=== PATIENT | male | born 1970 | race Caucasian/White ===

== ENCOUNTER 2017-06-01 16:25 | Emergency (ER) | payer MEDICAID, SELFPAY ==
[2017-06-01 16:26] VITALS: BP 170/102; PULSE 92; RESP 20; TEMP 36.7; O2SAT 97; BMI 43.9
--- NOTE | 2017-06-01 16:50 | RAD_ITS ---
STUDY: X-RAY CHEST REASON FOR EXAM: Male, 46 years old. Cold symptoms. Fever. TECHNIQUE: PA and lateral views of the chest. COMPARISON: None. FINDINGS: Group counseling The lungs are clear and expanded. There is no demonstrated pleural abnormality. Normal size heart. Normal mediastinum and helene. Normal visualized pulmonary arteries. Normal visualized aortic arch and descending thoracic aorta. There are mild degenerative changes of the visualized thoracic spine. Normal visualized ribs, clavicles, and shoulders. There is no demonstrated abnormality of the visualized soft tissue structures of the upper abdomen. RAD/Chest PA and Lateral IMPRESSION: No acute cardiopulmonary disease. Electronically Signed: George Camarena DO at 17:34 EST Tel [phone], Service support ,
[2017-06-01] MEDS: 0.9% Normal Saline 1,000 ML 1000 ML IV (16:59)
[2017-06-01 17:05] LABS: Absolute Neutrophil Count 4.9 X10^3/uL (2.0-7.7); Basophil# 0.01 X10^3/uL; Basophil% 0.2 % (0-1); Eosinophils% 1.5 % (0-5); Hematocrit 40.4 % (40-54); Hemoglobin 13.8 g/dl (13.0-16.5); Lymphocyte % 18.1 % (19-41); Mean Corp Hgb Conc 34.2 g/gl (32-36); Mean Corpuscular Hgb 29.6 pg (27.0-32.0); Mean Corpuscular Volume 86.7 fL (80-94); Mean Platelet Vol. 9.3 fl (6.2-12.0); Monocyte# 0.43 X10^3/uL; Monocyte% 6.5 % (0-10); Neutrophil # 4.86 X10^3/uL (2.7-7.7); Neutrophil % 73.4 % (47-70); POSITIVE COUNT NO; POSITIVE DIFFERENTIAL NO; POSITIVE MORPHOLOGY NO; Platelet Count 228 K/mm3 (150-450); RBC Distribution Width SD 43.4 fl (35.1-43.9); Red Blood Count 4.66 M/mm3 (4.6-6.2); White Blood Count 6.6 K/mm3 (4.4-11.0)
[2017-06-01 17:08] LABS: International Normalized Ratio 0.9; Prothrombin Time (Protime)PT. 12.1 SECONDS (11.7-14.9)
[2017-06-01 17:09] LABS: Partial Thromboplast Time 29.2 Seconds (24.1-36.2)
[2017-06-01 17:12] LABS: Erythrocyte Sedimentation Rate 10 mm/hr (0-15)
[2017-06-01 17:23] LABS: AST(SGOT) 35 U/L (15-37); Alanine Aminotransfer ALT/SGPT 37 U/L (16-61); Albumin, Serum 3.6 g/dL (3.2-5.0); Alkaline Phosphatase 43 U/L (45-117); Anion Gap 11 (5-15); BUN 17 mg/dL (7-18); Bilirubin, Direct 0.14 mg/dL (0.00-0.30); Calcium,Total 8.5 mg/dL (8.5-10.1); Chloride 108 mmol/L (98-107); Creatinine, Serum 1.13 mg/dL (0.70-1.30); EST Glomerular Filtration Rate 74 mL/min (>60); Est Glom Filt Rate - Afr Amer 90 mL/min (>60); Estimated Creatinine Clearance 81.68 ml/min; Globulin 3.4 g/dL (2.2-4.2); Glucose 88 mg/dL (74-106); Potassium 3.5 mmol/L (3.5-5.1); Sodium Level 141 mmol/L (136-145)
[2017-06-01 19:21] LABS: Bacteria 0 SEEN /hpf (None Seen); Mucous, Urine 0 SEEN /hpf (<or=2+); Red Blood Cells-Urine 0 SEEN /hpf (0-5); Squamous Epithelial Cells - UA 0 SEEN /hpf (0-5); White Blood Cells 0 SEEN /hpf (0-5)
[2017-06-01 19:34] LABS: Color, Urine Yellow (Yellow); Glucose, Dipstick Normal (Normal); Ketone-Dipstick Negative (Negative); Leukocyte Esterase-Dipstick Negative /ul (Negative); Nitrite-Dipstick Negative (Negative); Occult Blood-Urine 25 /ul (Negative); Protein-Dipstick Negative (Negative); Urine Bilirubin Dipstick Negative (Negative); Urine Clarity Clear (Clear); Urine Urobilinogen Normal (Normal)
--- NOTE | 2017-06-01 19:43 | ED.VISSUMM ---
- ER Visit Summary Date of Service: 06/01/17 Chief Complaint: Rash and blood in stool History of Present Illness: The patient is a [address] Rubi. He reports that he has a rash on his legs that began last night. He denies any injuries. States that he has had a fever to 101. He has had a cough productive yellow sputum without blood for the past 5 days. He has mild shortness of breath. Patient reports that he has had a proximal 10 episodes of diarrhea today. The last one was bloody. Patient has had sick contacts. Has not been camping out of the country. No possible bad food exposure. Does not drink well water. No recent antibiotic use. Physical Examination: Vitals: Stable. Afebrile. General: Well-nourished and well-developed. Head: Normocephalic atraumatic. Neck: Supple, no lymphadenopathy. No JVD. Nontender. Cardiovascular: Regular rate and rhythm. No murmurs. Respiratory: No respiratory distress. Clear to auscultation bilaterally. Abdominal: Soft, nontender, nondistended, normal bowel sounds. No guarding, rebound, or peritoneal signs. Back: Nontender. Extremities: Nontender, no edema. Skin: Purpuric rash to the medial sides of his legs bilaterally. This is approximately 3 cm wide and 6 cm long. It is symmetric. It is not palpable. There are no petechiae. Neurologic: Alert and oriented ?3. Cranial nerves II through XII are intact. Normal strength and sensation. Psych: Normal affect. Test Results: CBC is remarkable for segment neutrophils of 73 lymphocytes of 18. His platelets are normal at 228. Chem-7 is more for chloride of 108. Coags are normal. LFTs marked for an alk phos of 43. UA shows occult blood. ESR is 10. CRP is 13.7. Chest x-ray shows chronic changes. Emergency Department Course and Treatment: Patient is resting comfortably and does not appear ill. There is no evidence that he has DIC. His platelets are normal. He does not have ITP or TTP. He had a stool here that was brown, but heme positive. There was bright red blood on the tissue. I do not appreciate any anal fissure. He does not have external hemorrhoids. Treatment Plan: At this time I do not feel that any further workup would be done on him as an inpatient. However, I do not have an explanation for the purpura to his legs. He was discussed with Dr. Joshua Lindsey III and will follow up in the office in 2 days for further evaluation. Return to the emergency department for any worsening symptoms. Disposition: To home in improved and stable condition. Impression: 1. Purpura to legs. 2. URI. 3. Bloody diarrhea. This note was generated with fake company 2[employer] dictation software. It may contain incorrect words, spelling, and punctuation that were not noted in review of the chart prior to signing ED Disposition - Plan for ED Patient: Disposition: Home or Assisted Living Chief Complaint: General Illness Instructions: ED Upper Resp Infec No Abx Tx Referrals: Wm Rubi MD [Primary Care Provider] - Joshua Lindsey Jr. [HONORARY STAFF] - 3-5 Days
[2017-06-01 19:58] VITALS: BP 151/91; PULSE 96; RESP 20; O2SAT 97
== END 2017-06-01 19:59 | disposition home or self-care (01) ==
PROVIDERS: Emergency Provider Emergency Medicine; Family Provider Family Medicine; PCP Family Medicine
DX: D69.2 Other nonthrombocytopenic purpura (principal); J06.9 Acute upper respiratory infection, unspecified; K92.1 Melena; R19.7 Diarrhea, unspecified; I10 Essential (primary) hypertension
CPT/HCPCS: 71046; 80048; 80076; 81001; 82274; 85025; 85610; 85652; 85730; 86140; 96360; 96361; 99284; J7030; A4216

== ENCOUNTER → 2017-08-10 12:26 | Outpatient (CLI) | payer MEDICAID, SELFPAY ==
--- NOTE | 2017-08-10 12:55 | RAD_ITS ---
STUDY: X-RAY - LUMBAR SPINE REASON FOR EXAM: Male, 47 years old. Back pain, chronic arthritis, numbness in bilateral legs, sharp pain. TECHNIQUE: 3 view(s) of the lumbar spine were obtained. COMPARISON: None FINDINGS: Normal lumbar lordosis. There is no substantial scoliosis. There is a normal alignment of the vertebrae. Mild sclerosed endplates with mild joint space narrowing L4-5, more L5 S1. There is facet arthropathy. Suspicion for nondisplaced spondylolysis L5-S1, not excluded L4-5. The soft tissue structures are unremarkable. RAD/Lumbar Spine 2 or 3 Views IMPRESSION: Lower lumbar degenerative changes, spondylolysis L5-S1 suspected, not excluded L4-5 without listhesis. Electronically Signed: Margo Long MD at 6:33 EDT , Service support ,
== END ==
PROVIDERS: Family Provider Family Medicine; PCP Family Medicine
DX: M54.5 Low back pain (principal)
CPT/HCPCS: 72100

== ENCOUNTER 2017-10-20 14:14 | Emergency (ER) | payer MEDICAID, SELFPAY ==
[2017-10-20 14:15] VITALS: BP 161/92; PULSE 110; RESP 20; TEMP 37; O2SAT 97; BMI 44.3
--- NOTE | 2017-10-20 15:30 | RAD_ITS ---
STUDY: X-RAY - RIGHT FOOT CLINICAL: Male, 47 years old. Right foot puncture wound TECHNIQUE: 3 view(s) of the foot. COMPARISON: None. FINDINGS: No acute osseous findings. At the plantar aspect of the base of the fourth metatarsal region, there is a metallic needle within the soft tissues. RAD/Foot min 3 Views IMPRESSION: Foreign body as above Electronically Signed: Dick Mireles DO at 16:09 EDT Tel , Service support ,
--- NOTE | 2017-10-20 15:40 | ED.VISSUMM ---
- ER Visit Summary Date of Service: 10/20/17 Chief Complaint: [Pain right foot History of Present Illness: The patient is a 47 M [presents to the emergency department complaint of pain in his right foot. Patient states that he stepped on a sewing needle 5 days ago. Patient was seen by his primary care physician 2 days ago, Dr. Rubi. Patient had x-rays that showed remaining portion of needle still in the foot. Patient states that an attempt was made to find the needle and remove it unsuccessfully. Patient was referred for follow-up with surgeon and with Michelle but states that he cannot get to the dining. Patient was started on an antibiotic and states he has had increased pain over the last couple of days. Patient denies any fever. Patient denies any increased redness to the foot.] Physical Examination: [Right foot-patient has a small puncture wound noted to the plantar midfoot that is tender to palpation. No significant foreign body palpated. No lymphangitic streaking or significant cellulitis noted.] Test Results: [X-rays of the right foot were obtained] which showed foreign body over the base of the fourth metatarsal. Emergency Department Course and Treatment: [Case was discussed with of podiatry who presented to the emergency department to evaluate patient and review x-rays. It was felt that patient would benefit from outpatient follow-up and removal in the operating room.] Treatment Plan: [Patient will be given a prescription for [place] for pain and advised to continue with the antibiotics. Patient did not want crutches] Disposition: [Discharged home in stable condition. Patient advised to return if fever, increased redness, swelling, or condition should worsen in any way.] Impression: [Right foot foreign body-retained] This note was generated with [employer] dictation software. It may contain incorrect words, spelling, and punctuation that were not noted in review of the chart prior to signing ED Disposition - Plan for ED Patient: Chief Complaint: Lower Extremity Injury Referrals: Wm Rubi MD [Primary Care Provider] -
--- NOTE | 2017-10-20 16:34 | CON.PCM_ITS ---
Problem List (1) Foreign body in right foot Status: Acute (2) Right foot pain Status: Acute Reason for Consult Date of Consultation: 10/20/17 Reason for Consultation: right foot needle pain History of Present Illness: The patient is a 47 year old M was seen bedside in the emergency room for right foot pain. He stepped on a needle this past week (five days ago) at home and pulled part of the fragment out. He has continue pain and swelling. He was seen by his PCP, Dr. Rubi who started him on oral antibiotics and attempted to remove the needed in the clinical setting; it remains in the foot. He relates he got updated in 2011. Past Medical History Allergies Sulfa (Sulfonamide Antibiotics) Allergy (Verified 10/20/17 14:17) Unknown Home Medications: Ambulatory Orders Medication Instructions Recorded Anxiety Med 08/26/16 Bp Med 08/26/16 Hydrocodone/Acetaminophen [[place] 1 - 2 ea PO 4X/DAY PRN PRN 3 Days 10/20/17 5-325 Tablet] #12 tab Surgical History: tonsillectomy Lives: - - he is currently not working Smoking Status: Never smoker Review of Systems Constitutional: Denies: Chills, Fever, Weakness, Fatigue Cardiovascular: Denies: Chest Pain, Claudication Respiratory: Denies: Shortness of Breath Gastrointestinal: Denies: Nausea, Vomiting Musculoskeletal: Reports: Foot Pain. Denies: Leg Pain Skin: Denies: Rash, Skin Changes, Wounds Neurological: Denies: Numbness, Tingling Hematologic/ Lymphatic: Denies: Easy Bruising - Physical Exam General: Alert, Oriented x3, Cooperative HEENT: Atraumatic Extremities: No cyanosis, Capillary Refill Less than 3 Seconds - all digits right foot, Peripheral Pulses Normal - 2/4 PT and DP right lower extremity Skin: Ulcer/ Wound - pinpoint skin escoriation at level of plantar needle entry likely from local anesthetic administration from his recent attempted removal in the clinical setting with peripheral edema. there is no kelly erythema, purulence, fluctuance on palpation, necrosis, active drainage or acute infection signs Musculoskeletal: No Muscle Wasting, Tenderness - plantar arch palpation discmofort; compartments remain soft. no pain or crepitus noted with manipulation or palpation of the midfoot or the metetatarsal phalangeal joints. , - - negative alex and chapman sign bilateral. active range of motion of ankle and all digits noted right lower extremity Neurological: Sensory exam intact to light touch and pain - foot and ankle dermatomes., - Psych/Mental Status: Normal Affect, Appropriate Vital Signs Temp Pulse Resp BP Pulse Ox 98.6 F 110 H 20 H 161/92 H 97 10/20/17 14:15 10/20/17 14:15 10/20/17 14:15 10/20/17 14:15 10/20/17 14:15 Oxygen Delivery Method Room Air Weight: 136.078 kg Body Mass Index (BMI) 44.3 Assessment/Plan All Active Problems Foreign body in right foot (Acute) Right foot pain (Acute) Right foot foreign body; needle Right foot pain I reviewed and discussed his case. He had updated foot x-rays obtained while in the emergency room and these are reviewed and discussed. There appears to be a 1-1/2 cm metallic body consistent with a needle please that is entrapped into the plantar arch of the foot beyond the skin layers. This also appears to be deep to the fourth metatarsal proximal diaphysis and base. There are no acute fractures or dislocations or soft tissue emphysema or other foreign bodies noted. This is painful and he has been wearing a surgical shoe for protection. This was evaluated and appears to be appropriate. I recommend he keep weight off of his foreign body site by placing weight on his heel and limiting activity. He was started on antibiotics by Dr. Rubi and I recommend he complete his course. There is no active drainage and a culture could not be obtained. If his local symptoms of infection noted after discharge from the emergency room he was advised to call the foot and ankle center immediately. His tetanus was updated in 2011 and this is noted. I recommend removal of the foreign body in the operating room setting under guided fluoroscopy. He will be scheduled for next week. The [facility] and ankle center surgical corsetier will contact him on Sunday. The surgical indications, planned procedure, benefits, risks, complications, and anticipated healing time and management were discussed in detail with patient. He understands and elects to proceed at this time. This can be done in the outpatient setting under general local anesthesia. He understands an incision to the plantar aspect of the foot will be required. To take norco as needed for pain control. He was advised on safe use. I answered all his questions. Thank you very much for the consultation. This case was discussed with emergency room physician Dr. Preciado. Maura Valles DPM, [facility] [phone]
--- NOTE | 2017-10-20 16:52 | DCINST.ED_ITS ---
ED Disposition - Plan for ED Patient: Chief Complaint: Lower Extremity Injury Instructions: ED Foreign Body Soft Tissue Prescriptions: Hydrocodone/Acetaminophen [[place] 5-325 Tablet] 1 - 2 ea PO 4X/DAY PRN PRN 3 Days #12 tab PRN Reason: Pain Referrals: Wm Rubi MD [Primary Care Provider] - Maura Valles DPM [STAFF PHYSICIAN] - 3-5 Days
[2017-10-20 16:59] VITALS: BP 119/73; PULSE 91; RESP 18
== END 2017-10-20 16:59 | disposition home or self-care (01) ==
LOC: ED 16:42
PROVIDERS: Emergency Provider Emergency Medicine; Family Provider Family Medicine; PCP Family Medicine
DX: M79.5 Residual foreign body in soft tissue (principal); I10 Essential (primary) hypertension; F41.9 Anxiety disorder, unspecified; Z79.899 Other long term (current) drug therapy
CPT/HCPCS: 73630; 99282

== ENCOUNTER → 2017-10-23 14:54 | Outpatient (CLI) | payer MEDICAID, SELFPAY ==
[2017-10-23 18:02] LABS: Absolute Neutrophil Count 3.9 X10^3/uL (2.0-7.7); Basophil# 0.01 X10^3/uL; Basophil% 0.2 % (0-1); Eosinophil# 0.05 X10^3/uL; Eosinophils% 0.8 % (0-5); Hematocrit 45.1 % (40-54); Hemoglobin 15.7 g/dl (13.0-16.5); Lymphocyte % 24.8 % (19-41); Mean Corp Hgb Conc 34.8 g/gl (32-36); Mean Corpuscular Hgb 30.1 pg (27.0-32.0); Mean Corpuscular Volume 86.6 fL (80-94); Mean Platelet Vol. 9.9 fl (6.2-12.0); Monocyte# 0.52 X10^3/uL; Monocyte% 8.6 % (0-10); Neutrophil # 3.94 X10^3/uL (2.7-7.7); Neutrophil % 65.1 % (47-70); POSITIVE COUNT NO; POSITIVE DIFFERENTIAL NO; POSITIVE MORPHOLOGY NO; Platelet Count 310 K/mm3 (150-450); RBC Distribution Width CV 14.2 % (11.6-14.6); RBC Distribution Width SD 45.3 fl (35.1-43.9); Red Blood Count 5.21 M/mm3 (4.6-6.2); White Blood Count 6.1 K/mm3 (4.4-11.0)
[2017-10-23 18:11] LABS: AST(SGOT) 19 U/L (15-37); Alanine Aminotransfer ALT/SGPT 40 U/L (16-61); Albumin, Serum 3.7 g/dL (3.2-5.0); Alkaline Phosphatase 56 U/L (45-117); Anion Gap 10 (5-15); BUN 13 mg/dL (7-18); BUN/Creat Ratio 8.3 RATIO (10-20); Calcium,Total 8.6 mg/dL (8.5-10.1); Chloride 111 mmol/L (98-107); Creatinine, Serum 1.56 mg/dL (0.70-1.30); EST Glomerular Filtration Rate 51 mL/min (>60); Est Glom Filt Rate - Afr Amer 62 mL/min (>60); Globulin 3.8 g/dL (2.2-4.2); Glucose 146 mg/dL (74-106); Potassium 3.6 mmol/L (3.5-5.1); Protein, Total 7.5 g/dL (6.4-8.2); Sodium Level 141 mmol/L (136-145)
== END ==
PROVIDERS: Visit Provider Family Medicine
DX: Z01.818 Encounter for other preprocedural examination (principal)
CPT/HCPCS: 36415; 80053; 85025

== ENCOUNTER 2017-10-25 07:19 | Day surgery (SDC) | payer MEDICAID, SELFPAY ==
--- NOTE | 2017-10-25 07:28 | EKG12_ITS ---
Test Reason : PRE OP Blood Pressure : / mmHG Vent. Rate : 098 BPM Atrial Rate : 098 BPM P-R Int : 142 ms QRS Dur : 088 ms QT Int : 350 ms P-R-T Axes : 043 007 043 degrees QTc Int : 446 ms Normal sinus rhythm Normal ECG When compared with ECG of 29-APR-2016 20:59, No significant change was found Confirmed by ARMAND OCAMPO, BERNABE ([id number]), non linear editor SHAHRIAR MARTINS ([id number]) on 10/30/2017 1:09:05 PM Referred By: Maura Valles Confirmed By:BERNABE ACUNA MD
[2017-10-25 07:43] VITALS: BP 152/94; PULSE 102; RESP 16; TEMP 36.3; O2SAT 98; BMI 44.9
[2017-10-25] MEDS: Cefazolin 2 GM in 0.9% Normal Saline 100 ML IV (09:24)
[2017-10-25] MEDS: Bupivacaine Mpf 0.5% 30 ML VIAL (09:24)
--- NOTE | 2017-10-25 09:30 | RAD_ITS ---
STUDY: X-RAY - RIGHT FOOT CLINICAL: Male, 47 years old. Foreign body removal. TECHNIQUE: 2 coned down intraoperative view(s) of the foot. COMPARISON: Comparison is made with prior study dated October 20, 2017. FINDINGS: The previously seen radiopaque foreign body overlying the base of the fourth metatarsal is not seen at this time. RAD/Foot 2 Views IMPRESSION: The previously seen foreign body overlying the base of the fourth metatarsal is not seen at this time. Electronically Signed: Nael Duvall MD at 13:08 EDT Tel [phone], Service support ,
[2017-10-25 10:01] VITALS: BP 111/76; BP 152/94; PULSE 87; RESP 16; TEMP 36.1; O2SAT 99
--- NOTE | 2017-10-25 10:03 | PCM.IMDPSTOP ---
Problem List (1) Foreign body in right foot Status: Acute Qualifiers: Encounter type: subsequent encounter Qualified Code(s): S90.851D - Superficial foreign body, right foot, subsequent encounter (2) Right foot pain Status: Acute Immediate Post-Op Note Date of Procedure: 10/25/17 Primary Surgeon/Physician: Maura Valles DPM bi manager: none Pre-Operative Diagnosis: retained painful foreign body right foot Post-Operative Diagnosis: retained painful foreign body right foot Surgery/Procedure Performed:: removal of right foot foreign body Description of Surgical Findings:: no purulence or necrosis metallic needle removed measures about 1.3 cm length see detailed operation report The patient tolerated the procedure and anesthesia well. He was transported to the PACU with vital signs stable and vascular status intact to the right lower extremity. He will be discharged home upon continued stability. Hospital transportation has been arranged. Deep wound cultures was taken. Postoperative x-rays were obtained prior to leaving the operative room demonstrating remove foreign body. Postoperative orders were entered electronically. Estimated Blood Loss: < 50 mL Specimen's removed: needle foreign body Type of Anesthesia:: Local MAC - preoperative injection: 1:1 mix of 1% lidocaine plain and 0.5% Marcaine plain administered in typical right lower extremity tibial nerve block and local infiltration; 13 mL - Admit VTE Documentation VTE Present on Admission: No VTE Mechan Device Prophylaxis: SCD's VTE Pharm Prophylaxis ordered?: No Reason prophylaxis not ordered:: Treatment Not Indicated
[2017-10-25 10:05] VITALS: BP 105/65; BP 152/94; PULSE 88; RESP 16; O2SAT 98
--- NOTE | 2017-10-25 10:06 | OP.PN_ITS ---
Problem List (1) Foreign body in right foot Status: Acute Qualifiers: Encounter type: subsequent encounter Qualified Code(s): S90.851D - Superficial foreign body, right foot, subsequent encounter (2) Right foot pain Status: Acute Immediate Post-Op Note Date of Procedure: 10/25/17 Primary Surgeon/Physician: Maura Valles DPM state farm agent: none Pre-Operative Diagnosis: retained painful foreign body right foot Post-Operative Diagnosis: retained painful foreign body right foot Surgery/Procedure Performed:: removal of right foot foreign body Description of Surgical Findings:: no purulence or necrosis metallic needle removed measures about 1.3 cm length see detailed operation report The patient tolerated the procedure and anesthesia well. He was transported to the PACU with vital signs stable and vascular status intact to the right lower extremity. He will be discharged home upon continued stability. Hospital transportation has been arranged. Deep wound cultures was taken. Postoperative x-rays were obtained prior to leaving the operative room demonstrating remove foreign body. Postoperative orders were entered electronically. Estimated Blood Loss: < 50 mL Specimen's removed: needle foreign body Type of Anesthesia:: Local MAC - preoperative injection: 1:1 mix of 1% lidocaine plain and 0.5% Marcaine plain administered in typical right lower extremity tibial nerve block and local infiltration; 13 mL - Admit VTE Documentation VTE Present on Admission: No VTE Mechan Device Prophylaxis: SCD's VTE Pharm Prophylaxis ordered?: No Reason prophylaxis not ordered:: Treatment Not Indicated
[2017-10-25 10:10] VITALS: BP 108/93; BP 152/94; PULSE 93; RESP 16; O2SAT 99
[2017-10-25 10:11] VITALS: BP 114/78; BP 152/94; PULSE 86; RESP 18; TEMP 36.1; O2SAT 99
--- NOTE | 2017-10-25 10:13 | OP.PCM_ITS ---
Problem List (1) Foreign body in right foot Status: Acute Qualifiers: Encounter type: subsequent encounter Qualified Code(s): S90.851D - Superficial foreign body, right foot, subsequent encounter (2) Right foot pain Status: Acute Report of Operation Date of Procedure: 10/25/17 Pre-Operative Diagnosis: retained painful foreign body right foot Post-Operative Diagnosis: retained painful foreign body right foot Surgery/Procedure Performed:: removal of right foot foreign body Description of Surgical Findings:: Hemostasis: Anatomic dissection. Tourniquet was not utilized. Materials: 2-0 nylon Complications: None Specimens: Metallic foreign body removed suction drum drier operator: none Type of Anesthesia:: Local MAC - preoperative injection: 1:1 mix of 1% lidocaine plain and 0.5% Marcaine plain administered in typical right lower extremity tibial nerve block and local infiltration; 13 mL Specimen's removed: needle foreign body Estimated Blood Loss (mL): < 50 mL Description of Procedure: Indications: his is a 47-year-old male with no significant past medical history who stepped on a needle approximately 1-1/2 weeks ago. He relates he pulled hard out in the remainder of the needle deep in the foot. His primary care physician try to perform an in office procedure to the right of this and this was not successful. The patient also try to get this out on his own. He has continued pain and now has worsening inflammation and swelling to this area. Clinically his neurovascular status is intact with palpable PT and DP pulses the right lower extremity and there is an excoriation to the plantar foot at the presumed entry point as well as previous local anesthetic injection site. There is no purulence on expression, drainage, or odor. There is edema and slight inflammation erythema adjacent to the site. There is pain on palpation to the aspiration site and adjacent to the sites without pain with adjacent joint manipulation. The preoperative indications, planned procedure, possible benefits, risks, and anticipated healing time is were discussed in detail the patient. He understands and elects to proceed with surgery at this time. He understands complications may include but are not limited to the following: Infection, delayed or nonhealing, continued retained foreign body, chronic regional pain syndrome, numbness, scarring, continued pain and swelling, allergic reaction, loss of limb function or life. Informed surgical consent and the surgical limb were signed. His preoperative clearance and history and physical exam was reviewed from Dr. Jolliff. His preoperative CMP and CBC were also reviewed without gross abnormalities. Procedure in detail: Patient was transferred to the operating room via cart and placed on the operating table in supine position. Final verification the patient, surgery, limb designation was performed via the timeout procedure. A well-padded pneumatic right ankle tourniquet was placed however this was not utilized. Preoperative local anesthetic was administered as noted above. The MAC anesthesia was initiated by the anesthesia team. Antibiotics were administered as ordered. The right lower extremity was prepped and draped in the usual aseptic manner. Intraoperative fluoroscopy was utilized to triangulate and locate the foreign body which is adjacent to the most distal most excoriation site. Next, a 1-1/2 cm linear incision was made through the skin and blunt dissection was performed down with a hemostat. Care is taken to identify, retract, and protect all neurovascular structures at this time and throughout the remainder of the procedure. Suction was utilized to control hemostasis and the tissue was gently dissected through adipose layer until the plantar fascia band was identified. Upon dissection glistening of the metallic foreign body was visualized and a hemostat was used to extract this from the foot. This was removed in total and intraoperative fluoroscopy was utilized to confirm removal of the entire foreign body. No purulence or deep necrosis was noted. Aerobic and anaerobic cultures were obtained. Copious saline irrigation was performed. The skin edges were reapproximated with 2-0 nylon utilizing no touch technique. A postoperative dressing consisting of Betadine gauze, dry gauze, Kerlix, Markie wrap were applied. After procedure: The patient tolerated the procedure and anesthesia well. He will be transferred to the PACU vital signs stable and vascular status intact. Postoperative x-rays were reviewed as noted. Aerobic and anaerobic culture results are pending and were taken in case of infection develops during the postoperative course. He already has an offloading Cam walker boot with offloading liners and he was advised to only heel weightbearing use crutches for assistance. He was advised on safe and proper pain medication use of [place]. He was advised to ice and elevate his limb. He was advised to keep his dressing clean dry and intact until he follows up with me at the foot and ankle center in 1 week. All of his postoperative orders were entered electronically and he will be discharged home today. Maura Valles DPM, [facility]
--- NOTE | 2017-10-25 10:16 | PCM.DC.POD ---
Discharge Diet: No Restrictions Weight Bearing Status: Partial weight bearing - right with cam walker boot and crutches for assistance Keep extremity elevated above heart level: Right Leg Call your doctor if your incision/area has: Continuous Slow Oozing, Sudden Increased Bleeding, Increased Pain/ Swelling, Increased Redness, Foul Smelling Discharge, Swelling at the incision site Call your doctor if you observe: Fever of 101 or Higher, Numbness or Tingling, Calf discomfort, Uncontrolled pain Cleanse incision/area with: Keep Dressing Clean & Dry Allergies/Adverse Reactions: Allergies Sulfa (Sulfonamide Antibiotics) Allergy (Verified 10/23/17 13:23) Unknown Medications to take at Discharge Hydrocodone/Acetaminophen [[place] 5-325 Tablet] 1 - 2 ea PO 4X/DAY PRN PRN 3 Days #12 tab 10/20/17 Ciprofloxacin [Cipro] 500 mg PO BID 10/23/17 Doxycycline 100 mg PO BID 10/23/17 Etodolac 400 mg PO BID 10/23/17 Lisinopril [Zestril] 30 mg PO DAILY 10/23/17 Sertraline HCl [Zoloft] 50 mg PO DAILY 10/23/17 Hydrocodone/Acetaminophen [Hydrocodon-Acetaminophen 5-325] 1 - 2 tab PO Q6H PRN PRN #10 tab 10/25/17 The following prescriptions were given: Hydrocodone/Acetaminophen [Hydrocodon-Acetaminophen 5-325] 1 - 2 tab PO Q6H PRN PRN #10 tab PRN Reason: Pain Primary Care Physician: Wm Rubi MD [Primary Care Provider] - Test Results: Please Follow Up With: Maura Valles DPM When: 1 week at [facility]; [phone] Proposed Discharge Date: 10/25/17
[2017-10-25 11:17] VITALS: BP 152/94
== END 2017-10-25 11:17 | disposition home or self-care (01) ==
LOC: SDC 07:20 → AC 07:21
PROVIDERS: Family Provider Family Medicine; PCP Family Medicine; Visit Provider Podiatrist
PROC: (CPT 28190; principal; 2017-10-25 08:50)
DX: M79.5 Residual foreign body in soft tissue (principal); I10 Essential (primary) hypertension; F32.9 Major depressive disorder, single episode, unspecified; F41.9 Anxiety disorder, unspecified; M46.92 Unspecified inflammatory spondylopathy, cervical region; M46.96 Unspecified inflammatory spondylopathy, lumbar region; Z79.899 Other long term (current) drug therapy; Z87.891 Personal history of nicotine dependence
CPT/HCPCS: 28190; 73620; 76000; 87070; 87075; 87205; 93005; J7120

== ENCOUNTER → 2017-12-19 12:06 | Outpatient (CLI) | payer MEDICAID, SELFPAY | PROVIDERS: Family Provider Family Medicine; PCP Family Medicine; Visit Provider Nurse Practitioner Family | DX: M54.2 Cervicalgia (principal) | CPT/HCPCS: 72050 ==

== ENCOUNTER 2018-01-10 15:30 | Outpatient (RCR) | payer MEDICAID, SELFPAY ==
--- NOTE | 2018-01-04 16:20 | HP.PTEVAL ---
Patient's Visit Information KISHAN MARTINS is a 47 year old M referred to Physical Therapy by FAITH Summers with a diagnosis of LUMBAR DDD, SPONDYLOSIS, RADICULOPATHY, STENOSIS AND FACET ARTHROPATHY.. Date of Evaluation: 01/04/18 Physical Therapist: Rosetta Barker - Visit Plan Frequency: 2-3x /Week Duration: 4-6 Weeks Plan: AQUATIC THERAPY FOR PAIN RELEIF, POSTURE CORRECTION/STRENGTHENING, INSTRUCTION IN APPROPRIATE BODY MECHANICS AND ACTIVITY MODIFICATIONS. DLS STARTING WITH A NEUTRAL SPINE PROGRESSING ROM TOLERATED. RADHA LE ROM, STRETCHING AND STRENGTHENING. HEP INSTRUCTION. - Subjective Subjective: Work/Leisure: UNEMPLOYEED. Disability: NO. Present symptoms: LOW BACK PAIN - CONSTANT. RADHA LE PAIN, NUMBNESS AND TINGLING OF ENTIRE LEGS RIGHT > LEFT THAT IS INTERMITTENT. Present since: AGE 35. Pain Scale: LBP: WORST 9/10, LEAST 5/10. LEGS: WORST 8/10, LEAST 0/10. Currently: LBP 7/10. LE'S 7/10. Commenced as a result of: NO APPARENT REASON. Symptoms at onset: LOW BACK. Worse: WALKING A LOT. PRONLONGED SITTING. Better: SITTING FOR SHORT PERIODS. STEROID PILLS THAT HE STARTED TODAY. Disturbed sleep: YES. Previous history/Previous treatment: PHYSICAL THERAPY AT [facility]. BENIGNO X [address] ABOUT [address] TAPIA - HELPED FOR ABOUT A WEEK. NO BACK SURGERY. CHIROPRACTIC ESTIM AND NOT SURE HOW MANY TIMES OR WHAT ELSE THEY DID. Coughing/sneezing/straining: NEGATIVE. Gait: NO AD'S. Difficulty initiating urinatin: NO. Accidents: TRIPPED OVER GARDEN HOSE A FEW YEARS AGO AND DISLOCATED RIGHT SHOULDER. Unexplained weight loss: NO. Imaging: LOW BACK X-RAY. NO MRI BUT WANTS TO HAVE ONE. PMH: NECK AND SHOULDER PAIN. HTN. ANXIETY. Recent major surgery: UNREMARKABLE. - Objective Sitting/Standing Posture: POOR. Lordosis: REDUCED. Lateral shift: NO. Relevant shift: N/A. Active Correction of posture: NE. Other Observations: INDEP GAIT AND TRANSFERS WITHOUT AD. Motor deficit: RADHA LE'S 5/5 WITH MMT'ING EXCEPT FOR HIPS GRADED 4/5. Sensory deficit: DECREASED RIGHT LATERAL THIGH LIGHT TOUCH COMPAIRED TO LEFT. ROM deficit: RADHA LE HS, HIP EXTERNAL ROTATOR AND GASTROC SOLEUS TIGHTNESS. Reflexes: RIGHT QUAD AND ACHILLES 1/2, LEFT QUAD AND ACHILLES 2/2. Dural Signs: POSITIVE RADHA LE DURAL SIGNS. Lumbar mvmt loss: flex - MOD. ext - MOD. R SG - MOD. L SG - MOD. C/O MILD INCREASED LBP WITH LUMBAR ROM TESTING ALL PLANES. Core strength: POOR. Palpation: C/O MILD TENDERNESS WITH PALPATION OF THE LOWER LUMBAR AND SACRAL REGIONS INTO RADHA HIPS. - Goals Goal 1:: DECREASE C/O LOW BACK AND RADHA LE SX'S. Goal Time Frame: 4-6 Weeks Goal 2:: IMPROVE SITTING, BENDING, LIFTING, STANDING, WALKING , TRAVEL AND EMPLOYMENT/HOMEMAKING FUNCTION Goal Time Frame: 4-6 Weeks Goal 3:: INSTRUCT IN PROPHYLAXIS Goal Time Frame: 4-6 Weeks - Rehabilitation Potential Rehabilitation Potential: Fair - Anticipated Interventions Patient/Client Instruction: Educate patient on: Condition, Plan of Care, Risk Factors, Benefits of Fitness Program For the Purpose of:: To improve self management Therapeutic Exercise to Include: Strength training, Body mechanics, Postural training, Flexibilty training, In an aquatic setting, Dynamic Lumbar Stabilization For the Purpose of:: To decrease pain, To increase ROM, To improve muscle performance and motor function, To increase tolerance to activity/condition/position, To improve ability of physical actions for home/community/work/leisure, To improve gait and locomotor functions Thank you for the opportunity to evaluate your patient. For Medicare and Medicare HMO plans, please review the plan of care and approve it. It will need to be FAXED BACK to us at [phone] for Medicare purposes. Please let me know if there are questions or concerns regarding this plan of care. Physician Signature: Date:
--- NOTE | 2018-02-07 12:37 | HP.PT.NRP ---
HP - Discharge Summary (1) - Patient Information KISHAN MARTINS was seen in my office for initial evaluation on 01/04/18. The following Plan of Care was established for this patient: Initial Frequency: 2-3x /Week Initial Duration: 4-6 Weeks - Anticipated Interventions Patient/Client Instruction: Educate patient on: Condition, Plan of Care, Risk Factors, Benefits of Fitness Program For the Purpose of:: To improve self management Therapeutic Exercise to Include: Strength training, Body mechanics, Postural training, Flexibilty training, In an aquatic setting, Dynamic Lumbar Stabilization For the Purpose of:: To decrease pain, To increase ROM, To improve muscle performance and motor function, To increase tolerance to activity/condition/position, To improve ability of physical actions for home/community/work/leisure, To improve gait and locomotor functions This patient was last seen in our office . Pertinent comments regarding their Physical therapy will appear below: This patient has not returned to Physical Therapy and is appropriate to return to MD for further follow-up as needed. At this point I will be discontinuing this patient from physical therapy. I would be happy to see this patient again in the future if found appropriate by the physician. Thank you! Rosetta Barker
== END 2018-01-10 19:00 | disposition home or self-care (01) ==
LOC: PT 15:30
PROVIDERS: Family Provider Family Medicine; PCP Family Medicine; Visit Provider Nurse Practitioner Family
DX: M51.37 Other intervertebral disc degeneration, lumbosacral region (principal); M47.817 Spondylosis without myelopathy or radiculopathy, lumbosacral region; M54.17 Radiculopathy, lumbosacral region; M48.07 Spinal stenosis, lumbosacral region; M46.96 Unspecified inflammatory spondylopathy, lumbar region; M79.1 Myalgia
CPT/HCPCS: 97113; 97162; 97530

== ENCOUNTER 2018-04-08 11:59 | Emergency (ER) | payer MEDICAID, SELFPAY ==
[2018-04-08 12:01] VITALS: BP 171/98; PULSE 105; RESP 16; TEMP 35.9; O2SAT 95; BMI 45.3
--- NOTE | 2018-04-08 12:26 | ED.VISSUMM ---
- ER Visit Summary Date of Service: 04/08/18 Chief Complaint: Low back pain History of Present Illness: The patient is a 47 M history of hypertension, reflux, prior back pain, anxiety and recently had an abnormal creatinine. He is having that rechecked next week. 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 He did that about a week ago. Last Sunday he started having intermittent lower back pain. Denies any fever. No trauma or fall. No leg weakness or numbness. No dysuria. No bowel or bladder incontinence or retention. He is never had back surgery. Physical Examination: Middle-aged gentleman in no acute distress. Vital signs are stable afebrile. H EENT exam unremarkable. Neck nontender. No lymphadenopathy. Lungs clear to auscultation bilaterally. Heart regular rhythm no murmur. Abdomen soft. Nondistended. Normal bowel sounds. No peritoneal signs. He is overweight. Patient is moving all 4 extremities. Neurovascular intact. 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 Dorsi and plantar flexion intact. No cauda equina. No saddle anesthesia. Normal medial thigh sensation. Negative straight leg raise bilaterally. Neurologically is awake and alert with no focal motor or sensory deficits. Again no cauda equina. Back currently nontender. Spine nontender. No ecchymosis or bruising. No redness or warmth. No bony deformities. Test Results: None Emergency Department Course and Treatment: Muscular skeletal back pain. Treatment Plan: Tylenol for pain until he gets his creatinine rechecked. Disposition: Discharge Impression: Acute muscular skeletal back pain This note was generated with [employer] dictation software. It may contain incorrect words, spelling, and punctuation that were not noted in review of the chart prior to signing ED Disposition - Plan for ED Patient: Chief Complaint: Back Referrals: Wm Rubi MD [Primary Care Provider] -
--- NOTE | 2018-04-08 12:28 | ED.DEP ---
ED Disposition - Plan for ED Patient: Disposition: Home or Assisted Living Chief Complaint: Back Instructions: ED Sprain Strain Lumbar Referrals: Wm Rubi MD [Primary Care Provider] - 1 Week if not improving Additional Instructions: Hot shower warm bath to relax the muscles in your back. Tylenol for pain. Until your creatinine or your kidney function gets rechecked he should use Tylenol. Motrin, Advil or ibuprofen can affect your kidney function if you take too much of it. Follow-up to have your kidney function rechecked. Return if leg weakness, numbness or incontinence.
[2018-04-08 12:44] VITALS: BP 136/74; PULSE 75; RESP 16; O2SAT 99
--- OUTSIDE RECORDS SUMMARY | 2018-07-11 03:20 | XMS RPT_ITS ---
:1970 Author Organization OHIP Care Team Providers Name Role Phone WM BLUE Referring Unavailable WM BLUE Attending Unavailable WM BLUE Attending Unavailable Kavin GERMAN (PA-C) Attending Unavailable MIO PERALTA Attending Unavailable WM BLUE Referring Unavailable WM BLUE Referring Unavailable WM BLUE Referring Unavailable ERICA MISTRY (MARINA PORTER) Attending Unavailable GIOVANNA SANTIAGO (RD) Attending Unavailable GIOVANNA SANTIAGO (RD) Referring Unavailable Kavin GERMAN (PA-C) Attending Unavailable GIOVANNA SANTIAGO (RD) Attending Unavailable WM BLUE Referring Unavailable MELONY KRAUSE (PT) Attending Unavailable SU, WM J Referring Unavailable SU, WM J Referring Unavailable MELONY KRAUSE (PT) Attending Unavailable SU, WM J Referring Unavailable MELONY KRAUSE (PT) Attending Unavailable SU, WM J Referring Unavailable NELIDAMELONY MCNAMARA (PT) Attending Unavailable SU, WM J Referring Unavailable SU, WM J Referring Unavailable SU, WM J Referring Unavailable MELONY KRAUSE (PT) Attending Unavailable SU, WM J Referring Unavailable SU, WM J Attending Unavailable Kavin GERMAN (PA-C) Attending Unavailable Su, Wm Primary Care Unavailable Praveen Gupta Attending Unavailable Prebish, Rosy HOSPITAL PERSONNEL DIRECTOR-C Attending Unavailable Prebish, Rosy HOSPITAL PERSONNEL DIRECTOR-C Referring Unavailable Su, Wm Primary Care Unavailable Prebish, Rosy HOSPITAL PERSONNEL DIRECTOR-C Attending Unavailable Prebish, Rosy HOSPITAL PERSONNEL DIRECTOR-C Referring Unavailable [place], Wm Primary Care Unavailable Robert Garza Attending Unavailable Fascione, Maura Referring Unavailable Crissy Zhou Attending Unavailable Fascione, Maura Attending Unavailable Fascione, Maura Referring Unavailable Su, Wm Primary Care Unavailable Su, Wm Primary Care Unavailable Susana Hardwick Attending Unavailable [facility], [facility] Attending Unavailable Allegra Carter Referring Unavailable Su, Wm Primary Care Unavailable Su, Wm Primary Care Unavailable Milind Chavez Attending Unavailable PROBLEMS PROBLEMS DATE TYPE CONDITION / CODE ATTENDING STATUS SOURCE 02/04/2018 Active Shortness of breath NA Active [place] / R06.02(ICD-10) [facility] [place] Rep[facility] 02/07/2018 Unknown M51.37 - Other Prebish, Rosy Active [place] intervertebral disc HOSPITAL PERSONNEL DIRECTOR-C [facility] degeneration, [facility] lumbosacral region / Repository M51.37(ICD-10) 12/19/2017 Unknown M54.2 - Cervicalgia Prebish, Rosy Active [place] / M54.2(ICD-10) HOSPITAL PERSONNEL DIRECTOR-C [facility] Hospital Repository 12/05/2017 Unknown I10 - Essential Kayal, Robert Active [place] (primary) [facility] hypertension / Hospital I10(ICD-10) Repository 10/25/2017 Unknown M79.671 - Pain in Fascione, Active [place] right foot / [facility] M79.671(ICD-10) Hospital Repository 10/18/2017 Active Pain in right foot / NA Active [place] M79.671(ICD-10) [facility] [place] Rep[facility] 08/08/2017 Active Unknown / MELONY KRAUSE Active [place] UNK(Unknown) (PT) [facility] [place] [facility] PROCEDURES PROCEDURES No Procedure Records FoundRESULTS RESULTS EMERGENCY DEPARTMENT Observed: 04/08/2018 Status: F Source: [place] SUMMARY 4:29 PM [facility] REPOSITORY [facility] Medical Records Department [address] [place] [address] Emergency Department Summary 04/08/18 1226 MR#: [id number] Acct: [id number] Name: REJI MARTINS Rep #: [id number] : 1970 47 From: Praveen Gupta MD PCP: Wm Blue MD Status: DEP ER - ER Visit Summary Date of Service: 04/08/18 Chief Complaint: Low back pain History of Present Illness: The patient is a 47 M history of hypertension, reflux, prior back pain, anxiety and recently had an abnormal creatinine. He is having that rechecked next week. 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 He did that about a week ago. Last Sunday he started having intermittent lower back pain. Denies any fever. No trauma or fall. No leg weakness or numbness. No dysuria. No bowel or bladder incontinence or retention. He is never had back surgery. Physical Examination: Middle-aged gentleman in no acute distress. Vital signs are stable afebrile. H EENT exam unremarkable. Neck nontender. No lymphadenopathy. Lungs clear to auscultation bilaterally. Heart regular rhythm no murmur. Abdomen soft. Nondistended. Normal bowel sounds. No peritoneal signs. He is overweight. Patient is moving all 4 extremities. Neurovascular intact. 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 Dorsi and plantar flexion intact. No cauda equina. No saddle anesthesia. Normal medial thigh sensation. Negative straight leg raise bilaterally. Neurologically is awake and alert with no focal motor or sensory deficits. Again no cauda equina. Back currently nontender. Spine nontender. No ecchymosis or bruising. No redness or warmth. No bony deformities. Test Results: None Emergency Department Course and Treatment: Muscular skeletal back pain. Treatment Plan: Tylenol for pain until he gets his creatinine rechecked. Disposition: Discharge Impression: Acute muscular skeletal back pain This note was generated with [employer] dictation software. It may contain incorrect words, spelling, and punctuation that were not noted in review of the chart prior to signing ED Disposition - Plan for ED Patient: Chief Complaint: Back Referrals: Wm Blue MD [Primary Care Provider] - What to do if you have Problems For any increased pain, shortness of breath, bleeding, nausea or vomiting, chest pain, or any unexpected problems, contact your Primary Care Provider. Call [facility] ([phone]) or report to the closest Emergency Room. Call 911 if necessary. 04/08/18 1629 <Electronically signed by Praveen Gupta MD> Date Praveen Gupta MD Cosigner Signature (If Indicated): Date CC: Wm Blue MD DISCHARGE INSTRUCTION Observed: 04/08/2018 Status: F Source: [place] 4:29 PM [facility] REPOSITORY [facility] Medical Records Department [address] [place] [id number] Discharge Instruction 04/08/18 1228 MR#: [id number] Acct: [id number] Name: REJI MARTINS Rep #: [id number] : 1970 47 From: Praveen Gupta MD PCP: Wm Blue MD Status: DEP ER ED Disposition - Plan for ED Patient: Disposition: Home or Assisted Living Chief Complaint: Back Instructions: ED Sprain Strain Lumbar Referrals: Wm Blue MD [Primary Care Provider] - 1 Week if not improving Additional Instructions: Hot shower warm bath to relax the muscles in your back. Tylenol for pain. Until your creatinine or your kidney function gets rechecked he should use Tylenol. Motrin, Advil or ibuprofen can affect your kidney function if you take too much of it. Follow-up to have your kidney function rechecked. Return if leg weakness, numbness or incontinence. What to do if you have Problems For any increased pain, shortness of breath, bleeding, nausea or vomiting, chest pain, or any unexpected problems, contact your Primary Care Provider. Call [facility] ([phone]) or report to the closest Emergency Room. Call 911 if necessary. 04/08/18 1627 <Electronically signed by Praveen Gupta MD> Date Praveen Gupta MD Cosigner Signature (If Indicated): Date CC: Wm Blue MD XR CHEST 2V FRONTAL/LAT Observed: 02/04/2018 Status: F Source: [place] 1:55 PM [facility] REPOSITORY * * *Final Report* * * DATE OF EXAM: Feb 04 2018 1:55PM WOX [id number] - XR CHEST 2V FRONTAL/LAT / PROCEDURE REASON: SOB (shortness of breath) * * * * Physician Interpretation * * * * EXAMINATION: CHEST RADIOGRAPH (2 VIEW FRONTAL and LATERAL) CLINICAL HISTORY: SOB (shortness of breath) MQ: XC2_5 Comparison: 07/31/2016. RESULT: Lines, tubes, and devices: None. Lungs and pleura: No consolidation. No lung mass. No pleural effusion. Cardiomediastinal silhouette: Stable mildly enlarged cardiomediastinal silhouette. Other: . IMPRESSION: No acute radiographic abnormality. Middle School Band Teacher: BALDO Transcribe Date/Time: Feb 04 2018 1:57P Dictated by : AIDAN SCOTT MD This examination was interpreted and the report reviewed and electronically signed by: AIDAN SCOTT MD on Feb 04 2018 1:59PM EST [id number] PROGRESS Observed: 02/04/2018 Status: COMPLETED Source: [place] 1:48 PM [facility] REPOSITORY HNO ID: [id number] Author: Nina Gallagher (Rt) Amanda Ervin Service: (none) Author Type: Shipping & Receiving Lead Type: Progress Notes Filed: 02/04/2018 1:55 PM Note Text: Radiology Service Progress Note PATIENT NAME: Reji Martins DATE OF SERVICE: February 04, 2018 TIME: 1:48 PM PATIENT IDENTITY VERIFICATION COMPLETED USING TWO (2) METHODS: Patient confirmed name verbally and Date of . PATIENT GENDER DATA: Male PATIENT RELEVANT IMPLANT DATA REVIEWED: Not Applicable RADIOLOGY DEPARTMENT: General X-ray: Exam(s) Completed: Chest X-Ray PERIPHERAL IV DATA: Not applicable SIGNED BY: RT Bossman February 04, 2018 1:48 PM PROGRESS Observed: 02/04/2018 Status: COMPLETED Source: [place] 1:09 PM [facility] REPOSITORY O ID: [id number] Author: Wm Blue Service: (none) Author Type: Physician Type: Progress Notes Filed: 02/04/2018 1:24 PM Note Text: Patient presents with: Low Back Pain HPI: Patient presents today for office visit for an acute. Nursing Notes: Valorie Nguyen LPN 02/04/2018 12:57 PM Signed BM have been about 6-7 times a day for a couple of weeks. Feeling run down and tired lately also. Patient complains of: low back pain. Duration: 1 1/2 weeks Location:low back pain radiates down legs Aggravating factors:standing up seems to aggravte Saw a chiropractor and was given injection. Patient states that was going to PT again but found out insurance was not going to cover because he had already used that benefit for the year. Has a hx of noncompliance. Was referred to gi in the past for colitis but did not go. No black or bloody stools. No recent antibiotics. Last set was several months ago. No abd pain or vomiting. No recent travel hitory. No fever or chills. No dietary changes. Was referred recently to Dr. Tapia, Has done chiropractic. He did one water aerobic therapy session. Did have some issues in his legs. None since. MEDICATIONS: Current Outpatient Prescriptions: hydrOXYzine HCl (ATARAX) 25 mg tablet 1-2 tabs at HS for sleep omeprazole (PRILOSEC) 20 mg capsule Take 1 capsule by mouth daily before breakfast. 1/2 hr before meal. lisinopril (ZESTRIL,PRINIVIL) 30 mg tablet Take 1 tablet by mouth once daily. sertraline (ZOLOFT) 50 mg tablet Take 1 tablet by mouth once daily. QUEtiapine (SEROQUEL) 50 mg tablet Take 1 tablet by mouth daily at bedtime. albuterol HFA (VENTOLIN HFA) 90 mcg/actuation inhaler Inhale 2 Puffs as instructed every 4 hours as needed for Wheezing/Shortness of Breath. No current facility-administered medications for this visit. ALLERGIES: ALLERGIES Allergen Reactions - Sulfa Dyne Unknown Sulfa antibiotic PAST MEDICAL HISTORY Diagnosis Date - Chronic low back pain - Depression - High blood pressure PAST SURGICAL HISTORY Procedure Laterality Date - TONSILLECTOMY HX FAMILY HISTORY Problem Relation Age of Onset - Diabetes Mother - None Father - None Sister - Alzheimer's Disease Maternal Grandfather Social History Marital status: Single Spouse name: Years of education: Number of children: Social History Main Topics Smoking status: Former Smoker Packs/day: 0.00 Years: 0.00 Types: Cigarettes Quit date: 05/10/1990 Smokeless tobacco: Former User Alcohol use: No Comment: rarely Drug use: No Sexual activity: Yes Partners with: Female Reviewed current medications, allergies, past medical history, surgical history, family history and social history today. REVIEW OF SYSTEMS RESPIRATORY: some shortness of breath. no cough or wheezing. has been there for a while. takes a couple of deep breaths makes it improve. CARDIOVASCULAR: Negative for chest pain, leg swelling, hypertension, CHF or palpitations All other reviewed and negative other than HPI. HEALTH MAINTENANCE: Reviewed health maintenance issues today and recommended the following in detail. BP CONTROLLED (<130/80) due on 1988 VITALS: BP 124/84 Pulse 108 Temp 36.9 ?C (98.5 ?F) (Tympanic) Resp 18 Wt (!) 138.3 kg (305 lb) BMI 45.04 kg/m? Last 4 Encounter Wt Readings: Date: Wt: 02/04/2018 138.3 kg (305 lb) 11/08/2017 138.8 kg (306 lb) 10/15/2017 138.1 kg (304 lb 8 oz) 09/05/2017 141.1 kg (311 lb) PHYSICAL EXAMINATION: General appearance: Well appearing, alert, in no acute distress, well-hydrated, well nourished. Skin: Skin color, texture, turgor normal, no suspicious rashes or lesions Head: Normocephalic, no masses, lesions, tenderness or abnormalities BACK: Normal curvature of spine. No spine tenderness. Straight leg test negative. Deep tendon reflexes 2+/4 at patellas. Normal lower extremity strength. Lungs: Lungs clear to auscultation. No wheezing, rhonchi, rales Heart: RRR without murmur, gallop, or rubs. No ectopy Abdomen: Normal abdominal exam, Abdomen soft, non-tender. Bowel sounds normal. No masses, organomegaly Extremities: No deformities, edema, skin discoloration, clubbing or cyanosis. Good capillary refill. ASSESSMENT/PLAN: 1. DDD (degenerative disc disease), lumbar - ICD9: 722.52, ICD10: M51.36 (primary diagnosis) - Discussed risks and benefits of new medication with the patient. Advised them to call if any side effects or questions. - Call if symptoms worsen at all or if not better in one to two weeks - CONSULT TO PAIN MGT ANESTHESIA - PREDNISONE 20 MG TABLET - PREDNISONE 20 MG TABLET 2. Diarrhea, unspecified type - ICD9: 787.91, ICD10: R19.7 - may need to see gi. - CONSULT TO PAIN MGT ANESTHESIA - C. DIFFICILE PCR - OVA + PARA MICROSCOPIC - ENTERIC BACTERIAL PANEL BY PCR - CBC + DIFF - BASIC METABOLIC PNL 3. Primary insomnia - ICD9: 307.42, ICD10: F51.01 - call if any issues. 4. Shortness of breath. - sounds pulmonary, starts with chest xray and pft's Wm Blue MD CNOV Observed: 02/04/2018 Status: COMPLETED Source: [place] 12:40 PM [facility] REPOSITORY Office Visit (FAMPWS) REJI MARTINS ([id number]) 1970 M Date Time Provider Department 02/04/18 12:40 PM WM BLUEWS During your visit today, we recorded the following information about you: Temperature Pulse Respiration Blood pressure 98.5 degrees 108/minute 18/minute 124/84 Weight 138.3 kg Valorie Nguyen DYLON 02/04/2018 12:57 PM Signed BM have been about 6-7 times a day for a couple of weeks. Feeling run down and tired lately also. Patient complains of: low back pain. Duration: 1 1/2 weeks Location:low back pain radiates down legs Aggravating factors:standing up seems to aggravte Saw a chiropractor and was given injection. Patient states that was going to PT again but found out insurance was not going to cover because he had already used that benefit for the year. Wm Blue MD 02/04/2018 1:24 PM Signed Patient presents with: Low Back Pain HPI: Patient presents today for office visit for an acute. Nursing Notes: Valorie Nguyen DYLON 02/04/2018 12:57 PM Signed BM have been about 6-7 times a day for a couple of weeks. Feeling run down and tired lately also. Patient complains of: low back pain. Duration: 1 1/2 weeks Location:low back pain radiates down legs Aggravating factors:standing up seems to aggravte Saw a chiropractor and was given injection. Patient states that was going to PT again but found out insurance was not going to cover because he had already used that benefit for the year. Has a hx of noncompliance. Was referred to gi in the past for colitis but did not go. No black or bloody stools. No recent antibiotics. Last set was several months ago. No abd pain or vomiting. No recent travel hitory. No fever or chills. No dietary changes. Was referred recently to Dr. Tapia, Has done chiropractic. He did one water aerobic therapy session. Did have some issues in his legs. None since. MEDICATIONS: Current Outpatient Prescriptions: hydrOXYzine HCl (ATARAX) 25 mg tablet 1-2 tabs at HS for sleep omeprazole (PRILOSEC) 20 mg capsule Take 1 capsule by mouth daily before breakfast. 1/2 hr before meal. lisinopril (ZESTRIL,PRINIVIL) 30 mg tablet Take 1 tablet by mouth once daily. sertraline (ZOLOFT) 50 mg tablet Take 1 tablet by mouth once daily. QUEtiapine (SEROQUEL) 50 mg tablet Take 1 tablet by mouth daily at bedtime. albuterol HFA (VENTOLIN HFA) 90 mcg/actuation inhaler Inhale 2 Puffs as instructed every 4 hours as needed for Wheezing/Shortness of Breath. No current facility-administered medications for this visit. ALLERGIES: ALLERGIES Allergen Reactions - Sulfa Dyne Unknown Sulfa antibiotic PAST MEDICAL HISTORY Diagnosis Date - Chronic low back pain - Depression - High blood pressure PAST SURGICAL HISTORY Procedure Laterality Date - TONSILLECTOMY HX FAMILY HISTORY Problem Relation Age of Onset - Diabetes Mother - None Father - None Sister - Alzheimer's Disease Maternal Grandfather Social History Marital status: Single Spouse name: Years of education: Number of children: Social History Main Topics Smoking status: Former Smoker Packs/day: 0.00 Years: 0.00 Types: Cigarettes Quit date: 05/10/1990 Smokeless tobacco: Former User Alcohol use: No Comment: rarely Drug use: No Sexual activity: Yes Partners with: Female Reviewed current medications, allergies, past medical history, surgical history, family history and social history today. REVIEW OF SYSTEMS RESPIRATORY: some shortness of breath. no cough or wheezing. has been there for a while. takes a couple of deep breaths makes it improve. CARDIOVASCULAR: Negative for chest pain, leg swelling, hypertension, CHF or palpitations All other reviewed and negative other than HPI. HEALTH MAINTENANCE: Reviewed health maintenance issues today and recommended the following in detail. BP CONTROLLED (<130/80) due on 1988 VITALS: BP 124/84 Pulse 108 Temp 36.9 ?C (98.5 ?F) (Tympanic) Resp 18 Wt (!) 138.3 kg (305 lb) BMI 45.04 kg/m? Last 4 Encounter Wt Readings: Date: Wt: 02/04/2018 138.3 kg (305 lb) 11/08/2017 138.8 kg (306 lb) 10/15/2017 138.1 kg (304 lb 8 oz) 09/05/2017 141.1 kg (311 lb) PHYSICAL EXAMINATION: General appearance: Well appearing, alert, in no acute distress, well-hydrated, well nourished. Skin: Skin color, texture, turgor normal, no suspicious rashes or lesions Head: Normocephalic, no masses, lesions, tenderness or abnormalities BACK: Normal curvature of spine. No spine tenderness. Straight leg test negative. Deep tendon reflexes 2+/4 at patellas. Normal lower extremity strength. Lungs: Lungs clear to auscultation. No wheezing, rhonchi, rales Heart: RRR without murmur, gallop, or rubs. No ectopy Abdomen: Normal abdominal exam, Abdomen soft, non-tender. Bowel sounds normal. No masses, organomegaly Extremities: No deformities, edema, skin discoloration, clubbing or cyanosis. Good capillary refill. ASSESSMENT/PLAN: 1. DDD (degenerative disc disease), lumbar - ICD9: 722.52, ICD10: M51.36 (primary diagnosis) - Discussed risks and benefits of new medication with the patient. Advised them to call if any side effects or questions. - Call if symptoms worsen at all or if not better in one to two weeks - CONSULT TO PAIN MGT ANESTHESIA - PREDNISONE 20 MG TABLET - PREDNISONE 20 MG TABLET 2. Diarrhea, unspecified type - ICD9: 787.91, ICD10: R19.7 - may need to see gi. - CONSULT TO PAIN MGT ANESTHESIA - C. DIFFICILE PCR - OVA + PARA MICROSCOPIC - ENTERIC BACTERIAL PANEL BY PCR - CBC + DIFF - BASIC METABOLIC PNL 3. Primary insomnia - ICD9: 307.42, ICD10: F51.01 - call if any issues. 4. Shortness of breath. - sounds pulmonary, starts with chest xray and pft's MD Wm Orlando MD 02/04/2018 1:[address] Tapia's office and follow up. Referring Provider: SELF [[id number]] Allergies As of Date: 02/04/2018 Noted Allergy Reaction SULFA DYNE 07/18/2011 16 - Unknown Comments: Sulfa antibiotic Date Reviewed: 02/04/2018 Reviewed by: Valorie Nguyen LPN - Fully Assessed Reason for Visit: Low Back Pain [126] Primary Visit Diagnosis:DDD (degenerative disc disease), lumbar [M51.36] Other Visit Diagnoses:Diarrhea, unspecified type [R19.7] Primary insomnia [F51.01] SOB (shortness of breath) [R06.02] Order(s):CONSULT TO PAIN MGT ANESTHESIA [380866] Order #: [id number]: 1 C. DIFFICILE PCR [SQCDPCR] Order #: [id number] OVA + PARA MICROSCOPIC [SQOVAP] Order #: [id number] FUTURE ENTERIC BACTERIAL PANEL BY PCR [SQSTLPCR] Order #: [id number] FUTURE CBC + DIFF [SQCBCDIF] Order #: [id number] FUTURE BASIC METABOLIC PNL [SQBMP] Order #: [id number] FUTURE predniSONE (DELTASONE) 20 mg tabletTake 1 tablet by mouth once daily for 5 days. Take daily with food.Disp: 5 tabletRfl: 0 XR CHEST 2V FRONTAL/LAT [1280510] Order #: [id number] FUTURE SPIROMETRY - BASELINE AND POST DILATOR [3535894] Order #: [id number] FUTURE Prescriptions as of 02/04/2018 Sig: HYDROXYZINE HCL 25 MG TABLET 1-2 tabs at HS for sleep OMEPRAZOLE 20 MG CAPSULE,JUAN LUIS* Take 1 capsule by mouth daily* LISINOPRIL 30 MG TABLET Take 1 tablet by mouth once d* SERTRALINE 50 MG TABLET Take 1 tablet by mouth once d* QUETIAPINE 50 MG TABLET Take 1 tablet by mouth daily * PREDNISONE 20 MG TABLET Take 1 tablet by mouth once d* ALBUTEROL SULFATE HFA 90 MCG/* Inhale 2 Puffs as instructed * Problem List As Of Date 02/04/2018 Noted Resolved HTN (hypertension) [I10] INVALID FOR* Hypokalemia [E87.6] INVALID FOR* Anxiety [F41.9] INVALID FOR* Chronic midline low back pain [M54.5, G89.29] INVALID FOR* Other instructions from your clinician: Call Dr. Tapia's office and follow up. Visit Notes: >> Valorie Nguyen LPN Mon Feb 04, 2018 12:46 PM Status: Signed BM have been about 6-7 times a day for a couple of weeks. Feeling run down and tired lately also. Patient complains of: low back pain. Duration: 1 1/2 weeks Location:low back pain radiates down legs Aggravating factors:standing up seems to aggravte Saw a chiropractor and was given injection. Patient states that was going to PT again but found out insurance was not going to cover because he had already used that benefit for the year. Prescriptions ordered this encounter Disp Refills Start End PREDNISONE 20 MG TABLET 5 ta* 0 02/04/2018 02/04/2018 Route: ORAL Sig: Take 1 tablet by mouth once daily for 5 days. Take daily with food. PREDNISONE 20 MG TABLET 5 ta* 0 02/04/2018 02/09/2018 Route: ORAL Sig: Take 1 tablet by mouth once daily for 5 days. Take daily with food. Medications Discontinued During This Encounter predniSONE (DELTASONE) 20 mg tablet 5 ta* 0 02/04/2018 02/04/2018 Route: ORAL Sig: Take 1 tablet by mouth once daily for 5 days. Take daily with food. Disc: Reason for discontinue is not on file. Follow-up and Disposition History Recorded Encounter Status:Closed by WM BLUE MD on 02/04/18 INITAL EVALUATION (1) Observed: 01/04/2018 Status: F Source: [place] - PT 4:34 PM [facility] REPOSITORY [facility] Physical [facility] [address] [place], [place] [address] Fax REHABILITATION SERVICES INITIAL EVALUATION MR#: [id number] Acct: [id number] Name: REJI MARTINS I Rep #: [id number] : 1970 47 From: Rosetta Barker PT, Cert. T Referring Dr.: Rosy Chavarria Status: [facility] Insurance: [facility] SELF PAY INSURANCE Patient's Visit Information REJI MARTINS is a 47 year old M referred to Physical Therapy by FAITH Sumemrs with a diagnosis of LUMBAR DDD, SPONDYLOSIS, RADICULOPATHY, STENOSIS AND FACET ARTHROPATHY.. Date of Evaluation: 01/04/18 Physical Therapist: Rosetta Barker - Visit Plan Frequency: 2-3x /Week Duration: 4-6 Weeks Plan: AQUATIC THERAPY FOR PAIN RELEIF, POSTURE CORRECTION/STRENGTHENING, INSTRUCTION IN APPROPRIATE BODY MECHANICS AND ACTIVITY MODIFICATIONS. DLS STARTING WITH A NEUTRAL SPINE PROGRESSING ROM TOLERATED. RADHA LE ROM, STRETCHING AND STRENGTHENING. HEP INSTRUCTION. - Subjective Subjective: Work/Leisure: UNEMPLOYEED. Disability: NO. Present symptoms: LOW BACK PAIN - CONSTANT. RADHA LE PAIN, NUMBNESS AND TINGLING OF ENTIRE LEGS RIGHT > LEFT THAT IS INTERMITTENT. Present since: AGE 35. Pain Scale: LBP: WORST 9/10, LEAST 5/10. LEGS: WORST 8/10, LEAST 0/10. Currently: LBP 7/10. LE'S 7/. Commenced as a result of: NO APPARENT REASON. Symptoms at onset: LOW BACK. Worse: WALKING A LOT. PRONLONGED SITTING. Better: SITTING FOR SHORT PERIODS. STEROID PILLS THAT HE STARTED TODAY. Disturbed sleep: YES. Previous history/Previous treatment: PHYSICAL THERAPY AT [facility]ENIG[place] X [address] ABOUT [address] TAPIA - HELPED FOR ABOUT A WEEK. NO BACK SURGERY. CHIROPRACTIC ESTIM AND NOT SURE HOW MANY TIMES OR WHAT ELSE THEY DID. Coughing/sneezing/straining: NEGATIVE. Gait: NO AD'S. Difficulty initiating urinatin: NO. Accidents: TRIPPED OVER GARDEN HOSE A FEW YEARS AGO AND DISLOCATED RIGHT SHOULDER. Unexplained weight loss: NO. Imaging: LOW BACK X-RAY. NO MRI BUT WANTS TO HAVE ONE. PMH: NECK AND SHOULDER PAIN. HTN. ANXIETY. Recent major surgery: UNREMARKABLE. - Objective Sitting/Standing Posture: POOR. Lordosis: REDUCED. Lateral shift: NO. Relevant shift: N/A. Active Correction of posture: NE. Other Observations: INDEP GAIT AND TRANSFERS WITHOUT AD. Motor deficit: RADHA LE'S 5/5 WITH MMT'ING EXCEPT FOR HIPS GRADED 4/5. Sensory deficit: DECREASED RIGHT LATERAL THIGH LIGHT TOUCH COMPAIRED TO LEFT. ROM deficit: RADHA LE HS, HIP EXTERNAL ROTATOR AND GASTROC SOLEUS TIGHTNESS. Reflexes: RIGHT QUAD AND ACHILLES 1/2, LEFT QUAD AND ACHILLES 2/2. Dural Signs: POSITIVE RADHA LE DURAL SIGNS. Lumbar mvmt loss: flex - MOD. ext - MOD. R SG - MOD. L SG - MOD. C/O MILD INCREASED LBP WITH LUMBAR ROM TESTING ALL PLANES. Core strength: POOR. Palpation: C/O MILD TENDERNESS WITH PALPATION OF THE LOWER LUMBAR AND SACRAL REGIONS INTO RADHA HIPS. - Goals Goal 1:: DECREASE C/O LOW BACK AND RADHA LE SX'S. Goal Time Frame: 4-6 Weeks Goal 2:: IMPROVE SITTING, BENDING, LIFTING, STANDING, WALKING , TRAVEL AND EMPLOYMENT/HOMEMAKING FUNCTION Goal Time Frame: 4-6 Weeks Goal 3:: INSTRUCT IN PROPHYLAXIS Goal Time Frame: 4-6 Weeks - Rehabilitation Potential Rehabilitation Potential: Fair - Anticipated Interventions Patient/Client Instruction: Educate patient on: Condition, Plan of Care, Risk Factors, Benefits of Fitness Program For the Purpose of:: To improve self management Therapeutic Exercise to Include: Strength training, Body mechanics, Postural training, Flexibilty training, In an aquatic setting, Dynamic Lumbar Stabilization For the Purpose of:: To decrease pain, To increase ROM, To improve muscle performance and motor function, To increase tolerance to activity/condition/position, To improve ability of physical actions for home/community/work/leisure, To improve gait and locomotor functions Thank you for the opportunity to evaluate your patient. For Medicare and Medicare HMO plans, please review the plan of care and approve it. It will need to be FAXED BACK to us at [phone] for Medicare purposes. Please let me know if there are questions or concerns regarding this plan of care. Physician Signature: Date: <Electronically signed by Rosetta Barker PT, Cert. MDT> 01/04/18 1634 CC: Rosy Chavarria; Wm Blue MD JEANNE Signed For Medicare only, by signing this I certify the plan of care. Physicians Signature Date CERV SPINE 4 OR 5 Observed: 12/19/2017 Status: F Source: [place] VIEWS 12:09 PM [facility] REPOSITORY [facility] Imaging Services [address] [place] [id number] Cerv Spine 4 or 5 Views MR#: [id number] Acct: [id number] Name: REJI MARTINS I Rep #: [id number] : 1970 M 47 From: Mauro Lima MD PCP: Wm Blue MD Status: REG CLI Study: Cerv Spine 4 or 5 Views Date of Exam: 12/19/17 Exam# [id number] Ordering Dr: Rosy Chavarria STUDY: X-RAY - CERVICAL SPINE REASON FOR EXAM: Male, 47 years old. Stiff neck. TECHNIQUE: 5 view(s) of the cervical spine were obtained. COMPARISON: None FINDINGS: Normal anterior atlantoaxial articulation. Normal odontoid process. There is straightening of the normal cervical lordosis. Normal vertebral bodies and endplates. Normal disc space heights. Normal visualized intervertebral neuroforamina. The soft tissue structures are unremarkable. RAD/Cerv Spine 4 or 5 Views IMPRESSION: Normal x-ray examination of the visualized cervical spine. Electronically Signed: Mauro Lima MD at 20:30 EDT , Service support , CC: Rosy Chavarria; Wm Blue MD Middle [employer] Teacher: Signed PROGRESS Observed: 12/03/2017 Status: COMPLETED Source: [place] 5:44 PM [facility] REPOSITORY HNO ID: [id number] Author: Wm Blue Service: (none) Author Type: Physician Type: Progress Notes Filed: 12/03/2017 5:45 PM Note Text: Did not need seen. Just had a question about refills. Had some remaining. CNOV Observed: 12/03/2017 Status: COMPLETED Source: [place] 12:20 PM [facility] REPOSITORY Office Visit (FAMPWS) REJI MARTINS ([id number]) 1970 M Date Time Provider Department 12/03/17 12:20 PM WM BLUE During your visit today, we recorded the following information about you: Wm Blue MD 12/03/2017 5:45 PM Signed Did not need seen. Just had a question about refills. Had some remaining. Referring Provider: SELF [[id number]] Allergies As of Date: 12/03/2017 Noted Allergy Reaction SULFA DYNE 07/18/2011 16 - Unknown Comments: Sulfa antibiotic Date Reviewed: 11/08/2017 Reviewed by: Betina Soto LPN - Fully Assessed Primary Visit Diagnosis:Essential hypertension [I10] Prescriptions as of 12/03/2017 Sig: LISINOPRIL 30 MG TABLET Take 1 tablet by mouth once d* OMEPRAZOLE 20 MG CAPSULE,JUAN LUIS* Take 1 capsule by mouth daily* HYDROXYZINE HCL 25 MG TABLET 1-2 tabs at HS for sleep ALBUTEROL SULFATE HFA 90 MCG/* Inhale 2 Puffs as instructed * SERTRALINE 50 MG TABLET Take 1 tablet by mouth once d* QUETIAPINE 50 MG TABLET Take 1 tablet by mouth daily * Problem List As Of Date 12/03/2017 Noted Resolved HTN (hypertension) [I10] INVALID FOR* Hypokalemia [E87.6] INVALID FOR* Anxiety [F41.9] INVALID FOR* Chronic midline low back pain [M54.5, G89.29] INVALID FOR* Encounter Status:Closed by WM BLUE MD on 12/03/17 PROGRESS Observed: 11/08/2017 Status: COMPLETED Source: [place] 12:25 PM [facility] REPOSITORY [facility] ID: [id number] Author: Kavin Noland (Emily) Maxi Service: (none) Author Type: Physician [employer] Punch [employer] Operator Type: Progress Notes Filed: 11/08/2017 12:37 PM Note Text: 47 year old male with c/o stomach upset over last few weeks, nausea. Makes him cough and gag. Starts to cough up acid, burning feeling in throat. Taking TUMS which helps for short period. Diarrhea, soft to runny, at most 5-6. Appetite normal. No black or tarry. Vomited a little bit yesterday and today. Has been on antibiotics and pain medication post-op for removal of needle in right foot that broke off. Finished meds end of last week. HISTORIES FAMILY HISTORY Problem Relation Age of Onset - Diabetes Mother - None Father - None Sister - Alzheimer's Disease Maternal Grandfather PAST MEDICAL HISTORY Diagnosis Date - Chronic low back pain - Depression - High blood pressure PAST SURGICAL HISTORY Procedure Laterality Date - TONSILLECTOMY HX Social History Marital status: Single Spouse name: Years of education: Number of children: Social History Main Topics Smoking status: Former Smoker Packs/day: 0.00 Years: 0.00 Types: Cigarettes Quit date: 05/10/1990 Smokeless tobacco: Former User Alcohol use: No Comment: rarely Drug use: No Sexual activity: Yes Partners with: Female ACTIVE PROBLEM LIST Htn (Hypertension) Hypokalemia Anxiety Chronic Midline Low Back Pain Current Outpatient Prescriptions: albuterol HFA (VENTOLIN HFA) 90 mcg/actuation inhaler Inhale 2 Puffs as instructed every 4 hours as needed for Wheezing/Shortness of Breath. Disp: 1 Inhaler Rfl: 0 lisinopril (ZESTRIL,PRINIVIL) 30 mg tablet Take 1 tablet by mouth once daily. Disp: 90 tablet Rfl: 3 sertraline (ZOLOFT) 50 mg tablet Take 1 tablet by mouth once daily. Disp: 90 tablet Rfl: 3 QUEtiapine (SEROQUEL) 50 mg tablet Take 1 tablet by mouth daily at bedtime. Disp: 30 tablet Rfl: 3 No current facility-administered medications for this visit. BLOOD PRESSURE CONTROLLED due on 1988 EXAM: BP 124/90 Pulse 88 Temp 37.4 ?C (99.4 ?F) (Tympanic) Resp 16 Wt (!) 138.8 kg (306 lb) BMI 45.19 kg/m? Pleasant obese man in no acute distress. Alert and oriented all spheres. Normal affect and cognition. Speech normal. No deficits to learning or comprehension. Skin warm, dry, pink to lips and nailbeds. Normal turgor. Respirations regular and unlabored. HEENT WNL. TM's clear. Nose and oropharynx free from injection or lesion. No cervical lymph nodes. Thyroid non-tender, no masses Chest CTA. HRRR without murmur or gallop. Abd: obese, soft, bowel sounds active x 4. No pulsatile masses. Non-tender. No rebound, guarding, or peritoneal signs. No masses. No organomegaly. Rosenberg's punch: negative. No flank pain. No inguinal or axillary lymphadenopathy. Extrem: no clubbing, cyanosis, edema. Extremities are warm and pink with prompt capillary refill. ASSESSMENT/PLAN: 1. Gastroesophageal reflux disease, esophagitis presence not specified - ICD9: 530.81, ICD10: K21.9 (primary diagnosis) - Discussed lifestyle modifications including losing weight, limiting caffeine, no meals three hours before sleep and head of bed elevation - OMEPRAZOLE 20 MG CAPSULE,DELAYED RELEASE 2. Primary insomnia - ICD9: 307.42, ICD10: F51.01 - HYDROXYZINE HCL 25 MG TABLET f/u 2-4 weeks Kavin German PA-C CNOV Observed: 11/08/2017 Status: COMPLETED Source: [place] 11:40 AM [facility] REPOSITORY Office Visit (FAMPWS) REJI MARTINS ([id number]) 1970 M Date Time Provider Department 11/08/17 11:40 AM Kavin GERMAN) FAMPWS During your visit today, we recorded the following information about you: Temperature Pulse Respiration Blood pressure 99.4 degrees 88/minute 16/minute 124/90 Weight 138.8 kg Kavin German PA-C 11/08/2017 12:37 PM Signed 47 year old male with c/o stomach upset over last few weeks, nausea. Makes him cough and gag. Starts to cough up acid, burning feeling in throat. Taking TUMS which helps for short period. Diarrhea, soft to runny, at most 5-6. Appetite normal. No black or tarry. Vomited a little bit yesterday and today. Has been on antibiotics and pain medication post-op for removal of needle in right foot that broke off. Finished meds end of last week. HISTORIES FAMILY HISTORY Problem Relation Age of Onset - Diabetes Mother - None Father - None Sister - Alzheimer's Disease Maternal Grandfather PAST MEDICAL HISTORY Diagnosis Date - Chronic low back pain - Depression - High blood pressure PAST SURGICAL HISTORY Procedure Laterality Date - TONSILLECTOMY HX Social History Marital status: Single Spouse name: Years of education: Number of children: Social History Main Topics Smoking status: Former Smoker Packs/day: 0.00 Years: 0.00 Types: Cigarettes Quit date: 05/10/1990 Smokeless tobacco: Former User Alcohol use: No Comment: rarely Drug use: No Sexual activity: Yes Partners with: Female ACTIVE PROBLEM LIST Htn (Hypertension) Hypokalemia Anxiety Chronic Midline Low Back Pain Current Outpatient Prescriptions: albuterol HFA (VENTOLIN HFA) 90 mcg/actuation inhaler Inhale 2 Puffs as instructed every 4 hours as needed for Wheezing/Shortness of Breath. Disp: 1 Inhaler Rfl: 0 lisinopril (ZESTRIL,PRINIVIL) 30 mg tablet Take 1 tablet by mouth once daily. Disp: 90 tablet Rfl: 3 sertraline (ZOLOFT) 50 mg tablet Take 1 tablet by mouth once daily. Disp: 90 tablet Rfl: 3 QUEtiapine (SEROQUEL) 50 mg tablet Take 1 tablet by mouth daily at bedtime. Disp: 30 tablet Rfl: 3 No current facility-administered medications for this visit. BLOOD PRESSURE CONTROLLED due on 1988 EXAM: BP 124/90 Pulse 88 Temp 37.4 ?C (99.4 ?F) (Tympanic) Resp 16 Wt (!) 138.8 kg (306 lb) BMI 45.19 kg/m? Pleasant obese man in no acute distress. Alert and oriented all spheres. Normal affect and cognition. Speech normal. No deficits to learning or comprehension. Skin warm, dry, pink to lips and nailbeds. Normal turgor. Respirations regular and unlabored. HEENT WNL. TM's clear. Nose and oropharynx free from injection or lesion. No cervical lymph nodes. Thyroid non-tender, no masses Chest CTA. HRRR without murmur or gallop. Abd: obese, soft, bowel sounds active x 4. No pulsatile masses. Non-tender. No rebound, guarding, or peritoneal signs. No masses. No organomegaly. Rosenberg's punch: negative. No flank pain. No inguinal or axillary lymphadenopathy. Extrem: no clubbing, cyanosis, edema. Extremities are warm and pink with prompt capillary refill. ASSESSMENT/PLAN: 1. Gastroesophageal reflux disease, esophagitis presence not specified - ICD9: 530.81, ICD10: K21.9 (primary diagnosis) - Discussed lifestyle modifications including losing weight, limiting caffeine, no meals three hours before sleep and head of bed elevation - OMEPRAZOLE 20 MG CAPSULE,DELAYED RELEASE 2. Primary insomnia - ICD9: 307.42, ICD10: F51.01 - HYDROXYZINE HCL 25 MG TABLET f/u 2-4 weeks EMILY Tariq PA-C 11/08/2017 12:36 PM Signed For heartburn or Gastroesophageal Reflux (GERD): You need to gradually stop caffeine products which make heart burn worse by increasing acid and causing more activity in the stomach, creating more splash of acid into the esophagus. Avoid alcoholic beverages until symptoms improve, and generally limit to 1 or 2 a day. Obesity is a last factor in worsening heart burn and reflux. If you are overweight, a gradual weight reduction program should be implemented. Fad diets are not helpful, and may make you feel worse. Weight loss should be accomplished by modest reduction in calories, particularly in high carbohydrate or fatty foods, and through increased aerobic exercise. Get 30-60gm fiber per day in diet through beefy fruits and vegetables, beans, legumes, and whole grains. No more than 30% of calories should come from fat: 10% or less saturated, 10% or less polyunstaurated and the rest from monounsaturated fats. Avoid food high in trans-fats. Start an exercise program involving all four extremities in motion if possible, gradually increasing to goal of 30 minutes of sustained aerobic activity 3-4 days/ week. You should try to avoid over eating or laying down after a meal. Stay bolt upright for at least 90 minutes after eating. going for a walk may help food to settle. Avoid high acid foods such as citrus, tomatoes,sour candies, sugary foods and chocolate. Spicy foods, peppermint and salty or seasoned snacks may also cause problems. Put the head of your bed up on 4-6 inch blocks to help keep acid from coming up in your throat. Antacids or baking soda may help for brief occasional heartburn, but should not be used frequent symptoms as the stomach may detect the change in pH and secrete more acid. Products such as H2 blockers (Zantac, Tagamet, Pepcid, Axid, etc.) or Prilosec OTC may help. If symptoms aren't relieved with these choices over a few weeks of use, you should report this to your medical provider. Maintain a regular sleep-wake cycle 7 days a week. Bedtime should not vary more than 1 hour from day to day. Go to bed when you are sleepy. Aim for at least 8 hours of sleep. Maintain a regular schedule for meals, medications, chores and sleep as much as possible. Limit any stimulants, such as caffeine, nicotine, decongestants, etc to use that will not effect sleep times. Caffeine exerts its effect for 12-16 hours, so avoid use within that time period before sleep. Do not use nicotine products withing 4-6 hours of sleep. Avoid taking naps. If you do nap, try to limit is to less than 1 hour. Don't lay in bed longer than 20-30 minutes without sleeping. Get up and fo something sedentary unitl you feel tired. Minimize excessive light, noise, or extremes of temperature in the sleep environment. Minimize distractions such as pets, children, phone calls, light or TV noise. Move the alarm clock away from your bed so that you are not tempted to look at it. Don't eat a large meal within a few hours of bedtime. Don't use alcohol to induce sleep or in late evening hours as it can cause awakenings later in the night Don't exercise vigorously within fours of sleep. Regular exercise will help with overall sleep improvement. Limit television to an hour. Television viewing actually decreases the REM (most restful) portion of your sleep cycle. Avoid using your bed as a recreational area as in reading or television. Bed need to be associated with sleep in your mind. OTC herbal supplements such as Valerian Root and Kava Kava have shown some benefit in sleep induction without hang over. Referring Provider: SELF [[id number]] Allergies As of Date: 11/08/2017 Noted Allergy Reaction SULFA DYNE 07/18/2011 16 - Unknown Comments: Sulfa antibiotic Date Reviewed: 11/08/2017 Reviewed by: Betina Soto LPN - Fully Assessed Reason for Visit: Nausea [70] Cmt: with vomiting GERD [548] Cmt: has a burning feeling in chest/abdomen Primary Visit Diagnosis:Gastroesophageal reflux disease, esophagitis presence not specified [K21.9] Other Visit Diagnosis:Primary insomnia [F51.01] Order(s):omeprazole (PRILOSEC) 20 mg capsuleTake 1 capsule by mouth daily before breakfast. 1/2 hr before meal.Disp: 30 capsuleRfl: 2 hydrOXYzine HCl (ATARAX) 25 mg tablet1-2 tabs at HS for sleepDisp: 30 tabletRfl: 2 Prescriptions as of 11/08/2017 Sig: ALBUTEROL SULFATE HFA 90 MCG/* Inhale 2 Puffs as instructed * LISINOPRIL 30 MG TABLET Take 1 tablet by mouth once d* SERTRALINE 50 MG TABLET Take 1 tablet by mouth once d* QUETIAPINE 50 MG TABLET Take 1 tablet by mouth daily * OMEPRAZOLE 20 MG CAPSULE,JUAN LUIS* Take 1 capsule by mouth daily* HYDROXYZINE HCL 25 MG TABLET 1-2 tabs at HS for sleep Problem List As Of Date 11/08/2017 Noted Resolved HTN (hypertension) [I10] INVALID FOR* Hypokalemia [E87.6] INVALID FOR* Anxiety [F41.9] INVALID FOR* Chronic midline low back pain [M54.5, G89.29] INVALID FOR* Other instructions from your clinician: For heartburn or Gastroesophageal Reflux (GERD): You need to gradually stop caffeine products which make heart burn worse by increasing acid and causing more activity in the stomach, creating more splash of acid into the esophagus. Avoid alcoholic beverages until symptoms improve, and generally limit to 1 or 2 a day. Obesity is a last factor in worsening heart burn and reflux. If you are overweight, a gradual weight reduction program should be implemented. Fad diets are not helpful, and may make you feel worse. Weight loss should be accomplished by modest reduction in calories, particularly in high carbohydrate or fatty foods, and through increased aerobic exercise. Get 30-60gm fiber per day in diet through beefy fruits and vegetables, beans, legumes, and whole grains. No more than 30% of calories should come from fat: 10% or less saturated, 10% or less polyunstaurated and the rest from monounsaturated fats. Avoid food high in trans-fats. Start an exercise program involving all four extremities in motion if possible, gradually increasing to goal of 30 minutes of sustained aerobic activity 3-4 days/ week. You should try to avoid over eating or laying down after a meal. Stay bolt upright for at least 90 minutes after eating. going for a walk may help food to settle. Avoid high acid foods such as citrus, tomatoes,sour candies, sugary foods and chocolate. Spicy foods, peppermint and salty or seasoned snacks may also cause problems. Put the head of your bed up on 4-6 inch blocks to help keep acid from coming up in your throat. Antacids or baking soda may help for brief occasional heartburn, but should not be used frequent symptoms as the stomach may detect the change in pH and secrete more acid. Products such as H2 blockers (Zantac, Tagamet, Pepcid, Axid, etc.) or Prilosec OTC may help. If symptoms aren't relieved with these choices over a few weeks of use, you should report this to your medical provider. Maintain a regular sleep-wake cycle 7 days a week. Bedtime should not vary more than 1 hour from day to day. Go to bed when you are sleepy. Aim for at least 8 hours of sleep. Maintain a regular schedule for meals, medications, chores and sleep as much as possible. Limit any stimulants, such as caffeine, nicotine, decongestants, etc to use that will not effect sleep times. Caffeine exerts its effect for 12-16 hours, so avoid use within that time period before sleep. Do not use nicotine products withing 4-6 hours of sleep. Avoid taking naps. If you do nap, try to limit is to less than 1 hour. Don't lay in bed longer than 20-30 minutes without sleeping. Get up and fo something sedentary unitl you feel tired. Minimize excessive light, noise, or extremes of temperature in the sleep environment. Minimize distractions such as pets, children, phone calls, light or TV noise. Move the alarm clock away from your bed so that you are not tempted to look at it. Don't eat a large meal within a few hours of bedtime. Don't use alcohol to induce sleep or in late evening hours as it can cause awakenings later in the night Don't exercise vigorously within fours of sleep. Regular exercise will help with overall sleep improvement. Limit television to an hour. Television viewing actually decreases the REM (most restful) portion of your sleep cycle. Avoid using your bed as a recreational area as in reading or television. Bed need to be associated with sleep in your mind. OTC herbal supplements such as Valerian Root and Kava Kava have shown some benefit in sleep induction without hang over. Prescriptions ordered this encounter Disp Refills Start End OMEPRAZOLE 20 MG CAPSULE,DELAYED REL* 30 c* 2 11/08/2017 Route: ORAL Sig: Take 1 capsule by mouth daily before breakfast. 1/2 hr before meal. HYDROXYZINE HCL 25 MG TABLET 30 t* 2 11/08/2017 Si-2 tabs at HS for sleep Disposition: Return in about 4 weeks (around 12/06/2017). Follow-up and Disposition History Recorded Encounter Status:Closed by Kavin GERMAN PA-C on 11/08/17 12 LEAD ELECTROCARDIOGRAM Observed: 10/30/2017 Status: F Source: [place] 1:09 PM [facility] REPOSITORY [facility] Cardiovascular Services [address] [place] [address] 12 Lead EKG 10/25/17 0743 MR#: [id number] Acct: [id number] Name: REJI MARTINS I Rep #: [id number] : 1970 47 From: Robert Garza MD Attending Dr: Maura Valles DPM Status: DEP [facility] Ordering Dr: Beto Dan MD Date: 10/25/17 Location: [facility] Sex: M C Admitted: Test Reason : PRE OP Blood Pressure : / mmHG Vent. Rate : 098 BPM Atrial Rate : 098 BPM P-R Int : 142 ms QRS Dur : 088 ms QT Int : 350 ms P-R-T Axes : 043 007 043 degrees QTc Int : 446 ms Normal sinus rhythm Normal ECG When compared with ECG of 29-APR-2016 20:59, No significant change was found Confirmed by ROBERT GARZA MD ([id number]), marketing editor SHAHRIAR MARTINS ([id number]) on 10/30/2017 1:09:05 PM Referred By: Maura Valles Confirmed By:ROBERT GARZA MD 10/30/17 1309 Date Robert Garza MD CC: Beto Dan MD; Maura Valles DPM; Wm Blue MD Signed DISCHARGE INSTRUCTION Observed: 10/25/2017 Status: F Source: [place] 10:18 AM [facility] REPOSITORY [facility] Medical Records Department [address] [place] [address] Instructions for Home/Discharge Instructions 10/25/17 1016 MR#: [id number] Acct: [id number] Name: REJI MARTINS I Rep #: [id number] : 1970 47 From: Maura Valles DPM PCP: Wm Blue MD Status: REG SDC Discharge Diet: No Restrictions Weight Bearing Status: Partial weight bearing - right with cam walker boot and crutches for assistance Keep extremity elevated above heart level: Right Leg Call your doctor if your incision/area has: Continuous Slow Oozing, Sudden Increased Bleeding, Increased Pain/ Swelling, Increased Redness, Foul Smelling Discharge, Swelling at the incision site Call your doctor if you observe: Fever of 101 or Higher, Numbness or Tingling, Calf discomfort, Uncontrolled pain Cleanse incision/area with: Keep Dressing Clean AND Dry Allergies/Adverse Reactions: Allergies Sulfa (Sulfonamide Antibiotics) Allergy (Verified 10/23/17 13:23) Unknown Medications to take at Discharge Hydrocodone/Acetaminophen [[place] 5-325 Tablet] 1 - 2 ea PO 4X/DAY PRN PRN 3 Days #12 tab 10/20/17 Ciprofloxacin [Cipro] 500 mg PO BID 10/23/17 Doxycycline 100 mg PO BID 10/23/17 Etodolac 400 mg PO BID 10/23/17 Lisinopril [Zestril] 30 mg PO DAILY 10/23/17 Sertraline HCl [Zoloft] 50 mg PO DAILY 10/23/17 Hydrocodone/Acetaminophen [Hydrocodon-Acetaminophen 5-325] 1 - 2 tab PO Q6H PRN PRN #10 tab 10/25/17 The following prescriptions were given: Hydrocodone/Acetaminophen [Hydrocodon-Acetaminophen 5-325] 1 - 2 tab PO Q6H PRN PRN #10 tab PRN Reason: Pain Primary Care Physician: Wm Blue MD [Primary Care Provider] - Test Results: Please Follow Up With: Maura Valles DPM When: [facility]; [phone] Proposed Discharge Date: 10/25/17 10/25/17 1018 <Electronically signed by Maura Valles DPM> Date Maura Valles DPM CC: Wm Blue MD OPERATIVE REPORT Observed: 10/25/2017 Status: F Source: [place] 10:13 AM [facility] REPOSITORY [facility] Medical Records Department [address] [place] [address] Operative Report 10/25/17 1006 MR#: [id number] Acct: [id number] Name: REJI MARTINS I Rep #: [id number] : 1970 47 From: Maura Valles DPM PCP: Wm Blue MD Status: REG [facility] Location: [place] [address] Problem List (1) Foreign body in right foot Status: Acute Qualifiers: Encounter type: subsequent encounter Qualified Code(s): S90.851D - Superficial foreign body, right foot, subsequent encounter (2) Right foot pain Status: Acute Report of Operation Date of Procedure: 10/25/17 Pre-Operative Diagnosis: retained painful foreign body right foot Post-Operative Diagnosis: retained painful foreign body right foot Surgery/Procedure Performed:: removal of right foot foreign body Description of Surgical Findings:: Hemostasis: Anatomic dissection. Tourniquet was not utilized. Materials: 2-0 nylon Complications: None Specimens: Metallic foreign body removed blasting helper: none Type of Anesthesia:: Local MAC - preoperative injection: 1:1 mix of 1% lidocaine plain and 0.5% Marcaine plain administered in typical right lower extremity tibial nerve block and local infiltration; 13 mL Specimen's removed: needle foreign body Estimated Blood Loss (mL): < 50 mL Description of Procedure: Indications: his is a 47-year-old male with no significant past medical history who stepped on a needle approximately 1-1/2 weeks ago. He relates he pulled hard out in the remainder of the needle deep in the foot. His primary care physician try to perform an in office procedure to the right of this and this was not successful. The patient also try to get this out on his own. He has continued pain and now has worsening inflammation and swelling to this area. Clinically his neurovascular status is intact with palpable PT and DP pulses the right lower extremity and there is an excoriation to the plantar foot at the presumed entry point as well as previous local anesthetic injection site. There is no purulence on expression, drainage, or odor. There is edema and slight inflammation erythema adjacent to the site. There is pain on palpation to the aspiration site and adjacent to the sites without pain with adjacent joint manipulation. The preoperative indications, planned procedure, possible benefits, risks, and anticipated healing time is were discussed in detail the patient. He understands and elects to proceed with surgery at this time. He understands complications may include but are not limited to the following: Infection, delayed or nonhealing, continued retained foreign body, chronic regional pain syndrome, numbness, scarring, continued pain and swelling, allergic reaction, loss of limb function or life. Informed surgical consent and the surgical limb were signed. His preoperative clearance and history and physical exam was reviewed from Dr. Zhou. His preoperative CMP and CBC were also reviewed without gross abnormalities. Procedure in detail: Patient was transferred to the operating room via cart and placed on the operating table in supine position. Final verification the patient, surgery, limb designation was performed via the timeout procedure. A well-padded pneumatic right ankle tourniquet was placed however this was not utilized. Preoperative local anesthetic was administered as noted above. The MAC anesthesia was initiated by the anesthesia team. Antibiotics were administered as ordered. The right lower extremity was prepped and draped in the usual aseptic manner. Intraoperative fluoroscopy was utilized to triangulate and locate the foreign body which is adjacent to the most distal most excoriation site. Next, a 1-1/2 cm linear incision was made through the skin and blunt dissection was performed down with a hemostat. Care is taken to identify, retract, and protect all neurovascular structures at this time and throughout the remainder of the procedure. Suction was utilized to control hemostasis and the tissue was gently dissected through adipose layer until the plantar fascia band was identified. Upon dissection glistening of the metallic foreign body was visualized and a hemostat was used to extract this from the foot. This was removed in total and intraoperative fluoroscopy was utilized to confirm removal of the entire foreign body. No purulence or deep necrosis was noted. Aerobic and anaerobic cultures were obtained. Copious saline irrigation was performed. The skin edges were reapproximated with 2-0 nylon utilizing no touch technique. A postoperative dressing consisting of Betadine gauze, dry gauze, Kerlix, Markie wrap were applied. After procedure: The patient tolerated the procedure and anesthesia well. He will be transferred to the PACU vital signs stable and vascular status intact. Postoperative x-rays were reviewed as noted. Aerobic and anaerobic culture results are pending and were taken in case of infection develops during the postoperative course. He already has an offloading Cam walker boot with offloading liners and he was advised to only heel weightbearing use crutches for assistance. He was advised on safe and proper pain medication use of Middlebury. He was advised to ice and elevate his limb. He was advised to keep his dressing clean dry and intact until he follows up with me at the [facility] in 1 week. All of his postoperative orders were entered electronically and he will be discharged home today. Maura Valles DPM, [facility] [place] 10/25/17 1013 <Electronically signed by Maura Valles DPM> Date Maura Valles DPM CC: Maura Valles DPM; Wm Blue MD Signed FOOT 2 VIEWS Observed: 10/25/2017 Status: F Source: [place] 8:07 AM [facility] REPOSITORY [facility] Imaging Services [address] [place] [place] [address] Foot 2 Views MR#: [id number] Acct: [id number] Name: LAKSHMIREJI Joés Luis Rep #: [id number] : 1970 M 47 From: Nael Duvall MD PCP: Wm Blue MD Status: [facility] Study: Foot 2 Views Date of Exam: 10/25/17 Exam# [id number] Ordering Dr: Maura Valles DPM STUDY: X-RAY - RIGHT FOOT CLINICAL: Male, 47 years old. Foreign body removal. TECHNIQUE: 2 coned down intraoperative view(s) of the foot. COMPARISON: Comparison is made with prior study dated October 20, 2017. FINDINGS: The previously seen radiopaque foreign body overlying the base of the fourth metatarsal is not seen at this time. RAD/Foot 2 Views IMPRESSION: The previously seen foreign body overlying the base of the fourth metatarsal is not seen at this time. Electronically Signed: Nael Duvall MD at 13:08 EDT Tel [phone], Service support , CC: Maura Valles DPM; Wm Blue MD [employer] Teacher: Signed Observed: 10/25/2017 Status: F Source: [place] CULTURE, DEEP WOUND 12:00 AM [facility] REPOSITORY Has pt arrived? Y Comments: 1) WOUND RIGHT FOOT Gram Stain Gram Stain No White Blood Cells No organisms seen Wound Culture No growth aerobically. Cult, Anaerobic No growth in 5 days. Performed By: #### M100.1500 #### [facility] [place], [address] CBC W/DIFF, AUTOMATED Collected: 10/23/2017 Status: F Source: [place] 2:57 PM [facility] REPOSITORY TYPE CODE TESTS RESULT OUT OF RANGE REFERENCE UNITS LAB L100.1000 4.4-11.0 K/mm3 Normal WBC 6.1 LAB L100.1200 4.6-6.2 M/mm3 Normal RBC 5.21 LAB L100.1300 13.0-16.5 g/dl Normal HGB 15.7 LAB L100.1400 40-54 % Normal HCT 45.1 LAB L100.1500 80-94 fL Normal MCV 86.6 LAB L100.1600 27.0-32.0 pg Normal MCH 30.1 LAB L100.1700 32-36 g/gl Normal MCHC 34.8 LAB L100.1810 11.6-14.6 % Normal RDW CV 14.2 LAB L100.1820 35.1-43.9 fl High RDW SD 45.3 LAB L100.1900 150-450 K/mm3 Normal PLT 310 LAB L100.2000 6.2-12.0 fl Normal MPV 9.9 LAB L100.2100 47-70 % Normal NEUT% 65.1 LAB L100.2200 19-41 % Normal LY% 24.8 LAB L100.2300 0-10 % Normal MONO% 8.6 LAB L100.2400 0-5 % Normal EO% 0.8 LAB L100.2500 0-1 % Normal BASO% 0.2 LAB L100.2550 0.0-0.9 % Normal IM GRAN % 0.500 Result Comment: IG% - Immature Granulocytes (promyelocytes, myelocytes and metamyelocytes) > 1% indicates that a LEFT SHIFT is Present. LAB L100.2620 2.0-7.7 X10 3/uL Normal Absolute Neut 3.9 LAB L100.2720 0.83-4.51 X10 3/ul Normal Absolute Lymph 1.50 Performed By: #### L100.0100 #### [facility] [address] [place], [address] COMPREHENSIVE METABOLIC Collected: 10/23/2017 Status: F Source: [facility] 2:57 PM [facility] REPOSITORY TYPE CODE TESTS RESULT OUT OF RANGE REFERENCE UNITS LAB L501.0100 74-106 mg/dL High GLU 146 Result Comment: Fasting Glucose result greater than or equal to 126 mg/dL suggests DIABETES MELLITUS per A.D.A. criteria. Please note revised GLUCOSE reference range effective 2017. LAB L501.1000 7-18 mg/dL Normal BUN 13 LAB L501.1100 0.70-1.30 mg/dL High CREAT,SERUM 1.56 Result Comment: The validity of the calculated GFR AND GFRAA in patients over 70 years has not been determined. Clinical correlation is essential. LAB L501.1110 >60 mL/min Low EST GFR 51 Result Comment: Non- GFR Calc LAB L501.1115 >60 mL/min Normal EST GFR - AA 62 Result Comment: GFR Calc LAB L501.1300 10-20 RATIO Low BUN/CRE 8.3 LAB L501.1500 6.4-8.2 g/dL Normal T PROT 7.5 LAB L501.1800 3.2-5.0 g/dL Normal ALB 3.7 LAB L501.1950 2.2-4.2 g/dL Normal GLOB 3.8 LAB L501.2000 0.9-2.4 RATIO Normal A/G 1.0 LAB L501.2200 8.5-10.1 mg/dL Normal CA 8.6 LAB L501.4100 15-37 U/L Normal AST 19 LAB L501.4305 45-117 U/L Normal ALK P 56 LAB L501.4405 16-61 U/L Normal ALT 40 LAB L501.4600 0.20-1.00 mg/dL Normal T BILI 0.30 LAB L501.5300 136-145 mmol/L Normal NA 141 LAB L501.5600 3.5-5.1 mmol/L Normal K 3.6 LAB L501.5900 98-107 mmol/L High CL 111 LAB L501.6100 21.0-32.0 mmol/L Low CO2 20.0 LAB L501.6200 5-15 Normal GAP 10 Performed By: #### L500.4050 #### [facility] [address] [facility] [place], [address] EMERGENCY DEPARTMENT Observed: 10/20/2017 Status: F Source: [place] SUMMARY 11:09 PM [facility] REPOSITORY [facility] Medical Records Department [address] [place] [address] Emergency Department Summary 10/20/17 1540 MR#: [id number] Acct: [id number] Name: REJI MARTINS I Rep #: [id number] : 1970 47 From: Susana Hardwick DO PCP: Wm Blue MD Status: DEP ER - ER Visit Summary Date of Service: 10/20/17 Chief Complaint: [Pain right foot History of Present Illness: The patient is a 47 M [presents to the emergency department complaint of pain in his right foot. Patient states that he stepped on a sewing needle 5 days ago. Patient was seen by his primary care physician 2 days ago, Dr. Blue. Patient had x-rays that showed remaining portion of needle still in the foot. Patient states that an attempt was made to find the needle and remove it unsuccessfully. Patient was referred for follow-up with surgeon and with Michelle but states that he cannot get to the dining. Patient was started on an antibiotic and states he has had increased pain over the last couple of days. Patient denies any fever. Patient denies any increased redness to the foot.] Physical Examination: [Right foot-patient has a small puncture wound noted to the plantar midfoot that is tender to palpation. No significant foreign body palpated. No lymphangitic streaking or significant cellulitis noted.] Test Results: [X-rays of the right foot were obtained] which showed foreign body over the base of the fourth metatarsal. Emergency Department Course and Treatment: [Case was discussed with of podiatry who presented to the emergency department to evaluate patient and review x-rays. It was felt that patient would benefit from outpatient follow-up and removal in the operating room.] Treatment Plan: [Patient will be given a prescription for Middlebury for pain and advised to continue with the antibiotics. Patient did not want crutches] Disposition: [Discharged home in stable condition. Patient advised to return if fever, increased redness, swelling, or condition should worsen in any way.] Impression: [Right foot foreign body-retained] This note was generated with [employer] dictation software. It may contain incorrect words, spelling, and punctuation that were not noted in review of the chart prior to signing ED Disposition - Plan for ED Patient: Chief Complaint: Lower Extremity Injury Referrals: Wm Blue MD [Primary Care Provider] - What to do if you have Problems For any increased pain, shortness of breath, bleeding, nausea or vomiting, chest pain, or any unexpected problems, contact your Primary Care Provider. Call [facility] ([phone]) or report to the closest Emergency Room. Call 911 if necessary. 10/20/17 0208 <Electronically signed by Susana Hardwick DO> Date Susana Hardwick DO Cosigner Signature (If Indicated): Date CC: Wm Blue MD CONSULTATION Observed: 10/20/2017 Status: F Source: [place] 5:09 PM [facility] REPOSITORY [facility] Medical Records Department [address] [place] [address] Consultation 10/20/17 1632 MR#: [id number] Acct: [id number] Name: REJI MARTINS I Rep #: [id number] : 1970 47 From: Maura Valles DPKavin PCP: Wm Blue MD Status: DEP ER Y Location: ED Problem List (1) Foreign body in right foot Status: Acute (2) Right foot pain Status: Acute Reason for Consult Date of Consultation: 10/20/17 Reason for Consultation: right foot needle pain History of Present Illness: The patient is a 47 year old M was seen bedside in the emergency room for right foot pain. He stepped on a needle this past week (five days ago) at home and pulled part of the fragment out. He has continue pain and swelling. He was seen by his PCP, Dr. Blue who started him on oral antibiotics and attempted to remove the needed in the clinical setting; it remains in the foot. He relates he got updated in 2011. Past Medical History Allergies Sulfa (Sulfonamide Antibiotics) Allergy (Verified 10/20/17 14:17) Unknown Home Medications: Ambulatory Orders Medication Instructions Recorded Anxiety Med 08/26/16 Bp Med 08/26/16 Hydrocodone/Acetaminophen [Middlebury 1 - 2 ea PO 4X/DAY PRN PRN 3 Days 10/20/17 5-325 Tablet] #12 tab Surgical History: tonsillectomy Lives: - - he is currently not working Smoking Status: Never smoker Review of Systems Constitutional: Denies: Chills, Fever, Weakness, Fatigue Cardiovascular: Denies: Chest Pain, Claudication Respiratory: Denies: Shortness of Breath Gastrointestinal: Denies: Nausea, Vomiting Musculoskeletal: Reports: Foot Pain. Denies: Leg Pain Skin: Denies: Rash, Skin Changes, Wounds Neurological: Denies: Numbness, Tingling Hematologic/ Lymphatic: Denies: Easy Bruising - Physical Exam General: Alert, Oriented x3, Cooperative HEENT: Atraumatic Extremities: No cyanosis, Capillary Refill Less than 3 Seconds - all digits right foot, Peripheral Pulses Normal - 2/4 PT and DP right lower extremity Skin: Ulcer/ Wound - pinpoint skin escoriation at level of plantar needle entry likely from local anesthetic administration from his recent attempted removal in the clinical setting with peripheral edema. there is no kelly erythema, purulence, fluctuance on palpation, necrosis, active drainage or acute infection signs Musculoskeletal: No Muscle Wasting, Tenderness - plantar arch palpation discmofort; compartments remain soft. no pain or crepitus noted with manipulation or palpation of the midfoot or the metetatarsal phalangeal joints., - - negative alex and chapman sign bilateral. active range of motion of ankle and all digits noted right lower extremity Neurological: Sensory exam intact to light touch and pain - foot and ankle dermatomes., - Psych/Mental Status: Normal Affect, Appropriate Vital Signs Temp Pulse Resp BP Pulse Ox 98.6 F 110 H 20 H 161/92 H 97 10/20/17 14:15 10/20/17 14:15 10/20/17 14:15 10/20/17 14:15 10/20/17 14:15 Oxygen Delivery Method Room Air Weight: 136.078 kg Body Mass Index (BMI) 44.3 Assessment/Plan All Active Problems Foreign body in right foot (Acute) Right foot pain (Acute) Right foot foreign body; needle Right foot pain I reviewed and discussed his case. He had updated foot x- rays obtained while in the emergency room and these are reviewed and discussed. There appears to be a 1-1/2 cm metallic body consistent with a needle please that is entrapped into the plantar arch of the foot beyond the skin layers. This also appears to be deep to the fourth metatarsal proximal diaphysis and base. There are no acute fractures or dislocations or soft tissue emphysema or other foreign bodies noted. This is painful and he has been wearing a surgical shoe for protection. This was evaluated and appears to be appropriate. I recommend he keep weight off of his foreign body site by placing weight on his heel and limiting activity. He was started on antibiotics by Dr. Blue and I recommend he complete his course. There is no active drainage and a culture could not be obtained. If his local symptoms of infection noted after discharge from the emergency room he was advised to call the [facility] immediately. His tetanus was updated in 2011 and this is noted. I recommend removal of the foreign body in the operating room setting under guided fluoroscopy. He will be scheduled for next week. The [facility] behavioral therapy coordinator will contact him on Sunday. The surgical indications, planned procedure, benefits, risks, complications, and anticipated healing time and management were discussed in detail with patient. He understands and elects to proceed at this time. This can be done in the outpatient setting under general local anesthesia. He understands an incision to the plantar aspect of the foot will be required. To take norco as needed for pain control. He was advised on safe use. I answered all his questions. Thank you very much for the consultation. This case was discussed with emergency room physician Dr. Preciado. Maura Valles DPM, [facility] [phone] 10/20/17 3815 <Electronically signed by Maura Valles DPM> Date Maura Valles DPM Cosigner Signature (if applicable): Date CC: Wm Blue MD Signed DISCHARGE INSTRUCTION Observed: 10/20/2017 Status: F Source: [place] 4:52 PM [facility] REPOSITORY [facility] Medical Records Department [address] [place] [address] Discharge Instruction 10/20/17 1651 MR#: [id number] Acct: [id number] Name: MARTINSREJI José Luis Rep #: [id number] : 1970 47 From: Susana Hardwick DO PCP: Wm Blue MD Status: REG ER ED Disposition - Plan for ED Patient: Chief Complaint: Lower Extremity Injury Instructions: ED Foreign Body Soft Tissue Prescriptions: Hydrocodone/Acetaminophen [Middlebury 5-325 Tablet] 1 - 2 ea PO 4X/DAY PRN PRN 3 Days #12 tab PRN Reason: Pain Referrals: Wm Blue MD [Primary Care Provider] - Maura Valles DPM [STAFF PHYSICIAN] - 3-5 Days What to do if you have Problems For any increased pain, shortness of breath, bleeding, nausea or vomiting, chest pain, or any unexpected problems, contact your Primary Care Provider. Call [facility] ([phone]) or report to the closest Emergency Room. Call 911 if necessary. 10/20/17 8202 <Electronically signed by Susana Hardwick DO> Date Susana Hardwick DO Cosigner Signature (If Indicated): Date CC: Wm Blue MD FOOT MIN 3 VIEWS Observed: 10/20/2017 Status: F Source: [place] 3:30 PM [facility] REPOSITORY [facility] Imaging Services [address] [place] [address] Foot min 3 Views MR#: [id number] Acct: [id number] Name: REJI MARTINS I Rep #: [id number] : 1970 M 47 From: Dick Mireles DO PCP: Wm Blue MD Status: PRE ER Study: Foot min 3 Views Date of Exam: 10/20/17 Exam# [id number] Ordering Dr: Susana Hardwick DO STUDY: X-RAY - RIGHT FOOT CLINICAL: Male, 47 years old. Right foot puncture wound TECHNIQUE: 3 view(s) of the foot. COMPARISON: None. FINDINGS: No acute osseous findings. At the plantar aspect of the base of the fourth metatarsal region, there is a metallic needle within the soft tissues. RAD/Foot min 3 Views IMPRESSION: Foreign body as above Electronically Signed: Dick Mireles DO at 16:09 EDT Tel , Service support , CC: Susana Blue MD [employer] Teacher: Signed PROGRESS Observed: 10/18/2017 Status: COMPLETED Source: [place] 4:59 PM [facility] REPOSITORY HNO ID: [id number] Author: Hilda Glynn RN Service: (none) Author Type: (none) Type: Progress Notes Filed: 10/18/2017 9:55 PM Note Text: Amerigel and bandaid applied to R foot. Per Dr. Peralta, Reji provided with a post op shoe with offloading insole and donut pad, size M, and instructed/educated in its application, wear, and care. All questions were answered, and patient was able to demonstrate competence with the necessary skills to utilize the above equipment. Hilda Glynn RN PROGRESS Observed: 10/18/2017 Status: COMPLETED Source: [place] 4:14 PM [facility] REPOSITORY HNO ID: [id number] Author: Hilda Glynn RN Service: (none) Author Type: (none) Type: Progress Notes Filed: 10/18/2017 9:55 PM Note Text: UNIVERSAL PROTOCOL / SAFETY CHECKLIST Procedure to be performed: attempted removal of foreign body, R foot Sign in Communication: Completed Time Out: Team Confirms the Correct Patient, Correct Procedure, Correct Site and Site Marking, Correct Position (if applicable), Prep and Dry Time (if applicable). Time: 1614 Affirmation of Time Out: YES Sign Out Discussion: Completed Hilda Glynn RN PROGRESS Observed: 10/18/2017 Status: COMPLETED Source: [place] 3:42 PM [facility] REPOSITORY HNO ID: [id number] Author: Mio Peralta Service: (none) Author Type: Physician Type: Progress Notes Filed: 10/18/2017 9:55 PM Note Text: ? Mio Peralta DPM Department of Podiatry [address] [facility] [address] Dept: [phone] Dept 10/18/2017 Initial Podiatric Office Visit: HPI: Reji Martins is a 47 year old male. Patient presents with FB, R foot. Patient reports stepping on sewing needle 3 days ago. Patient did not see anyone at first as he felt it would heal on it's own. Reports that he went to PCP today d/t worsening pain in R plantar foot. 01/30 with WB. Patient had XR done and PCP wrote prescription for Cipro 500 mg BID x10 days. He has not started this medication yet. PCP: Wm Blue MD PAST MEDICAL HISTORY Diagnosis Date - Chronic low back pain - Depression - High blood pressure Current Outpatient Prescriptions: ciprofloxacin HCl (CIPRO) 500 mg tablet Take 1 tablet by mouth twice daily for 10 days. albuterol HFA (VENTOLIN HFA) 90 mcg/actuation inhaler Inhale 2 Puffs as instructed every 4 hours as needed for Wheezing/Shortness of Breath. lisinopril (ZESTRIL,PRINIVIL) 30 mg tablet Take 1 tablet by mouth once daily. sertraline (ZOLOFT) 50 mg tablet Take 1 tablet by mouth once daily. QUEtiapine (SEROQUEL) 50 mg tablet Take 1 tablet by mouth daily at bedtime. No current facility-administered medications for this visit. ALLERGIES Allergen Reactions - Sulfa Dyne Unknown Sulfa antibiotic PAST SURGICAL HISTORY Procedure Laterality Date - TONSILLECTOMY HX FAMILY HISTORY Problem Relation Age of Onset - Diabetes Mother - None Father - None Sister - Alzheimer's Disease Maternal Grandfather Social History Marital status: Single Spouse name: Years of education: Number of children: Social History Main Topics Smoking status: Former Smoker Packs/day: 0.00 Years: 0.00 Types: Cigarettes Quit date: 05/10/1990 Smokeless tobacco: Former User Alcohol use: No Comment: rarely Drug use: No Sexual activity: Yes Partners with: Female REVIEW OF SYSTEMS: CONSTITUTIONAL: No fevers, chills, nightsweats, unintended weight loss HEENT: Denies frequent or severe heaches, nasal congestion/sinus symptoms, problematic allergy problems. EYES: No diplopia or blurry vision. CARDIOVASCULAR: No chest pain, dyspnea, palpitations, orthopnea, PND, ankle edema. PULM: No dyspnea, unexplained cough. GI: No dysphagia/odynophagia, problematic reflux, constipation, diarrhea, changes in stool habits, hematochezia, melena. : No new urinary complaints, including dysuria, gross hematuria or pyuria. NEURO: No new balance problems, peripheral weakness/paresthesias or numbness of concern. MUSC-SKEL: No new joint pain, swelling, or erythema. PSY: No concerns regarding depression, anxiety or panic. INTEGUMENTARY: + pain and swelling and redness to right foot with puncture wound. Physical Exam: Constitutional: Pt is a well developed 47 year old male who is alert, oriented and cooperative Eyes: Following during examination. No redness or drainage. Respiratory: RR normal and nonlabored. Even breathing. No evidence of distress or shortness of breath. Psychology: Patient is engaged during conversation. Normal affect and mood. Does not appear depressed or anxious during encounter. Vascular: Dorsalis pedis and posterior tibial pulses faintly palpable as b/l Capillary Fill time < 5 seconds to digits 1-5 b/l Skin temperature warm to warm proximal to distal b/l Hair growth present to digits Neurological: intact light touch/epicritic sensation Dermatological: Nails 1-5 b/l appear Normal. Webspaces clean and dry 1-4 b/l. Skin appears well hydrated and supple. good color, texture, turgor. Plantar aspect of right foot has evidence of dry eschar with visible puncture wound with pain and redness and swelling. No fluctuance to indicate abscess. The foot was prepped with betadine and the foot was injected with lidocaine. Debridement was performed. No evidence of deep puncture wound. No superficial foreign body detected. Musculoskeletal/Orthopaedic: Patient has pain to palpation of right plantar midfoot Foot type is neutral structurally AJ ROM is full with knee extended and flexed 1st MPJ is full when loaded and no pain or crepitus are noted with ROM. MTJ, STJ are full and free of pain and crepitus. +5/5 muscle strength dorsiflexion, plantarflexion, inversion, eversion b/l Radiographs: 3 views of right foot reviewed. There is foreign body in soft-tissue. ASSESSMENT: (M79.5) Foreign body (FB) in soft tissue (primary encounter diagnosis) (R09.89) Diminished pulses in lower extremity PLAN: Patient was examined and informed of current findings Discussed xrays that clearly show foreign body. Today, discussed attempted bedside debridement to evaluate if this could be removed at bedside. Under sterile technique, the right foot was injected with 3 cc of 2% lidocaine plain. The eschar was debrided with 15 blade. No deep abscess or deep puncture wound identified. Discussed performing removal of foreign body in operating room. Offered patient [facility] next Sunday but patient unable to get to [facility]. I will have patient take cipro and will add additional coverage with doxycycline. He was given surgical shoe with offloading. He will f/u next Sunday for evaluation and will determine if we can set up outpatient procedure at local hospital ([facility]). If foot condition worsens, he is to present to [facility]. Patient satisfied with plan of care Mio Peralta DPM CNOV Observed: 10/18/2017 Status: COMPLETED Source: [place] 3:30 PM [facility] REPOSITORY Office Visit (PODIWS) REJI MARTINS ([id number]) 1970 M Date Time Provider Department 10/18/17 3:30 PM MIO PERALTA PODORESTES During your visit today, we recorded the following information about you: Mio Peralta DPM 10/18/2017 9:55 PM Signed ? Mio Peralta DPM Department of Podiatry [address] [facility] [address] Dept: [phone] Dept 10/18/2017 Initial Podiatric Office Visit: HPI: Reji Martins is a 47 year old male. Patient presents with FB, R foot. Patient reports stepping on sewing needle 3 days ago. Patient did not see anyone at first as he felt it would heal on it's own. Reports that he went to PCP today d/t worsening pain in R plantar foot. 01/30 with WB. Patient had XR done and PCP wrote prescription for Cipro 500 mg BID x10 days. He has not started this medication yet. PCP: Wm Blue MD PAST MEDICAL HISTORY Diagnosis Date - Chronic low back pain - Depression - High blood pressure Current Outpatient Prescriptions: ciprofloxacin HCl (CIPRO) 500 mg tablet Take 1 tablet by mouth twice daily for 10 days. albuterol HFA (VENTOLIN HFA) 90 mcg/actuation inhaler Inhale 2 Puffs as instructed every 4 hours as needed for Wheezing/Shortness of Breath. lisinopril (ZESTRIL,PRINIVIL) 30 mg tablet Take 1 tablet by mouth once daily. sertraline (ZOLOFT) 50 mg tablet Take 1 tablet by mouth once daily. QUEtiapine (SEROQUEL) 50 mg tablet Take 1 tablet by mouth daily at bedtime. No current facility-administered medications for this visit. ALLERGIES Allergen Reactions - Sulfa Dyne Unknown Sulfa antibiotic PAST SURGICAL HISTORY Procedure Laterality Date - TONSILLECTOMY HX FAMILY HISTORY Problem Relation Age of Onset - Diabetes Mother - None Father - None Sister - Alzheimer's Disease Maternal Grandfather Social History Marital status: Single Spouse name: Years of education: Number of children: Social History Main Topics Smoking status: Former Smoker Packs/day: 0.00 Years: 0.00 Types: Cigarettes Quit date: 05/10/1990 Smokeless tobacco: Former User Alcohol use: No Comment: rarely Drug use: No Sexual activity: Yes Partners with: Female REVIEW OF SYSTEMS: CONSTITUTIONAL: No fevers, chills, nightsweats, unintended weight loss HEENT: Denies frequent or severe heaches, nasal congestion/sinus symptoms, problematic allergy problems. EYES: No diplopia or blurry vision. CARDIOVASCULAR: No chest pain, dyspnea, palpitations, orthopnea, PND, ankle edema. PULM: No dyspnea, unexplained cough. GI: No dysphagia/odynophagia, problematic reflux, constipation, diarrhea, changes in stool habits, hematochezia, melena. : No new urinary complaints, including dysuria, gross hematuria or pyuria. NEURO: No new balance problems, peripheral weakness/paresthesias or numbness of concern. MUSC-SKEL: No new joint pain, swelling, or erythema. PSY: No concerns regarding depression, anxiety or panic. INTEGUMENTARY: + pain and swelling and redness to right foot with puncture wound. Physical Exam: Constitutional: Pt is a well developed 47 year old male who is alert, oriented and cooperative Eyes: Following during examination. No redness or drainage. Respiratory: RR normal and nonlabored. Even breathing. No evidence of distress or shortness of breath. Psychology: Patient is engaged during conversation. Normal affect and mood. Does not appear depressed or anxious during encounter. Vascular: Dorsalis pedis and posterior tibial pulses faintly palpable as b/l Capillary Fill time < 5 seconds to digits 1-5 b/l Skin temperature warm to warm proximal to distal b/l Hair growth present to digits Neurological: intact light touch/epicritic sensation Dermatological: Nails 1-5 b/l appear Normal. Webspaces clean and dry 1-4 b/l. Skin appears well hydrated and supple. good color, texture, turgor. Plantar aspect of right foot has evidence of dry eschar with visible puncture wound with pain and redness and swelling. No fluctuance to indicate abscess. The foot was prepped with betadine and the foot was injected with lidocaine. Debridement was performed. No evidence of deep puncture wound. No superficial foreign body detected. Musculoskeletal/Orthopaedic: Patient has pain to palpation of right plantar midfoot Foot type is neutral structurally AJ ROM is full with knee extended and flexed 1st MPJ is full when loaded and no pain or crepitus are noted with ROM. MTJ, STJ are full and free of pain and crepitus. +5/5 muscle strength dorsiflexion, plantarflexion, inversion, eversion b/l Radiographs: 3 views of right foot reviewed. There is foreign body in soft-tissue. ASSESSMENT: (M79.5) Foreign body (FB) in soft tissue (primary encounter diagnosis) (R09.89) Diminished pulses in lower extremity PLAN: Patient was examined and informed of current findings Discussed xrays that clearly show foreign body. Today, discussed attempted bedside debridement to evaluate if this could be removed at bedside. Under sterile technique, the right foot was injected with 3 cc of 2% lidocaine plain. The eschar was debrided with 15 blade. No deep abscess or deep puncture wound identified. Discussed performing removal of foreign body in operating room. Offered patient [facility] next Sunday but patient unable to get to [facility]. I will have patient take cipro and will add additional coverage with doxycycline. He was given surgical shoe with offloading. He will f/u next Sunday for evaluation and will determine if we can set up outpatient procedure at local hospital ([facility]). If foot condition worsens, he is to present to [facility]. Patient satisfied with plan of care LIZABETH Bustamante RN 10/18/2017 9:55 PM Signed UNIVERSAL PROTOCOL / SAFETY CHECKLIST Procedure to be performed: attempted removal of foreign body, R foot Sign in Communication: Completed Time Out: Team Confirms the Correct Patient, Correct Procedure, Correct Site and Site Marking, Correct Position (if applicable), Prep and Dry Time (if applicable). Time: 1614 Affirmation of Time Out: YES Sign Out Discussion: Completed Hilda Glynn RN 10/18/2017 4:31 PM Signed Keep area covered with a band aid and neosporin. Wear post op shoe on your R foot Follow up on Sunday Hilda Glynn RN 10/18/2017 9:55 PM Signed Amerigel and bandaid applied to R foot. Per Reji Geiger provided with a post op shoe with offloading insole and donut pad, size M, and instructed/educated in its application, wear, and care. All questions were answered, and patient was able to demonstrate competence with the necessary skills to utilize the above equipment. Hilda Glynn RN Referring Provider: WM BLUE [[id number]] Allergies As of Date: 10/18/2017 Noted Allergy Reaction SULFA DYNE 07/18/2011 16 - Unknown Comments: Sulfa antibiotic Date Reviewed: 10/18/2017 Reviewed by: Corinna Amaya Ma - Fully Assessed Reason for Visit: Body, Foreign [2731] Primary Visit Diagnosis:Foreign body (FB) in soft tissue [M79.5] Other Visit Diagnosis:Diminished pulses in lower extremity [R09.89] Order(s):doxycycline monohydrate (MONODOX) 100 mg capsuleTake 1 capsule by mouth twice daily for 7 days.Disp: 14 capsuleRfl: 0 PVR ANK PRESS [facility] [[id number]] Order #: [id number] FUTURE Prescriptions as of 10/18/2017 Sig: CIPROFLOXACIN 500 MG TABLET Take 1 tablet by mouth twice * ALBUTEROL SULFATE HFA 90 MCG/* Inhale 2 Puffs as instructed * DOXYCYCLINE MONOHYDRATE 100 M* Take 1 capsule by mouth twice* LISINOPRIL 30 MG TABLET Take 1 tablet by mouth once d* SERTRALINE 50 MG TABLET Take 1 tablet by mouth once d* QUETIAPINE 50 MG TABLET Take 1 tablet by mouth daily * Problem List As Of Date 10/18/2017 Noted Resolved HTN (hypertension) [I10] INVALID FOR* Hypokalemia [E87.6] INVALID FOR* Anxiety [F41.9] INVALID FOR* Chronic midline low back pain [M54.5, G89.29] INVALID FOR* Other instructions from your clinician: Keep area covered with a band aid and neosporin. Wear post op shoe on your R foot Follow up on Sunday Prescriptions ordered this encounter Disp Refills Start End DOXYCYCLINE MONOHYDRATE 100 MG CAPSU* 14 c* 0 10/18/2017 10/25/2017 Route: ORAL Sig: Take 1 capsule by mouth twice daily for 7 days. Encounter Status:Closed by MIO PERALTA DPM on 10/18/17 ECG COMPLETE W Observed: 10/18/2017 Status: F Source: [place] INTERPRETATION 2:09 PM [facility] [place] REPOSITORY NAME : REJI MARTINS PID : [id number] : 1970 Gender : Male Race : ORD : [id number] Procedure Date : Oct 18 2017 14:09:10 Edit Date : Oct 22 2017 14:54:17 Diagnosis:NORMAL SINUS RHYTHM NORMAL ECG Confirmed by JULIAN VELOZ D.O. ([id number]) on 10/22/2017 2:54:09 PM Ventricular Rate : 88 BPM Atrial Rate : 88 BPM P-R Interval : 146 ms QRS Duration : 74 ms Q-T Interval : 350 ms QTC Calculation(Bezet) : 423 ms P Benson : 49 degrees R Benson : 8 degrees T Benson : 26 degrees Test Reason : Location : 185 : [facility] Overread By : JULIAN VELOZ D.O. Edited By : JULIAN VELOZ D.O. Referred By : WM BLUE Acquired by : ROSY MARX, XR FOOT 3V AP/LAT/OBL Observed: 10/18/2017 Status: F Source: [place] RT 1:37 PM [facility] REPOSITORY * * *Final Report* * * DATE OF EXAM: Oct 18 2017 1:37PM WOX [id number] - XR FOOT 3V AP/LAT/OBL RT / PROCEDURE REASON: Pain in right foot * * * * Physician Interpretation * * * * HISTORY: Patient stepped on a sewing needle TECHNIQUE: 3 views COMPARISON: None RESULT: There is a 9 mm length of sewing needle oriented vertically in the plantar soft tissues of the forefoot. There is truncation of the distal aspect of the distal phalanx of the great toe probably due to remote injury. No other bony or joint abnormality is noted. IMPRESSION: Foreign body [employer]: BALDO Transcribe Date/Time: Oct 22 2017 9:16A Dictated by : SHANA MEDEIROS MD This examination was interpreted and the report reviewed and electronically signed by: SHANA MEDEIROS MD on Oct 22 2017 9:18AM EST [id number] PROGRESS Observed: 10/18/2017 Status: COMPLETED Source: [place] 1:26 PM [facility] REPOSITORY HNO ID: [id number] Author: Rosetta Bello Service: (none) Author Type: (none) Type: Progress Notes Filed: 10/18/2017 1:38 PM Note Text: Radiology Service Progress Note PATIENT NAME: Reji Martins DATE OF SERVICE: October 18, 2017 TIME: 1:26 PM PATIENT IDENTITY VERIFICATION COMPLETED USING TWO (2) METHODS: Patient confirmed name verbally and Date of . PATIENT GENDER DATA: Male PATIENT RELEVANT IMPLANT DATA REVIEWED: Not Applicable RADIOLOGY DEPARTMENT: General X-ray: Exam(s) Completed: Lower Extremity X-Ray(s): Foot, Right: PERIPHERAL IV DATA: Not applicable SIGNED BY: Rosetta Bello October 18, 2017 1:26 PM PROGRESS Observed: 10/18/2017 Status: COMPLETED Source: [place] 1:17 PM [facility] REPOSITORY HNO ID: [id number] Author: Wm Blue Service: (none) Author Type: Physician Type: Progress Notes Filed: 10/18/2017 2:19 PM Note Text: Patient presents with: Pain (foot): stepped on sewing needle on Sunday HPI: Patient presents today for office visit for acute visit. Thought he got it all out. Getting more red and swollen. No drainage. No fever. He is up to date on tetanus. Was not wearing shoes. Patient presents for preop clearance. Hx of previous anesthesia problems: No. Family hx of anesthesia problems: No. Current signs of infection: No. Chest pain: No. Shortness of breath: Occasional cough and shortness of breath. Worse in warm weather and since he gained weight. No edema. Known sleep apnea: No. Hx of clotting issues: No. Current bleeding or bruising: No Psych: still seeing psychology. Has not see psychiatry recently. Has been hearing voices talking to him. He is aware they are not real. Mild depression. No suicidal or homicidal ideation. Did see psych remotely for the same. Recommended he see them again. MEDICATIONS: Current Outpatient Prescriptions: lisinopril (ZESTRIL,PRINIVIL) 30 mg tablet Take 1 tablet by mouth once daily. sertraline (ZOLOFT) 50 mg tablet Take 1 tablet by mouth once daily. QUEtiapine (SEROQUEL) 50 mg tablet Take 1 tablet by mouth daily at bedtime. No current facility-administered medications for this visit. ALLERGIES: ALLERGIES Allergen Reactions - Sulfa Dyne Unknown Sulfa antibiotic PAST MEDICAL HISTORY Diagnosis Date - Chronic low back pain - Depression - High blood pressure PAST SURGICAL HISTORY Procedure Laterality Date - TONSILLECTOMY HX FAMILY HISTORY Problem Relation Age of Onset - Diabetes Mother - None Father - None Sister - Alzheimer's Disease Maternal Grandfather Social History Marital status: Single Spouse name: Years of education: Number of children: Social History Main Topics Smoking status: Former Smoker Packs/day: 0.00 Years: 0.00 Types: Cigarettes Quit date: 05/10/1990 Smokeless tobacco: Former User Alcohol use: No Comment: rarely Drug use: No Sexual activity: Yes Partners with: Female Reviewed current medications, allergies, past medical history, surgical history, family history and social history today. REVIEW OF SYSTEMS All other reviewed and negative other than HPI. HEALTH MAINTENANCE: Reviewed health maintenance issues today and recommended the following in detail. There are no preventive care reminders to display for this patient. VITALS: BP 120/84 Pulse 80 Temp 37.6 ?C (99.6 ?F) (Tympanic) Resp 22 Last 4 Encounter Wt Readings: Date: Wt: 10/15/2017 138.1 kg (304 lb 8 oz) 09/05/2017 141.1 kg (311 lb) 08/27/2017 142.9 kg (315 lb) 07/02/2017 131.5 kg (290 lb) PHYSICAL EXAMINATION: General appearance: Well appearing, alert, in no acute distress, well-hydrated, well nourished. heen: negative. Lungs: CTA Heart: rrr, normal s1 and s2 abd benign Ext: no edema. FEET: normal color and temperature. Peripheral pulses: normal Small puncture in right foot. No obvious foreign body. Surrounding redness. ASSESSMENT/PLAN: 1. Foot pain, right - ICD9: 729.5, ICD10: M79.671 (primary diagnosis) - see podiatry today. Will be clear for surgery if has to go to or eventually. - XR FOOT GENERAL 3V AP/LAT/OBL RT - CIPROFLOXACIN 500 MG TABLET 2. Foreign body in right foot, initial encounter - ICD9: 917.6, ICD10: S90.851A - cover with antibiotics for mild redness. Elevations. - CIPROFLOXACIN 500 MG TABLET 3. SOB (shortness of breath) - ICD9: 786.05, ICD10: R06.02 - sounds like could be respiratory. ekg shows no changes. - CBC + DIFF - BASIC METABOLIC PNL - ECG COMPLETE W INTERPRETATION - XR CHEST 2V FRONTAL/LAT - trial of albuterol MD Wm Orlando MD RTO in two weeks and prn. CNOV Observed: 10/18/2017 Status: COMPLETED Source: [place] 12:40 PM [facility] REPOSITORY [facility] ([id number]) 1970 M Date Time Provider Department 10/18/17 12:40 PM [facility] During your visit today, we recorded the following information about you: Temperature Pulse Respiration Blood pressure 99.6 degrees 89/minute 22/minute 120/84 Wm Blue MD 10/18/2017 2:19 PM Signed Patient presents with: Pain (foot): stepped on sewing needle on Sunday HPI: Patient presents today for office visit for acute visit. Thought he got it all out. Getting more red and swollen. No drainage. No fever. He is up to date on tetanus. Was not wearing shoes. Patient presents for preop clearance. Hx of previous anesthesia problems: No. Family hx of anesthesia problems: No. Current signs of infection: No. Chest pain: No. Shortness of breath: Occasional cough and shortness of breath. Worse in warm weather and since he gained weight. No edema. Known sleep apnea: No. Hx of clotting issues: No. Current bleeding or bruising: No Psych: still seeing psychology. Has not see psychiatry recently. Has been hearing voices talking to him. He is aware they are not real. Mild depression. No suicidal or homicidal ideation. Did see psych remotely for the same. Recommended he see them again. MEDICATIONS: Current Outpatient Prescriptions: lisinopril (ZESTRIL,PRINIVIL) 30 mg tablet Take 1 tablet by mouth once daily. sertraline (ZOLOFT) 50 mg tablet Take 1 tablet by mouth once daily. QUEtiapine (SEROQUEL) 50 mg tablet Take 1 tablet by mouth daily at bedtime. No current facility-administered medications for this visit. ALLERGIES: ALLERGIES Allergen Reactions - Sulfa Dyne Unknown Sulfa antibiotic PAST MEDICAL HISTORY Diagnosis Date - Chronic low back pain - Depression - High blood pressure PAST SURGICAL HISTORY Procedure Laterality Date - TONSILLECTOMY HX FAMILY HISTORY Problem Relation Age of Onset - Diabetes Mother - None Father - None Sister - Alzheimer's Disease Maternal Grandfather Social History Marital status: Single Spouse name: Years of education: Number of children: Social History Main Topics Smoking status: Former Smoker Packs/day: 0.00 Years: 0.00 Types: Cigarettes Quit date: 05/10/1990 Smokeless tobacco: Former User Alcohol use: No Comment: rarely Drug use: No Sexual activity: Yes Partners with: Female Reviewed current medications, allergies, past medical history, surgical history, family history and social history today. REVIEW OF SYSTEMS All other reviewed and negative other than HPI. HEALTH MAINTENANCE: Reviewed health maintenance issues today and recommended the following in detail. There are no preventive care reminders to display for this patient. VITALS: BP 120/84 Pulse 80 Temp 37.6 ?C (99.6 ?F) (Tympanic) Resp 22 Last 4 Encounter Wt Readings: Date: Wt: 10/15/2017 138.1 kg (304 lb 8 oz) 09/05/2017 141.1 kg (311 lb) 08/27/2017 142.9 kg (315 lb) 07/02/2017 131.5 kg (290 lb) PHYSICAL EXAMINATION: General appearance: Well appearing, alert, in no acute distress, well-hydrated, well nourished. heen: negative. Lungs: CTA Heart: rrr, normal s1 and s2 abd benign Ext: no edema. FEET: normal color and temperature. Peripheral pulses: normal Small puncture in right foot. No obvious foreign body. Surrounding redness. ASSESSMENT/PLAN: 1. Foot pain, right - ICD9: 729.5, ICD10: M79.671 (primary diagnosis) - see podiatry today. Will be clear for surgery if has to go to or eventually. - XR FOOT GENERAL 3V AP/LAT/OBL RT - CIPROFLOXACIN 500 MG TABLET 2. Foreign body in right foot, initial encounter - ICD9: 917.6, ICD10: S90.851A - cover with antibiotics for mild redness. Elevations. - CIPROFLOXACIN 500 MG TABLET 3. SOB (shortness of breath) - ICD9: 786.05, ICD10: R06.02 - sounds like could be respiratory. ekg shows no changes. - CBC + DIFF - BASIC METABOLIC PNL - ECG COMPLETE W INTERPRETATION - XR CHEST 2V FRONTAL/LAT - trial of albuterol MD Wm Orlando MD RTO in two weeks and prn. Referring Provider: SELF [[id number]] Allergies As of Date: 10/18/2017 Noted Allergy Reaction SULFA DYNE 07/18/2011 16 - Unknown Comments: Sulfa antibiotic Date Reviewed: 10/15/2017 Reviewed by: Giovanna (Mely) Jack - Fully Assessed Reason for Visit: Pain (foot) [760] Cmt: stepped on sewing needle on Sunday Primary Visit Diagnosis:Foot pain, right [M79.671] Other Visit Diagnoses:Foreign body in right foot, initial encounter [S90.851A] SOB (shortness of breath) [R06.02] Anxiety [F41.9] Order(s):XR FOOT GENERAL 3V AP/LAT/OBL RT [[id number]] Order #: [id number] FUTURE ciprofloxacin HCl (CIPRO) 500 mg tabletTake 1 tablet by mouth twice daily for 10 days.Disp: 20 tabletRfl: 0 CBC + DIFF [SQCBCDIF] Order #: [id number] FUTURE BASIC METABOLIC PNL [SQBMP] Order #: [id number] FUTURE ECG COMPLETE W INTERPRETATION [ECG01] Order #: [id number] FUTURE XR CHEST 2V FRONTAL/LAT [[id number]] Order #: [id number] FUTURE CONSULT TO PODIATRY [9034] Order #: [id number]: 1 albuterol HFA (VENTOLIN HFA) 90 mcg/actuation inhalerInhale 2 Puffs as instructed every 4 hours as needed for Wheezing/Shortness of Breath.Disp: 1 InhalerRfl: 0 CONSULT TO PSYCHIATRY [9035] Order #: [id number]: 1 Prescriptions as of 10/18/2017 Sig: CIPROFLOXACIN 500 MG TABLET Take 1 tablet by mouth twice * ALBUTEROL SULFATE HFA 90 MCG/* Inhale 2 Puffs as instructed * LISINOPRIL 30 MG TABLET Take 1 tablet by mouth once d* SERTRALINE 50 MG TABLET Take 1 tablet by mouth once d* QUETIAPINE 50 MG TABLET Take 1 tablet by mouth daily * Problem List As Of Date 10/18/2017 Noted Resolved HTN (hypertension) [I10] INVALID FOR* Hypokalemia [E87.6] INVALID FOR* Anxiety [F41.9] INVALID FOR* Chronic midline low back pain [M54.5, G89.29] INVALID FOR* Prescriptions ordered this encounter Disp Refills Start End CIPROFLOXACIN 500 MG TABLET 20 t* 0 10/18/2017 10/28/2017 Route: ORAL Sig: Take 1 tablet by mouth twice daily for 10 days. ALBUTEROL SULFATE HFA 90 MCG/ACTUATI* 1 In* 0 10/18/2017 Route: INHALATION Sig: Inhale 2 Puffs as instructed every 4 hours as needed for Wheezing/Shortness of Breath. Disposition: Return in about 2 weeks (around 11/01/2017), or if symptoms worsen or fail to improve. Follow-up and Disposition History Recorded Encounter Status:Closed by WM BLUE MD on 10/18/17 CNCNPATED Observed: 10/15/2017 Status: COMPLETED Source: [place] 11:00 AM [facility] REPOSITORY Education (NUTRWS) REJI MARTINS ([id number]) 1970 M Date Time Provider Department 10/15/17 11:00 AM GIOVANNA SANTIAGO (MELY) MICHAEL Reason for Visit: Patient Education [91] Reassessment [674] Progress Notes: Giovanna Jack, RD LD 10/15/2017 11:29 AM Signed Nutritional Therapy: Re-Assessment PAIN: Is the patient having any pain that is interfering with oral / enteral intake? No 0 on a scale of 0 to 10 PROGRESS: Nutrition Intervention (date of last encounter 08/27/17): 1. Aim for breakfast, lunch and dinner; Don't skip meals Breakfast: have eggs and two slices whole grain toast; cottage cheese and small handful almonds; Have sandwich for lunch on whole grain bread, with a lean meat; for dinner: soup and salad; lean meat and salad; or soup or sandwich 2. Avoid snacks unless 3. All beverages calorie free and sugar; do not drink sugar 4. Keep a food record, measure portions 5. Add 30 min walking to exercise routine. Also add core exercise (Planks) daily CHANGES IN TREATMENT: Patient met goal(s): Partially Actions to implement interventions: limited Diet History: Breakfast - bologne sandwich (white), yesterday potato chips; Pop Sit ups, push ups, Snack - no Lunch - no Snack - no Dinner - no Snack - no Beverages - reg pop 2.5 liters per day Vitamins/Supplements - no CLINICAL IMPRESSIONS: good REVISIONS IN DIAGNOSIS: Diagnosis: has not changed. Allergies: Sulfa Dyne Medications: Current Outpatient Prescriptions: lisinopril (ZESTRIL,PRINIVIL) 30 mg tablet Take 1 tablet by mouth once daily. Disp: 90 tablet Rfl: 3 sertraline (ZOLOFT) 50 mg tablet Take 1 tablet by mouth once daily. Disp: 90 tablet Rfl: 3 QUEtiapine (SEROQUEL) 50 mg tablet Take 1 tablet by mouth daily at bedtime. Disp: 30 tablet Rfl: 3 No current facility-administered medications for this visit. (currently taking) Anthropometrics: Height: Last 1 Encounter Ht Readings: Date: Ht: 10/15/2017 175.3 cm (5' 9) Current weight: Last 1 Encounter Wt Readings: Date: Wt: 10/15/2017 138.1 kg (304 lb 8 oz) Body mass index is 44.97 kg/m?. Resting Metabolic Rate: 2249 NUTRITION ASSESSMENT: Malnutrition Screening Significant unintentional weight loss? No Eating less than 75% of usual intake for more than 2 weeks? No RECOMMENDED MALNUTRITION DIAGNOSIS: NO MALNUTRITION IDENTIFIED Educational materials provided: none this visit READINESS TO LEARN Cognitive ability: Alert and oriented Motivation to learn: Interested Family support: Unable to assess - Family not present Instruction provided to: Patient Patient learns best by: Individual Instruction Factors affecting learning: None Physical limitations affecting learning: None Likelihood of Adherence: Moderate Patient presents for weight control. Had gained in past year related to less activity/back pain. Feels back pain worse. Had tried no regular pop and switched back to regular and continues taking one meal day otherwise .Was able to lose 10 pounds since last visit. Nutrition Diagnosis: Overweight Obesity, related to; excess energy intake and physical inactivity, as evidenced by BMI above normative standard for age and gender. Nutrition Intervention 10/15/2017: modify type and amount of food or beverage 1.for sandwich get turkey meats instead of bologne, and use a whole grain bread NOT WHITE and a fruit or vegetables 2. Have a sandwich for lunch and dinner (pbj or grilled cheese on WG bread) and a sugar free pudding; can add a vegetables, salad or a fruit; 3. NO REGULAR POP. All beverages calorie free and sugar free. 4. Add plank exercises daily; continue weight resistance exercise; add exercise bike 15 min daily to start Nutrition Monitoring AND Evaluation: weight loss Criteria: patient update Need for Follow up: 4-6 weeks Referred/Supervised by: Dipika LOPEZ Billing Type: Re-assess/15 min 2 units SIGNATURE: Giovanna Santiago MS RD LD PATIENT NAME: Reji Martins DATE: October 15, 2017 TIME: 11:00 AM Giovanna Santiago MS RD LD 10/15/2017 11:15 AM Signed 1.for sandwich get turkey meats instead of bologne, and use a whole grain bread NOT WHITE and a fruit or vegetables 2. Have a sandwich for lunch and dinner (pbj or grilled cheese on WG bread) and a sugar free pudding; can add a vegetables, salad or a fruit; 3. NO REGULAR POP. All beverages calorie free and sugar free. 4. Add plank exercises daily; continue weight resistance exercise; add exercise bike 15 min daily to start Document on: 10/15/2017 by: Giovanna Santiago [[id number]] of: [employer] Worksheet Document on: 10/15/2017 by: Giovanna Santiago [[id number]] of: After Visit Summary Other instructions from your clinician: 1.for sandwich get turkey meats instead of bologne, and use a whole grain bread NOT WHITE and a fruit or vegetables 2. Have a sandwich for lunch and dinner (pbj or grilled cheese on WG bread) and a sugar free pudding; can add a vegetables, salad or a fruit; 3. NO REGULAR POP. All beverages calorie free and sugar free. 4. Add plank exercises daily; continue weight resistance exercise; add exercise bike 15 min daily to start Primary Visit Diagnosis:Essential hypertension [I10] Other Visit Diagnoses:Class 3 severe obesity due to excess calories without serious comorbidity with body mass index (BMI) of 45.0 to 49.9 in adult ([facility]) [E66.01, Z68.42] Dietary counseling [Z71.3] During your visit today, we recorded the following information about you: Weight Height 138.1 kg 1.753 m Allergies As of Date: 10/15/2017 Noted Allergy Reaction SULFA DYNE 07/18/2011 16 - Unknown Comments: Sulfa antibiotic Date Reviewed: 10/15/2017 Reviewed by: Giovanna Santiago - Fully Assessed Prescriptions as of 10/15/2017 Sig: LISINOPRIL 30 MG TABLET Take 1 tablet by mouth once d* SERTRALINE 50 MG TABLET Take 1 tablet by mouth once d* QUETIAPINE 50 MG TABLET Take 1 tablet by mouth daily * Encounter Status:Closed by GIOVANNA FISHMAN MS, RD on 10/15/17 PROGRESS Observed: 10/15/2017 Status: COMPLETED Source: [place] 10:57 AM [facility] REPOSITORY HNO ID: [id number] Author: Giovanna Santiago Service: (none) Author Type: Registered Dietitian Type: Progress Notes Filed: 10/15/2017 11:29 AM Note Text: Nutritional Therapy: Re-Assessment PAIN: Is the patient having any pain that is interfering with oral / enteral intake? No 0 on a scale of 0 to 10 PROGRESS: Nutrition Intervention (date of last encounter 08/27/17): 1. Aim for breakfast, lunch and dinner; Don't skip meals Breakfast: have eggs and two slices whole grain toast; cottage cheese and small handful almonds; Have sandwich for lunch on whole grain bread, with a lean meat; for dinner: soup and salad; lean meat and salad; or soup or sandwich 2. Avoid snacks unless 3. All beverages calorie free and sugar; do not drink sugar 4. Keep a food record, measure portions 5. Add 30 min walking to exercise routine. Also add core exercise (Planks) daily CHANGES IN TREATMENT: Patient met goal(s): Partially Actions to implement interventions: limited Diet History: Breakfast - bologne sandwich (white), yesterday potato chips; Pop Sit ups, push ups, Snack - no Lunch - no Snack - no Dinner - no Snack - no Beverages - reg pop 2.5 liters per day Vitamins/Supplements - no CLINICAL IMPRESSIONS: good REVISIONS IN DIAGNOSIS: Diagnosis: has not changed. Allergies: Sulfa Dyne Medications: Current Outpatient Prescriptions: lisinopril (ZESTRIL,PRINIVIL) 30 mg tablet Take 1 tablet by mouth once daily. Disp: 90 tablet Rfl: 3 sertraline (ZOLOFT) 50 mg tablet Take 1 tablet by mouth once daily. Disp: 90 tablet Rfl: 3 QUEtiapine (SEROQUEL) 50 mg tablet Take 1 tablet by mouth daily at bedtime. Disp: 30 tablet Rfl: 3 No current facility-administered medications for this visit. (currently taking) Anthropometrics: Height: Last 1 Encounter Ht Readings: Date: Ht: 10/15/2017 175.3 cm (5' 9) Current weight: Last 1 Encounter Wt Readings: Date: Wt: 10/15/2017 138.1 kg (304 lb 8 oz) Body mass index is 44.97 kg/m?. Resting Metabolic Rate: 2249 NUTRITION ASSESSMENT: Malnutrition Screening Significant unintentional weight loss? No Eating less than 75% of usual intake for more than 2 weeks? No RECOMMENDED MALNUTRITION DIAGNOSIS: NO MALNUTRITION IDENTIFIED Educational materials provided: none this visit READINESS TO LEARN Cognitive ability: Alert and oriented Motivation to learn: Interested Family support: Unable to assess - Family not present Instruction provided to: Patient Patient learns best by: Individual Instruction Factors affecting learning: None Physical limitations affecting learning: None Likelihood of Adherence: Moderate Patient presents for weight control. Had gained in past year related to less activity/back pain. Feels back pain worse. Had tried no regular pop and switched back to regular and continues taking one meal day otherwise .Was able to lose 10 pounds since last visit. Nutrition Diagnosis: Overweight Obesity, related to; excess energy intake and physical inactivity, as evidenced by BMI above normative standard for age and gender. Nutrition Intervention 10/15/2017: modify type and amount of food or beverage 1.for sandwich get turkey meats instead of bologne, and use a whole grain bread NOT WHITE and a fruit or vegetables 2. Have a sandwich for lunch and dinner (pbj or grilled cheese on WG bread) and a sugar free pudding; can add a vegetables, salad or a fruit; 3. NO REGULAR POP. All beverages calorie free and sugar free. 4. Add plank exercises daily; continue weight resistance exercise; add exercise bike 15 min daily to start Nutrition Monitoring AND Evaluation: weight loss Criteria: patient update Need for Follow up: 4-6 weeks Referred/Supervised by: Su/Allegra LOPEZ Billing Type: Re-assess/15 min 2 units SIGNATURE: Giovanna Santiago MS RD LD PATIENT NAME: Reji Martins DATE: October 15, 2017 TIME: 11:00 AM CNPN Observed: 10/02/2017 Status: COMPLETED Source: [place] 12:00 AM [facility] REJI [facility]ART[facility] ([id number]) 1970 M Date Time Provider Department 10/02/17 WM BLUE During your visit today, we recorded the following information about you: Valerie Maloney LPN 10/02/2017 12:06 PM Signed Pt calls to request referral be sent to Dr. Huggins's office. They advised pt they would not schedule an appt without one from his pcp. Also sent pt information. Valerie Mistry APRN.ADELINA 10/02/2017 3:52 PM Signed Pain management referral was placed on 09/05/17 -- or do they need something different? Thanks, Erica Membreno Cma 10/02/2017 4:26 PM Signed Will fax to dr huggins's office Loli Smith LPN 10/04/2017 10:13 AM Signed Received the referral requesting additional information. This has been faxed to : [phone]. Patient notified okay to call Dr. Amador's office to schedule apt. Lamin Smith LPN 10/04/2017 7:07 PM Signed After several attempt to fax information and fax would not go thru I called Dr. Amador's office to verify fax and it was correct. Tried several times again with no success. Mailed out information. Will notify Dr. Amador's office in the am. Lamin Smith LPN Allergies As of Date: 10/02/2017 Noted Allergy Reaction SULFA DYNE 07/18/2011 16 - Unknown Comments: Sulfa antibiotic Date Reviewed: 09/05/2017 Reviewed by: Loli Membreno Cma - Fully Assessed Reason for Visit: Referral Information [[id number]] Prescriptions as of 10/02/2017 Sig: LISINOPRIL 30 MG TABLET Take 1 tablet by mouth once d* SERTRALINE 50 MG TABLET Take 1 tablet by mouth once d* QUETIAPINE 50 MG TABLET Take 1 tablet by mouth daily * Problem List As Of Date 10/02/2017 Noted Resolved HTN (hypertension) [I10] INVALID FOR* Hypokalemia [E87.6] INVALID FOR* Anxiety [F41.9] INVALID FOR* Chronic midline low back pain [M54.5, G89.29] INVALID FOR* Encounter Status:Closed by LAMIN SMITH LPN on 10/04/17 PROGRESS Observed: 09/05/2017 Status: COMPLETED Source: [place] 11:55 AM [facility] REPOSITORY HNO ID: [id number] Author: Erica Mistry Service: (none) Author Type: Nurse Practitioner Type: Progress Notes Filed: 09/05/2017 1:17 PM Note Text: This is a 47 year old male who presents today with: Patient presents with: Back Pain: X5 days HISTORY OF PRESENT ILLNESS: Reji Martins is a 47 year old male. Patient presents with: Back Pain: X5 days Pt presents today with complaint of worsening back pain over the last 5 days. Refers chronic arthritis in his back. Refers that it has been acting up. Refers that he start a new job last night and refers he had to quit because of the pain. Refers that the pain is primarily on the right side with radiation to the right leg. Refers currently achy. Some numbness from the waistline down. Refers that getting out of bed this morning made my whole rear-end ache. No loss of bowel or bladder. No saddle anesthesia. Has been taking ibuprofen 800 mg -- refers that it isn't helping. Refers that he also was going to physical therapy, but that didn't seem to be helping, either. Refers standing or sitting too long makes the pain worse. If he sits for short periods, that helps the pain. He is interested in possibly pursuing injections into the back. PAST MEDICAL HISTORY: PAST MEDICAL HISTORY Diagnosis Date - Chronic low back pain - Depression - High blood pressure PAST SURGICAL HISTORY Procedure Laterality Date - TONSILLECTOMY HX ALLERGIES Sulfa Dyne MEDICATIONS Current Outpatient Prescriptions: lisinopril (ZESTRIL,PRINIVIL) 30 mg tablet Take 1 tablet by mouth once daily. triamcinolone acetonide (KENALOG) 0.1 % cream Apply 1 application to affected area twice daily. Apply sparingly to area for rash/itching. sertraline (ZOLOFT) 50 mg tablet Take 1 tablet by mouth once daily. QUEtiapine (SEROQUEL) 50 mg tablet Take 1 tablet by mouth daily at bedtime. omeprazole (PRILOSEC) 20 mg capsule Take 1 capsule by mouth daily before breakfast. 1/2 hr before meal. No current facility-administered medications for this visit. FAMILY HISTORY Problem Relation Age of Onset - Diabetes Mother - None Father - None Sister - Alzheimer's Disease Maternal Grandfather Social History Marital status: Single Spouse name: Years of education: Number of children: Social History Main Topics Smoking status: Former Smoker Packs/day: 0.00 Years: 0.00 Types: Cigarettes Quit date: 05/10/1990 Smokeless tobacco: Former User Alcohol use: No Comment: rarely Drug use: No Sexual activity: Yes Partners with: Female EXAM: BP 124/78 (BP Site: Left Arm, BP Position: Sitting, BP Cuff Size: Large Adult) Pulse 74 Resp 12 Wt (!) 141.1 kg (311 lb) BMI 45.93 kg/m? PHYSICAL EXAM: General Appearance: Well appearing, alert, in no acute distress, well-hydrated, well nourished.. Skin: Skin color, texture, turgor normal, no suspicious rashes or lesions. Head: Normocephalic, no masses, lesions, tenderness or abnormalities. Eyes: Anicteric sclera. Extraocular movements are intact. Back:no pain to palpation of vertebrae, limited flexion and extension, good range of motion, + tenderness of the paralumbar muscles -- R>L. Reflexes are 2+ and symmetric, motor and sensory appear to be normal, negative SLR test, no evidence of scoliosis Lungs: Lungs clear to auscultation. No wheezing, rhonchi, rales. Heart: RRR without murmur, gallop, or rubs. No ectopy. Extremities: No deformities, edema, skin discoloration, clubbing or cyanosis. Good capillary refill. . Neurologic: Gait normal. Reflexes normal and symmetric. Sensation grossly intact.. ASSESSMENT/PLAN: 1. DDD (degenerative disc disease), lumbar - ICD9: 722.52, ICD10: M51.36 Chronic low back pain - Ice for localized tenderness - Warm moist heat for 20 min three times a day - do the exercises given by PT. - Prednisone taper - see orders - CONSULT TO PAIN MGT ANESTHESIA - PREDNISONE 10 MG TABLET Discussed treatment plan and patient voices understanding. Patient's questions answered appropriately. Medications and potential side effects were discussed and patient voices understanding. Return to the office as scheduled or as needed for worsening/no improvement. Erica Mistry APRN.ADELINA CNOV Observed: 09/05/2017 Status: COMPLETED Source: [place] 11:40 AM [facility] REPOSITORY [facility] REJI [facility]ART[facility] ([id number]) 1970 M Date Time Provider Department 09/05/17 11:40 AM ERICA MISTRY) MALLORY During your visit today, we recorded the following information about you: Pulse Respiration Blood pressure Weight 74/minute 12/minute 124/78 141.1 kg Erica Mistry APRN.CNP 09/05/2017 1:17 PM Signed This is a 47 year old male who presents today with: Patient presents with: Back Pain: X5 days HISTORY OF PRESENT ILLNESS: Reji Martins is a 47 year old male. Patient presents with: Back Pain: X5 days Pt presents today with complaint of worsening back pain over the last 5 days. Refers chronic arthritis in his back. Refers that it has been acting up. Refers that he start a new job last night and refers he had to quit because of the pain. Refers that the pain is primarily on the right side with radiation to the right leg. Refers currently achy. Some numbness from the waistline down. Refers that getting out of bed this morning made my whole rear-end ache. No loss of bowel or bladder. No saddle anesthesia. Has been taking ibuprofen 800 mg -- refers that it isn't helping. Refers that he also was going to physical therapy, but that didn't seem to be helping, either. Refers standing or sitting too long makes the pain worse. If he sits for short periods, that helps the pain. He is interested in possibly pursuing injections into the back. PAST MEDICAL HISTORY: PAST MEDICAL HISTORY Diagnosis Date - Chronic low back pain - Depression - High blood pressure PAST SURGICAL HISTORY Procedure Laterality Date - TONSILLECTOMY HX ALLERGIES Sulfa Dyne MEDICATIONS Current Outpatient Prescriptions: lisinopril (ZESTRIL,PRINIVIL) 30 mg tablet Take 1 tablet by mouth once daily. triamcinolone acetonide (KENALOG) 0.1 % cream Apply 1 application to affected area twice daily. Apply sparingly to area for rash/itching. sertraline (ZOLOFT) 50 mg tablet Take 1 tablet by mouth once daily. QUEtiapine (SEROQUEL) 50 mg tablet Take 1 tablet by mouth daily at bedtime. omeprazole (PRILOSEC) 20 mg capsule Take 1 capsule by mouth daily before breakfast. 1/2 hr before meal. No current facility-administered medications for this visit. FAMILY HISTORY Problem Relation Age of Onset - Diabetes Mother - None Father - None Sister - Alzheimer's Disease Maternal Grandfather Social History Marital status: Single Spouse name: Years of education: Number of children: Social History Main Topics Smoking status: Former Smoker Packs/day: 0.00 Years: 0.00 Types: Cigarettes Quit date: 05/10/1990 Smokeless tobacco: Former User Alcohol use: No Comment: rarely Drug use: No Sexual activity: Yes Partners with: Female EXAM: BP 124/78 (BP Site: Left Arm, BP Position: Sitting, BP Cuff Size: Large Adult) Pulse 74 Resp 12 Wt (!) 141.1 kg (311 lb) BMI 45.93 kg/m? PHYSICAL EXAM: General Appearance: Well appearing, alert, in no acute distress, well-hydrated, well nourished.. Skin: Skin color, texture, turgor normal, no suspicious rashes or lesions. Head: Normocephalic, no masses, lesions, tenderness or abnormalities. Eyes: Anicteric sclera. Extraocular movements are intact. Back:no pain to palpation of vertebrae, limited flexion and extension, good range of motion, + tenderness of the paralumbar muscles -- R>L. Reflexes are 2+ and symmetric, motor and sensory appear to be normal, negative SLR test, no evidence of scoliosis Lungs: Lungs clear to auscultation. No wheezing, rhonchi, rales. Heart: RRR without murmur, gallop, or rubs. No ectopy. Extremities: No deformities, edema, skin discoloration, clubbing or cyanosis. Good capillary refill. . Neurologic: Gait normal. Reflexes normal and symmetric. Sensation grossly intact.. ASSESSMENT/PLAN: 1. DDD (degenerative disc disease), lumbar - ICD9: 722.52, ICD10: M51.36 Chronic low back pain - Ice for localized tenderness - Warm moist heat for 20 min three times a day - do the exercises given by PT. - Prednisone taper - see orders - CONSULT TO PAIN MGT ANESTHESIA - PREDNISONE 10 MG TABLET Discussed treatment plan and patient voices understanding. Patient's questions answered appropriately. Medications and potential side effects were discussed and patient voices understanding. Return to the office as scheduled or as needed for worsening/no improvement. ABHAY Connolly APRN.CNP 09/05/2017 12:15 PM Signed 1. Start prednisone taper as discussed. Do not use additional ibuprofen while on this. You can use tylenol, if needed for pain. 2. Do the exercises given by PT. 3. Moist heat/ice to the back. 4. Pain management referral placed. Referring Provider: SELF [[id number]] Allergies As of Date: 09/05/2017 Noted Allergy Reaction SULFA DYNE 07/18/2011 16 - Unknown Comments: Sulfa antibiotic Date Reviewed: 09/05/2017 Reviewed by: Loli Membreno Mine Engineer - Fully Assessed Reason for Visit: Back Pain [12] Cmt: X5 days Primary Visit Diagnosis:DDD (degenerative disc disease), lumbar [M51.36] Order(s):CONSULT TO PAIN MGT ANESTHESIA [[id number]] Order #: [id number]: 1 predniSONE (DELTASONE) 10 mg tabletTake 4 tabs daily x 3 days, then 3 tabs x 3 days, 2 tabs x 3 days, then 1 tab x3 days with food.Disp: 30 tabletRfl: 0 Prescriptions as of 09/05/2017 Sig: LISINOPRIL 30 MG TABLET Take 1 tablet by mouth once d* SERTRALINE 50 MG TABLET Take 1 tablet by mouth once d* QUETIAPINE 50 MG TABLET Take 1 tablet by mouth daily * PREDNISONE 10 MG TABLET Take 4 tabs daily x 3 days, t* Problem List As Of Date 09/05/2017 Noted Resolved HTN (hypertension) [I10] INVALID FOR* Hypokalemia [E87.6] INVALID FOR* Anxiety [F41.9] INVALID FOR* Chronic midline low back pain [M54.5, G89.29] INVALID FOR* Other instructions from your clinician: 1. Start prednisone taper as discussed. Do not use additional ibuprofen while on this. You can use tylenol, if needed for pain. 2. Do the exercises given by PT. 3. Moist heat/ice to the back. 4. Pain management referral placed. Prescriptions ordered this encounter Disp Refills Start End PREDNISONE 10 MG TABLET 30 t* 0 09/05/2017 09/17/2017 Sig: Take 4 tabs daily x 3 days, then 3 tabs x 3 days, 2 tabs x 3 days, then 1 tab x3 days with food. Medications Discontinued During This Encounter omeprazole (PRILOSEC) 20 mg capsule 30 c* 5 11/19/2015 09/05/2017 Route: ORAL Sig: Take 1 capsule by mouth daily before breakfast. 1/2 hr before meal. Disc: Course of therapy completed triamcinolone acetonide (KENALOG) 0.* 28.4* 1 06/04/2017 09/05/2017 Route: TOPICAL Sig: Apply 1 application to affected area twice daily. Apply sparingly to area for rash/itching. 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 No 0 on a scale of 0 to 10 Diet History: Breakfast - ham or bologne sandwich on white bread, pop to drink; occ add potato chips Snack - no Lunch - skip Snack - no Dinner - no Snack - no Beverages - pop-2-3 2 liters daily. Vitamins/Supplements - no Likes salads Allergies: Sulfa Dyne Medications: Current Outpatient Prescriptions: lisinopril (ZESTRIL,PRINIVIL) 30 mg tablet Take 1 tablet by mouth once daily. Disp: 90 tablet Rfl: 3 triamcinolone acetonide (KENALOG) 0.1 % cream Apply 1 application to affected area twice daily. Apply sparingly to area for rash/itching. Disp: 28.4 g Rfl: 1 sertraline (ZOLOFT) 50 mg tablet Take 1 tablet by mouth once daily. Disp: 90 tablet Rfl: 3 QUEtiapine (SEROQUEL) 50 mg tablet Take 1 tablet by mouth daily at bedtime. Disp: 30 tablet Rfl: 3 omeprazole (PRILOSEC) 20 mg capsule Take 1 capsule by mouth daily before breakfast. 1/2 hr before meal. Disp: 30 capsule Rfl: 5 No current facility-administered medications for this visit. Anthropometrics: Height: Last 1 Encounter Ht Readings: Date: Ht: 08/27/2017 175.3 cm (5' 9) Current weight: Last 1 Encounter Wt Readings: Date: Wt: 08/27/2017 142.9 kg (315 lb) Body mass index is 46.52 kg/m?. Resting Metabolic Rate: 2296 NUTRITION ASSESSMENT: Malnutrition Screening Significant unintentional weight loss? No Eating less than 75% of usual intake for more than 2 weeks? No RECOMMENDED MALNUTRITION DIAGNOSIS: NO MALNUTRITION IDENTIFIED Educational materials provided: none this visit READINESS TO LEARN Cognitive ability: Alert and oriented Motivation to learn: Interested Family support: Unable to assess - Family not present Instruction provided to: Patient Patient learns best by: Individual Instruction Factors affecting learning: None Physical limitations affecting learning: None Patient presents for initial MNT as relates to weight control. Has gained in the past year possibly related to decreased activity with not working. Intake noted for one meal per day, breakfast. Drinks high amounts calorie beverages from reg pop. Exercise less than recommended. Nutrition Diagnosis: Overweight Obesity, related to; excess energy intake and physical inactivity, as evidenced by BMI above normative standard for age and gender. Nutrition Intervention 08/27/2017: modify type and amount of food or beverage 1. Aim for breakfast, lunch and dinner; Don't skip meals Breakfast: have eggs and two slices whole grain toast; cottage cheese and small handful almonds; Have sandwich for lunch on whole grain bread, with a lean meat; for dinner: soup and salad; lean meat and salad; or soup or sandwich 2. Avoid snacks unless 3. All beverages calorie free and sugar; do not drink sugar 4. Keep a food record, measure portions 5. Add 30 min walking to exercise routine. Also add core exercise (Planks) daily Nutrition Monitoring AND Evaluation: weight loss Criteria: patient update Need for Follow up: 4-6 weeks Referred/Supervised by: Dipika LOPEZ Billing Type: Initial Assess/15 min 2 units SIGNATURE: Giovanna Santiago MS RD LD PATIENT NAME: Reji Martins DATE: August 27, 2017 TIME: 11:48 AM CNCNPATED Observed: 08/27/2017 Status: COMPLETED Source: [place] 11:45 AM [facility] REPOSITORY Education (NUTRWS) REJI MARTINS ([id number]) 1970 M Date Time Provider Department 08/27/17 11:45 AM GIOVANNA SANTIAGO) NUTRFEI Reason for Visit: Assessment [673] Patient Education [91] Progress Notes: Giovanna Santiago) 08/27/2017 12:36 PM Signed [facility] Nutrition Therapy: Initial Assessment Patient states reason for visit: for weightloss Activity: Patient's exercise is: Activities of Daily 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 No 0 on a scale of 0 to 10 Diet History: Breakfast - ham or bologne sandwich on white bread, pop to drink; occ add potato chips Snack - no Lunch - skip Snack - no Dinner - no Snack - no Beverages - pop-2-3 2 liters daily. Vitamins/Supplements - no Likes salads Allergies: Sulfa Dyne Medications: Current Outpatient Prescriptions: lisinopril (ZESTRIL,PRINIVIL) 30 mg tablet Take 1 tablet by mouth once daily. Disp: 90 tablet Rfl: 3 triamcinolone acetonide (KENALOG) 0.1 % cream Apply 1 application to affected area twice daily. Apply sparingly to area for rash/itching. Disp: 28.4 g Rfl: 1 sertraline (ZOLOFT) 50 mg tablet Take 1 tablet by mouth once daily. Disp: 90 tablet Rfl: 3 QUEtiapine (SEROQUEL) 50 mg tablet Take 1 tablet by mouth daily at bedtime. Disp: 30 tablet Rfl: 3 omeprazole (PRILOSEC) 20 mg capsule Take 1 capsule by mouth daily before breakfast. 1/2 hr before meal. Disp: 30 capsule Rfl: 5 No current facility-administered medications for this visit. Anthropometrics: Height: Last 1 Encounter Ht Readings: Date: Ht: 08/27/2017 175.3 cm (5' 9) Current weight: Last 1 Encounter Wt Readings: Date: Wt: 08/27/2017 142.9 kg (315 lb) Body mass index is 46.52 kg/m?. Resting Metabolic Rate: 2296 NUTRITION ASSESSMENT: Malnutrition Screening Significant unintentional weight loss? No Eating less than 75% of usual intake for more than 2 weeks? No RECOMMENDED MALNUTRITION DIAGNOSIS: NO MALNUTRITION IDENTIFIED Educational materials provided: none this visit READINESS TO LEARN Cognitive ability: Alert and oriented Motivation to learn: Interested Family support: Unable to assess - Family not present Instruction provided to: Patient Patient learns best by: Individual Instruction Factors affecting learning: None Physical limitations affecting learning: None Patient presents for initial MNT as relates to weight control. Has gained in the past year possibly related to decreased activity with not working. Intake noted for one meal per day, breakfast. Drinks high amounts calorie beverages from reg pop. Exercise less than recommended. Nutrition Diagnosis: Overweight Obesity, related to; excess energy intake and physical inactivity, as evidenced by BMI above normative standard for age and gender. Nutrition Intervention 08/27/2017: modify type and amount of food or beverage 1. Aim for breakfast, lunch and dinner; Don't skip meals Breakfast: have eggs and two slices whole grain toast; cottage cheese and small handful almonds; Have sandwich for lunch on whole grain bread, with a lean meat; for dinner: soup and salad; lean meat and salad; or soup or sandwich 2. Avoid snacks unless 3. All beverages calorie free and sugar; do not drink sugar 4. Keep a food record, measure portions 5. Add 30 min walking to exercise routine. Also add core exercise (Planks) daily Nutrition Monitoring AND Evaluation: weight loss Criteria: patient update Need for Follow up: 4-6 weeks Referred/Supervised by: Su/Allegra LOPEZ Billing Type: Initial Assess/15 min 2 units SIGNATURE: Giovanna Santiago MS RD LD PATIENT NAME: Reji Martins DATE: August 27, 2017 TIME: 11:48 AM Giovanna Santiago (Mely) 08/27/2017 12:05 PM Signed 1. Aim for breakfast, lunch and dinner; Don't skip meals Breakfast: have eggs and two slices whole grain toast; cottage cheese and small handful almonds; Have sandwich for lunch on whole grain bread, with a lean meat; for dinner: soup and salad; lean meat and salad; or soup or sandwich 2. Avoid snacks unless 3. All beverages calorie free and sugar; do not drink sugar 4. Keep a food record, measure portions 5. Add 30 min walking to exercise routine. Also add core exercise (Planks) daily Document on: 08/27/2017 by: Giovanna Santiago (Mely) [[id number]] of: After Visit Summary Document on: 08/27/2017 by: Giovanna Santiago (Mely) [[id number]] of: [facility] [employer] Surgeon Worksheet Other instructions from your clinician: 1. Aim for breakfast, lunch and dinner; Don't skip meals Breakfast: have eggs and two slices whole grain toast; cottage cheese and small handful almonds; Have sandwich for lunch on whole grain bread, with a lean meat; for dinner: soup and salad; lean meat and salad; or soup or sandwich 2. Avoid snacks unless 3. All beverages calorie free and sugar; do not drink sugar 4. Keep a food record, measure portions 5. Add 30 min walking to exercise routine. Also add core exercise (Planks) daily Primary Visit Diagnosis:Essential hypertension [I10] Other Visit Diagnoses:Class 3 severe obesity due to excess calories without serious comorbidity with body mass index (BMI) of 45.0 to 49.9 in adult (HCC) [E66.01, Z68.42] Dietary counseling [Z71.3] During your visit today, we recorded the following information about you: Weight Height 142.9 kg 1.753 m Allergies As of Date: 08/27/2017 Noted Allergy Reaction SULFA DYNE 07/18/2011 16 - Unknown Comments: Sulfa antibiotic Date Reviewed: 08/27/2017 Reviewed by: Giovanna Santiago (Mely) - Fully Assessed Prescriptions as of 08/27/2017 Sig: LISINOPRIL 30 MG TABLET Take 1 tablet by mouth once d* TRIAMCINOLONE ACETONIDE 0.1 %* Apply 1 application to affect* SERTRALINE 50 MG TABLET Take 1 tablet by mouth once d* QUETIAPINE 50 MG TABLET Take 1 tablet by mouth daily * OMEPRAZOLE 20 MG CAPSULE,JUAN LUIS* Take 1 capsule by mouth daily* Encounter Status:Closed by JACK NEAL, GIOVANNA on 08/27/17 PROGRESS Observed: 08/11/2017 Status: COMPLETED Source: [place] 4:02 PM [facility] REPOSITORY HNO ID: [id number] Author: Melony (Pt) Nelida Service: (none) Author Type: Physical Therapist Type: Progress Notes Filed: 08/11/2017 4:09 PM Note Text: Episode Visit Count: 8 Therapist That Will Oversee The Plan Of Care: Melony Krause PT Start of Care Date: 07/11/17 Onset Date: 07/11/06 Plan of Care Certification Date: 07/11/17 REHABILITATION AND SPORTS THERAPY PHYSICAL THERAPY DISCONTINUANCE OF CARE PLAN OF CARE UPDATE: Assessment: Reji Martins is discontinued from Physical Therapy services due to maximal benefit. and patient's need to follow-up with dietian for asssitance with weight loss.. Patient was seen for 8 visits from Start of Care Date: 07/11/17 to 08/08/2017 and treatment included: Therapeutic exercise, Patient/Family/Caregiver Education and General conditioning. Patient is making slower progress than expect due to reported pain levels and brief relief from exercises. Suggested patient continue with neutral spine exercises and avoid the marching exercises or flexion exercises like sit ups. Goals updated on 08/08/2017. [place] in home exercise program.--MET Patient will decrease pain rating by 2 points to meet minimal clinical important difference for numeric pain rating scale. (Goal: 4/10)--NOT MET Patient will increase active ROM of lumbar extension and bilateral side bending to at least moderate to allow pt to improved performance of ADLs.--MET Perform sleeping without pain.--PARTIALLY MET Improve postural awareness.--PARTIALLY MET Improve Modified Oswestry Pain Questionnaire (LBP) by 6 points (12%) to indicate a Minimal Clinical Important Difference. (Goal: 28%)--Not MET SUBJECTIVE: After last PT session, patient stated about leg about 1.5 hours had bad pain in both until went to sleep, and upon waking had morning stiffness in low back and no pain in legs .Somedays does exercises 2x a day and some days 1x a day. Still has a little soreness from R knee to foot. Patient was standing to complete Oswestry questionnare and started to get knee stiffness and numbness and R buttock was stiff and numbness went up to a 7/10. Overall patient reports being able to move better but feels like a slight increase in stiffness and achiness in low back and legs. Patient did exercises before today's session. Patient continues to have pain with walking and steps. Pain Score: 6/10 Pain Location: Low Back/Lumbar Spine - Left;Low Back/Lumbar Spine - Right Description: Stiffness;Tightness Frequency: Continuous Post Treatment Pain Score: 4/10 Pain Location: Low Back/Lumbar Spine - Left;Low Back/Lumbar Spine - Right Post Treatment Pain Description: Stiffness;Tightness OBJECTIVE MEASURES WITH LEVEL OF FUNCTION: Lumbar Spine AROM Lumbar Extension: Moderate limitation Lumbar R Side-Bend: Moderate limitation Lumbar L Side-Bend: Moderate limitation TREATMENT: Therapeutic Exercise: 3: Standing hip extension 2x15 10: [place] trunk extension 70# 3x15 12: Seated upright perturbations on mat table with magenta Rep band forward, lateral right and lateral left 2x15 each sitting on mat table 13: Seated upright on mat table with TA with alt arm lifts 2x10 with 1 lb weights 16: Hoist Machine, belt, Side Stepping both L and R and Forwards/backwards, 2 plates, x10 each side 18: Seated Rows with magenta band 3x15 19: Standing alternating shoulder extension with orange band 3x10 (cues to enage core) 20: Seated Transverse Abdominal Bracing on Mat x10, 5 sec holds Skilled Intervention: Patient was educated in proper exercise technique and purpose for exercises. Skilled judgment was provided in selection of appropriate interventions. Billing: [facility]: Therapeutic Exercise (01089): 1:1 time: 40 minutes (3 units: 38-52 mins) Total time: 40 minutes Melony Nelida, PT LUMBAR SPINE 2 OR 3 Observed: 08/10/2017 Status: F Source: [place] VIEWS 12:55 PM [facility] REPOSITORY [facility] [place] [address] Lumbar Spine 2 or 3 Views MR#: [id number] Acct: [id number] Name: REJI MARTINS I Rep #: [id number] : 1970 M 47 From: Margo Long MD PCP: Wm Blue MD Status: REG CLI Study: Lumbar Spine 2 or 3 Views Date of Exam: 08/10/17 Exam# [id number] Ordering Dr: Trudi Ji STUDY: X-RAY - LUMBAR SPINE REASON FOR EXAM: Male, 47 years old. Back pain, chronic arthritis, numbness in bilateral legs, sharp pain. TECHNIQUE: 3 view(s) of the lumbar spine were obtained. COMPARISON: None FINDINGS: Normal lumbar lordosis. There is no substantial scoliosis. There is a normal alignment of the vertebrae. Mild sclerosed endplates with mild joint space narrowing L4- 5, more L5 S1. There is facet arthropathy. Suspicion for nondisplaced spondylolysis L5-S1, not excluded L4-5. The soft tissue structures are unremarkable. RAD/Lumbar Spine 2 or 3 Views IMPRESSION: Lower lumbar degenerative changes, spondylolysis L5-S1 suspected, not excluded L4-5 without listhesis. 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: Signed CNTHERAPY Observed: 08/08/2017 Status: COMPLETED Source: [place] 11:30 AM [facility] RE[facility] OT/PT/Speech Visit (PTWS) REJI MARTINS ([id number]) 1970 M Date Time Provider Department 08/08/17 11:30 AM MELONY KRAUSE (PT) PTWS Date Time Provider Department Center 08/08/2017 11:30 AM [id number], DIANA (PT)PTWS [facility] [place] Reason for Visit: Physical Therapy [503] PT Progress Note [6536] PT Discharge [622] Reason For Visit History Recorded Primary Visit Diagnosis:Chronic midline low back pain, with sciatica presence unspecified [M54.5, G89.29] Allergies As of Date: 08/08/2017 Noted Allergy Reaction SULFA DYNE 07/18/2011 16 - Unknown Comments: Sulfa antibiotic Date Reviewed: 07/02/2017 Reviewed by: Valorie Nguyen LPN - Fully Assessed Prescriptions as of 08/08/2017 Sig: TRIAMCINOLONE ACETONIDE 0.1 %* Apply 1 application to affect* SERTRALINE 50 MG TABLET Take 1 tablet by mouth once d* LISINOPRIL 30 MG TABLET Take 1 tablet by mouth once d* QUETIAPINE 50 MG TABLET Take 1 tablet by mouth daily * OMEPRAZOLE 20 MG CAPSULE,JUAN LUIS* Take 1 capsule by mouth daily* Progress Notes: Melony Krause PT 08/11/2017 4:09 PM Signed Episode Visit Count: 8 Therapist That Will Oversee The Plan Of Care: Melony Krause PT Start of Care Date: 07/11/17 Onset Date: 07/11/06 Plan of Care Certification Date: 07/11/17 REHABILITATION AND SPORTS THERAPY PHYSICAL THERAPY DISCONTINUANCE OF CARE PLAN OF CARE UPDATE: Assessment: Reji Martins is discontinued from Physical Therapy services due to maximal benefit. and patient's need to follow-up with dietian for asssitance with weight loss.. Patient was seen for 8 visits from Start of Care Date: 07/11/17 to 08/08/2017 and treatment included: Therapeutic exercise, Patient/Family/Caregiver Education and General conditioning. Patient is making slower progress than expect due to reported pain levels and brief relief from exercises. Suggested patient continue with neutral spine exercises and avoid the marching exercises or flexion exercises like sit ups. Goals updated on 08/08/2017. [place] in home exercise program.--MET Patient will decrease pain rating by 2 points to meet minimal clinical important difference for numeric pain rating scale. (Goal: 4/10)--NOT MET Patient will increase active ROM of lumbar extension and bilateral side bending to at least moderate to allow pt to improved performance of ADLs.--MET Perform sleeping without pain.--PARTIALLY MET Improve postural awareness.--PARTIALLY MET Improve Modified Oswestry Pain Questionnaire (LBP) by 6 points (12%) to indicate a Minimal Clinical Important Difference. (Goal: 28%)--Not MET SUBJECTIVE: After last PT session, patient stated about leg about 1.5 hours had bad pain in both until went to sleep, and upon waking had morning stiffness in low back and no pain in legs .Somedays does exercises 2x a day and some days 1x a day. Still has a little soreness from R knee to foot. Patient was standing to complete Oswestry questionnare and started to get knee stiffness and numbness and R buttock was stiff and numbness went up to a 7/10. Overall patient reports being able to move better but feels like a slight increase in stiffness and achiness in low back and legs. Patient did exercises before today's session. Patient continues to have pain with walking and steps. Pain Score: 6/10 Pain Location: Low Back/Lumbar Spine - Left;Low Back/Lumbar Spine - Right Description: Stiffness;Tightness Frequency: Continuous Post Treatment Pain Score: 4/10 Pain Location: Low Back/Lumbar Spine - Left;Low Back/Lumbar Spine - Right Post Treatment Pain Description: Stiffness;Tightness OBJECTIVE MEASURES WITH LEVEL OF FUNCTION: Lumbar Spine AROM Lumbar Extension: Moderate limitation Lumbar R Side-Bend: Moderate limitation Lumbar L Side-Bend: Moderate limitation TREATMENT: Therapeutic Exercise: 3: Standing hip extension 2x15 10: [place] trunk extension 70# 3x15 12: Seated upright perturbations on mat table with magenta Rep band forward, lateral right and lateral left 2x15 each sitting on mat table 13: Seated upright on mat table with TA with alt arm lifts 2x10 with 1 lb weights 16: Hoist Machine, belt, Side Stepping both L and R and Forwards/backwards, 2 plates, x10 each side 18: Seated Rows with magenta band 3x15 19: Standing alternating shoulder extension with orange band 3x10 (cues to enage core) 20: Seated Transverse Abdominal Bracing on Mat x10, 5 sec holds Skilled Intervention: Patient was educated in proper exercise technique and purpose for exercises. Skilled judgment was provided in selection of appropriate interventions. Billing: [facility]: Therapeutic Exercise ([id number]): 1:1 time: 40 minutes (3 units: 38-52 mins) Total time: 40 minutes Melony Krause PT Follow-up and Disposition History Recorded PROGRESS Observed: 08/06/2017 Status: COMPLETED Source: [place] 9:21 AM [facility] [place] REPOSITORY HNO ID: [id number] Author: Melony (Pt) Nelida Service: (none) Author Type: Physical Therapist Type: Progress Notes Filed: 08/06/2017 12:35 PM Note Text: Episode Visit Count: 7 Therapist That Will Oversee The Plan Of Care: Melony Krause PT Start of Care Date: 07/11/17 Onset Date: 07/11/06 Plan of Care Certification Date: 07/11/17 REHABILITATION AND SPORTS THERAPY PHYSICAL THERAPY TREATMENT NOTE ASSESSMENT: Reji Martins demonstrated improvements in ability to advance core stabilization on uneven surface. Patient did have slight increase back and upper buttock pain at end of treatment but noted decrease numbness. The patient will continue to benefit from continued skilled physical therapy for core stabilization and plan of care update. PLAN FOR NEXT VISIT: POC update next visit: 08/08/17 SUBJECTIVE: Patient reports his back is feeling better with less pain. He reports temporary relief after last visit. He reports doing exercises daily. Pain Score: 4/10 Pain Location: Low Back/Lumbar Spine - Right;Low Back/Lumbar Spine - Left Description: Numbness;Stiffness Frequency: Continuous Post Treatment Pain Score: 6/10 Pain Location: Low Back/Lumbar Spine - Right;Low Back/Lumbar Spine - Left;Buttocks - Right;Buttocks - Left Post Treatment Pain Description: Stiffness;Other: See comment (decrease numbness) OBJECTIVE MEASURES WITH LEVEL OF FUNCTION: cues for upright seated and standing with core stabilization exercise. TREATMENT: Therapeutic Exercise: 1: Seated resistive trunk extension with purple Rep band 3x15 2: Step One stepper seat 13, resistance 2.5 x 5 minutes. Subjective taken during this time. 3: Standing hip extension 2x12, B with instruction to stay in tall upright posture. 10: [place] trunk extension 70# 3x12 11: Hoist with rope core stabilization stir the pot 1 large and 2 mini 2x10 cw and ccw with emphasis on posture. 12: Seated upright perturbations on large dynadisc with magenta Rep band forward, lateral right and lateral left 2x15 each sitting on mat table 13: Seated upright on large dynadisc with TA with alt arm lifts 2x10 with 1 lb weights 14: Seated upright TA with marching on large dynadisc 2 x 10 with 1.5 lb ankle weights 15: Seated upright with TA with arm lift 1lb and marching 1.5 lbs on mat table 2x12 (Performs a set with L arm and R leg AND then R arm and L leg 2x10. 16: Hoist Machine, belt, Side Stepping both L and R and Forwards/backwards, 2 plates, x10 each side 18: Standing Rows with magenta band 3x15 19: Standing alternating shoulder extension with orange band 2x12 Skilled Intervention: Patient was educated in proper exercise technique and purpose for exercises. Skilled judgment was provided in selection of appropriate interventions. Correct performance of therapeutic exercises was facilitated with verbal and visual cuing. Education to perform exercise 2x/day rather than 1x/day for better success with reduction of pain. Billing: [facility]: Therapeutic Exercise ([id number]): 1:1 time: 42 minutes (3 units: 38-52 mins) Total time: 42 minutes Lisbet Yancey PTSpencer Krause PT CNTHERAPY Observed: 08/06/2017 Status: COMPLETED Source: [place] 8:30 AM [facility] REPOSITORY OT/PT/Speech Visit (PTWS) REJI MARTINS ([id number]) 1970 M Date Time Provider Department 08/06/17 8:30 AM LISBET YANCEY (CLERICAL METHODS ANALYST) PTWS Date Time Provider Department Center 08/06/2017 8:30 AM [id number], NANCY (CLERICAL METHODS ANALYST) PTWS [facility] [place] Reason for Visit: Physical Therapy [503] Primary Visit Diagnosis:Chronic midline low back pain, with sciatica presence unspecified [M54.5, G89.29] Allergies As of Date: 08/06/2017 Noted Allergy Reaction SULFA DYNE 07/18/2011 16 - Unknown Comments: Sulfa antibiotic Date Reviewed: 07/02/2017 Reviewed by: Valorie Nguyen LPN - Fully Assessed Prescriptions as of 08/06/2017 Sig: TRIAMCINOLONE ACETONIDE 0.1 %* Apply 1 application to affect* SERTRALINE 50 MG TABLET Take 1 tablet by mouth once d* LISINOPRIL 30 MG TABLET Take 1 tablet by mouth once d* QUETIAPINE 50 MG TABLET Take 1 tablet by mouth daily * OMEPRAZOLE 20 MG CAPSULE,JUAN LUIS* Take 1 capsule by mouth daily* Progress Notes: Melony Krause PT 08/06/2017 12:35 PM Signed Episode Visit Count: 7 Therapist That Will Oversee The Plan Of Care: Melony Krause PT Start of Care Date: 07/11/17 Onset Date: 07/11/06 Plan of Care Certification Date: 07/11/17 REHABILITATION AND SPORTS THERAPY PHYSICAL THERAPY TREATMENT NOTE ASSESSMENT: Reji Martins demonstrated improvements in ability to advance core stabilization on uneven surface. Patient did have slight increase back and upper buttock pain at end of treatment but noted decrease numbness. The patient will continue to benefit from continued skilled physical therapy for core stabilization and plan of care update. PLAN FOR NEXT VISIT: POC update next visit: 08/08/17 SUBJECTIVE: Patient reports his back is feeling better with less pain. He reports temporary relief after last visit. He reports doing exercises daily. Pain Score: 4/10 Pain Location: Low Back/Lumbar Spine - Right;Low Back/Lumbar Spine - Left Description: Numbness;Stiffness Frequency: Continuous Post Treatment Pain Score: 6/10 Pain Location: Low Back/Lumbar Spine - Right;Low Back/Lumbar Spine - Left;Buttocks - Right;Buttocks - Left Post Treatment Pain Description: Stiffness;Other: See comment (decrease numbness) OBJECTIVE MEASURES WITH LEVEL OF FUNCTION: cues for upright seated and standing with core stabilization exercise. TREATMENT: Therapeutic Exercise: 1: Seated resistive trunk extension with purple Rep band 3x15 2: Step One stepper seat 13, resistance 2.5 x 5 minutes. Subjective taken during this time. 3: Standing hip extension 2x12, B with instruction to stay in tall upright posture. 10: [place] trunk extension 70# 3x12 11: Hoist with rope core stabilization stir the pot 1 large and 2 mini 2x10 cw and ccw with emphasis on posture. 12: Seated upright perturbations on large dynadisc with magenta Rep band forward, lateral right and lateral left 2x15 each sitting on mat table 13: Seated upright on large dynadisc with TA with alt arm lifts 2x10 with 1 lb weights 14: Seated upright TA with marching on large dynadisc 2 x 10 with 1.5 lb ankle weights 15: Seated upright with TA with arm lift 1lb and marching 1.5 lbs on mat table 2x12 (Performs a set with L arm and R leg AND then R arm and L leg 2x10. 16: Hoist Machine, belt, Side Stepping both L and R and Forwards/backwards, 2 plates, x10 each side 18: Standing Rows with magenta band 3x15 19: Standing alternating shoulder extension with orange band 2x12 Skilled Intervention: Patient was educated in proper exercise technique and purpose for exercises. Skilled judgment was provided in selection of appropriate interventions. Correct performance of therapeutic exercises was facilitated with verbal and visual cuing. Education to perform exercise 2x/day rather than 1x/day for better success with reduction of pain. Billing: [place]: Therapeutic Exercise ([id number]): 1:1 time: 42 minutes (3 units: 38-52 mins) Total time: 42 minutes Lisbet Yancey PTSpencer Krause PT Previous Version Follow-up and Disposition History Recorded PROGRESS Observed: 08/01/2017 Status: COMPLETED Source: [place] 11:40 AM [facility] REPOSITORY HNO ID: [id number] Author: Melony (Pt) Nelida Service: (none) Author Type: Physical Therapist Type: Progress Notes Filed: 08/02/2017 7:29 AM Note Text: Episode Visit Count: 6 Therapist That Will Oversee The Plan Of Care: Melony Krause PT Start of Care Date: 07/11/17 Onset Date: 07/11/06 Plan of Care Certification Date: 07/11/17 REHABILITATION AND SPORTS THERAPY PHYSICAL THERAPY TREATMENT NOTE ASSESSMENT: Reji Martins demonstrated good tolerance to session despite feeling sick with a cold. Patient liked peach band for alternating shoulder extension. He has poor follow through with HEP. He reported his low back and R leg felt looser and less numb after exercising today. The patient will continue to benefit from continued skilled physical therapy for extension based exercises and core strengthening. PLAN FOR NEXT VISIT: Progress seat exercises to either nelida disc or theraball. Increase weight for arms and ankles with seated exercises. POC Update: 08/08/17 SUBJECTIVE: Feeling not so well today due to feeling sick with a cold. Did the standing extension exercise for hip but not the scapular retractions as too busy looking for a job. Pain Score: 7/10 Pain Location: Low Back/Lumbar Spine - Left;Low Back/Lumbar Spine - Right (AND R knee to foot) Description: Numbness Frequency: Continuous Post Treatment Pain Score: 4/10 Pain Location: Low Back/Lumbar Spine - Left;Low Back/Lumbar Spine - Right Post Treatment Pain Description: Numbness (Back and leg feel looser) OBJECTIVE MEASURES WITH LEVEL OF FUNCTION: Patient with good form performing standing hip extension today Patient needed help counting with sideways and forward/backward walking Hoist Machine. Patient with slight increase in pain in low back after walking exercises with Hoist that went away once performed seated perturbations and seated extension! TREATMENT: Therapeutic Exercise: 1: Seated resistive trunk extension with purple Rep band 3x12 3: Standing hip extension 2x10, B 10: [place] trunk extension 70# 3x10 12: Seated upright perturbations with magenta Rep band forward, lateral right and lateral left 2x15 each with no feet on ground sitting on mat table 13: Seated upright on mat table with TA with alt arm lifts 2x12 with 1 lb weights 14: Seated upright TA with marching on mat table 2 x 12 with 1.5 lb ankle weights 15: Seated upright with TA with arm lift 1lb and marching 1.5 lbs on mat table 2x12 (Performs a set with L arm and R leg AND then R arm and L leg) 16: Hoist Machine, belt, Side Stepping both L and R and Forwards/backwards, 2 plates, x10 each side (w/ slight increase in pain that dec w/ sitting) 18: Standing Rows with magenta band 3x10 19: Standing alternating shoulder extension with peach band 2x10 (verbal and tactile cues to prevent trunk from moving.) 20: Seated Transverse Abdominal Bracing on Theraball x10, 5 sec holds Skilled Intervention: Patient was educated in proper exercise technique and purpose for exercises. Billing: [place]: Therapeutic Exercise ([id number]): 1:1 time: 43 minutes (3 units: 38-52 mins) Total time: 43 minutes Melony Krause PT CNTHERAPY Observed: 08/01/2017 Status: COMPLETED Source: [place] 11:30 AM [facility] REPOSITORY OT/PT/Speech Visit (PTWS) REJI MARTINS ([id number]) 1970 M Date Time Provider Department 08/01/17 11:30 AM MELONY KRAUSEPT) PTWS Date Time Provider Department Center 08/01/2017 11:30 AM [id number], DIANA (PT)PTWS [facility] Reason for Visit: Physical Therapy [503] Primary Visit Diagnosis:Chronic midline low back pain, with sciatica presence unspecified [M54.5, G89.29] Allergies As of Date: 08/01/2017 Noted Allergy Reaction SULFA DYNE 07/18/2011 16 - Unknown Comments: Sulfa antibiotic Date Reviewed: 07/02/2017 Reviewed by: Valorie Nguyen LPN - Fully Assessed Prescriptions as of 08/01/2017 Sig: TRIAMCINOLONE ACETONIDE 0.1 %* Apply 1 application to affect* SERTRALINE 50 MG TABLET Take 1 tablet by mouth once d* LISINOPRIL 30 MG TABLET Take 1 tablet by mouth once d* QUETIAPINE 50 MG TABLET Take 1 tablet by mouth daily * OMEPRAZOLE 20 MG CAPSULE,JUAN LUIS* Take 1 capsule by mouth daily* Progress Notes: Melony Krause PT 08/02/2017 7:29 AM Signed Episode Visit Count: 6 Therapist That Will Oversee The Plan Of Care: Melony Krause PT Start of Care Date: 07/11/17 Onset Date: 07/11/06 Plan of Care Certification Date: 07/11/17 REHABILITATION AND SPORTS THERAPY PHYSICAL THERAPY TREATMENT NOTE ASSESSMENT: Reji Martins demonstrated good tolerance to session despite feeling sick with a cold. Patient liked peach band for alternating shoulder extension. He has poor follow through with HEP. He reported his low back and R leg felt looser and less numb after exercising today. The patient will continue to benefit from continued skilled physical therapy for extension based exercises and core strengthening. PLAN FOR NEXT VISIT: Progress seat exercises to either nelida disc or theraball. Increase weight for arms and ankles with seated exercises. POC Update: 08/08/17 SUBJECTIVE: Feeling not so well today due to feeling sick with a cold. Did the standing extension exercise for hip but not the scapular retractions as too busy looking for a job. Pain Score: 7/10 Pain Location: Low Back/Lumbar Spine - Left;Low Back/Lumbar Spine - Right (AND R knee to foot) Description: Numbness Frequency: Continuous Post Treatment Pain Score: 4/10 Pain Location: Low Back/Lumbar Spine - Left;Low Back/Lumbar Spine - Right Post Treatment Pain Description: Numbness (Back and leg feel looser) OBJECTIVE MEASURES WITH LEVEL OF FUNCTION: Patient with good form performing standing hip extension today Patient needed help counting with sideways and forward/backward walking Hoist Machine. Patient with slight increase in pain in low back after walking exercises with Hoist that went away once performed seated perturbations and seated extension! TREATMENT: Therapeutic Exercise: 1: Seated resistive trunk extension with purple Rep band 3x12 3: Standing hip extension 2x10, B 10: [place] trunk extension 70# 3x10 12: Seated upright perturbations with magenta Rep band forward, lateral right and lateral left 2x15 each with no feet on ground sitting on mat table 13: Seated upright on mat table with TA with alt arm lifts 2x12 with 1 lb weights 14: Seated upright TA with marching on mat table 2 x 12 with 1.5 lb ankle weights 15: Seated upright with TA with arm lift 1lb and marching 1.5 lbs on mat table 2x12 (Performs a set with L arm and R leg AND then R arm and L leg) 16: Hoist Machine, belt, Side Stepping both L and R and Forwards/backwards, 2 plates, x10 each side (w/ slight increase in pain that dec w/ sitting) 18: Standing Rows with magenta band 3x10 19: Standing alternating shoulder extension with peach band 2x10 (verbal and tactile cues to prevent trunk from moving.) 20: Seated Transverse Abdominal Bracing on Theraball x10, 5 sec holds Skilled Intervention: Patient was educated in proper exercise technique and purpose for exercises. Billing: [place]: Therapeutic Exercise ([id number]): 1:1 time: 43 minutes (3 units: 38-52 mins) Total time: 43 minutes Melony Krause PT PROGRESS Observed: 07/31/2017 Status: COMPLETED Source: [place] 11:01 AM [facility] REPOSITORY HNO ID: [id number] Author: Melony (Megan Krause Service: (none) Author Type: Physical Therapist Type: Progress Notes Filed: 07/31/2017 11:11 AM Note Text: Episode Visit Count: 5 Therapist That Will Oversee The Plan Of Care: Melony rKause PT Start of Care Date: 07/11/17 Onset Date: 07/11/06 Plan of Care Certification Date: 07/11/17 REHABILITATION AND SPORTS THERAPY PHYSICAL THERAPY TREATMENT NOTE ASSESSMENT: Reji Martins demonstrated improvements in low back pain intensity after exercise today. He seems to feel better with exercise. He was with poor tolerance to quadruped position due to created soreness in his R shoulder. Patient has difficulty alternating between movements and does best performing movement on one side like rasing L arm and R knee vs alternating side to side. Patient with good tolerance to increase in weight on the back extension machine. The patient will continue to benefit from continued skilled physical therapy for graded activity and extension based exercises for low back pain. PLAN FOR NEXT VISIT: When using [employer] lumbar belt for 4 way resistive walking as last time had patient holding handle and just side stepping. Increase band color to magenta for seated purturbations. Try less resistance with standing alternating extension to work on core strengthening. POC update: 08/08/17 SUBJECTIVE: Back is really bothering him this AM. Sat around all weekend at home. No leg symptoms today. Finds back extension with purple band gives most relief. Pain Score: 7/10 Pain Location: Low Back/Lumbar Spine - Left;Low Back/Lumbar Spine - Right Description: Numbness Frequency: Continuous Post Treatment Pain Score: 5/10 Pain Location: Low Back/Lumbar Spine - Left;Low Back/Lumbar Spine - Right Post Treatment Pain Description: Numbness (after standing had symtpoms from knees to feet, B) OBJECTIVE MEASURES WITH LEVEL OF FUNCTION: Patient very challenged with alternating two motions with exercises today (i.e. Quadruped arms +legs AND Transverse Abdominal +arms+marching) TREATMENT: Therapeutic Exercise: 1: Seated resistive trunk extension with purple Rep band 3x12 3: *Standing hip extension 2x10, B. Patient to perform in place of prone hip extension (cues to keep trunk up right and legs straight.) 10: [place] trunk extension 70# 3x10 12: Seated upright perturbations with blue Rep band forward, lateral right and lateral left 3x15 each with no feet on ground sitting on mat table 13: Seated upright with TA with alt arm lifts 2x10 with 1 lb weights 14: Seated upright TA with marching 2 x 10 with 1.5 lb ankle weights 15: Seated upright with TA with arm lift 1lb and marching 1.5 lbs 2x10 (Performs a set with L arm and R leg AND then R arm and L leg) (Patient is unable to perform alternating arms + march) 16: Hoist Machine, holding handle Side Stepping, 2 plates, x5 each side (visual and verbal cues for correct performance) 17: Quadruped position lifting one leg at a time and then lifting 1 arm at at time x10, B (reported R shoulder soreness after completing) 18: *Standing Rows with magenta band 3x10 19: Standing alternating shoulder extension with magenta band x4 patient reported numbness in buttock and numbness in knees to feet R>L, so discontinued Skilled Intervention: Patient was educated in proper exercise technique and purpose for exercises. Reviewed and educated patient on additions/changes for home exercise program as above (*) Billing: [place]: Therapeutic Exercise ([id number]): 1:1 time: 45 minutes (3 units: 38-52 mins) Total time: 45 minutes Melony Krause PT CNTHERAPY Observed: 07/30/2017 Status: COMPLETED Source: [place] 11:30 AM [facility] REPOSITORY OT/PT/Speech Visit (PTWS) REJI MARTINS ([id number]) 1970 M Date Time Provider Department 07/30/17 11:30 AM MELONY KRAUSE (PT) PTWS Date Time Provider Department Center 07/30/2017 11:30 AM [id number], DIANA (PT)PTWS [facility] Reason for Visit: Physical Therapy [503] Primary Visit Diagnosis:Chronic midline low back pain, with sciatica presence unspecified [M54.5, G89.29] Allergies As of Date: 07/30/2017 Noted Allergy Reaction SULFA DYNE 07/18/2011 16 - Unknown Comments: Sulfa antibiotic Date Reviewed: 07/02/2017 Reviewed by: Valorie Nguyen LPN - Fully Assessed Prescriptions as of 07/30/2017 Sig: TRIAMCINOLONE ACETONIDE 0.1 %* Apply 1 application to affect* SERTRALINE 50 MG TABLET Take 1 tablet by mouth once d* LISINOPRIL 30 MG TABLET Take 1 tablet by mouth once d* QUETIAPINE 50 MG TABLET Take 1 tablet by mouth daily * OMEPRAZOLE 20 MG CAPSULE,JUAN LUIS* Take 1 capsule by mouth daily* Progress Notes: Melony Krause PT 07/31/2017 11:11 AM Signed Episode Visit Count: 5 Therapist That Will Oversee The Plan Of Care: Melony Krause PT Start of Care Date: 07/11/17 Onset Date: 07/11/06 Plan of Care Certification Date: 07/11/17 REHABILITATION AND SPORTS THERAPY PHYSICAL THERAPY TREATMENT NOTE ASSESSMENT: Reji Martins demonstrated improvements in low back pain intensity after exercise today. He seems to feel better with exercise. He was with poor tolerance to quadruped position due to created soreness in his R shoulder. Patient has difficulty alternating between movements and does best performing movement on one side like rasing L arm and R knee vs alternating side to side. Patient with good tolerance to increase in weight on the back extension machine. The patient will continue to benefit from continued skilled physical therapy for graded activity and extension based exercises for low back pain. PLAN FOR NEXT VISIT: When using [employer] lumbar belt for 4 way resistive walking as last time had patient holding handle and just side stepping. Increase band color to magenta for seated purturbations. Try less resistance with standing alternating extension to work on core strengthening. POC update: 08/08/17 SUBJECTIVE: Back is really bothering him this AM. Sat around all weekend at home. No leg symptoms today. Finds back extension with purple band gives most relief. Pain Score: 7/10 Pain Location: Low Back/Lumbar Spine - Left;Low Back/Lumbar Spine - Right Description: Numbness Frequency: Continuous Post Treatment Pain Score: 5/10 Pain Location: Low Back/Lumbar Spine - Left;Low Back/Lumbar Spine - Right Post Treatment Pain Description: Numbness (after standing had symtpoms from knees to feet, B) OBJECTIVE MEASURES WITH LEVEL OF FUNCTION: Patient very challenged with alternating two motions with exercises today (i.e. Quadruped arms +legs AND Transverse Abdominal +arms+marching) TREATMENT: Therapeutic Exercise: 1: Seated resistive trunk extension with purple Rep band 3x12 3: *Standing hip extension 2x10, B. Patient to perform in place of prone hip extension (cues to keep trunk up right and legs straight.) 10: [place] trunk extension 70# 3x10 12: Seated upright perturbations with blue Rep band forward, lateral right and lateral left 3x15 each with no feet on ground sitting on mat table 13: Seated upright with TA with alt arm lifts 2x10 with 1 lb weights 14: Seated upright TA with marching 2 x 10 with 1.5 lb ankle weights 15: Seated upright with TA with arm lift 1lb and marching 1.5 lbs 2x10 (Performs a set with L arm and R leg AND then R arm and L leg) (Patient is unable to perform alternating arms + march) 16: Hoist Machine, holding handle Side Stepping, 2 plates, x5 each side (visual and verbal cues for correct performance) 17: Quadruped position lifting one leg at a time and then lifting 1 arm at at time x10, B (reported R shoulder soreness after completing) 18: *Standing Rows with magenta band 3x10 19: Standing alternating shoulder extension with magenta band x4 patient reported numbness in buttock and numbness in knees to feet R>L, so discontinued Skilled Intervention: Patient was educated in proper exercise technique and purpose for exercises. Reviewed and educated patient on additions/changes for home exercise program as above (*) Billing: [place]: Therapeutic Exercise ([id number]): 1:1 time: 45 minutes (3 units: 38-52 mins) Total time: 45 minutes Melony Kruase PT PROGRESS Observed: 07/25/2017 Status: COMPLETED Source: [place] 2:50 PM [facility] REPOSITORY HNO ID: [id number] Author: Melony Krause Service: (none) Author Type: Physical Therapist Type: Progress Notes Filed: 07/25/2017 3:26 PM Note Text: Episode Visit Count: 4 Therapist That Will Oversee The Plan Of Care: Melony Krause PT Start of Care Date: 07/11/17 Onset Date: 07/11/06 Plan of Care Certification Date: 07/11/17 REHABILITATION AND SPORTS THERAPY PHYSICAL THERAPY TREATMENT NOTE ASSESSMENT: Reji Martins demonstrated improvements in R leg numbness and L sided low back numbness as well as low back stiffness that reduced to 0/10 at the end of today's session. Patient with good tolerance to increase in reps for core strengthening. The patient will continue to benefit from continued skilled physical therapy for core strengthening and extension based exercises. PLAN FOR NEXT VISIT: Core stabilization exercises: qudruped, modified planks. Extension bias SUBJECTIVE: Patient reports exercises are helping. Having numbness R side Low Back to foot and only having numbness L side of back. Tries to do exercises 1x a day and standing extension 2x a day. Patient finds pulling belly button to spine difficult to breath. Pain Score: 7/10 Pain Location: Low Back/Lumbar Spine - Left;Low Back/Lumbar Spine - Right Description: Numbness Frequency: Continuous Post Treatment Pain Score: 0/10 OBJECTIVE MEASURES WITH LEVEL OF FUNCTION: Good Transverse Abdominal bracing throughout exercises today! TREATMENT: Therapeutic Exercise: 1: Seated resistive trunk extension with purple Rep band 3x12 (Patient instructed to increase reps for home) 2: Prone prop x 3 minutes. 3: Prone alt hip extension 2x10 5: Supine core stabilization with green Rep band pulling from overhead to thighs and from thighs to overhead 3x10 6: Supine TA with alt arm lifts 3x10 7: Supine TA with bent knee fall outs 3x10. 8: Standing extension 3x10 9: Bridging 1x10 in small range. Stopped as patient stated had pinching B in low back above waist line. 10: [place] trunk extension 60# 3x12 11: Seated upright TA 3 second hold 2x10 12: Seated upright perturbations with blue Rep band forward, lateral right and lateral left 3x15 each with no feet on ground sitting on mat table 13: Seated upright with TA with alt arm lifts x 10 with 1 lb weights 14: Seated upright TA with marching x 10 with 1.5 lb ankle weights 15: Seated upright with TA with alt arm lift 1lb and marching 1.5 lbs x10 (difficult for coordination today) Skilled Intervention: Patient was educated in proper exercise technique and purpose for exercises. Skilled judgment was provided in selection of appropriate interventions. Patient education as noted. Educated patient that extension is what he needs to do when having symptoms in legs or stiffness in back. Patient to discontinue performing bridging if he can't perform without pain. Billing: [place]: Therapeutic Exercise ([id number]): 1:1 time: 45 minutes (3 units: 38-52 mins) Total time: 45 minutes Melony Karuse PT CNTHERAPY Observed: 07/25/2017 Status: COMPLETED Source: [place] 2:45 PM [facility] REPOSITORY OT/PT/Speech Visit (PTWS) REJI MARTINS ([id number]) 1970 M Date Time Provider Department 07/25/17 2:45 PM MELONY KRAUSE (PT) PTWS Date Time Provider Department Center 07/25/2017 2:45 PM [id number], DIANA (PT)PTWS [facility] Reason for Visit: Physical Therapy [503] Primary Visit Diagnosis:Chronic midline low back pain, with sciatica presence unspecified [M54.5, G89.29] Allergies As of Date: 07/25/2017 Noted Allergy Reaction SULFA DYNE 07/18/2011 16 - Unknown Comments: Sulfa antibiotic Date Reviewed: 07/02/2017 Reviewed by: Valorie Nguyen LPN - Fully Assessed Prescriptions as of 07/25/2017 Sig: TRIAMCINOLONE ACETONIDE 0.1 %* Apply 1 application to affect* SERTRALINE 50 MG TABLET Take 1 tablet by mouth once d* LISINOPRIL 30 MG TABLET Take 1 tablet by mouth once d* QUETIAPINE 50 MG TABLET Take 1 tablet by mouth daily * OMEPRAZOLE 20 MG CAPSULE,JUAN LUIS* Take 1 capsule by mouth daily* Progress Notes: Melony Krause PT 07/25/2017 3:26 PM Signed Episode Visit Count: 4 Therapist That Will Oversee The Plan Of Care: Melony Krause PT Start of Care Date: 07/11/17 Onset Date: 07/11/06 Plan of Care Certification Date: 07/11/17 REHABILITATION AND SPORTS THERAPY PHYSICAL THERAPY TREATMENT NOTE ASSESSMENT: Reji Martins demonstrated improvements in R leg numbness and L sided low back numbness as well as low back stiffness that reduced to 0/10 at the end of today's session. Patient with good tolerance to increase in reps for core strengthening. The patient will continue to benefit from continued skilled physical therapy for core strengthening and extension based exercises. PLAN FOR NEXT VISIT: Core stabilization exercises: qudruped, modified planks. Extension bias SUBJECTIVE: Patient reports exercises are helping. Having numbness R side Low Back to foot and only having numbness L side of back. Tries to do exercises 1x a day and standing extension 2x a day. Patient finds pulling belly button to spine difficult to breath. Pain Score: 7/10 Pain Location: Low Back/Lumbar Spine - Left;Low Back/Lumbar Spine - Right Description: Numbness Frequency: Continuous Post Treatment Pain Score: 0/10 OBJECTIVE MEASURES WITH LEVEL OF FUNCTION: Good Transverse Abdominal bracing throughout exercises today! TREATMENT: Therapeutic Exercise: 1: Seated resistive trunk extension with purple Rep band 3x12 (Patient instructed to increase reps for home) 2: Prone prop x 3 minutes. 3: Prone alt hip extension 2x10 5: Supine core stabilization with green Rep band pulling from overhead to thighs and from thighs to overhead 3x10 6: Supine TA with alt arm lifts 3x10 7: Supine TA with bent knee fall outs 3x10. 8: Standing extension 3x10 9: Bridging 1x10 in small range. Stopped as patient stated had pinching B in low back above waist line. 10: [place] trunk extension 60# 3x12 11: Seated upright TA 3 second hold 2x10 12: Seated upright perturbations with blue Rep band forward, lateral right and lateral left 3x15 each with no feet on ground sitting on mat table 13: Seated upright with TA with alt arm lifts x 10 with 1 lb weights 14: Seated upright TA with marching x 10 with 1.5 lb ankle weights 15: Seated upright with TA with alt arm lift 1lb and marching 1.5 lbs x10 (difficult for coordination today) Skilled Intervention: Patient was educated in proper exercise technique and purpose for exercises. Skilled judgment was provided in selection of appropriate interventions. Patient education as noted. Educated patient that extension is what he needs to do when having symptoms in legs or stiffness in back. Patient to discontinue performing bridging if he can't perform without pain. Billing: [place]: Therapeutic Exercise ([id number]): 1:1 time: 45 minutes (3 units: 38-52 mins) Total time: 45 minutes Melony Krause PT PROGRESS Observed: 07/18/2017 Status: COMPLETED Source: [place] 2:05 PM [facility] REPOSITORY HNO ID: [id number] Author: Rosy (Pt) Edu Service: (none) Author Type: Physical Therapist Type: Progress Notes Filed: 07/18/2017 2:16 PM Note Text: Episode Visit Count: 3 Therapist That Will Oversee The Plan Of Care: Melony Krause PT Start of Care Date: 07/11/17 Onset Date: 07/11/06 Plan of Care Certification Date: 07/11/17 REHABILITATION AND SPORTS THERAPY PHYSICAL THERAPY TREATMENT NOTE ASSESSMENT: Reji Martins demonstrated difficulty with understanding concept of centralization of symptoms with extension based exercise. He was able to abolish numbness in legs with extension exercise today. He was instructed to do these exercise as needed throughout the day. Advanced seated core strengthening and added resistive trunk extension with purple Rep band to HEP. The patient will continue to benefit from continued skilled physical therapy for education of back and direction of preference and core stabilization with neutral spine or extension movements. PLAN FOR NEXT VISIT: continue with core stabilization and progression of exercise. SUBJECTIVE: Patient reports having numbness B legs down to feet. Pain Score: 0/10 Pain Location: Other: See Comment (numbness B legs down to feet.) Frequency: Continuous Post Treatment Pain Score: 4/10 Post Treatment Pain Description: Stiffness (no numbness or radicular pain B legs) OBJECTIVE MEASURES WITH LEVEL OF FUNCTION: Upright seated posture observed during therapy today. TREATMENT: Therapeutic Exercise: 1: *Seated resistive trunk extension with purple Rep band 3x10. 2: Prone prop x 3 minutes. 3: Prone alt hip extension 2x10. 4: Supine transverse abodminal (TA) bracing 3 second hold x20. 5: Supine core stabilization with green Rep band pulling from overhead to thighs and from thighs to overhead 2x10. 6: Supine TA with alt arm lifts 2x10. 7: Supine TA with bent knee fall outs 2x10. 8: Standing extension 2x10. 9: Bridging 2x12 in pain free ROM. 10: [place] trunk extension 60# 3x10. 11: Seated upright TA 3 second hold x 15. 12: Seated upright perturbations with blue Rep band forward, lateral right and lateral left 3x15 each. 13: Seated upright with TA with alt arm lifts x 10. 14: Seated upright TA with marching x 10. 15: Seated upright with TA with alt arm lift and marching 1x10. Skilled Intervention: Patient was educated in proper exercise technique and purpose for exercises. Reviewed and educated patient on additions/changes for home exercise program as above (*)Vended purple band for HEP Skilled judgment was provided in selection of appropriate interventions. Provided written instruction for home exercise program to facilitate proper performance and compliance. Correct performance of therapeutic exercises was facilitated with verbal and visual cuing. Billing: [place]: Therapeutic Exercise ([id number]): 1:1 time: 42 minutes (3 units: 38-52 mins) Total time: 42 minutes DAHIANA Rizvi/Rosy Sorensen PT CNTHERAPY Observed: 07/18/2017 Status: COMPLETED Source: [place] 1:30 PM [facility] REPOSITORY OT/PT/Speech Visit (PTWS) REJI MARTINS ([id number]) 1970 M Date Time Provider Department 07/18/17 1:30 PM LISBET YANCEY (CLERICAL METHODS ANALYST) PTWS Date Time Provider Department Center 07/18/2017 1:30 PM [id number], NANCY (CLERICAL METHODS ANALYST) PTWS [facility] Reason for Visit: Physical Therapy [503] Primary Visit Diagnosis:Chronic midline low back pain, with sciatica presence unspecified [M54.5, G89.29] Allergies As of Date: 07/18/2017 Noted Allergy Reaction SULFA DYNE 07/18/2011 16 - Unknown Comments: Sulfa antibiotic Date Reviewed: 07/02/2017 Reviewed by: Valorie Nguyen LPN - Fully Assessed Prescriptions as of 07/18/2017 Sig: TRIAMCINOLONE ACETONIDE 0.1 %* Apply 1 application to affect* SERTRALINE 50 MG TABLET Take 1 tablet by mouth once d* LISINOPRIL 30 MG TABLET Take 1 tablet by mouth once d* QUETIAPINE 50 MG TABLET Take 1 tablet by mouth daily * OMEPRAZOLE 20 MG CAPSULE,JUAN LUIS* Take 1 capsule by mouth daily* Progress Notes: Rosy Sorensen, PT 07/18/2017 2:16 PM Signed Episode Visit Count: 3 Therapist That Will Oversee The Plan Of Care: Melony Krause, PT Start of Care Date: 07/11/17 Onset Date: 07/11/06 Plan of Care Certification Date: 07/11/17 REHABILITATION AND SPORTS THERAPY PHYSICAL THERAPY TREATMENT NOTE ASSESSMENT: Reji Martins demonstrated difficulty with understanding concept of centralization of symptoms with extension based exercise. He was able to abolish numbness in legs with extension exercise today. He was instructed to do these exercise as needed throughout the day. Advanced seated core strengthening and added resistive trunk extension with purple Rep band to HEP. The patient will continue to benefit from continued skilled physical therapy for education of back and direction of preference and core stabilization with neutral spine or extension movements. PLAN FOR NEXT VISIT: continue with core stabilization and progression of exercise. SUBJECTIVE: Patient reports having numbness B legs down to feet. Pain Score: 0/10 Pain Location: Other: See Comment (numbness B legs down to feet.) Frequency: Continuous Post Treatment Pain Score: 4/10 Post Treatment Pain Description: Stiffness (no numbness or radicular pain B legs) OBJECTIVE MEASURES WITH LEVEL OF FUNCTION: Upright seated posture observed during therapy today. TREATMENT: Therapeutic Exercise: 1: *Seated resistive trunk extension with purple Rep band 3x10. 2: Prone prop x 3 minutes. 3: Prone alt hip extension 2x10. 4: Supine transverse abodminal (TA) bracing 3 second hold x20. 5: Supine core stabilization with green Rep band pulling from overhead to thighs and from thighs to overhead 2x10. 6: Supine TA with alt arm lifts 2x10. 7: Supine TA with bent knee fall outs 2x10. 8: Standing extension 2x10. 9: Bridging 2x12 in pain free ROM. 10: [place] trunk extension 60# 3x10. 11: Seated upright TA 3 second hold x 15. 12: Seated upright perturbations with blue Rep band forward, lateral right and lateral left 3x15 each. 13: Seated upright with TA with alt arm lifts x 10. 14: Seated upright TA with marching x 10. 15: Seated upright with TA with alt arm lift and marching 1x10. Skilled Intervention: Patient was educated in proper exercise technique and purpose for exercises. Reviewed and educated patient on additions/changes for home exercise program as above (*)Vended purple band for HEP Skilled judgment was provided in selection of appropriate interventions. Provided written instruction for home exercise program to facilitate proper performance and compliance. Correct performance of therapeutic exercises was facilitated with verbal and visual cuing. Billing: [place]: Therapeutic Exercise ([id number]): 1:1 time: 42 minutes (3 units: 38-52 mins) Total time: 42 minutes Lisbet Yancey PTSpencer/Rosy Sorensen PT Previous Version Follow-up and Disposition History Recorded PROGRESS Observed: 2017 Status: COMPLETED Source: [place] 2:27 PM [facility] [place] REPOSITORY HNO ID: [id number] Author: Melony (Pt) Nelida Service: (none) Author Type: Physical Therapist Type: Progress Notes Filed: 2017 2:45 PM Note Text: Episode Visit Count: 2 Therapist That Will Oversee The Plan Of Care: Melony Krause PT Start of Care Date: 07/11/17 Onset Date: 07/11/06 Plan of Care Certification Date: 07/11/17 Patient Identified by Name and Date of : Yes REHABILITATION AND SPORTS THERAPY PHYSICAL THERAPY TREATMENT NOTE ASSESSMENT: Reji Martins demonstrated improvements in reduction in pain with extension based exercise. Patient able to advance exercise today with no increase in pain. Patient did have increase right lateral thigh pain with no c/o shooting pain. Education throughout treatment on proper spine position with neutral spine or extension movements and avoid forward flexion at current time. Patient was asked to count out loud with exercise today which kept hip breathing normally and not holding his breath. Patient was receptive to newly added exercise for HEP. The patient will continue to benefit from continued skilled physical therapy for core stabilization and extension based exercise for pain control. PLAN FOR NEXT VISIT: Monitor response to newly added exercise and continue per patient tolerance with neutral spine and extension based exercise. SUBJECTIVE: Patient reports he was hurting when he got out of bed today and could hardly walk. Patient reports pain in left low back , buttocks and lateral thigh currently. Pain Score: 7/10 Pain Location: Low Back/Lumbar Spine - Left;Buttocks - Left;Thigh - Left Description: Sharp Frequency: Continuous Post Treatment Pain Score: 5/10 Post Treatment Pain Description: (Decrease pain and better than when I came in.) OBJECTIVE MEASURES WITH LEVEL OF FUNCTION: Spine Observations Spine Observations: Decrease lumbar lordosis in seated postion. TREATMENT: Therapeutic Exercise: 1: Prone lying x 3 minutes. 2: Prone prop x 3 minutes. 3: *Prone alt hip extension 2x5. 4: Supine transvers abodminal bracing 3 second hold x10, through the day. 5: Education to patient on centralization of pain vs peripheralization of pain and he is to stop any exercise that causes increase symptoms down his leg. 6: *Supine TA with alt arm lifts 2x10. 7: *Supine TA with bent knee fall outs 2x10. 8: Standing extension 2x10. 9: *Bridging 2x10 in pain free ROM. 10: [place] trunk extension 50# 3x10. 11: Seated upright TA 3 second hold x 10. 12: Seated upright perturbations with green Rep band forward, lateral right and lateral left 3x15 each. Skilled Intervention: Patient was educated in proper exercise technique and purpose for exercises. Reviewed and educated patient on additions/changes for home exercise program as above (*) Skilled judgment was provided in selection of appropriate interventions. Provided written instruction for home exercise program to facilitate proper performance and compliance. Correct performance of therapeutic exercises was facilitated with verbal and visual cuing. Billing: [place]: Therapeutic Exercise ([id number]): 1:1 time: 45 minutes (3 units: 38-52 mins) Total time: 45 minutes Lisbet Yancey PTSpencer Krause PT CNTHERAPY Observed: 2017 Status: COMPLETED Source: [place] 2:00 PM [facility] [place] REPOSITORY OT/PT/Speech Visit (PTWS) REJI MARTINS ([id number]) 1970 M Date Time Provider Department 07/16/17 2:00 PM LISBET YANCEY (CLERICAL METHODS ANALYST) PTWS Date Time Provider Department Center 2017 2:00 PM [id number], NANCY (CLERICAL METHODS ANALYST) PTWS [facility] Reason for Visit: Physical Therapy [503] Primary Visit Diagnosis:Chronic midline low back pain, with sciatica presence unspecified [M54.5, G89.29] Allergies As of Date: 2017 Noted Allergy Reaction SULFA DYNE 07/18/2011 16 - Unknown Comments: Sulfa antibiotic Date Reviewed: 07/02/2017 Reviewed by: Valorie Nguyen LPN - Fully Assessed Prescriptions as of 2017 Sig: TRIAMCINOLONE ACETONIDE 0.1 %* Apply 1 application to affect* SERTRALINE 50 MG TABLET Take 1 tablet by mouth once d* LISINOPRIL 30 MG TABLET Take 1 tablet by mouth once d* QUETIAPINE 50 MG TABLET Take 1 tablet by mouth daily * OMEPRAZOLE 20 MG CAPSULE,JUAN LUIS* Take 1 capsule by mouth daily* Progress Notes: Melony Krause PT 2017 2:45 PM Signed Episode Visit Count: 2 Therapist That Will Oversee The Plan Of Care: Melony Krause PT Start of Care Date: 07/11/17 Onset Date: 07/11/06 Plan of Care Certification Date: 07/11/17 Patient Identified by Name and Date of : Yes REHABILITATION AND SPORTS THERAPY PHYSICAL THERAPY TREATMENT NOTE ASSESSMENT: Reji Martins demonstrated improvements in reduction in pain with extension based exercise. Patient able to advance exercise today with no increase in pain. Patient did have increase right lateral thigh pain with no c/o shooting pain. Education throughout treatment on proper spine position with neutral spine or extension movements and avoid forward flexion at current time. Patient was asked to count out loud with exercise today which kept hip breathing normally and not holding his breath. Patient was receptive to newly added exercise for HEP. The patient will continue to benefit from continued skilled physical therapy for core stabilization and extension based exercise for pain control. PLAN FOR NEXT VISIT: Monitor response to newly added exercise and continue per patient tolerance with neutral spine and extension based exercise. SUBJECTIVE: Patient reports he was hurting when he got out of bed today and could hardly walk. Patient reports pain in left low back , buttocks and lateral thigh currently. Pain Score: 7/10 Pain Location: Low Back/Lumbar Spine - Left;Buttocks - Left;Thigh - Left Description: Sharp Frequency: Continuous Post Treatment Pain Score: 5/10 Post Treatment Pain Description: (Decrease pain and better than when I came in.) OBJECTIVE MEASURES WITH LEVEL OF FUNCTION: Spine Observations Spine Observations: Decrease lumbar lordosis in seated postion. TREATMENT: Therapeutic Exercise: 1: Prone lying x 3 minutes. 2: Prone prop x 3 minutes. 3: *Prone alt hip extension 2x5. 4: Supine transvers abodminal bracing 3 second hold x10, through the day. 5: Education to patient on centralization of pain vs peripheralization of pain and he is to stop any exercise that causes increase symptoms down his leg. 6: *Supine TA with alt arm lifts 2x10. 7: *Supine TA with bent knee fall outs 2x10. 8: Standing extension 2x10. 9: *Bridging 2x10 in pain free ROM. 10: [place] trunk extension 50# 3x10. 11: Seated upright TA 3 second hold x 10. 12: Seated upright perturbations with green Rep band forward, lateral right and lateral left 3x15 each. Skilled Intervention: Patient was educated in proper exercise technique and purpose for exercises. Reviewed and educated patient on additions/changes for home exercise program as above (*) Skilled judgment was provided in selection of appropriate interventions. Provided written instruction for home exercise program to facilitate proper performance and compliance. Correct performance of therapeutic exercises was facilitated with verbal and visual cuing. Billing: [place]: Therapeutic Exercise ([id number]): 1:1 time: 45 minutes (3 units: 38-52 mins) Total time: 45 minutes Lisbet Yancey PTSpencer Krause PT Previous Version Follow-up and Disposition History Recorded PROGRESS Observed: 07/12/2017 Status: COMPLETED Source: [place] 11:39 AM [facility] REPOSITORY O ID: [id number] Author: Melony (Pt) Nelida Service: (none) Author Type: Physical Therapist Type: Progress Notes Filed: 07/12/2017 12:42 PM Note Text: Episode Visit Count: 1 Therapist That Will Oversee The Plan Of Care: Melony Krause PT Start of Care Date: 07/11/17 Onset Date: 07/11/06 Plan of Care Certification Date: 07/11/17 Patient Identified by Name and Date of : Yes REHABILITATION AND SPORTS THERAPY PHYSICAL THERAPY EVALUATION PLAN OF CARE: Assessment: Reji Martins presents with the diagnosis of chronic low back pain with sciatica. He presents with impairments of bilateral paraspinal tenderness to L2-S1, impaired hamstring flexibility, lumbar ROM, and core strength. He may benefit from skilled therapy services to improve impairments. Low Back Pain Subgroup Classification Low Back Pain Subgroup Classification: Graded activity subgroup: recommended visits 12. Graded Activity Subgroup Classification based on: maladaptive psychosocial factors;disproportionate pain Prognosis: Fair Fair due to: clinical presentation;chronic nature of impairments;coping skills;limited tolerance to activity Goals for Episode of Care: created on 07/11/17 through 09/06/17 [place] in home exercise program. Patient will decrease pain rating by 2 points to meet minimal clinical important difference for numeric pain rating scale. (Goal: 4/10) Patient will increase active ROM of lumbar extension and bilateral side bending to at least moderate to allow pt to improved performance of ADLs. Perform sleeping without pain. Improve postural awareness. Improve Modified Oswestry Pain Questionnaire (LBP) by 6 points (12%) to indicate a Minimal Clinical Important Difference. (Goal: 28%) Planned Interventions, Frequency, and Duration: Current Frequency: 2x/week Duration: 4 weeks Total Number of Visits Planned: 9 Patient to be see for Planned Treatment Interventions: Therapeutic exercise;Neuromuscular re-education;Manual therapy;Therapeutic activities;Self-nursing home management;Patient/Family/Caregiver Education;Body Mechanics Training;Functional training;General Conditioning Patient demonstrates good understanding of plan of care and treatment. The above goals and plan of care were discussed and agreed upon by patient/family. SUBJECTIVE: Reji Martins is a 46 year old male seen today for chronic low back pain. Started to go to chiropractor when 40 years old. Has arthritis of the spine. Has stopped going to seeing the chiropractor due to having Medicaid. Has access to an exercise bike. Usually does sits ups, push ups, and lifting weights. Functional Limitations: walking;sitting (sitting or walking too long. Gets tired easily AND SOB. Stairs) Patient Goals: Try to make back from hurting so much. 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 Cancer Clinical Reasoning: No identified risk factors. Infection Clinical Reasoning: No identified risk factors. Cauda Equina Syndrome Clinical Reasoning: No identified risk factors. Red Flags - Cervical Cancer Clinical Reasoning: No identified risk factors. Infection Clinical Reasoning: No identified risk factors. Pain Score: 6/10 (Worst: 10/10) Pain Location: Low Back/Lumbar Spine - Left;Low Back/Lumbar Spine - Right (can have sx going down legs.) Description: Numbness;Stiffness Frequency: Continuous Post Treatment Pain Score: 5/10 Pain Location: Low Back/Lumbar Spine - Left;Low Back/Lumbar Spine - Right Post Treatment Pain Description: Stiffness OBJECTIVE MEASURES WITH LEVEL OF FUNCTION: Posture / Alignment Posture: Rounded shoulders Spine Palpation R Lumbar Spine Palpation Tenderness: Paraspinals (L2-S1) L Lumbar Spine Palpation Tenderness: Paraspinals (L2-S1) Lumbar Spine AROM Lumbar Flexion: Moderate limitation Lumbar Extension: Major limitation Lumbar R Side-Bend: Major limitation Lumbar L Side-Bend: Major limitation (increased pain on L) Lumbar R Rotation: Normal Lumbar L Rotation: Normal Repeated Test Movements - Lumbar RFIL - Symptoms During: increases RFIL - Symptoms After: worse REIL - Symptoms During: decreases REIL - Symptoms After: better LE AROM R Hip Flexion: 95 Degrees R Hip Internal Rotation: 0 Degrees R Hip External Rotation: 20 Degrees L Hip Flexion: 110 Degrees L Hip Internal Rotation: 15 Degrees L Hip External Rotation: 40 Degrees LE Flexibility Flexibility: Hamstring Flexibility R Hamstring Flexibility: 55 L Hamstring Flexibility: 58 LE Strength Trunk Strength: 3-/5 R Hip Flexion: 5/5 R Hip ABduction: 5/5 R Hip ADduction: 5/5 R Knee Extension: 5/5 R Knee Flexion: 5/5 R Ankle Dorsiflexion: 5/5 L Hip Flexion: 5/5 L Hip ABduction: 5/5 L Hip ADduction: 5/5 L Knee Extension: 5/5 L Knee Flexion: 5/5 L Ankle Dorsiflexion: 5/5 Education: Education Learning Preferences: Demonstration;Explanation;Performance;Printed Materials Barriers: Desire and Motivation Learning/educational needs: Home exercise program;Plan of Care Education Provided: Yes, see treatment interventions for education provided Education Provided To: Patient Education Mode/Type: Demonstration;Explanation/Discussion;Literature/Printed Materials;Performance Response to Education/Teach Back: Requires Review/Additional Education;Return Demonstration TREATMENT: Evaluation Therapeutic Exercise: 1: *When sleeping on side instructed patient to put a pillow between knees and when on back putting pillows underneath knees to help promote a neutral spine. 2: *Encourged patient to bike at home to help improve fatigue and help with weight loss as patient stated he has gain 100 lbs since he lost his job. 3: Advised patient to stop sit ups 4: *Transvers abodminal bracing x10, through the day. 5: Educated patient he seems to do best with flexion based exercises vs extension based off of testing performed 6: Prone prop 2 minutes 7: Prone Press up x10. Unable to perform more as stated his shoulder was bothering 8: *Standing extension x10 within range patient able to tolerate. Skilled Intervention: Patient was educated in proper exercise technique and purpose for exercises. Reviewed and educated patient on additions/changes for home exercise program as above (*) Skilled judgment was provided in selection of appropriate interventions. Patient education as noted. Billing: [place]: Evaluation - Moderate Complexity ([id number]) Therapeutic Exercise ([id number]): 1:1 time: 25 minutes (2 units: 23-37 mins) Total time: 45 minutes Melony Krause PT CNTHERAPY Observed: 07/11/2017 Status: COMPLETED Source: [place] 4:15 PM [facility] REPOSITORY OT/PT/Speech Visit (PTWS) REJI MARTINS ([id number]) 1970 M Date Time Provider Department 07/11/17 4:15 PM MELONY KRAUSE (PT) PTWS Date Time Provider Department Center 07/11/2017 4:15 PM [id number], DIANA (PT)PTWS [facility] Reason for Visit: PT Eval [747] Patient Education [91] Primary Visit Diagnosis:Chronic midline low back pain, with sciatica presence unspecified [M54.5, G89.29] Allergies As of Date: 07/11/2017 Noted Allergy Reaction SULFA DYNE 07/18/2011 16 - Unknown Comments: Sulfa antibiotic Date Reviewed: 07/02/2017 Reviewed by: Valorie Nguyen LPN - Fully Assessed Prescriptions as of 07/11/2017 Sig: TRIAMCINOLONE ACETONIDE 0.1 %* Apply 1 application to affect* SERTRALINE 50 MG TABLET Take 1 tablet by mouth once d* LISINOPRIL 30 MG TABLET Take 1 tablet by mouth once d* QUETIAPINE 50 MG TABLET Take 1 tablet by mouth daily * OMEPRAZOLE 20 MG CAPSULE,JUAN LUIS* Take 1 capsule by mouth daily* Progress Notes: Melony Krause PT 07/12/2017 12:42 PM Signed Episode Visit Count: 1 Therapist That Will Oversee The Plan Of Care: Melony Krause PT Start of Care Date: 07/11/17 Onset Date: 07/11/06 Plan of Care Certification Date: 07/11/17 Patient Identified by Name and Date of : Yes REHABILITATION AND SPORTS THERAPY PHYSICAL THERAPY EVALUATION PLAN OF CARE: Assessment: Reji Martins presents with the diagnosis of chronic low back pain with sciatica. He presents with impairments of bilateral paraspinal tenderness to L2-S1, impaired hamstring flexibility, lumbar ROM, and core strength. He may benefit from skilled therapy services to improve impairments. Low Back Pain Subgroup Classification Low Back Pain Subgroup Classification: Graded activity subgroup: recommended visits 12. Graded Activity Subgroup Classification based on: maladaptive psychosocial factors;disproportionate pain Prognosis: Fair Fair due to: clinical presentation;chronic nature of impairments;coping skills;limited tolerance to activity Goals for Episode of Care: created on 07/11/17 through 09/06/17 [place] in home exercise program. Patient will decrease pain rating by 2 points to meet minimal clinical important difference for numeric pain rating scale. (Goal: 4/10) Patient will increase active ROM of lumbar extension and bilateral side bending to at least moderate to allow pt to improved performance of ADLs. Perform sleeping without pain. Improve postural awareness. Improve Modified Oswestry Pain Questionnaire (LBP) by 6 points (12%) to indicate a Minimal Clinical Important Difference. (Goal: 28%) Planned Interventions, Frequency, and Duration: Current Frequency: 2x/week Duration: 4 weeks Total Number of Visits Planned: 9 Patient to be see for Planned Treatment Interventions: Therapeutic exercise;Neuromuscular re-education;Manual therapy;Therapeutic activities;Self-nursing home management;Patient/Family/Caregiver Education;Body Mechanics Training;Functional training;General Conditioning Patient demonstrates good understanding of plan of care and treatment. The above goals and plan of care were discussed and agreed upon by patient/family. SUBJECTIVE: Reji Martins is a 46 year old male seen today for chronic low back pain. Started to go to chiropractor when 40 years old. Has arthritis of the spine. Has stopped going to seeing the chiropractor due to having Medicaid. Has access to an exercise bike. Usually does sits ups, push ups, and lifting weights. Functional Limitations: walking;sitting (sitting or walking too long. Gets tired easily AND SOB. Stairs) Patient Goals: Try to make back from hurting so much. 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 Cancer Clinical Reasoning: No identified risk factors. Infection Clinical Reasoning: No identified risk factors. Cauda Equina Syndrome Clinical Reasoning: No identified risk factors. Red Flags - Cervical Cancer Clinical Reasoning: No identified risk factors. Infection Clinical Reasoning: No identified risk factors. Pain Score: 6/10 (Worst: 10/10) Pain Location: Low Back/Lumbar Spine - Left;Low Back/Lumbar Spine - Right (can have sx going down legs.) Description: Numbness;Stiffness Frequency: Continuous Post Treatment Pain Score: 5/10 Pain Location: Low Back/Lumbar Spine - Left;Low Back/Lumbar Spine - Right Post Treatment Pain Description: Stiffness OBJECTIVE MEASURES WITH LEVEL OF FUNCTION: Posture / Alignment Posture: Rounded shoulders Spine Palpation R Lumbar Spine Palpation Tenderness: Paraspinals (L2-S1) L Lumbar Spine Palpation Tenderness: Paraspinals (L2-S1) Lumbar Spine AROM Lumbar Flexion: Moderate limitation Lumbar Extension: Major limitation Lumbar R Side-Bend: Major limitation Lumbar L Side-Bend: Major limitation (increased pain on L) Lumbar R Rotation: Normal Lumbar L Rotation: Normal Repeated Test Movements - Lumbar RFIL - Symptoms During: increases RFIL - Symptoms After: worse REIL - Symptoms During: decreases REIL - Symptoms After: better LE AROM R Hip Flexion: 95 Degrees R Hip Internal Rotation: 0 Degrees R Hip External Rotation: 20 Degrees L Hip Flexion: 110 Degrees L Hip Internal Rotation: 15 Degrees L Hip External Rotation: 40 Degrees LE Flexibility Flexibility: Hamstring Flexibility R Hamstring Flexibility: 55 L Hamstring Flexibility: 58 LE Strength Trunk Strength: 3-/5 R Hip Flexion: 5/5 R Hip ABduction: 5/5 R Hip ADduction: 5/5 R Knee Extension: 5/5 R Knee Flexion: 5/5 R Ankle Dorsiflexion: 5/5 L Hip Flexion: 5/5 L Hip ABduction: 5/5 L Hip ADduction: 5/5 L Knee Extension: 5/5 L Knee Flexion: 5/5 L Ankle Dorsiflexion: 5/5 Education: Education Learning Preferences: Demonstration;Explanation;Performance;Printed Materials Barriers: Desire and Motivation Learning/educational needs: Home exercise program;Plan of Care Education Provided: Yes, see treatment interventions for education provided Education Provided To: Patient Education Mode/Type: Demonstration;Explanation/Discussion;Literature/Printed Materials;Performance Response to Education/Teach Back: Requires Review/Additional Education;Return Demonstration TREATMENT: Evaluation Therapeutic Exercise: 1: *When sleeping on side instructed patient to put a pillow between knees and when on back putting pillows underneath knees to help promote a neutral spine. 2: *Encourged patient to bike at home to help improve fatigue and help with weight loss as patient stated he has gain 100 lbs since he lost his job. 3: Advised patient to stop sit ups 4: *Transvers abodminal bracing x10, through the day. 5: Educated patient he seems to do best with flexion based exercises vs extension based off of testing performed 6: Prone prop 2 minutes 7: Prone Press up x10. Unable to perform more as stated his shoulder was bothering 8: *Standing extension x10 within range patient able to tolerate. Skilled Intervention: Patient was educated in proper exercise technique and purpose for exercises. Reviewed and educated patient on additions/changes for home exercise program as above (*) Skilled judgment was provided in selection of appropriate interventions. Patient education as noted. Billing: [place]: Evaluation - Moderate Complexity (57540) Therapeutic Exercise (94394): 1:1 time: 25 minutes (2 units: 23-37 mins) Total time: 45 minutes Melony Krause PT PROGRESS Observed: 07/02/2017 Status: COMPLETED Source: [place] 9:58 AM [facility] REPOSITORY HNO ID: [id number] Author: Wm Blue Service: (none) Author Type: Physician Type: Progress Notes Filed: 07/02/2017 10:05 AM Note Text: Patient presents with: Diarrhea Cough HPI: Patient presents today for office visit for follow up. Was sick last month. Started with diarrhea and gi upset on . Diarrhea is better. No vomiting. No gi pain. [place] warm. No definite fever or chills. Mild cough. No ear pain or sore throat. Mild runny nose. No dysuria. Seeing chiropractic for chronic back pain. Has chronic back pain Some radicular pain. No New neuro issues. MEDICATIONS: Current Outpatient Prescriptions: triamcinolone acetonide (KENALOG) 0.1 % cream Apply 1 application to affected area twice daily. Apply sparingly to area for rash/itching. sertraline (ZOLOFT) 50 mg tablet Take 1 tablet by mouth once daily. Lisinopril 30 mg tablet Take 1 tablet by mouth once daily. QUEtiapine (SEROQUEL) 50 mg tablet Take 1 tablet by mouth daily at bedtime. omeprazole (PRILOSEC) 20 mg capsule Take 1 capsule by mouth daily before breakfast. 1/2 hr before meal. No current facility-administered medications for this visit. ALLERGIES: ALLERGIES Allergen Reactions - Sulfa Dyne Unknown Sulfa antibiotic PAST MEDICAL HISTORY Diagnosis Date - Chronic low back pain - Depression - High blood pressure PAST SURGICAL HISTORY Procedure Laterality Date - TONSILLECTOMY HX FAMILY HISTORY Problem Relation Age of Onset - Diabetes Mother - None Father - None Sister - Alzheimer's Disease Maternal Grandfather Social History Marital status: Single Spouse name: Years of education: Number of children: Social History Main Topics Smoking status: Former Smoker Packs/day: 0.00 Years: 0.00 Types: Cigarettes Quit date: 05/10/1990 Smokeless status: Former User Alcohol use: No Comment: rarely Drug use: No Sexual activity: Yes Partners with: Female Reviewed current medications, allergies, past medical history, surgical history, family history and social history today. REVIEW OF SYSTEMS All other reviewed and negative other than HPI. HEALTH MAINTENANCE: Reviewed health maintenance issues today and recommended the following in detail. There are no preventive care reminders to display for this patient. VITALS: BP 132/72 Pulse 92 Temp 36.9 ?C (98.4 ?F) (Tympanic) Resp 14 Wt 131.5 kg (290 lb) BMI 42.83 kg/m2 Last 4 Encounter Wt Readings: Date: Wt: 07/02/2017 131.5 kg (290 lb) 06/04/2017 139 kg (306 lb 6.4 oz) 06/01/2017 134.3 kg (296 lb) 05/19/2017 127.9 kg (282 lb) PHYSICAL EXAMINATION: General appearance: Well appearing, alert, in no acute distress, well-hydrated, well nourished. Skin: Skin color, texture, turgor normal, no suspicious rashes or lesions Head: Normocephalic, no masses, lesions, tenderness or abnormalities Eyes: Anicteric sclera. Pupils are equally round and reactive to light. Extraocular movements are intact. Ears: External ears normal, canals clear Nose/Sinuses: Nares normal, septum midline, mucosa normal, no drainage or sinus tenderness Oropharynx: Lips, mucosa, and tongue normal, teeth and gums normal, oropharynx normal Neck: Supple, no adenopathy; thyroid symmetric, normal size, no bruits Lungs: Lungs clear to auscultation. No wheezing, rhonchi, rales Heart: RRR without murmur, gallop, or rubs. No ectopy Abdomen: Normal abdominal exam, Abdomen soft, non-tender. Bowel sounds normal. No masses, organomegaly Extremities: No deformities, edema, skin discoloration, clubbing or cyanosis. Good capillary refill. Musculoskeletal: No joint swelling, deformity, or tenderness ASSESSMENT/PLAN: 1. Viral syndrome - ICD9: 079.99, ICD10: B34.9 - Discussed viral etiology and rationale for treatment. - Symptomatic treatment with prn analgesia - Supportive care with fluids and rest - Follow up in one week if symptoms persist or sooner if worsening of symptoms Wm Blue MD CNOV Observed: 07/02/2017 Status: COMPLETED Source: [place] 8:40 AM [facility] REPOSITORY Office Visit (FAMPWS) REJI MARTINS ([id number]) 1970 M Date Time Provider Department 07/02/17 8:40 AM WM BLUEWS During your visit today, we recorded the following information about you: Temperature Pulse Respiration Blood pressure 98.4 degrees 92/minute 14/minute 132/72 Weight 131.5 kg Wm Blue MD 07/02/2017 10:05 AM Signed Patient presents with: Diarrhea Cough HPI: Patient presents today for office visit for follow up. Was sick last month. Started with diarrhea and gi upset on . Diarrhea is better. No vomiting. No gi pain. [place] warm. No definite fever or chills. Mild cough. No ear pain or sore throat. Mild runny nose. No dysuria. Seeing chiropractic for chronic back pain. Has chronic back pain Some radicular pain. No New neuro issues. MEDICATIONS: Current Outpatient Prescriptions: triamcinolone acetonide (KENALOG) 0.1 % cream Apply 1 application to affected area twice daily. Apply sparingly to area for rash/itching. sertraline (ZOLOFT) 50 mg tablet Take 1 tablet by mouth once daily. Lisinopril 30 mg tablet Take 1 tablet by mouth once daily. QUEtiapine (SEROQUEL) 50 mg tablet Take 1 tablet by mouth daily at bedtime. omeprazole (PRILOSEC) 20 mg capsule Take 1 capsule by mouth daily before breakfast. 1/2 hr before meal. No current facility-administered medications for this visit. ALLERGIES: ALLERGIES Allergen Reactions - Sulfa Dyne Unknown Sulfa antibiotic PAST MEDICAL HISTORY Diagnosis Date - Chronic low back pain - Depression - High blood pressure PAST SURGICAL HISTORY Procedure Laterality Date - TONSILLECTOMY HX FAMILY HISTORY Problem Relation Age of Onset - Diabetes Mother - None Father - None Sister - Alzheimer's Disease Maternal Grandfather Social History Marital status: Single Spouse name: Years of education: Number of children: Social History Main Topics Smoking status: Former Smoker Packs/day: 0.00 Years: 0.00 Types: Cigarettes Quit date: 05/10/1990 Smokeless status: Former User Alcohol use: No Comment: rarely Drug use: No Sexual activity: Yes Partners with: Female Reviewed current medications, allergies, past medical history, surgical history, family history and social history today. REVIEW OF SYSTEMS All other reviewed and negative other than HPI. HEALTH MAINTENANCE: Reviewed health maintenance issues today and recommended the following in detail. There are no preventive care reminders to display for this patient. VITALS: BP 132/72 Pulse 92 Temp 36.9 ?C (98.4 ?F) (Tympanic) Resp 14 Wt 131.5 kg (290 lb) BMI 42.83 kg/m2 Last 4 Encounter Wt Readings: Date: Wt: 07/02/2017 131.5 kg (290 lb) 06/04/2017 139 kg (306 lb 6.4 oz) 06/01/2017 134.3 kg (296 lb) 05/19/2017 127.9 kg (282 lb) PHYSICAL EXAMINATION: General appearance: Well appearing, alert, in no acute distress, well-hydrated, well nourished. Skin: Skin color, texture, turgor normal, no suspicious rashes or lesions Head: Normocephalic, no masses, lesions, tenderness or abnormalities Eyes: Anicteric sclera. Pupils are equally round and reactive to light. Extraocular movements are intact. Ears: External ears normal, canals clear Nose/Sinuses: Nares normal, septum midline, mucosa normal, no drainage or sinus tenderness Oropharynx: Lips, mucosa, and tongue normal, teeth and gums normal, oropharynx normal Neck: Supple, no adenopathy; thyroid symmetric, normal size, no bruits Lungs: Lungs clear to auscultation. No wheezing, rhonchi, rales Heart: RRR without murmur, gallop, or rubs. No ectopy Abdomen: Normal abdominal exam, Abdomen soft, non-tender. Bowel sounds normal. No masses, organomegaly Extremities: No deformities, edema, skin discoloration, clubbing or cyanosis. Good capillary refill. Musculoskeletal: No joint swelling, deformity, or tenderness ASSESSMENT/PLAN: 1. Viral syndrome - ICD9: 079.99, ICD10: B34.9 - Discussed viral etiology and rationale for treatment. - Symptomatic treatment with prn analgesia - Supportive care with fluids and rest - Follow up in one week if symptoms persist or sooner if worsening of symptoms Wm Blue MD Referring Provider: SELF [200] Allergies As of Date: 07/02/2017 Noted Allergy Reaction SULFA DYNE 07/18/2011 16 - Unknown Comments: Sulfa antibiotic Date Reviewed: 07/02/2017 Reviewed by: Vlaorie Nguyen LPN - Fully Assessed Reason for Visit: Diarrhea [35] Cough [28] Primary Visit Diagnosis:Viral syndrome [B34.9] Other Visit Diagnosis:Chronic midline low back pain without sciatica [M54.5, G89.29] Order(s):CONSULT TO PHYSICAL THERAPY [9032] Order #: [id number]: 1 Prescriptions as of 07/02/2017 Sig: TRIAMCINOLONE ACETONIDE 0.1 %* Apply 1 application to affect* SERTRALINE 50 MG TABLET Take 1 tablet by mouth once d* LISINOPRIL 30 MG TABLET Take 1 tablet by mouth once d* QUETIAPINE 50 MG TABLET Take 1 tablet by mouth daily * OMEPRAZOLE 20 MG CAPSULE,JUAN LUIS* Take 1 capsule by mouth daily* Problem List As Of Date 07/02/2017 Noted Resolved HTN (hypertension) [I10] INVALID FOR* Hypokalemia [E87.6] INVALID FOR* Anxiety [F41.9] INVALID FOR* Letter Text [facility] [address] [id number] TO WHOM IT MAY CONCERN: This is to confirm that Reji Martins had an appointment and was seen at the [facility] in the Department of Family Medicine Wm Blue MD on 07/02/2017. Please excuse him from work today. Sincerely yours, Wm Blue MD Encounter Status:Closed by WM BLUE MD on 07/02/17 PROGRESS Observed: 06/04/2017 Status: COMPLETED Source: [place] 8:41 AM [facility] REPOSITORY HNO ID: [id number] Author: Irena Gonzalez) Podlogar Service: (none) Author Type: Nurse Practitioner Type: Progress Notes Filed: 06/04/2017 7:59 PM Note Text: 06/04/2017 Patient presents with: Chest Congestion: for about a week, nasal congestion, rash on legs SUBJECTIVE: This is a 46 year old that is here today for above. Seen in on 06/01/2017 for ecchymosis, hematochezia, and URI. Referred to [facility] for evaluation of bleeding disorder. Per ER report patient seen for rash and blood in stool on . Work-up and results included: Chest XR: No pleural abnormality or abnormality of soft tissue structures of the upper abdomen. Mild degenerative changes of the visualized thoracic spine. Normal ribs, clavicles, and shoulders, Normal visualized pulmonary arteries, aortic arch,and descending thoracic aorta. Stool Occult Blood: Positive- negative for anal fissure or hemorrhoids CBC: WBC. 6.6, H/H 13.8/40.4, Platelets: 228, ESR: 10 UA: Occult Blood CRP: 13.70 CMP: negative PT/INR: 12.1/0.9 PTT: 29.2 He was discharged home with the impression of purpura to legs, URi, and bloody diarrhea. He was to follow with PCP in 2 days. Today he is here to follow-up Rash: Onset. Thrusday- noticed after I got Locations: Medial lower legs Duration: Constant starting to fade not as bright as Sunday Characteristics: Itches occasionally Aggravating features: None Alleviating features: time- has not used anything Radiation: None- has had this type of rash on arms before and went away without treatment. Today rash is starting to resolve- patient states less red. Denies no exposure to soaps, detergents, fabric softners, or lotions. Started Flexeril on 05/19/2017 took it for about a week then stopped Stools: About Sunday noticed bright red blood in bowel movement. Has been having diarrhea on/off since Alexia time which is new. Today he had a harder formed stool with bright red blood in toilet. Denies weight loss, Dizziness, lightheadedness, chest pain, palpitations,abdominal pain/cramping, bloating, belching, GERD, nausea, vomiting, mucous in stools, hx Chron, UC, Hematochezia,or melena. No past colonoscopy. Chest congestion: About 1 week started with chest congestion. Denies body aches, chills, ear pain, hemoptysis, wheezing, dyspnea, chest pain, and palpitations.Positive for tactile fever, shortness of breath with exertion, sinus tenderness headaches, yellow nasal discharge, and dry cough. PAST MEDICAL HISTORY Diagnosis Date - Chronic low back pain - Depression - High blood pressure ALLERGIES Sulfa Dyne MEDICATIONS Current Outpatient Prescriptions: sertraline (ZOLOFT) 50 mg tablet Take 1 tablet by mouth once daily. Lisinopril 30 mg tablet Take 1 tablet by mouth once daily. QUEtiapine (SEROQUEL) 50 mg tablet Take 1 tablet by mouth daily at bedtime. omeprazole (PRILOSEC) 20 mg capsule Take 1 capsule by mouth daily before breakfast. 1/2 hr before meal. No current facility-administered medications for this visit. Medications and allergies reviewed by this provider. SOCIAL HISTORY Social History Marital status: Single Spouse name: Years of education: Number of children: Social History Main Topics Smoking status: Former Smoker Packs/day: 0.00 Years: 0.00 Types: Cigarettes Quit date: 05/10/1990 Smokeless status: Former User Alcohol use: No Comment: rarely Drug use: No Sexual activity: Yes Partners with: Female REVIEW OF SYSTEMS All other reviewed and negative other than HPI. OBJECTIVE: BP 122/78 (BP Site: Left Arm, BP Position: Sitting, BP Cuff Size: Large Adult) Pulse 89 Resp 20 Wt (!) 139 kg (306 lb 6.4 oz) SpO2 97% BMI 45.25 kg/m2. Vital signs reviewed by this provider. APPEARANCE Well appearing, alert, in no acute distress, well-hydrated, well nourished., Obese EYES PERRLA, conjunctiva and sclera normal. EARS External ears normal, canals clear NOSE/SINUS negative findings: septum midline with no perforation or bleeding, positive findings: sinus tenderness frontal bilateral, maxillary bilateral, congested THROAT normal, no erythema NECK Supple, no adenopathy; thyroid symmetric, normal size, no bruits HEART RRR with normal S1 and S2, no murmurs, no gallops, no JVD appreciated LUNG clear to auscultation ABDOMEN bowel sounds normoactive, no bruits, soft, non-tender, non-distended, without organomegaly or palpable masses, no tenderness to palpation EXTREMITIES Extremities normal, No deformities, No skin discoloration, No edema and Normal pulses bilaterally. RECTAL: Defererd NEURO Awake, alert and oriented x 3, Cranial nerves II-XII grossly intact, Reflexes symmetrical, Normal gait and No involuntary motions. SKIN right medial lower leg with pin-point brownish macular non-blanchable discoloration. Left medial ankle with Pin-point brownish/red macular non-blanchable discoloration. ASSESSMENT/PLAN: 1. Bacterial sinusitis - ICD9: 473.9, 041.9, ICD10: J32.9, B96.89 (primary diagnosis) - Will begin treatment with Augmentin 875 mg PO BID for 10 days - The patient should also be given OTC cough and cold meds as needed and warm salt water gargles, throat lozenges and/or OTC throat spray as needed for the first 5-7 days of treatment. - Supportive care with plenty of fluids, rest, and analgesia prn. - Follow up in 3-5 days if symptoms persist or worsen. 2. Rash - ICD9: 782.1, ICD10: R21 - consistent with schamberg's disease - no red flag exam findings - red flag exam findings discussed patient verbalizes understanding - apply triamcinolone 0.1% cream to affected areas twice daily - follow-up in 2 weeks if persisting or worsening 3. Hematochezia - ICD9: 578.1, ICD10: K92.1 - Consider colon ca - no red flag exam findings - red flag symptoms discussed, patient verbalizes understanidng - CONSULT TO GASTROENTEROLOGY Irena Podlogar, MARINA PORTER Prescription instructions reviewed with patient as applicable. Patient advised if symptoms do not improve or if symptoms worsen sooner, to contact their primary care physician. Potential red flag symptoms discussed with the patient. Reviewed appropriate action plan to take if red flag symptoms occur. Patient agreeable to treatment plan. EMERGENCY DEPARTMENT Observed: 06/04/2017 Status: F Source: [place] SUMMARY 1:11 AM [facility] REPOSITORY [facility] Medical Records Department [address] [place] [address] Emergency Department Summary 06/01/171942 MR#: [id number] Acct: [id number] Name: REJI MARTINS Rep #: [id number] : 1970 46 From: Milind Chavez MD PCP: Wm Blue MD Status: DEP ER - ER Visit Summary Date of Service: 06/01/17 Chief Complaint: Rash and blood in stool History of Present Illness: The patient is a [address] Blue. He reports that he has a rash on his legs that began last night. He denies any injuries. States that he has had a fever to 101. He has had a cough productive yellow sputum without blood for the past 5 days. He has mild shortness of breath. Patient reports that he has had a proximal 10 episodes of diarrhea today. The last one was bloody. Patient has had sick contacts. Has not been camping out of the country. No possible bad food exposure. Does not drink well water. No recent antibiotic use. Physical Examination: Vitals: Stable. Afebrile. General: Well-nourished and well-developed. Head: Normocephalic atraumatic. Neck: Supple, no lymphadenopathy. No JVD. Nontender. Cardiovascular: Regular rate and rhythm. No murmurs. Respiratory: No respiratory distress. Clear to auscultation bilaterally. Abdominal: Soft, nontender, nondistended, normal bowel sounds. No guarding, rebound, or peritoneal signs. Back: Nontender. Extremities: Nontender, no edema. Skin: Purpuric rash to the medial sides of his legs bilaterally. This is approximately 3 cm wide and 6 cm long. It is symmetric. It is not palpable. There are no petechiae. Neurologic: Alert and oriented 3. Cranial nerves II through XII are intact. Normal strength and sensation. Psych: Normal affect. Test Results: CBC is remarkable for segment neutrophils of 73 lymphocytes of 18. His platelets are normal at 228. Chem-7 is more for chloride of 108. Coags are normal. LFTs marked for an alk phos of 43. UA shows occult blood. ESR is 10. CRP is 13.7. Chest x-ray shows chronic changes. Emergency Department Course and Treatment: Patient is resting comfortably and does not appear ill. There is no evidence that he has DIC. His platelets are normal. He does not have ITP or TTP. He had a stool here that was brown, but heme positive. There was bright red blood on the tissue. I do not appreciate any anal fissure. He does not have external hemorrhoids. Treatment Plan: At this time I do not feel that any further workup would be done on him as an inpatient. However, I do not have an explanation for the purpura to his legs. He was discussed with Dr. Kelly Lindsey III and will follow up in the office in 2 days for further evaluation. Return to the emergency department for any worsening symptoms. Disposition: To home in improved and stable condition. Impression: 1. Purpura to legs. 2. URI. 3. Bloody diarrhea. This note was generated with [employer] dictation software. It may contain incorrect words, spelling, and punctuation that were not noted in review of the chart prior to signing ED Disposition - Plan for ED Patient: Disposition: Home or Assisted Living Chief Complaint: General Illness Instructions: ED Upper Resp Infec No Abx Tx Referrals: Wm Blue MD [Primary Care Provider] - Kelly Lindsey Jr. [HONORARY STAFF] - 3-5 Days What to do if you have Problems For any increased pain, shortness of breath, bleeding, nausea or vomiting, chest pain, or any unexpected problems, contact your Primary Care Provider. Call [facility] ([phone]) or report to the closest Emergency Room. Call 911 if necessary. 06/04/17 0111 <Electronically signed by Milind Chavez MD> Date Milind Chavez MD Cosigner Signature (If Indicated): Date CC: mW Blue MD URINALYSIS, COMPLETE Collected: 06/01/2017 Status: F Source: [place] 7:10 PM [facility] REPOSITORY Order Comment: Order Date: 06/01/17 How was Urine Obtained? MAINFRAME SYSTEMS ENGINEER TO SPECIFY TYPE CODE TESTS RESULT OUT OF RANGE REFERENCE UNITS LAB L400.3000 Yellow COLOR Normal Yellow LAB L400.3050 Clear Normal CLARITY Clear LAB L400.3200 Normal mg/dl Normal GLUCOSE, UR Normal LAB L400.3300 Negative mg/dL Normal BILIRUBIN URINE Negative LAB L400.3400 Negative mg/dl Normal KETONE UR Negative LAB L400.3465 1.002-1.030 Normal SP.GR. DIPSTX 1.020 LAB L400.3550 5.0 - 8.0 pH UR Normal 5.0 LAB L400.3600 Negative mg/dl PROT Normal DIPSTX Negative LAB L400.3700 Normal mg/dl Normal UROBILI Normal LAB L400.3750 Negative Normal NITRITE UR Negative LAB L400.3780 Negative /ul High 25 OCCULT BLOOD-UR LAB L400.3800 Negative /ul LEUK Normal ESTERASE Negative LAB L400.4050 0-5 /hpf WBC 0 Normal SEEN LAB L400.4100 0-5 /hpf 0 Normal RBC-UA SEEN LAB L400.4150 0-5 /hpf SQUAM 0 Normal EPI SEEN LAB L400.4300 None Seen /hpf 0 Normal BACTERIA SEEN LAB L400.4350 <or=2+ /hpf 0 Normal MUCUS, URINE SEEN Performed By: #### L400.0001 #### [facility] [address] [place], [place], [address] Observed: 06/01/2017 Status: F Source: [place] STOOL OCCULT BLOOD 5:42 PM [facility] IFOB REPOSITORY STOB iFOB Occult Blood Positive ORGANISM 1: OCCULT BLOOD POSITIVE Performed By: #### M100.7900 #### [facility] [address] [place], [address] CBC W/DIFF, AUTOMATED Collected: 06/01/2017 Status: F Source: [place] 4:50 PM [facility] REPOSITORY TYPE CODE TESTS RESULT OUT OF RANGE REFERENCE UNITS LAB L100.1000 4.4-11.0 K/mm3 Normal WBC 6.6 LAB L100.1200 4.6-6.2 M/mm3 Normal RBC 4.66 LAB L100.1300 13.0-16.5 g/dl Normal HGB 13.8 LAB L100.1400 40-54 % Normal HCT 40.4 LAB L100.1500 80-94 fL Normal MCV 86.7 LAB L100.1600 27.0-32.0 pg Normal MCH 29.6 LAB L100.1700 32-36 g/gl Normal MCHC 34.2 LAB L100.1810 11.6-14.6 % Normal RDW CV 14.0 LAB L100.1820 35.1-43.9 fl Normal RDW SD 43.4 LAB L100.1900 150-450 K/mm3 Normal PLT 228 LAB L100.2000 6.2-12.0 fl Normal MPV 9.3 LAB L100.2100 47-70 % High NEUT% 73.4 LAB L100.2200 19-41 % Low LY% 18.1 LAB L100.2300 0-10 % Normal MONO% 6.5 LAB L100.2400 0-5 % Normal EO% 1.5 LAB L100.2500 0-1 % Normal BASO% 0.2 LAB L100.2550 0.0-0.9 % Normal IM GRAN % 0.300 Result Comment: IG% - Immature Granulocytes (promyelocytes, myelocytes and metamyelocytes) > 1% indicates that a LEFT SHIFT is Present. LAB L100.2620 2.0-7.7 X10 3/uL Normal Absolute Neut 4.9 LAB L100.2720 0.83-4.51 X10 3/ul Normal Absolute Lymph 1.20 Performed By: #### L100.0100, L101.9900 #### [facility] [address] [place], [place], [id number] ERYTHROCYTE SED RATE Collected: 06/01/2017 Status: F Source: MILLBRA[place] 4:50 PM [facility] REPOSITORY TYPE CODE TESTS RESULT OUT OF RANGE REFERENCE UNITS LAB L102.0000 0-15 mm/hr Normal SED RATE 10 Performed By: #### L100.0100, L101.9900 #### [facility] [address] [place], [place], [id number] PROTHROMBIN TIME W/INR Collected: 06/01/2017 Status: F Source: [place] 4:50 PM [facility] REPOSITORY TYPE CODE TESTS RESULT OUT OF RANGE REFERENCE UNITS LAB L300.4150 11.7-14.9 SECONDS Normal PROTIME 12.1 LAB L300.4200 Normal INR 0.9 Performed By: #### L300.3900, L300.4310 #### [facility] [address] [place], [address] PARTIAL THROMBOPLAST Collected: 06/01/2017 Status: F Source: [place] TIME 4:50 PM [facility] REPOSITORY TYPE CODE TESTS RESULT OUT OF RANGE REFERENCE UNITS LAB L300.4310 24.1-36.2 Seconds Normal PTT 29.2 Performed By: #### L300.3900, L300.4310 #### [facility] [address] [place], [address] BASIC METABOLIC Collected: 06/01/2017 Status: F Source: [place] PROFILE (BMP) 4:50 PM [facility] REPOSITORY TYPE CODE TESTS RESULT OUT OF RANGE REFERENCE UNITS LAB L501.0100 74-106 mg/dL Normal GLU 88 Result Comment: Please note revised GLUCOSE reference range effective 2017. LAB L501.1000 7-18 mg/dL Normal BUN 17 LAB L501.1100 0.70-1.30 mg/dL Normal CREAT,SERUM 1.13 Result Comment: The validity of the calculated GFR AND GFRAA in patients over 70 years has not been determined. Clinical correlation is essential. LAB L501.1110 >60 mL/min Normal EST GFR 74 Result Comment: Non- GFR Calc LAB L501.1115 >60 mL/min Normal EST GFR - AA 90 Result Comment: GFR Calc LAB L501.1255 ml/min Normal Estimated CRCL 81.68 LAB L501.1300 10-20 RATIO Normal BUN/CRE 15.0 LAB L501.2200 8.5-10 mg/dL Normal .1 CA 8.5 LAB L501.5300 136-14 mmol/L Normal 5 NA 141 LAB L501.5600 3.5-5. mmol/L Normal 1 K 3.5 LAB L501.5900 98-107 mmol/L High CL 108 LAB L501.6100 21.0-3 mmol/L Normal 2.0 CO2 22.0 LAB L501.6200 5-15 Normal GAP 11 Performed By: #### L500.2500, L500.3400, L501.6710 #### [facility] [address] [place], [place], [id number] LIVER PROFILE Collected: 06/01/2017 Status: F Source: [place] 4:50 PM [facility] REPOSITORY TYPE CODE TESTS RESULT OUT OF RANGE REFERENCE UNITS LAB L501.1500 6.4-8.2 g/dL Normal T PROT 7.0 LAB L501.1800 3.2-5.0 g/dL Normal ALB 3.6 LAB L501.1950 2.2-4.2 g/dL Normal GLOB 3.4 LAB L501.4100 15-37 U/L Normal AST 35 LAB L501.4305 45-117 U/L Low ALK P 43 LAB L501.4405 16-61 U/L Normal ALT 37 Result Comment: Please note revised ALT reference range effective 2017. LAB L501.4600 0.20-1.00 mg/dL Normal T BILI 0.60 LAB L501.4700 0.00-0.30 mg/dL Normal D BILI 0.14 Performed By: #### L500.2500, L500.3400, L501.6710 #### [facility] [address] [place], [place], [id number] CRP Collected: 06/01/2017 Status: F Source: [place] 4:50 PM [facility] REPOSITORY TYPE CODE TESTS RESULT OUT OF RANGE REFERENCE UNITS LAB L501.6710 0.0-3.0 mg/L High 13.70 C-REACTIVE PROT Result Comment: C-Reactive Protein (CRP) provides useful information for the diagnosis, therapy and monitoring of inflammatory processes and associated diseases. For the evaluation of Relative Risk for Cardiovascular Disease, a High Sensitivity CRP (HSCRP) should be ordered. Performed By: #### L500.2500, L500.3400, L501.6710 #### [facility] [address] [place], [place], [id number] CHEST PA AND LATERAL Observed: 06/01/2017 Status: F Source: [place] 4:45 PM [facility] REPOSITORY [facility] [place] [address] Chest PA and Lateral MR#: [id number] Acct: [id number] Name: REJI MARTINS Rep #: [id number] : 1970 M 46 From: George Camarena DO PCP: Wm Blue MD Status: REG ER Study: Chest PA and Lateral Date of Exam: 06/01/17 Exam# [id number] Ordering Dr: Milind Chavez MD STUDY: X-RAY CHEST REASON FOR EXAM: Male, 46 years old. Cold symptoms. Fever. TECHNIQUE: PA and lateral views of the chest. COMPARISON: None. FINDINGS: Group counseling The lungs are clear and expanded. There is no demonstrated pleural abnormality. Normal size heart. Normal mediastinum and helene. Normal visualized pulmonary arteries. Normal visualized aortic arch and descending thoracic aorta. There are mild degenerative changes of the visualized thoracic spine. Normal visualized ribs, clavicles, and shoulders. There is no demonstrated abnormality of the visualized soft tissue structures of the upper abdomen. RAD/Chest PA and Lateral IMPRESSION: No acute cardiopulmonary disease. Electronically Signed: George Camarena DO at 17:34 EST Tel [phone], Service support , CC: Milind Chavez MD; Wm Blue MD [employer] Teacher: Signed PROGRESS Observed: 06/01/2017 Status: COMPLETED Source: BELLAMY 4:08 PM [facility] REPOSITORY HNO ID: [id number] Author: Trevin Sweet Service: (none) Author Type: Physician Type: Progress Notes Filed: 06/01/2017 4:46 PM Note Text: Patient presents with: Rash: B/L legs HPI: Rash: Location: Right>left medial lower leg Present since last night. Pruritis: Yes, since getting here. Pain: No Change: Bleeding/ulceration/blister/pustule: Purple/red blotches Contacts with rash: No Exposure: No new soaps, detergents, fabric softeners, lotions. Has had flexeril within the last week. Denies trauma to the legs. Current illness x 5-6 days-cough, drainage, fatigue, body aches, mild sore throat. Stool is mixed with blood today. Abdomen is sore from coughing. No diarrhea. Treatment: Nyquil. Took a couple aspirin this morning for back of the head headache. PAST MEDICAL HISTORY Diagnosis Date - Chronic low back pain - Depression - High blood pressure History of auditory hallucinations PAST SURGICAL HISTORY Procedure Laterality Date - TONSILLECTOMY HX MEDICATIONS: sertraline (ZOLOFT) 50 mg tablet Take 1 tablet by mouth once daily. Lisinopril 30 mg tablet Take 1 tablet by mouth once daily. ibuprofen (MOTRIN) 800 mg tablet Take 1 tablet by mouth every 8 hours as needed for Pain. Take with food. ranitidine (ZANTAC) 150 mg tablet Take 1 tablet by mouth twice daily. QUEtiapine (SEROQUEL) 50 mg tablet Take 1 tablet by mouth daily at bedtime. ibuprofen (MOTRIN) 800 mg tablet Take 1 tablet by mouth every 6 hours as needed for Pain. Take with food. Potassium 99 mg tab Take 1 tablet by mouth once daily. Buying OTC cheaper than prescription. omeprazole (PRILOSEC) 20 mg capsule Take 1 capsule by mouth daily before breakfast. 1/2 hr before meal. Lactobacillus acidophilus (ACIDOPHILUS) cap Take 2 capsules by mouth twice daily. ALLERGIES: ALLERGIES Allergen Reactions - Sulfa Dyne Unknown Sulfa antibiotic VITALS: BP 120/90 Pulse 98 Temp 37.9 ?C (100.2 ?F) (Tympanic) Resp 26 Wt 134.3 kg (296 lb) BMI 43.71 kg/m2 PE: Gen: Mildly ill. Anxious appearing Eyes: PERRL, EOMI, sclera clear Ears: Canals clear, TMs without erythema or bulge, ?right effusion Sinuses: non-tender frontal, non-tender maxillary Mouth/throat: MMM, No pharyngeal erythema or exudate, no petechia Neck: Supple, no thyromegaly, nontender, no lymphadenopathy Heart: regular rate and rhythm, no murmurs Lungs: clear to auscultation ABD: Soft, obese, non-distended, tender left and right lateral mid abdomen, no masses SKIN: Purple-red ecchymotic macular patches on the medial ankles and right medial lower leg. ASSESSMENT/PLAN: 1. Ecchymosis - ICD9: 459.89, ICD10: R58 (primary diagnosis). 2. Hematochezia - ICD9: 578.1, ICD10: K92.1 3. URI, acute - ICD9: 465.9, ICD10: J06.9 Patient referred to the emergency room for evaluation of possible acute bleeding disorder. Report called. Trevin Sweet MD PROGRESS Observed: 05/19/2017 Status: COMPLETED Source: BELLAMY 10:51 AM [facility] REPOSITORY HNO ID: [id number] Author: Erma Mcclellan Service: (none) Author Type: Nurse Practitioner Type: Progress Notes Filed: 05/19/2017 10:55 AM Note Text: HPI Pt presents with c/o flare-up of arthritis pain to low back and left knee. 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 States the ibuprofen is not touching the pain at this time. Rates pain to back and knee 8/10. Has full ROM, gait normal. Has not applied ice or heat. Denies recent injuries. Review of Systems Constitutional: Negative for chills and fever. Musculoskeletal: Positive for back pain, joint pain and myalgias. Negative for falls and neck pain. Physical Exam Constitutional: He is oriented to person, place, and time and well-developed, well-nourished, and in no distress. No distress. Musculoskeletal: Left knee: He exhibits normal range of motion, no swelling, no effusion, no ecchymosis, no deformity, no laceration, no erythema, normal alignment, no LCL laxity and normal patellar mobility. No tenderness found. Lumbar back: He exhibits tenderness and pain. He exhibits normal range of motion, no bony tenderness, no swelling, no edema, no deformity, no laceration, no spasm and normal pulse. Neurological: He is alert and oriented to person, place, and time. Skin: Skin is warm and dry. He is not diaphoretic. BP 118/76 Pulse 96 Temp 37.2 ?C (99 ?F) (Tympanic) Resp 24 Wt 127.9 kg (282 lb) BMI 41.64 kg/m2 .Patient presents with: Pain: Back and Knee pain PAST MEDICAL HISTORY Diagnosis Date - Chronic low back pain - Depression - High blood pressure PAST SURGICAL HISTORY Procedure Laterality Date - TONSILLECTOMY HX ALLERGIES Sulfa Dyne MEDICATIONS sertraline (ZOLOFT) 50 mg tablet Take 1 tablet by mouth once daily. Lisinopril 30 mg tablet Take 1 tablet by mouth once daily. ibuprofen (MOTRIN) 800 mg tablet Take 1 tablet by mouth every 8 hours as needed for Pain. Take with food. ranitidine (ZANTAC) 150 mg tablet Take 1 tablet by mouth twice daily. QUEtiapine (SEROQUEL) 50 mg tablet Take 1 tablet by mouth daily at bedtime. ibuprofen (MOTRIN) 800 mg tablet Take 1 tablet by mouth every 6 hours as needed for Pain. Take with food. Potassium 99 mg tab Take 1 tablet by mouth once daily. Buying OTC cheaper than prescription. omeprazole (PRILOSEC) 20 mg capsule Take 1 capsule by mouth daily before breakfast. 1/2 hr before meal. Lactobacillus acidophilus (ACIDOPHILUS) cap Take 2 capsules by mouth twice daily. cyclobenzaprine (FLEXERIL) 10 mg tablet Take 1 tablet by mouth three times daily as needed for up to 7 days. diclofenac potassium (CATAFLAM) 50 mg tablet Take 1 tablet by mouth three times daily for 7 days. Take with food. FAMILY HISTORY Problem Relation Age of Onset - Diabetes Mother - None Father - None Sister - Alzheimer's Disease Maternal Grandfather Social History Substance Use Topics - Smoking status: Former Smoker Types: Cigarettes Quit date: 05/10/1990 - Smokeless tobacco: Former User - Alcohol use No Comment: rarely ASSESSMENT/PLAN: 1. Chronic midline low back pain without sciatica - ICD9: 724.2, 338.29, ICD10: M54.5, G89.29 (primary diagnosis) - CYCLOBENZAPRINE 10 MG TABLET - DICLOFENAC POTASSIUM 50 MG TABLET 2. Left knee pain, unspecified chronicity - ICD9: 719.46, ICD10: M25.562 - DICLOFENAC POTASSIUM 50 MG TABLET Encouraged rest, application of heat prn. F/U with PCP if sx do not improve. The patient is instructed to return or seek emergency treatment if symptoms become worse or with any acute change in condition. The patient verbalizes understanding and is in agreement with plan of care. Erma Mcclellan CNP CNOV Observed: 05/19/2017 Status: COMPLETED Source: BELLAMY 9:45 AM [facility] REPOSITORY Office Visit (WSTR) REJI MARTINS ([id number]) 1970 M Date Time Provider Department 05/19/17 9:45 AM ERMA MCCLELLAN [facility] During your visit today, we recorded the following information about you: Temperature Pulse Respiration Blood pressure 99 degrees 96/minute 24/minute 118/76 Weight 127.9 kg Erma Mcclellan CNP 05/19/2017 10:55 AM Signed HPI Pt presents with c/o ANDquot;flare-up of arthritis pain to low back and left kneeANDquot;. 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 States the ibuprofen is ANDquot;not touching the painANDquot; at this time. Rates pain to back and knee 8/10. Has full ROM, gait normal. Has not applied ice or heat. Denies recent injuries. Review of Systems Constitutional: Negative for chills and fever. Musculoskeletal: Positive for back pain, joint pain and myalgias. Negative for falls and neck pain. Physical Exam Constitutional: He is oriented to person, place, and time and well-developed, well-nourished, and in no distress. No distress. Musculoskeletal: Left knee: He exhibits normal range of motion, no swelling, no effusion, no ecchymosis, no deformity, no laceration, no erythema, normal alignment, no LCL laxity and normal patellar mobility. No tenderness found. Lumbar back: He exhibits tenderness and pain. He exhibits normal range of motion, no bony tenderness, no swelling, no edema, no deformity, no laceration, no spasm and normal pulse. Neurological: He is alert and oriented to person, place, and time. Skin: Skin is warm and dry. He is not diaphoretic. BP 118/76 Pulse 96 Temp 37.2 ?C (99 ?F) (Tympanic) Resp 24 Wt 127.9 kg (282 lb) BMI 41.64 kg/m2 .Patient presents with: Pain: Back and Knee pain PAST MEDICAL HISTORY Diagnosis Date - Chronic low back pain - Depression - High blood pressure PAST SURGICAL HISTORY Procedure Laterality Date - TONSILLECTOMY HX ALLERGIES Sulfa Dyne MEDICATIONS sertraline (ZOLOFT) 50 mg tablet Take 1 tablet by mouth once daily. Lisinopril 30 mg tablet Take 1 tablet by mouth once daily. ibuprofen (MOTRIN) 800 mg tablet Take 1 tablet by mouth every 8 hours as needed for Pain. Take with food. ranitidine (ZANTAC) 150 mg tablet Take 1 tablet by mouth twice daily. QUEtiapine (SEROQUEL) 50 mg tablet Take 1 tablet by mouth daily at bedtime. ibuprofen (MOTRIN) 800 mg tablet Take 1 tablet by mouth every 6 hours as needed for Pain. Take with food. Potassium 99 mg tab Take 1 tablet by mouth once daily. Buying OTC cheaper than prescription. omeprazole (PRILOSEC) 20 mg capsule Take 1 capsule by mouth daily before breakfast. 1/2 hr before meal. Lactobacillus acidophilus (ACIDOPHILUS) cap Take 2 capsules by mouth twice daily. cyclobenzaprine (FLEXERIL) 10 mg tablet Take 1 tablet by mouth three times daily as needed for up to 7 days. diclofenac potassium (CATAFLAM) 50 mg tablet Take 1 tablet by mouth three times daily for 7 days. Take with food. FAMILY HISTORY Problem Relation Age of Onset - Diabetes Mother - None Father - None Sister - Alzheimer's Disease Maternal Grandfather Social History Substance Use Topics - Smoking status: Former Smoker Types: Cigarettes Quit date: 05/10/1990 - Smokeless tobacco: Former User - Alcohol use No Comment: rarely ASSESSMENT/PLAN: 1. Chronic midline low back pain without sciatica - ICD9: 724.2, 338.29, ICD10: M54.5, G89.29 (primary diagnosis) - CYCLOBENZAPRINE 10 MG TABLET - DICLOFENAC POTASSIUM 50 MG TABLET 2. Left knee pain, unspecified chronicity - ICD9: 719.46, ICD10: M25.562 - DICLOFENAC POTASSIUM 50 MG TABLET Encouraged rest, application of heat prn. F/U with PCP if sx do not improve. The patient is instructed to return or seek emergency treatment if symptoms become worse or with any acute change in condition. The patient verbalizes understanding and is in agreement with plan of care. Erma Mcclellan CNP Referring Provider: SELF [200] Allergies As of Date: 05/19/2017 Noted Allergy Reaction SULFA DYNE 07/18/2011 16 - Unknown Comments: Sulfa antibiotic Date Reviewed: 05/19/2017 Reviewed by: Lucy Box LPN - Fully Assessed Reason for Visit: Pain [78] Cmt: Back and Knee pain Primary Visit Diagnosis:Chronic midline low back pain without sciatica [M54.5, G89.29] Other Visit Diagnosis:Left knee pain, unspecified chronicity [M25.562] Order(s):cyclobenzaprine (FLEXERIL) 10 mg tabletTake 1 tablet by mouth three times daily as needed for up to 7 days.Disp: 21 tabletRfl: 0 diclofenac potassium (CATAFLAM) 50 mg tabletTake 1 tablet by mouth three times daily for 7 days. Take with food.Disp: 21 tabletRfl: 0 Prescriptions as of 05/19/2017 Sig: SERTRALINE 50 MG TABLET Take 1 tablet by mouth once d* LISINOPRIL 30 MG TABLET Take 1 tablet by mouth once d* IBUPROFEN 800 MG TABLET Take 1 tablet by mouth every * RANITIDINE 150 MG TABLET Take 1 tablet by mouth twice * QUETIAPINE 50 MG TABLET Take 1 tablet by mouth daily * IBUPROFEN 800 MG TABLET Take 1 tablet by mouth every * POTASSIUM 99 MG TABLET Take 1 tablet by mouth once d* OMEPRAZOLE 20 MG CAPSULE,JUAN LUIS* Take 1 capsule by mouth daily* LACTOBACILLUS ACIDOPHILUS CAP* Take 2 capsules by mouth twic* CYCLOBENZAPRINE 10 MG TABLET Take 1 tablet by mouth three * DICLOFENAC POTASSIUM 50 MG TA* Take 1 tablet by mouth three * Problem List As Of Date 05/19/2017 Noted Resolved HTN (hypertension) [I10] INVALID FOR* Hypokalemia [E87.6] INVALID FOR* Anxiety [F41.9] INVALID FOR* Prescriptions ordered this encounter Disp Refills Start End CYCLOBENZAPRINE 10 MG TABLET 21 t* 0 05/19/2017 05/26/2017 Route: ORAL Sig: Take 1 tablet by mouth three times daily as needed for up to 7 days. DICLOFENAC POTASSIUM 50 MG TABLET 21 t* 0 05/19/2017 05/26/2017 Route: ORAL Sig: Take 1 tablet by mouth three times daily for 7 days. Take with food. Encounter Status:Closed by ERMA MCCLELLAN CNP on 05/19/17 ALLERGIES ALLERGIES DATE TYPE / CODE NAME / CODE REACTION SEVERITY SOURCE 04/08/2018 Drug Sulfa Unknown Unknown [facility] Allergy/4160 (Sulfonamide [facility] [address](SNOMED Antibiotics)/ Repository CT) [id number](RX NORM) 07/18/2011 [id number] SULFA DYNE UNKNOWN [place] 03(SNOMED [address] [place] [facility]) Repository ENCOUNTERS ENCOUNTERS ADMIT/DISCHARGE ACCOUNT ADMITTING ENCOUNTER LOCATION SOURCE NUMBER CLASS 04/08/2018/04/08/20 [id number] Emergency [address] ing:ED Repository 02/04/2018/02/05/20 [id number] Ambulatory [address] Repository 02/04/2018/02/07/20 [id number] Ambulatory [address] Repository 01/10/2018/01/11/20 [id number] Ambulatory [address] ing:PT Repository 12/19/2017 [id number] Ambulatory [facility] ing:RAD Repository 12/03/2017/12/04/19 [id number] Ambulatory [address] Repository 11/08/2017/11/10/19 [id number] Ambulatory [address] Repository 10/25/2017 [id number] Ambulatory [facility] Repository 10/25/2017/10/26/19 [id number] Ambulatory [address] ing:SDC Repository 10/23/2017 [id number] Ambulatory [facility] ing:MFPLAB Repository 10/20/2017/10/21/19 [id number] Emergency [address] ing:ED Repository 10/18/2017/11/07/19 [id number] Ambulatory [address] Repository 10/18/2017/10/19/19 [id number] Ambulatory [facility] [address] [place] Repository 10/18/2017/10/19/19 [id number] [facility] [address] [place] Repository 10/18/2017/10/20/19 [id number] Amb[facility] [place] Repository 10/15/2017/10/18/19 [id number] Ambulatory [facility] [place] Repository 09/05/2017/09/08/19 [id number] Ambulatory [place] [facility] [place] Repository 08/27/2017/08/30/19 [id number] Ambulatory [address] [place] Rep[place] 08/10/2017 [id number] Ambulatory [facility] ing:RAD Repository 08/08/2017/08/14/19 [id number] Ambulatory [address] [place] Repository 08/06/2017/08/09/19 [id number] Ambulatory [address] [place] Rep[place] 08/01/2017/08/03/19 [id number] Ambulatory [address] [place] Rep[place] 07/30/2017/08/02/19 [id number] Ambulatory [address] [place] Rep[place] 07/25/2017/07/27/19 [id number] Ambulatory [address] [place] Rep[place] 07/18/2017/07/20/19 [id number] Ambulatory [place] [facility] [place] Repository 07/16/2017/07/18/19 [id number] Ambulatory [place] [facility] [place] Rep[place] 07/11/2017/07/13/19 [id number] Ambulatory [place] [facility] [place] Repository 07/02/2017/07/04/19 [id number] Ambulatory [place] [facility] [place] Repository 06/04/2017/06/04/19 [id number] Ambulatory [place] [facility] [place] Repository 06/01/2017/06/01/19 [id number] Emergency [address] ing:ED Repository 06/01/2017/06/05/19 [id number] Ambulatory [address] Repository 05/19/2017/05/19/19 [id number] Ambulatory [address] Repository PAYERS PAYERS ENCOUNTER GUARANTOR PAYER SUBSCRIBER SOURCE 04/08/2018 REJI Flores Primary REJI MARTINS1935 [facility] DENNIS[facility]: [facility] ELSA walker Number: [id number] [id number] Repository [address]Qqn: ([phone]) Date:2018-04-08P O [phone] (HP) [address]ATTN: [place] [address]GW: 04/08/2018 Secondary NOT GIVENUNK Jewell Insurance:SELF PAY [facility] Number: Effective Repository Date:2018-04-08 01/10/2018 REJI I Primary REJI I Jewell [id number] Insurance:CARESOURCEP MILLERDOB: [facility] ELSA walker Number: [id number] [id number] Repository [address]Dgw: [phone] Date:2017-04-23P O [phone] (HP) [address]ATTN: [place] [address]JV: 01/10/2018 Secondary NOT GIVENUNK Jewell Insurance:SELF PAY [facility] Number: Effective Repository Date:2018-01-02 12/19/2017 REJI I Primary REJI I Jewell [id number] Insurance:CARESOURCEP MILLERDOB: [facility] ELSA walker Number: [id number] [id number] Repository [address]Fin: [phone] Date:2017-12-19P O [phone] (HP) [address]ATTN: [place] [address]PY: 12/19/2017 Secondary NOT GIVENUNK Dawes Insurance:SELF PAY [facility] Number: Effective Repository Date:2017-12-19 10/25/2017 REJI I Primary REJI I Jewell [id number] Insurance:CARESOURCEP MILLERDOB: [facility] ELSA walker Number: [id number] [id number] Repository [address]Lwx: [phone] Date:2017-10-22P O [phone] (HP) [address]ATTN: [place] [address]GG: 10/25/2017 Secondary NOT GIVENUNK Dawes Insurance:SELF PAY [facility] Number: Effective Repository Date:2017-10-25 10/25/2017 REJI I Primary REJI MARTINS1935 Insurance:CARESOURCEP MILLERDOB: [facility] Number: [id number] [id number] Repository [address]Tvc: [phone]) Date:2017-10-22P O [phone] () [address]ATTN: [place] [address]WB: 10/25/2017 Secondary NOT GIVENUNK Jewell Insurance:SELF PAY [facility] Number: Effective Repository Date:2017-10-22 10/23/2017 REJI I Primary REJI MARTINS1935 Insurance:CARESOURCEP MILLERDOB: [facility] Number: [id number] [id number] Repository [address]Qvz: (330) Date:2017-10-23P O [phone] () [address] [address]PQ: 10/23/2017 Secondary NOT GIVENUNK Dawes Insurance:SELF PAY [facility] Number: Effective Repository Date:2017-10-23 10/20/2017 REJI I Primary REJI MARTINS1935 Insurance:CARESOURCEP MILLERDOB: [facility] Number: [id number] [id number] Repository [address]Kpy: ([phone]) Date:2017-10-20P O [phone] () [address]ATTN: [place] [address]IB: 10/20/2017 Secondary NOT GIVENUNK Jewell Insurance:SELF PAY [facility] Number: Effective Repository Date:2017-10-20 08/10/2017 REJI I Primary REJI I Jewell MARTINS1935 Insurance:CARESOURCEP MILLERDOB: [facility] DRAPT olicy Number: [id number] [address] [id number] Repository [address]Gry: Date:2017-08-10P O [phone] [address]ATTN: CLAIMS -4 ([place]) [place] [address]OZ: 08/10/2017 Secondary NOT GIVENUNK Dawes Insurance:SELF PAY [facility] Number: Effective Repository Date:2017-08-10 06/01/2017 REJI TOSCANO5 Primary REJI DENNISB: Jewell [address] Insurance:CARESOURCEP [id number] Number: [facility] [id number]: [id number] Repository [phone] Date:2017-06-01P O -4 () [address]ATTN: [place] [address]JR: 06/01/2017 Secondary NOT GIVENUNK Jewell Insurance:SELF PAY [facility] Number: Effective Repository Date:2017-06-01
== END 2018-04-08 12:47 | disposition home or self-care (01) ==
LOC: ED 12:39
PROVIDERS: Emergency Provider Emergency Medicine; Family Provider Family Medicine; PCP Family Medicine
DX: S39.012A Strain of muscle, fascia and tendon of lower back, initial encounter (principal); X50.9XXA Other and unspecified overexertion or strenuous movements or postures, initial encounter; Y93.89 Activity, other specified
CPT/HCPCS: 99282

== ENCOUNTER 2018-08-05 12:07 | Emergency (ER) | payer MEDICAID, SELFPAY ==
[2018-08-05 12:08] VITALS: BP 150/109; PULSE 115; RESP 16; TEMP 36.8; O2SAT 95; BMI 41.0
--- NOTE | 2018-08-05 12:15 | ED.VISSUMM ---
- ER Visit Summary Date of Service: 08/05/18 Chief Complaint: Vomiting and diarrhea History of Present Illness: The patient is a 48 M who goes [facility]. He reports that he stays at [facility] on [address] and there are multiple people there with gastroenteritis. States he began having diarrhea yesterday. Has had multiple episodes. No blood in his stools or black tarry stools. Became nauseated and vomited twice a day. No blood in his emesis. He denies any abdominal pain. Has not been camping out of the country. No possible bad food exposure. Does not drink well water. No recent antibiotic use. Physical Examination: Vitals: Stable. Afebrile. General: Well-nourished and well-developed. Head: Normocephalic atraumatic. Neck: Supple, no lymphadenopathy. No JVD. Nontender. Cardiovascular: Regular rate and rhythm. No murmurs. Respiratory: No respiratory distress. Clear to auscultation bilaterally. Abdominal: Soft, nontender, nondistended, normal bowel sounds. No guarding, rebound, or peritoneal signs. Back: Nontender. Extremities: Nontender, no edema. Skin: Normal color, no rash. Neurologic: Alert and oriented ?3. Cranial nerves II through XII are intact. Normal strength and sensation. Psych: Normal affect. Emergency Department Course and Treatment: Patient had an IV placed. He is given a liter normal saline. He was given Zofran IV. He had no further vomiting or diarrhea while here. He is resting comfortably. Treatment Plan: Patient be discharged with Zofran. Instructed to follow-up the vital instructions clinic in 1-2 days if not improving. Return to the emergency department for any worsening symptoms. Disposition: To home in improved and stable condition. Impression: 1. Vomiting/diarrhea. This note was generated with [employer] dictation software. It may contain incorrect words, spelling, and punctuation that were not noted in review of the chart prior to signing ED Disposition - Plan for ED Patient: Instructions: ED Vomiting Diarrhea Nonspecific Ad Prescriptions: Ondansetron [Zofran Odt] 4 mg PO Q8H PRN PRN #10 tablet PRN Reason: Nausea [facility]errals[facility] [Primary Care Provider] - 1-2 Days if not improving
[2018-08-05] MEDS: Ondansetron 4 MG/2 ML Vial IV ×2 (12:30→14:17)
[2018-08-05] MEDS: 0.9% Normal Saline 1,000 ML 1000 ML IV (12:30)
[2018-08-05 14:19] VITALS: BP 131/93; PULSE 97; RESP 16
== END 2018-08-05 14:20 | disposition home or self-care (01) ==
LOC: ED 12:51
PROVIDERS: Emergency Provider Emergency Medicine
DX: R11.10 Vomiting, unspecified (principal); R19.7 Diarrhea, unspecified
CPT/HCPCS: 96361; 96374; 96376; 99285; A4216; J2405

== ENCOUNTER 2019-02-05 10:55 | Day surgery (SDC) | payer MEDICAID, SELFPAY ==
--- NOTE | 2019-02-04 17:12 | HP.PCM_ITS ---
History and Physical Date of Admission: 02/05/19 HISTORY AND PHYSICAL ? Reji Ruffin 1970 ? REFERRING PHYSICIAN: ??Wm Rubi MD ? CHIEF COMPLAINT: ??Consult (ConsultGERD/ ABD pain) ? HPI: The patient is a 48 year old male referred for endoscopy. ?Reji notes the following GI complaints:???Reji?notes abdominal pain.?The pain occurs in the following locations:??diffusely?. ?Reji notes occasional?diarrhea. ??Reji notes occasional?constipation. ?Reji notes?a change in bowel habits. ?Reji denies?melena. ?Reji denies?bright red blood per rectum. ???Reji denies?hemorrhoids. ? ? The patient??notes the following upper complaints:???Reji?notes abdominal pain.?The pain occurs in the following locations:??epigastric region?. ?Reji notes?heartburn. ??Reji notes?dysphagia. ?Reji denies?a history of ulcers/ peptic ulcer disease. ? ? Reji?has not?undergone prior endoscopy. ? ? The patient is being seen by me today at the request of Dr.?Wm Rubi MD?for my opinion and advice regarding reflux and change in bowel habits with diarrhea.? ? ? PAST?MEDICAL?HISTORY PAST MEDICAL HISTORY Diagnosis Date ? Chronic low back pain ? ? Depression ? ? High blood pressure ? ? ? PAST?SURGICAL?HISTORY PAST SURGICAL HISTORY Procedure Laterality Date ? BACK SURGERY HX ? 2018 ? spinal injections ? FOOT SURGERY HX ? ? ? TONSILLECTOMY HX ? CURRENT?MEDICATIONS ? Current Outpatient Medications: ondansetron (ZOFRAN) 4 mg tablet Take 1 tablet by mouth every 8 hours as needed. hydrOXYzine HCl (ATARAX) 25 mg tablet 1-2 tabs at HS for sleep lisinopril (ZESTRIL,PRINIVIL) 30 mg tablet Take 1 tablet by mouth once daily. albuterol HFA (VENTOLIN HFA) 90 mcg/actuation inhaler Inhale 2 Puffs as instructed every 4 hours as needed for Wheezing/Shortness of Breath. omeprazole (PRILOSEC) 20 mg capsule Take 1 capsule by mouth daily before breakfast. 1/2 hr before meal. QUEtiapine (SEROQUEL) 50 mg tablet Take 1 tablet by mouth daily at bedtime. sertraline (ZOLOFT) 50 mg tablet Take 1 tablet by mouth once daily. ? No current facility-administered medications for this visit.? ? ALLERGIES:?Sulfa Dyne ? PERSONAL HISTORY:? w SOCIAL?HISTORY Social History ??Socioeconomic History ?Marital status: Single ?Spouse name: Not on file ?Number of children: Not on file ?Years of education: Not on file ?Highest education level: Not on file ??Occupational History ?Not on file ??Social Needs ?Financial resource strain: Not on file ?Food insecurity: ?Worry: Not on file ?Inability: Not on file ?Transportation needs: ?Medical: Not on file ?Non-medical: Not on file ??Tobacco Use ?Smoking status: Former Smoker ?Types: Cigarettes ?Quit date: 05/10/1990 ?Years since quittin.6 ?Smokeless tobacco: Former User ??Substance and Sexual Activity ?Alcohol use: No ?Comment: rarely ?Drug use: No ?Sexual activity: Yes ?Partners: Female ??Lifestyle ?Physical activity: ?Days per week: Not on file ?Minutes per session: Not on file ?Stress: Not on file ??Relationships ?Social connections: ?Talks on phone: Not on file ?Gets together: Not on file ?Attends zoroastrianism service: Not on file ?Active member of club or organization: Not on file ?Attends meetings of clubs or organizations: Not on file ?Relationship status: Not on file ?Intimate partner violence: ?Fear of current or ex partner: Not on file ?Emotionally abused: Not on file ?Physically abused: Not on file ?Forced sexual activity: Not on file ??Other Topics ?Concerns: ?Not on file ??Social History Narrative ?Not on file ? FAMILY HISTORY:? FAMILY?HISTORY FAMILY HISTORY Problem Relation Age of Onset ? Diabetes Mother ? None Father ? ? None Sister ? ? Alzheimer's Disease Maternal Grandfather ? ? REVIEW OF SYMPTOMS: ??The review of systems data was entered by the nurse and reviewed by me ? Nursing Notes: Bipin Fraser LPN ?01/06/2019 ?2:48 PM ?Signed REVIEW OF SYSTEMS: ?General:???The patient denies fatigue, denies weight loss, denies weight gain, denies feeling hot, and denies feelings of cold. ?Eyes: ?The patient denies glaucoma, denies eye injury/surgery, does not wear glasses or contacts. ?Ear/Nose/Throat: ?The patient denies allergies, denies hayfever, denies ear infections, and denies bloody noses. ?Cardiovascular: ?The patient denies chest pain, denies heart disease, NOTES high blood pressure,denies cardiac stent, denies prior heart attack, denies irregular heart beat, denies high cholesterol, ?denies poor circulation, denies heart failure, other cardiac issues, denies claudication, denies cold feet, denies peripheral arterial stent. ?Respiratory: ?The patient denies tuberculosis, denies pneumonia, NOTES frequent cough, denies pulmonary embolism, denies shortness of breath, and denies coughing up blood. ?Gastrointestinal: ?The patient denies difficulty swallowing, NOTES acid reflux, denies ulcers, denies vomiting, denies jaundice/hepatitis, denies gallbladder problems, denies black or tarry stools, denies hemorrhoids, denies bleeding from rectum, denies diverticulitis, denies constipation, NOTES diarrhea, denies loss of stool control, and denies hernias. ?Kidney/Bladder: ?The patient denies kidney stones, denies urine infections, and denies bloody urine. ?Skin: ?The patient denies a history of skin cancer, denies bleeding/changing moles, and denies a history of skin rash. ?Neurologic: ?The patient denies a history of epilepsy/convulsions, denies headaches, denies head/spinal injuries, and denies stroke/TIA. ?Psychiatric: ?The patient denies psychiatric medications, NOTES depression, and denies voices, denies substance abuse. ?Endocrine: ?The patient denies thyroid disorders, denies diabetes, and denies hormonal problems. ?Hematologic: ?The patient denies a history of bruising, denies bleeding, and denies anemia, denies blood clots. ?Infections: ?The patient denies a history of measles and mumps, denies rheumatic fever, and denies sexually transmitted diseases. ?Musculoskeletal: ?The patient NOTES back pain/injury, NOTES back problems, denies sciatica, denies knee/foot trouble, denies arthritis, or denies gout. ? ? When was patient's last Mammogram screening? N/A ? ?Last Colonoscopy: ?N/a ? Bipin Fraser LPN? ? To me the patient does note that he hears voices. ? PHYSICAL EXAMINATION: ? General: ?The patient is 48 year old male, well nourished, well hydrated in no acute distress. ?The patient is oriented to time, place, and person. ? VITALS:?Blood pressure 122/84, pulse 102, temperature 36.5 ?C (97.7 ?F), temperature source Temporal Artery, weight 124.3 kg (274 lb), SpO2 92 %.?Body mass index is 40.46 kg/m?.? ? HEENT: ?Normal cephalic, ataumatic, pupils are equally round, sclera are anicteric, mucous membranes are moist, oropharynx is clear. ?Neck has no masses, asymmetry or lymphadenopathy. ?Thyroid is unremarkable. ? Respiratory: ?Clear to auscultation and percussion. ?Normal respiratory excursion and pattern. ? Cardiac: ?Examination is regular rate and rhythm. ? Abdominal exam: ?Soft, nontender, ?with no palpable masses. ?No hepatosplenomegaly. ?No palpable hernias. ? Rectal exam:?exam deferred ? Extremities: ?no clubbing, cyanosis or edema. ?No adenopathy. ? Other: ? LABORATORY VALUES: As Noted ? RADIOLOGIC STUDIES: ?As Noted ? Assessment ? IMPRESSION:?GERD,?change in bowel habits with diarrhea ? PLAN: ?I plan to perform upper and lower?endoscopy. ??We discussed the risks and benefits of the planned endoscopy. ?I have informed the patient that complications can occur including failure to complete the endoscopy and perforation. ?The patient had the opportunity to ask questions concerning the planned endoscopy. ?My staff has also explained the procedure to the patient in understandable terms and has given the patient printed material concerning the procedure. ?The patient freely consents to surgery. ? I plan to use golytely bowel preparation for endoscopy ? I plan for monitored anesthetic care. ? Diagnoses:?(K21.9) Gastroesophageal reflux disease, esophagitis presence not sp ecified ?(primary encounter diagnosis) (R19.4) Change in bowel habits (R19.7) Diarrhea, unspecified type ? My findings have been communicated to Dr.??Wm Rubi MD?via shared medical record. ?This note will be forwarded to Dr. mW Rubi MD. ?? Return to Clinic: The patient is instructed to follow-up with me?after the testing has been completed. ? Supa Nunez MD
[2019-02-05 11:39] VITALS: BP 136/85; PULSE 95; RESP 18; TEMP 36.1; O2SAT 95; BMI 41.0
[2019-02-05] MEDS: Lactated Ringers 1,000 ML 100 ML IV (11:54)
--- NOTE | 2019-02-05 13:15 | EGD_PTH ---
PATIENT: KISHAN MARTINS LOC: EN U#:[id number] AGE/SX: 48/M ROOM: RE02/05/[address]: Dr. Supa Nunez MD : 1970 BED: DIS: 02/05/2019 SPEC #: [id number] RECD: 02/05/19 15:45 STATUS: CHEL ROXIE #: [id number] FELIX: 02/05/19 13:[address]: Supa Nunez DEPT: SURGICAL PATHOLOGY RECD BY: Shashank Streeter ENTERED: 02/06/19 08:03 SP TYPE: EGD BIOPSY OTHR DR: Dr. Wm Rubi MD Tissues: A - Jejunum, NOS B - Gastric mucous membrane C - Esophageal mucous membrane D - Ileum, NOS E - COLON BIOPSY F - Descending colon G - POLYP Procedures: Surgery Specimen Level IV HEADER OPERATION: Colonoscopy, EGD ([facility]) PRE-OP DIAGNOSIS: Abdominal pain TISSUE SUBMITTED: A - Jejunal biopsy, B - Antral biopsy for H. pylori and pathology, C - Distal esophageal biopsy, D - Terminal ileum biopsy, E - Random colon biopsies, F - Descending colon polyps, G - 30 cm polyps MICROSCOPIC DIAGNOSIS A. Jejunum, biopsy: No significant pathologic change. B. Gastric antrum, biopsy: Mild chronic gastritis. See comment. C. Distal esophagus, biopsy: Benign squamous mucosa with no evidence of inflammation. D. Terminal ileum, biopsy: A fragment of small bowel mucosa, no pathologic diagnosis. E. Random colon, biopsy: No pathologic change. F. Descending colon polyps, biopsy: Fragments of tubular adenoma. G. Colonic polyps at 30 cm, biopsy: Fragments of tubular adenoma. AM:andreas 02/07/19 COMMENT B. The results of immunohistochemistry for Helicobacter pylori will be reported separately ([id number]). Case has been reviewed in consultation with Dr. Bishop who concurs with the above diagnosis. IDC:SJ MICROSCOPIC DESCRIPTION Slides are reviewed. GROSS DESCRIPTION A - Received in fixative is one container labeled with the patient's name and designated jejunal biopsy. The specimen consists of multiple irregular fragments of light shelton soft tissue that in aggregate measure 0.6 x 0.2 x 0.1 cm. The specimen is totally submitted in one cassette. B - Received in fixative is one container labeled with the patient's name and designated antral biopsy. The specimen consists of one irregular fragment of light shelton soft tissue that measures 0.6 x 0.3 x 0.1 cm. The specimen is totally submitted in one cassette. C - Received in fixative is one container labeled with the patient's name and designated distal esophageal biopsy. The specimen consists of one irregular fragment of light shelton soft tissue that measures 0.2 x 0.2 x 0.1 cm. The specimen is totally submitted in one cassette. D - Received in fixative is one container labeled with the patient's name and designated terminal ileum biopsy. The specimen consists of one irregular fragment of light shelton soft tissue that measures 0.3 x 0.3 x 0.1 cm. The specimen is totally submitted in one cassette. E - Received in fixative is one container labeled with the patient's name and designated random colon biopsy. The specimen consists of multiple irregular fragments of light shelton soft tissue that in aggregate measure 0.3 x 0.3 x 0.2 cm. The specimen is totally submitted in one cassette. F - Received in fixative is one container labeled with the patient's name and designated descending colon polyps. The specimen consists of multiple irregular fragments of light shelton soft tissue that in aggregate measure 1.5 x 1.5 x 0.1 cm. The specimen is totally submitted in one cassette. G - Received in fixative is one container labeled with the patient's name and designated 30 cm polyps. The specimen consists of multiple irregular fragments of light shelton soft tissue that in aggregate measure 1.5 x 0.5 x 0.2 cm. The specimen is totally submitted in one cassette. / SJ:rg 02/06/19 TC:3 CPT: 67817 x7
--- NOTE | 2019-02-05 13:15 | EGD_PTH ---
PATIENT: KISHAN MARTINS LOC: EN U#:[id number] AGE/SX: 48/M ROOM: RE02/05/[address]: Dr. Supa Nunez MD : 1970 BED: DIS: 02/05/2019 SPEC #: [id number] RECD: 02/05/19 15:45 STATUS: CHEL ROXIE #: [id number] FELIX: 02/05/19 13:[address]: Supa Nunez DEPT: SURGICAL PATHOLOGY RECD BY: Shashank Streeter ENTERED: 02/06/19 08:03 SP TYPE: EGD BIOPSY OTHR DR: Dr. Wm Rubi MD Tissues: A - Jejunum, NOS B - Gastric mucous membrane C - Esophageal mucous membrane D - Ileum, NOS E - COLON BIOPSY F - Descending colon G - POLYP Procedures: Surgery Specimen Level IV HEADER OPERATION: Colonoscopy, EGD ([facility]) PRE-OP DIAGNOSIS: Abdominal pain TISSUE SUBMITTED: A - Jejunal biopsy, B - Antral biopsy for H. pylori and pathology, C - Distal esophageal biopsy, D - Terminal ileum biopsy, E - Random colon biopsies, F - Descending colon polyps, G - 30 cm polyps MICROSCOPIC DIAGNOSIS A. Jejunum, biopsy: No significant pathologic change. B. Gastric antrum, biopsy: Mild chronic gastritis. See comment. C. Distal esophagus, biopsy: Benign squamous mucosa with no evidence of inflammation. D. Terminal ileum, biopsy: Fragments of tubular adenoma. E. Random colon, biopsy: No pathologic change. F. Descending colon polyps, biopsy: Fragments of tubular adenoma. G. Colonic polyps at 30 cm, biopsy: Fragments of tubular adenoma. AM:andreas 02/07/19 COMMENT B. The results of immunohistochemistry for Helicobacter pylori will be reported separately ([id number]). Case has been reviewed in consultation with Dr. Bishop who concurs with the above diagnosis. IDC:SJ MICROSCOPIC DESCRIPTION Slides are reviewed. GROSS DESCRIPTION A - Received in fixative is one container labeled with the patient's name and designated jejunal biopsy. The specimen consists of multiple irregular fragments of light shelton soft tissue that in aggregate measure 0.6 x 0.2 x 0.1 cm. The specimen is totally submitted in one cassette. B - Received in fixative is one container labeled with the patient's name and designated antral biopsy. The specimen consists of one irregular fragment of light shelton soft tissue that measures 0.6 x 0.3 x 0.1 cm. The specimen is totally submitted in one cassette. C - Received in fixative is one container labeled with the patient's name and designated distal esophageal biopsy. The specimen consists of one irregular fragment of light shelton soft tissue that measures 0.2 x 0.2 x 0.1 cm. The specimen is totally submitted in one cassette. D - Received in fixative is one container labeled with the patient's name and designated terminal ileum biopsy. The specimen consists of one irregular fragment of light shelton soft tissue that measures 0.3 x 0.3 x 0.1 cm. The specimen is totally submitted in one cassette. E - Received in fixative is one container labeled with the patient's name and designated random colon biopsy. The specimen consists of multiple irregular fragments of light shelton soft tissue that in aggregate measure 0.3 x 0.3 x 0.2 cm. The specimen is totally submitted in one cassette. F - Received in fixative is one container labeled with the patient's name and designated descending colon polyps. The specimen consists of multiple irregular fragments of light shelton soft tissue that in aggregate measure 1.5 x 1.5 x 0.1 cm. The specimen is totally submitted in one cassette. G - Received in fixative is one container labeled with the patient's name and designated 30 cm polyps. The specimen consists of multiple irregular fragments of light shelton soft tissue that in aggregate measure 1.5 x 0.5 x 0.2 cm. The specimen is totally submitted in one cassette. / SJ:rg 02/06/19 TC:3 CPT: 99273 x7
--- NOTE | 2019-02-05 13:15 | IMM_PTH ---
PATIENT: KISHAN MARTINS LOC: EN U#:[id number] AGE/SX: 48/M ROOM: RE02/05/[address]: Dr. Supa Nunez MD : 1970 BED: DIS: 02/05/2019 SPEC #: [id number] RECD: 02/06/19 09:27 STATUS: CHEL REQ #: [id number] FELIX: 02/05/19 13:[address]: Supa Nunez DEPT: IMMUNOHISTOCHEMISTRY RECD BY: Manuela Bloom ENTERED: 02/06/19 09:28 SP TYPE: IMMUNO OTHR DR: Dr. Wm Rubi MD Tissues: B - Stomach, NOS Procedures: H Pylori (initial) PHYSICIAN & INSTITUTION [place] [id number] SPECIMEN INFORMATION: Tissue Source: B - Antral biopsy Clinical Info: Abdominal pain Specimen Number: [id number] CPT code: 78379 METHODOLOGY: Deparaffinized sections of prefer/formalin-fixed tissue or PAP/DQ stained slides are incubated with monoclonal/polyclonal antibodies/oligonucleotide probes. Localization is made via biotin free immunoperoxidase method. Appropriate controls are performed and reacted as expected. Results on target cell population are indicated in the following table: RESULTS: ANTIBODY / CLONE RESULT Block B H Pylori (polyclonal) negative These tests were developed and their performance characteristics determined by [facility]. They may not have been cleared or approved by the U.S. Food and Drug Administration. The FDA has determined that such clearance or approval is not necessary. INTERPRETATION: B. Antral biopsy: Negative for Helicobacter pylori organisms. AM:andreas 02/07/19
--- NOTE | 2019-02-05 13:43 | OP.ENDO_ITS ---
02/05/2019 Wm Rubi Re : Upper GI endoscopy procedure for Reji Ruffin Dear Elicia This procedure was performed on Tuesday, February 05, 2019. My impressions and recommendations are as follows: Impressions : - Normal examined jejunum. Biopsied. - Normal examined duodenum. - Gastritis. Biopsied. - Small hiatal hernia. - Non-severe reflux esophagitis. Biopsied. Recommendations : - Await pathology results. - Discharge patient to home. - Resume previous diet. - Continue present medications. - Return to physician stylist assistant in 1 week. My findings are described in the full procedure note, which is enclosed. If I can be of further assistance, please feel free to contact me at Doctor phone number(s): , Work: . Sincerely, Supa Nunez MD 02/05/2019 1:43:33 PM This report has been signed electronically.
--- NOTE | 2019-02-05 13:46 | OP.ENDO_ITS ---
02/05/2019 Wm Rubi Re : Colonoscopy procedure for Reji Ruffin Dear Elicia This procedure was performed on Tuesday, February 05, 2019. My impressions and recommendations are as follows: Impressions : - The examined portion of the ileum was normal. Biopsied. - Two medium polyps in the sigmoid colon and in the ascending colon, removed with a cold snare. Resected and retrieved. - The entire examined colon is normal. Biopsied. - The distal rectum and anal verge are normal on retroflexion view. Recommendations : - Discharge patient to home. - Resume previous diet. - Continue present medications. - Return to physician web production assistant in 1 week. - Repeat colonoscopy is recommended. The colonoscopy date will be determined after pathology results from today's exam become available for review. My findings are described in the full procedure note, which is enclosed. If I can be of further assistance, please feel free to contact me at Doctor phone number(s): , Work: . Sincerely, Supa Nunez MD 02/05/2019 1:46:18 PM This report has been signed electronically.
[2019-02-05 13:48] VITALS: BP 136/85; BP 99/68; PULSE 96; RESP 18; TEMP 36.7; O2SAT 94
[2019-02-05 13:55] VITALS: BP 104/69; BP 136/85; PULSE 96; RESP 16; O2SAT 95
[2019-02-05 14:00] VITALS: BP 107/71; BP 136/85; PULSE 88; RESP 18; O2SAT 93
[2019-02-05 14:02] VITALS: BP 113/74; BP 136/85; PULSE 81; RESP 18; TEMP 36.9; O2SAT 96
[2019-02-05 14:34] VITALS: BP 136/85
== END 2019-02-05 14:47 | disposition home or self-care (01) ==
LOC: EN 10:56 → AC 11:00
PROVIDERS: Family Provider Family Medicine; PCP Family Medicine; Referring Provider Family Medicine; Visit Provider Surgery
PROC: 0DJD8ZZ Inspection of Lower Intestinal Tract, Via Natural or Artificial Opening Endoscopic (ICD-10-PCS; CPT 45378; principal; 2019-02-05 13:10)
DX: K21.0 Gastro-esophageal reflux disease with esophagitis (principal); K29.50 Unspecified chronic gastritis without bleeding; K44.9 Diaphragmatic hernia without obstruction or gangrene; D12.2 Benign neoplasm of ascending colon; D12.4 Benign neoplasm of descending colon; D12.5 Benign neoplasm of sigmoid colon; R19.4 Change in bowel habit; R19.7 Diarrhea, unspecified; I10 Essential (primary) hypertension; F32.9 Major depressive disorder, single episode, unspecified; F41.9 Anxiety disorder, unspecified; Z79.899 Other long term (current) drug therapy; Z87.891 Personal history of nicotine dependence
CPT/HCPCS: 43239; 45380; 45385; 88305; 88342; J7120; J2405

== ENCOUNTER → 2019-05-28 10:40 | Outpatient (CLI) | payer MEDICAID, SELFPAY ==
--- NOTE | 2019-05-28 10:49 | RAD_ITS ---
STUDY: X-RAY - LUMBAR SPINE REASON FOR EXAM: Male, 48 years old. LUMBAR RADICULOPATHY TECHNIQUE: 5 view(s) of the lumbar spine were obtained. COMPARISON: Lumbar spine x-ray 08/10/2017 FINDINGS: Normal lumbar lordosis. There is no substantial scoliosis. There is grade 1 spondylolisthesis of L5-S1. There is multilevel endplate spondylosis of the lumbar vertebrae. Normal disc space heights. There is no demonstrated fracture. Bilateral L5 spondylolysis noted. There is also spondylolysis of bilateral L4. The soft tissue structures are unremarkable. RAD/L/S Spine Min 4 Views IMPRESSION: 1. Mild spondylosis without significant disc space narrowing. 2. Bilateral L5 spondylolysis resulting in grade 1 spondylolisthesis of L5-S1. 3. Bilateral L4 spondylolysis without demonstrated spondylolisthesis. Electronically Signed: Al Patel MD ([place]oks) at 12:30 EST , Service support ,
== END ==
PROVIDERS: PCP Family Medicine; Referring Provider Chiropractor; Visit Provider Chiropractor
DX: M54.16 Radiculopathy, lumbar region (principal)
CPT/HCPCS: 72110

== ENCOUNTER → 2019-06-11 10:26 | Outpatient (CLI) | payer MEDICAID, SELFPAY ==
[2019-06-11 12:35] LABS: Absolute Lymphocyte Count 1.11 X10^3/uL (0.83-4.51); Absolute Neutrophil Count 3.8 X10^3/uL (2.0-7.7); Basophil# 0.03 X10^3/uL; Basophil% 0.5 % (0-1); Eosinophil# 0.13 X10^3/uL; Eosinophils% 2.3 % (0-5); Hematocrit 47.9 % (40-54); Hemoglobin 15.7 g/dL (13.0-16.5); Lymphocyte # 1.11 X10^3/ul (4.0); Lymphocyte % 19.8 % (19-41); Mean Corp Hgb Conc 32.8 g/dL (32-36); Mean Corpuscular Hgb 28.2 pg (27.0-32.0); Mean Corpuscular Volume 86.2 fL (80-94); Mean Platelet Vol. 9.3 fl (6.2-12.0); Monocyte% 8.9 % (0-10); NRBC Flagged by Analyzer 0 % (0-5); Neutrophil # 3.81 X10^3/uL (2.7-7.7); Platelet Count 313 K/mm3 (150-450); RBC Distribution Width CV 13.7 % (11.6-14.6); RBC Distribution Width SD 43.1 fl (35.1-43.9); Red Blood Count 5.56 M/mm3 (4.6-6.2); White Blood Count 5.6 K/mm3 (4.4-11.0)
[2019-06-11 12:57] LABS: AST(SGOT) 23 U/L (15-37); Alanine Aminotransfer ALT/SGPT 44 U/L (16-61); Alkaline Phosphatase 53 U/L (45-117); Anion Gap 8 (5-15); BUN 17 mg/dL (7-18); BUN/Creat Ratio 13.7 RATIO (10-20); Bilirubin, Direct 0.07 mg/dL (0.00-0.30); Calcium,Total 9.1 mg/dL (8.5-10.1); Chloride 105 mmol/L (98-107); Creatinine, Serum 1.24 mg/dL (0.70-1.30); EST Glomerular Filtration Rate 66 mL/min (>60); Est Glom Filt Rate - Afr Amer 80 mL/min (>60); Glucose 124 mg/dL (74-106); Potassium 3.9 mmol/L (3.5-5.1); Sodium Level 139 mmol/L (136-145)
[2019-06-11 13:39] LABS: Hepatitis B Surface Antibody Non-Reactive; Hepatitis B Surface Antigen Non-Reactive (Nonreactive); Hepatitis C Antibody Non-Reactive (Nonreactive)
[2019-06-14 03:07] LABS: QNTFERON TB Mitogen Value > 10.00 IU/mL (.); QNTFERON TB Nil Value 0.01 IU/mL (.); QNTFERON TB1+ Ag Value 0.04 IU/mL (.); QNTFERON TB2+ Ag Value 0.01 IU/mL (.)
[2019-06-14 10:15] LABS: Hepatitis B Core Ab Total Negative (Negative); QNTIFERON TB Positive Criteria Negative (Negative)
== END ==
PROVIDERS: PCP Family Medicine; Referring Provider Nurse Practitioner Family; Visit Provider Nurse Practitioner Family
DX: L30.9 Dermatitis, unspecified (principal)
CPT/HCPCS: 36415; 80053; 82248; 85025; 86480; 86704; 86706; 86803; 87340

== ENCOUNTER 2019-07-07 15:02 | Observation (INO) | payer MEDICAID, SELFPAY ==
[2019-07-07] VITALS (15 sets, daily range): BP systolic 109–175; BP diastolic 70–89; PULSE 80–146; RESP 16–28; TEMP 36.8–39.5; O2SAT 94–97; BMI 46.5; BMI 46.0; BMI 141.6
--- NOTE | 2019-07-07 15:18 | EKG12_ITS ---
Test Reason : SOB Blood Pressure : / mmHG Vent. Rate : 132 BPM Atrial Rate : 132 BPM P-R Int : 140 ms QRS Dur : 076 ms QT Int : 280 ms P-R-T Axes : 062 014 058 degrees QTc Int : 414 ms Sinus tachycardia Otherwise normal ECG Confirmed by JALEN OCAMPO, DENTON ([id number]), research editor ELMO NESS ([id number]) on 07/14/2019 11:09:48 AM Referred By: NICHO Confirmed By:ARDAMES RAO MD
--- NOTE | 2019-07-07 15:18 | RAD_ITS ---
STUDY: X-RAY CHEST REASON FOR EXAM: Male, 48 years old. Cough, fever, SOB TECHNIQUE: Single AP portable view of the chest. COMPARISON: Comparison is made with prior study dated June 01, 2017. FINDINGS: EKG electrodes are seen. The lungs are clear and expanded. There is no demonstrated pleural abnormality. There is mild cardiac enlargement. Normal mediastinum and helene. Normal visualized pulmonary arteries. Normal visualized aortic arch and descending thoracic aorta. Normal visualized thoracic spine. Normal visualized ribs, clavicles, and shoulders. There is no demonstrated abnormality of the visualized soft tissue structures of the upper abdomen. RAD/Chest 1 View (Portable) IMPRESSION: Mild cardiomegaly. Electronically Signed: Nael Duvall, at 15:39 EDT , Service support ,
--- NOTE | 2019-07-07 15:20 | ED.DCSUM_ITS ---
History of Present Illness Chief Complaint: Shortness of Breath Informant: Patient Onset: Days Context: Gradual Onset Timing: Continuous Current Severity: Moderate Maximum Severity: Severe Narrative: This patient is a 48-year-old male with no significant medical history who presents to the emergency department with cough, myalgias, arthralgias, and dyspnea. Patient states his symptoms began about 5 days ago. He states that he was having a lot of muscle pains. Over the past 2 days, he had worsening cough with some shortness of breath. He states he also just felt generally weak. He has had fever and chills. He denies any recent travel or other exposures. He states he lives by himself in his father's home as his father is currently at a care center. He does not smoke. He denies any history of underlying lung disease. He states he is otherwise been in his normal state of health. He did not get flu shot this year. Prior similar symptoms: No Recent Illness/Hospitalization: No Past Medical History - Allergies and Home Meds Allergies/Adverse Reactions: Allergies Sulfa (Sulfonamide Antibiotics) Allergy (Verified 02/05/19 11:37) Unknown Prior records reviewed: Yes Past Medical History: None Surgical History: noncontributory, tonsillectomy Smoking Status: Former smoker Review of Systems General: Reports: Chills, Fever, Malaise Eyes: Denies: Visual changes - bilaterally, Diplopia ENT: Denies: Rhinorrhea, Sore throat Cardiovascular: Denies: Chest pain, Palpitations Respiratory: Reports: Dyspnea, Cough Gastrointestinal: Denies: Abdominal pain, Nausea, Vomiting, Diarrhea, Melena, Hematochezia Genitourinary: Denies: Dysuria, Hematuria, Frequency Musculoskeletal: Reports: Myalgias, Arthralgias Skin: Denies: Rash, Wounds Neurological: Denies: Headache, Weakness, Numbness Physical Exam Vital Signs/Narrative: Vital Signs Temp Pulse Resp BP Pulse Ox 07/07/19 15:06 142 H 28 H 97 07/07/19 15:03 103.1 F H 146 H 28 H 175/89 H 96 Inital Vital Signs reviewed: Yes General: Well nourished, Well developed, No Acute Distress Head: Normocephalic, Atraumatic Eyes: Perrl, EOMI ENT: Moist mucous membranes, No rhinorrhea Neck: Supple, Nontender Cardiovascular: Regular rate, No murmurs, Tachycardia Respiratory: No distress, Chest nontender, Diminished Abdomen: Soft, Nontender, Nondistended, Normal bowel sounds Back: Nontender, Normal Inspection Extremities: Nontender, No edema Skin: Normal color, No rash Neurological: Alert, Oriented x3, Cranial nerves II-XII grossly intact, Normal Strength, Normal Sensation Psychological: Normal affect, Normal Mood Diagnostic/Tx/Re-eval Clinical Impression(s) from Imaging Studies Chest X-Ray 07/07/19 15:18 IMPRESSION: Mild cardiomegaly. Electronically Signed: Nael Duvall, at 15:39 EDT , Service support , Chest CTA 07/07/19 16:36 IMPRESSION: No pulmonary embolus is detected. Left lower lobe pneumonia. Electronically Signed: Wm Multani MD at 17:24 EDT Tel , Service support , Abnormal Lab Results 07/07/19 07/07/19 07/07/19 15:15 15:15 15:15 WBC 6.2 RBC 5.33 Hgb 14.8 Hct 44.6 MCV 83.7 MCH 27.8 MCHC 33.2 RDW Std Deviation 41.2 RDW Coeff of Purvi 13.5 Plt Count 214 MPV 9.4 Immature Gran % (Auto) 0.800 Neut % (Auto) 87.4 H Lymph % (Auto) 4.5 L [place] % (Auto) 5.8 Eos % (Auto) 1.3 Baso % (Auto) 0.2 Absolute Neuts (auto) 5.4 Absolute Lymphs (auto) 0.28 L Nucleated RBC % 0 Differential Comment SCANNED PT 13.2 INR 1.0 APTT 28.5 Sodium 135 L Potassium 3.9 Chloride 103 Carbon Dioxide 21.0 Anion Gap 11 BUN 19 H Creatinine 1.56 H Estim Creat Clear Calc 57.91 Est GFR (MDRD) Af Amer 61 Est GFR (MDRD) Non-Af 51 L BUN/Creatinine Ratio 12.2 Glucose 140 H Lactic Acid Calcium 8.5 Total Bilirubin 0.70 AST 35 ALT 38 Alkaline Phosphatase 56 Total Protein 7.9 Albumin 3.6 Globulin 4.3 H Albumin/Globulin Ratio 0.8 L Urine Color Urine Clarity Urine pH Ur Specific [place] Urine Protein Urine Glucose (UA) Urine Ketones Urine Occult Blood Urine Nitrite Urine Bilirubin Urine Urobilinogen Ur Leukocyte Esterase Urine RBC Urine WBC Ur Squamous Epith Cells Urine Bacteria Urine Mucus 07/07/19 07/07/19 15:15 16:30 WBC RBC Hgb Hct MCV MCH MCHC RDW Std Deviation RDW Coeff of Purvi Plt Count MPV Immature Gran % (Auto) Neut % (Auto) Lymph % (Auto) [place] % (Auto) Eos % (Auto) Baso % (Auto) Absolute Neuts (auto) Absolute Lymphs (auto) Nucleated RBC % Differential Comment PT INR APTT Sodium Potassium Chloride Carbon Dioxide Anion Gap BUN Creatinine Estim Creat Clear Calc Est GFR (MDRD) Af Amer Est GFR (MDRD) Non-Af BUN/Creatinine Ratio Glucose Lactic Acid 1.7 Calcium Total Bilirubin AST ALT Alkaline Phosphatase Total Protein Albumin Globulin Albumin/Globulin Ratio Urine Color Yellow Urine Clarity Clear Urine pH 5.0 Ur Specific [place] 1.020 Urine Protein 15 H Urine Glucose (UA) Normal Urine Ketones 5 H Urine Occult Blood 25 H Urine Nitrite Negative Urine Bilirubin Negative Urine Urobilinogen Normal Ur Leukocyte Esterase Negative Urine RBC 0 SEEN Urine WBC 0 SEEN Ur Squamous Epith Cells 0 SEEN Urine Bacteria 0 SEEN Urine Mucus 0 SEEN - Medical Decision Making The patient is a 48-year-old male with no significant medical history. He presents to the emergency department with cough, fever, and was found to be hypoxic. Personal protective equipment was used based on hospital guidelines. Metabolic work-up was pursued. Sepsis work-up was pursued. Chest x-ray did not show any focal infiltrative process. Influenza was negative. Labs are relatively unremarkable. With his dyspnea and hypoxia, the patient underwent CT of his chest. This does show a left lower lobe infiltrate which does appear to be more groundglass in nature. This all could be secondary to a bacterial pneumonia, and the patient will be treated as such. However, after discussion with the hospitalist and infectious disease, he will be kept on isolation pending further treatment. Patient is comfortable with this plan of care. Impression 1. Left lower lobe pneumonia 2. Hypoxia 3. Sepsis ED Disposition - Plan for ED Patient:
[2019-07-07] MEDS: Acetaminophen 500 MG Tablet 1000 MG PO (15:39)
[2019-07-07] MEDS: 0.9% Normal Saline 1,000 ML 999 ML IV ×2 (15:39→16:44)
[2019-07-07 15:46] LABS: Absolute Lymphocyte Count 0.28 X10^3/uL (0.83-4.51); Absolute Neutrophil Count 5.4 X10^3/uL (2.0-7.7); Basophil# 0.01 X10^3/uL; Basophil% 0.2 % (0-1); Eosinophil# 0.08 X10^3/uL; Eosinophils% 1.3 % (0-5); Hematocrit 44.6 % (40-54); Hemoglobin 14.8 g/dL (13.0-16.5); Lymphocyte # 0.28 X10^3/ul (4.0); Lymphocyte % 4.5 % (19-41); Mean Corp Hgb Conc 33.2 g/dL (32-36); Mean Corpuscular Hgb 27.8 pg (27.0-32.0); Mean Corpuscular Volume 83.7 fL (80-94); Mean Platelet Vol. 9.4 fl (6.2-12.0); Monocyte# 0.36 X10^3/uL; Monocyte% 5.8 % (0-10); NRBC Flagged by Analyzer 0 % (0-5); Neutrophil # 5.38 X10^3/uL (2.7-7.7); Neutrophil % 87.4 % (47-70); POSITIVE DIFFERENTIAL YES; Platelet Count 214 K/mm3 (150-450); RBC Distribution Width CV 13.5 % (11.6-14.6); RBC Distribution Width SD 41.2 fl (35.1-43.9); Red Blood Count 5.33 M/mm3 (4.6-6.2); White Blood Count 6.2 K/mm3 (4.4-11.0)
[2019-07-07 15:57] LABS: Differential Indicated SCAN CRITERIA MET
[2019-07-07 16:07] LABS: ALB/GLOB Ratio 0.8 RATIO (0.9-2.4); AST(SGOT) 35 U/L (15-37); Alanine Aminotransfer ALT/SGPT 38 U/L (16-61); Albumin, Serum 3.6 g/dL (3.2-5.0); Alkaline Phosphatase 56 U/L (45-117); Anion Gap 11 (5-15); BUN 19 mg/dL (7-18); BUN/Creat Ratio 12.2 RATIO (10-20); Calcium,Total 8.5 mg/dL (8.5-10.1); Chloride 103 mmol/L (98-107); Creatinine, Serum 1.56 mg/dL (0.70-1.30); EST Glomerular Filtration Rate 51 mL/min (>60); Est Glom Filt Rate - Afr Amer 61 mL/min (>60); Estimated Creatinine Clearance 57.91 ml/min; Globulin 4.3 g/dL (2.2-4.2); Glucose 140 mg/dL (74-106); Potassium 3.9 mmol/L (3.5-5.1); Protein, Total 7.9 g/dL (6.4-8.2); Sodium Level 135 mmol/L (136-145)
[2019-07-07 16:19] LABS: Prothrombin Time (Protime)PT. 13.2 SECONDS (11.7-14.9)
[2019-07-07 16:20] LABS: Partial Thromboplast Time 28.5 Seconds (24.1-36.2)
[2019-07-07 16:21] LABS: Differential Comment SCANNED
[2019-07-07 16:24] LABS: Lactic Acid 1.7 mmol/L (0.4-1.9)
--- NOTE | 2019-07-07 16:36 | CT_ITS ---
STUDY: CTA CHEST REASON FOR EXAM: Male, 48 years old. SOB and cough x 5 days, fever, diaphoretic. RADIATION DOSAGE (If Supplied By Facility): CTDIvol = ( 21.43 ) mGy, DLP = ( 813.61 ) mGycm TECHNIQUE: The examination was performed with the intravenous administration of 100mL Isovue 370. Post-processing of the angiographic images was performed, with multiplanar reformation and 3D reconstruction. Individualized dose optimization techniques were used for this CT. COMPARISON: None. FINDINGS: Normal enhancement of the main pulmonary artery and right and left pulmonary arteries. Normal enhancement of the bilateral peripheral pulmonary arteries. There is no demonstrated pulmonary embolism. Normal thoracic aorta and visualized great vessels. There is no demonstrated aortic dissection. Normal heart and pericardium. Normal mediastinum. Normal hilar regions. Normal visualized trachea and bronchi. Left lower lobe pneumonia. Normal pleura. Normal chest wall structures. There are degenerative changes of thoracic spine. Normal visualized upper abdomen. CT/CTA Chest W/WO Contrast IMPRESSION: No pulmonary embolus is detected. Left lower lobe pneumonia. Electronically Signed: Wm Multani MD at 17:24 EDT Tel , Service support ,
[2019-07-07 16:41] LABS: Bacteria 0 SEEN /hpf (None Seen); Mucous, Urine 0 SEEN /hpf (<or=2+); Red Blood Cells-Urine 0 SEEN /hpf (0-5); Squamous Epithelial Cells - UA 0 SEEN /hpf (0-5); White Blood Cells 0 SEEN /hpf (0-5)
[2019-07-07 16:50] LABS: Color, Urine Yellow (Yellow); Glucose, Dipstick Normal (Normal); Ketone-Dipstick 5 mg/dl (Negative); Leukocyte Esterase-Dipstick Negative /ul (Negative); Nitrite-Dipstick Negative (Negative); Occult Blood-Urine 25 /ul (Negative); Protein-Dipstick 15 mg/dl (Negative); Urine Bilirubin Dipstick Negative (Negative); Urine Clarity Clear (Clear); Urine Urobilinogen Normal (Normal)
[2019-07-07] MEDS: Ceftriaxone 1 GM/50 ML BAG IV (17:49)
--- NOTE | 2019-07-07 18:00 | HP.PCM_ITS ---
History of Present Illness Date of Admission: 07/07/19 Chief Complaint: shortness of breath The patient is a 48 year old M who was in his [place] state of health up until this past when he started developing myalgias, arthralgias, headache, shortness of breath. Symptoms just did not improve and actually got worse. Patient presented to the ER and was noted to have a pulse ox of 88%. Here he was febrile, tachycardic and tachypneic. Patient was put on oxygen 2 L and did better. Patient had a CTA of his chest that showed left lower lobe infiltrate. He was started on Rocephin and azithromycin. Patient states that he has had the flu before after getting a flu shot last year. Patient denies any recent travel and denies any sick contacts. [] Past Medical History Medical History: Medical History (Last Updated 07/07/19 @ 18:[address] Beto Ruelas, DO) Back pain M54.9 HTN (hypertension) I10 Allergies Sulfa (Sulfonamide Antibiotics) Allergy (Verified 02/05/19 11:37) Unknown Home Medications: Ambulatory Orders Medication Instructions Recorded Hydroxyzine HCl 25 mg PO QHS 02/04/19 Lisinopril [Zestril] 30 mg PO DAILY 02/04/19 Omeprazole [Prilosec] 20 mg PO DAILY 02/04/19 Quetiapine Fumarate [Seroquel] 50 mg PO DAILY 02/04/19 Sertraline HCl [Zoloft] 50 mg PO DAILY 02/04/19 Amlodipine [Norvasc] 10 mg PO DAILY 07/07/19 Valsartan 80 mg PO DAILY 07/07/19 Surgical History: noncontributory, tonsillectomy Smoking Status: Former smoker Tobacco Use: Non-smoker Alcohol: None Drugs: None - *Family History Paternal History Items: Pulmonary Disease Review of Systems Constitutional: Reports: Anorexia, Chills, Fever, Malaise Eyes: Denies: Blurred vision, Double vision HEENT: Denies: Head Aches, Sinus Congestion, Sinus Drainage Cardiovascular: Denies: Chest Pain, Palpitations Respiratory: Reports: Cough, Shortness of Breath, Sputum production Gastrointestinal: Reports: Nausea. Denies: Abdominal Pain Genitourinary: Denies: Dysuria Comment: All review of systems were negative except as mentioned above in the history of present illness and the other review of systems. VTE Information - Inpt Only VTE Present on Admission: No VTE Mechan Device Prophylaxis: None VTE Pharm Prophylaxis ordered?: Yes - Physical Exam Vitals/I&O's: Vital Signs Temp Pulse Resp BP Pulse Ox 36.9 C 110 H 24 H 109/88 H 96 07/07/19 17:00 07/07/19 17:00 07/07/19 17:00 07/07/19 17:00 07/07/19 17:00 Oxygen Flow Rate (L/min) 2 Oxygen Delivery Method Nasal Cannula Weight: 143 kg Body Mass Index (BMI) 46.5 Intake and Output for Last 24 Hours 07/05/19 07/06/19 07/07/19 23:59 23:59 23:59 Intake Total 1999 Balance 1999 General: Alert, Cooperative, No apparent distress, - - No respiratory distress. No conversational dyspnea. HEENT: Atraumatic, Normocephalic Oral: Moist Mucosa, No Gingival or Mucosal Lesions/ Ulcerations Neck: No Nodes, Trachea Midline Lungs: Normal air movement, - - Crackles left lower lobe Cardiovascular: Tachycardic Abdomen: Bowel Sounds Present, Soft, Non Tender, Non-Distended, Obese Extremities: No edema, No Calf Tenderness Musculoskeletal: No Tenderness to Palpation of Joints or Extremities, No Muscle Wasting Neurological: Deep Tendon Reflexes 2+/4 and Symmetrical, - - No clonus. Psych/Mental Status: Normal Affect, Appropriate Microbiology Past 72 Hours 07/07/19 15:35 Mucosa - Nose Influenza Types A,B Direct FA (JAMIR) - Final Laboratory Results 07/07/19 15:15: WBC 6.2, RBC 5.33, Hgb 14.8, Hct 44.6, MCV 83.7, MCH 27.8, MCHC 33.2, RDW Std Deviation 41.2, RDW Coeff of Purvi 13.5, Plt Count 214, MPV 9.4, Immature Gran % (Auto) 0.800, Neut % (Auto) 87.4 H, Lymph % (Auto) 4.5 L, [place] % (Auto) 5.8, Eos % (Auto) 1.3, Baso % (Auto) 0.2, Absolute Neuts (auto) 5.4, Absolute Lymphs (auto) 0.28 L, Nucleated RBC % 0, Differential Comment SCANNED 07/07/19 15:15: PT 13.2, INR 1.0, APTT 28.5 07/07/19 15:15: Sodium 135 L, Potassium 3.9, Chloride 103, Carbon Dioxide 21.0, Anion Gap 11, BUN 19 H, Creatinine 1.56 H, Estim Creat Clear Calc 57.91, Est GFR (MDRD) Af Amer 61, Est GFR (MDRD) Non-Af 51 L, BUN/Creatinine Ratio 12.2, Glucose 140 H, Calcium 8.5, Total Bilirubin 0.70, AST 35, ALT 38, Alkaline Phosphatase 56, Total Protein 7.9, Albumin 3.6, Globulin 4.3 H, Albumin/Globulin Ratio 0.8 L 07/07/19 15:15: Lactic Acid 1.7 07/07/19 16:30: Urine Color Yellow, Urine Clarity Clear, Urine pH 5.0, Ur Specific [place] 1.020, Urine Protein 15 H, Urine Glucose (UA) Normal, Urine Ketones 5 H, Urine Occult Blood 25 H, Urine Nitrite Negative, Urine Bilirubin Negative, Urine Urobilinogen Normal, Ur Leukocyte Esterase Negative, Urine RBC 0 SEEN, Urine WBC 0 SEEN, Ur Squamous Epith Cells 0 SEEN, Urine Bacteria 0 SEEN, Urine Mucus [address] angiogram of the chest reviewed and showed a left hazy infiltrate in the lower lobe. Current Medications Azithromycin 500 mg/ Dextrose 255 mls @ 250 mls/hr IV X1 ONE Stop: 07/07/19 18:30 Last Admin: 07/07/19 17:58 Dose: 250 mls/hr Documented by: Assessment/Plan All Active Problems Foreign body in right foot (Acute) Right foot pain (Acute) 1. Sepsis. Secondary to pneumonia though cannot rule out other etiology such as viral illnesses. The patient's CAT scan did show an infiltrate in left lower lobe but I am concerned, given the current pandemic, that this could be COVID- 19. Discussed with Dr. Sharp. So the plan will be to put the patient in droplet isolation for now and that if he gets better than that isolation could be removed as this would more likely be a bacterial pneumonia. Given the recent CT of this virus, I will place a consult to Dr. Sharp for further assistance 2. Pneumonia, suspected pneumococcal: Plan is for azithromycin and ceftriaxone. Pulmonary toilet with bronchodilators and guaifenesin. Check urinary antigens for Streptococcus and Legionella. 3. Hypertension: Controlled. Continue with home medications. Patient has MATTHEW inhibitor and an angiotensin receptor ellyn. Will hold off on the valsartan unless we confirmation that he is actually on that medication and not the lisinopril. 4. VTE prophylaxis: Moderate risk. Enoxaparin. Inpatient E&M: 52879 In Hosp L3
[2019-07-07] MEDS: 0.9% Normal Saline 1,000 ML 150 ML IV (18:52)
[2019-07-07] MEDS: MELATONIN 10 MG TABLET 5 MG PO (21:22)
[2019-07-07] MEDS: guaiFENesin 1,200 MG Tablet 1200 MG PO (21:22)
[2019-07-07] MEDS: hydrOXYzine PAM 25 MG Capsule PO (21:22)
[2019-07-07 22:01] LABS: Bedside Glucose 121 mg/dL (70-110)
[2019-07-07] MEDS: Ipratropium/Albuterol Sulfate 3 ML AMPUL.NEB INHALATION (22:41)
[2019-07-08 03:28] VITALS: BP 118/69; PULSE 94; RESP 20; TEMP 36.8; O2SAT 94
[2019-07-08 06:36] LABS: Absolute Neutrophil Count 2.3 X10^3/uL (2.0-7.7); Basophil# 0.01 X10^3/uL; Basophil% 0.3 % (0-1); Eosinophil# 0.09 X10^3/uL; Eosinophils% 2.7 % (0-5); Hematocrit 40.4 % (40-54); Hemoglobin 13.2 g/dL (13.0-16.5); Lymphocyte % 14.7 % (19-41); Mean Corp Hgb Conc 32.7 g/dL (32-36); Mean Corpuscular Hgb 27.7 pg (27.0-32.0); Mean Corpuscular Volume 84.9 fL (80-94); Mean Platelet Vol. 9.1 fl (6.2-12.0); Monocyte# 0.45 X10^3/uL; Monocyte% 13.3 % (0-10); NRBC Flagged by Analyzer 0 % (0-5); Neutrophil # 2.32 X10^3/uL (2.7-7.7); Neutrophil % 68.4 % (47-70); POSITIVE DIFFERENTIAL YES; Platelet Count 186 K/mm3 (150-450); RBC Distribution Width CV 13.6 % (11.6-14.6); RBC Distribution Width SD 42.5 fl (35.1-43.9); Red Blood Count 4.76 M/mm3 (4.6-6.2); White Blood Count 3.4 K/mm3 (4.4-11.0)
[2019-07-08] MEDS: Pantoprazole Sodium 20 MG Tablet PO (06:51)
[2019-07-08 06:57] LABS: Anion Gap 5 (5-15); BUN 15 mg/dL (7-18); BUN/Creat Ratio 11.1 RATIO (10-20); Chloride 108 mmol/L (98-107); Creatinine, Serum 1.35 mg/dL (0.70-1.30); EST Glomerular Filtration Rate 60 mL/min (>60); Est Glom Filt Rate - Afr Amer 72 mL/min (>60); Estimated Creatinine Clearance 66.92 ml/min; Glucose 96 mg/dL (74-106); Potassium 3.8 mmol/L (3.5-5.1); Sodium Level 138 mmol/L (136-145)
[2019-07-08 07:07] LABS: Differential Indicated SCAN CRITERIA MET
[2019-07-08 07:08] LABS: Differential Comment SCANNED; Platelet Estimate ADEQUATE (ADEQ); Reactive Lymphocyte RARE
[2019-07-08 07:48] VITALS: PULSE 90; RESP 16; O2SAT 95
[2019-07-08] MEDS: Ipratropium/Albuterol Sulfate 3 ML AMPUL.NEB INHALATION ×2 (07:48→11:43)
--- NOTE | 2019-07-08 08:30 | PN_ITS ---
Subjective: Doing well, feels better than yesterday. Fever has resolved and he does not feel short of breath anymore. Vitals/I&O's: Vital Signs Temp Pulse Resp BP Pulse Ox 98.2 F 94 20 H 118/69 94 07/08/19 03:28 07/08/19 03:28 07/08/19 03:28 07/08/19 03:28 07/08/19 03:28 Oxygen Flow Rate (L/min) 2 Oxygen Delivery Method Room Air Weight: 312 lb 2.793 oz Body Mass Index (BMI) 46.0 Intake and Output for Last 24 Hours 07/06/19 07/07/19 07/08/19 23:59 23:59 23:59 Intake Total 2455 / 2455 1577.5 / 1577.5 Output Total 125 / 125 Balance 2330 / 2330 1577.5 / 1577.5 General: Alert, Oriented x3, Cooperative, No apparent distress HEENT: Atraumatic, PERRLA, EOMI, Normocephalic Oral: Dry Mucosa Neck: Supple, No JVD Lungs: Clear to auscultation, Normal air movement, No rhonchi, No wheeze, No rales, Diminished Cardiovascular: Regular rate, Regular Rhythm, Normal S1, Normal S2, No murmurs Abdomen: Soft, Non Tender, Non-Distended, No Hepato-splenomegaly, Obese Extremities: No edema, Capillary Refill Less than 3 Seconds Skin: No rashes, No breakdown Neurological: Neuro grossly intact, Sensory exam intact to light touch and pain Psych/Mental Status: Normal Affect, Appropriate Microbiology Past 72 Hours 07/07/19 18:30 Urine, Clean Catch Streptococcus pneumoniae Antigen (M - Final 07/07/19 18:30 Urine, Clean Catch Legionella Antigen - Final 07/07/19 15:35 Mucosa - Nose Influenza Types A,B Direct FA (JAMIR) - Final Laboratory Results 07/07/19 15:15: WBC 6.2, RBC 5.33, Hgb 14.8, Hct 44.6, MCV 83.7, MCH 27.8, MCHC 33.2, RDW Std Deviation 41.2, RDW Coeff of Purvi 13.5, Plt Count 214, MPV 9.4, Immature Gran % (Auto) 0.800, Neut % (Auto) 87.4 H, Lymph % (Auto) 4.5 L, [place] % (Auto) 5.8, Eos % (Auto) 1.3, Baso % (Auto) 0.2, Absolute Neuts (auto) 5.4, Absolute Lymphs (auto) 0.28 L, Nucleated RBC % 0, Differential Comment SCANNED 07/07/19 15:15: PT 13.2, INR 1.0, APTT 28.5 07/07/19 15:15: Sodium 135 L, Potassium 3.9, Chloride 103, Carbon Dioxide 21.0, Anion Gap 11, BUN 19 H, Creatinine 1.56 H, Estim Creat Clear Calc 57.91, Est GFR (MDRD) Af Amer 61, Est GFR (MDRD) Non-Af 51 L, BUN/Creatinine Ratio 12.2, Glucose 140 H, Calcium 8.5, Total Bilirubin 0.70, AST 35, ALT 38, Alkaline Phosphatase 56, Total Protein 7.9, Albumin 3.6, Globulin 4.3 H, Albumin/Globulin Ratio 0.8 L 07/07/19 15:15: Lactic Acid 1.7 07/07/19 16:30: Urine Color Yellow, Urine Clarity Clear, Urine pH 5.0, Ur Specific [place] 1.020, Urine Protein 15 H, Urine Glucose (UA) Normal, Urine Ketones 5 H, Urine Occult Blood 25 H, Urine Nitrite Negative, Urine Bilirubin Negative, Urine Urobilinogen Normal, Ur Leukocyte Esterase Negative, Urine RBC 0 SEEN, Urine WBC 0 SEEN, Ur Squamous Epith Cells 0 SEEN, Urine Bacteria 0 SEEN, Urine Mucus 0 SEEN 07/07/19 21:45: POC Glucose 121 H 07/08/19 06:12: WBC 3.4 L, RBC 4.76, Hgb 13.2, Hct 40.4, MCV 84.9, MCH 27.7, MCHC 32.7, RDW Std Deviation 42.5, RDW Coeff of Purvi 13.6, Plt Count 186, MPV 9.1, Immature Gran % (Auto) 0.600, Neut % (Auto) 68.4, Lymph % (Auto) 14.7 L, [place] % (Auto) 13.3 H, Eos % (Auto) 2.7, Baso % (Auto) 0.3, Absolute Neuts (auto) 2.3, Absolute Lymphs (auto) 0.50 L, Nucleated RBC % 0, Differential Comment SCANNED, Diff Path Review May foll, Reactive Lymphocytes RARE, Platelet Estimate ADEQUATE 07/08/19 06:12: Sodium 138, Potassium 3.8, Chloride 108 H, Carbon Dioxide 25.0, Anion Gap 5, BUN 15, Creatinine 1.35 H, Estim Creat Clear Calc 66.92, Est GFR (MDRD) Af Amer 72, Est GFR (MDRD) Non-Af 60, BUN/Creatinine Ratio 11.1, Glucose 96, Calcium 8.0 L Current Medications Acetaminophen (Tylenol) 650 mg PO Q6H PRN PRN PRN Reason: Pain Score 1-10/Temp > 100.7 F Albuterol Sulfate (Ventolin Aerosols) 2.5 mg INHALATION Q2H PRN PRN PRN Reason: Shortness of Breath/Wheezing Albuterol/Ipratropium (Duoneb) 3 ml INHALATION Q4H.RT [facility] Last Admin: 07/08/19 07:48 Dose: 3 ml Documented by: Amlodipine Besylate (Norvasc) 10 mg PO DAILY [facility] Dextrose (D50w Syringe) 0 gm IV X1 PRN; Protocol PRN Reason: Hypoglycemia Enoxaparin Sodium (Lovenox) 40 mg SC DAILY [facility] Glucagon () 1 mg IM .X1 PRN PRN Reason: Hypoglycemia Guaifenesin (Mucinex) 1,200 mg PO BID [facility] Last Admin: 07/07/19 21:22 Dose: 1,200 mg Documented by: Hydroxyzine Pamoate (Vistaril Pamoate Capsule) 25 mg PO QHS [facility] Last Admin: 07/07/19 21:22 Dose: 25 mg Documented by: Ceftriaxone Sodium 2 gm/ (Sodium Chloride) 50 mls @ 100 mls/hr IV Q24 [facility] Stop: 07/15/19 10:01 Azithromycin 500 mg/ Dextrose 255 mls @ 250 mls/hr IV Q24 [facility] Stop: 07/13/19 10:01 Ibuprofen (Motrin) 400 mg PO Q4H PRN PRN PRN Reason: Pain Score 1-10/Temp > 100.7 F Insulin Human Lispro (Humalog Kwikpen (Bkc)) 0 unit SC TIDAC [facility]; Protocol Last Admin: 07/08/19 08:16 Dose: Not Given Documented by: Lisinopril (Zestril) 30 mg PO DAILY [facility] Losartan Potassium (Cozaar) 25 mg PO DAILY [facility] Melatonin (Melatonin) 5 mg PO QHS PRN PRN Reason: INSOMNIA Last Admin: 07/07/19 21:22 Dose: 5 mg Documented by: Ondansetron HCl (Zofran) 4 mg IV Q8H PRN PRN PRN Reason: NAUSEA/VOMITING Pantoprazole Sodium (Protonix) 20 mg PO DAILY [facility] Last Admin: 07/08/19 06:51 Dose: 20 mg Documented by: Quetiapine Fumarate (Seroquel) 50 mg PO DAILY [facility] Sertraline HCl (Zoloft) 50 mg PO DAILY [facility] Sodium Chloride () 10 - 40 ml IV UD PRN PRN Reason: SALINE FLUSH Medical Necessity - Tobacco Use Smoking Status: Former smoker Tobacco Use: Non-smoker Assessment/Plan All Active Problems (Last Updated 07/07/19 @ 18:[address] Beto Ruelas, DO) Foreign body in right foot (Acute) Right foot pain (Acute) 1. Sepsis secondary to community-acquired pneumonia -He had a consolidation in the left lower lobe on CT -He has improved with Rocephin and azithromycin, coronavirus testing is likely not necessary as we have a alternative diagnosis -Appreciate ID input -Flu swab was negative, blood cultures are still pending 2. HTN/HLD/morbid obesity -Blood pressure is controlled -Continue with his home blood pressure medications -Discussed lifestyle modifications for his BMI of 46 3. Depression/anxiety -Stable -Continue with Seroquel, Zoloft, hydroxyzine 4. GERD -Stable -Continue with PPI DVT: Lovenox Inpatient E&M: [id number] [facility] Hosp L2
[2019-07-08 09:44] LABS: Pathologist Review Reviewed
[2019-07-08 09:46] VITALS: BP 125/77; PULSE 99; RESP 18; TEMP 36.5; O2SAT 95
[2019-07-08] MEDS: QUEtiapine 25 MG Tablet 50 MG PO (09:54)
[2019-07-08] MEDS: Enoxaparin 40 MG/0.4 ML Syringe SC (09:54)
[2019-07-08] MEDS: Losartan Potassium 25 MG Tablet PO (09:54)
[2019-07-08] MEDS: Sertraline 50 MG Tablet PO (09:54)
[2019-07-08] MEDS: guaiFENesin 1,200 MG Tablet 1200 MG PO (09:54)
[2019-07-08] MEDS: Lisinopril 10 MG Tablet 30 MG PO (09:54)
[2019-07-08] MEDS: amLODIPine 10 MG Tablet PO (09:54)
--- NOTE | 2019-07-08 10:00 | PCM.HP.ID ---
Problem List (1) CAP (community acquired pneumonia) Status: Acute Reason for Consult: CAP Consulted by: Dr. Ruelas History of Present Illness: The patient is a 48 year old M with minimal PMH, presented with 5-6 days of cough, fatigue, mild aches, some dyspnea, headache. Developed fever, came to ED, admitted on azithro/ceftriaxone. Feeling better today, no fever overnight. Some sputum now, no aches other than chronic OA. No sick contacts, lives alone, on disability, no travel or high risk exposures Full ROS performed and neg except as noted above - Medical History Allergies/Adverse Reactions: Allergies Sulfa (Sulfonamide Antibiotics) Allergy (Verified 02/05/19 11:37) Unknown Home Medications: Ambulatory Orders Medication Instructions Recorded Hydroxyzine HCl 25 mg PO QHS 02/04/19 Lisinopril [Zestril] 30 mg PO DAILY 02/04/19 Omeprazole [Prilosec] 20 mg PO DAILY 02/04/19 Quetiapine Fumarate [Seroquel] 50 mg PO DAILY 02/04/19 Sertraline HCl [Zoloft] 50 mg PO DAILY 02/04/19 Amlodipine [Norvasc] 10 mg PO DAILY 07/07/19 Valsartan 80 mg PO DAILY 07/07/19 - Social History SMOKING STATUS:: Former smoker Vital Signs Temp Pulse Resp BP Pulse Ox 97.7 F L 99 18 125/77 H 95 07/08/19 09:46 07/08/19 09:46 07/08/19 09:46 07/08/19 09:46 07/08/19 09:46 Oxygen Flow Rate (L/min) 2 Oxygen Delivery Method Room Air Weight: 141.6 kg Body Mass Index (BMI) 46.0 Microbiology Past 72 Hours 07/07/19 18:30 Streptococcus pneumoniae Antigen (M - Final Urine, Clean Catch 07/07/19 18:30 Legionella Antigen - Final Urine, Clean Catch 07/07/19 15:35 Influenza Types A,B Direct FA (JAMIR) - Final Mucosa - Nose Laboratory Tests Past 24 Hrs 07/07/19 07/07/19 07/07/19 15:15 15:15 15:15 WBC 6.2 RBC 5.33 Hgb 14.8 Hct 44.6 MCV 83.7 MCH 27.8 MCHC 33.2 RDW Std Deviation 41.2 RDW Coeff of Purvi 13.5 Plt Count 214 MPV 9.4 Immature Gran % (Auto) 0.800 Neut % (Auto) 87.4 H Lymph % (Auto) 4.5 L [place] % (Auto) 5.8 Eos % (Auto) 1.3 Baso % (Auto) 0.2 Absolute Neuts (auto) 5.4 Absolute Lymphs (auto) 0.28 L Nucleated RBC % 0 Differential Comment SCANNED Diff Path Review Reactive Lymphocytes Platelet Estimate PT 13.2 INR 1.0 APTT 28.5 Sodium 135 L Potassium 3.9 Chloride 103 Carbon Dioxide 21.0 Anion Gap 11 BUN 19 H Creatinine 1.56 H Estim Creat Clear Calc 57.91 Est GFR (MDRD) Af Amer 61 Est GFR (MDRD) Non-Af 51 L BUN/Creatinine Ratio 12.2 Glucose 140 H Lactic Acid Calcium 8.5 Total Bilirubin 0.70 AST 35 ALT 38 Alkaline Phosphatase 56 Total Protein 7.9 Albumin 3.6 Globulin 4.3 H Albumin/Globulin Ratio 0.8 L Urine Color Urine Clarity Urine pH Ur Specific [place] Urine Protein Urine Glucose (UA) Urine Ketones Urine Occult Blood Urine Nitrite Urine Bilirubin Urine Urobilinogen Ur Leukocyte Esterase Urine RBC Urine WBC Ur Squamous Epith Cells Urine Bacteria Urine Mucus 07/07/19 07/07/19 07/08/19 15:15 16:30 06:12 WBC 3.4 L RBC 4.76 Hgb 13.2 Hct 40.4 MCV 84.9 MCH 27.7 MCHC 32.7 RDW Std Deviation 42.5 RDW Coeff of Purvi 13.6 Plt Count 186 MPV 9.1 Immature Gran % (Auto) 0.600 Neut % (Auto) 68.4 Lymph % (Auto) 14.7 L [place] % (Auto) 13.3 H Eos % (Auto) 2.7 Baso % (Auto) 0.3 Absolute Neuts (auto) 2.3 Absolute Lymphs (auto) 0.50 L Nucleated RBC % 0 Differential Comment SCANNED Diff Path Review Reviewed Reactive Lymphocytes RARE Platelet Estimate ADEQUATE PT INR APTT Sodium Potassium Chloride Carbon Dioxide Anion Gap BUN Creatinine Estim Creat Clear Calc Est GFR (MDRD) Af Amer Est GFR (MDRD) Non-Af BUN/Creatinine Ratio Glucose Lactic Acid 1.7 Calcium Total Bilirubin AST ALT Alkaline Phosphatase Total Protein Albumin Globulin Albumin/Globulin Ratio Urine Color Yellow Urine Clarity Clear Urine pH 5.0 Ur Specific [place] 1.020 Urine Protein 15 H Urine Glucose (UA) Normal Urine Ketones 5 H Urine Occult Blood 25 H Urine Nitrite Negative Urine Bilirubin Negative Urine Urobilinogen Normal Ur Leukocyte Esterase Negative Urine RBC 0 SEEN Urine WBC 0 SEEN Ur Squamous Epith Cells 0 SEEN Urine Bacteria 0 SEEN Urine Mucus 0 SEEN 07/08/19 06:12 WBC RBC Hgb Hct MCV MCH MCHC RDW Std Deviation RDW Coeff of [place]vi Plt Count MPV Immature Gran % (Auto) Neut % (Auto) Lymph % (Auto) [place] % (Auto) Eos % (Auto) Baso % (Auto) Absolute Neuts (auto) Absolute Lymphs (auto) Nucleated RBC % Differential Comment Diff Path Review Reactive Lymphocytes Platelet Estimate PT INR APTT Sodium 138 Potassium 3.8 Chloride 108 H Carbon Dioxide 25.0 Anion Gap 5 BUN 15 Creatinine 1.35 H Estim Creat Clear Calc 66.92 Est GFR (MDRD) Af Amer 72 Est GFR (MDRD) Non-Af 60 BUN/Creatinine Ratio 11.1 Glucose 96 Lactic Acid Calcium 8.0 L Total Bilirubin AST ALT Alkaline Phosphatase Total Protein Albumin Globulin Albumin/Globulin Ratio Urine Color Urine Clarity Urine pH Ur Specific [place] Urine Protein Urine Glucose (UA) Urine Ketones Urine Occult Blood Urine Nitrite Urine Bilirubin Urine Urobilinogen Ur Leukocyte Esterase Urine RBC Urine WBC Ur Squamous Epith Cells Urine Bacteria Urine Mucus - Other Studies Radiology: [] reviewed Other Studies: [] Route of nutrition/ use of supplements: [] Nutritional Intake: [] IV Site: [] Ivory Catheter: [] - Physical Exam General: Alert, Oriented x3, Cooperative, No apparent distress HEENT: Atraumatic, PERRLA, EOMI Neck: Supple, No Nodes Lungs: Clear to auscultation, Normal air movement Cardiovascular: Regular rate, Regular Rhythm Abdomen: Soft, Non Tender, Non-Distended Extremities: No edema Skin: No rashes Musculoskeletal: No Tenderness to Palpation of Joints or Extremities Neurological: Cranial nerves II-XII grossly intact - Assessment/Plan Antibiotics: [] Assessment/Plan: [] fever due to CAP, much improved, low suspicion for COVID19, ok for d/c on 5 days of omnicef. Will follow, thank you
--- NOTE | 2019-07-08 10:16 | DCINST_ITS ---
- Discharge Diagnoses Current Active Problems: Current Active and Chronic Problems (Last Updated 07/07/19 @ 18:[address] Beto Ruelas DO) CAP (community acquired pneumonia) (Acute) You will use the following diet at home:: Calorie/Carbohydrate Controlled (specify 1200, 1400, etc) - 1800 Your food should be the consistency of: Regular Your liquids should be the consistency of: Regular/Thin Discharge Activity: Return to Normal Activity Call your doctor if you observe: Fever of 101 or Higher, Shortness of breath, Dizziness, Fainting spells, Swelling in the ankles, Chest pain, Increased palpitations (irregular heartbeat) Allergies/Adverse Reactions: Allergies Sulfa (Sulfonamide Antibiotics) Allergy (Verified 02/05/19 11:37) Unknown Medications to take at Discharge Hydroxyzine HCl 25 mg PO QHS 02/04/19 Lisinopril [Zestril] 30 mg PO DAILY 02/04/19 Omeprazole [Prilosec] 20 mg PO DAILY 02/04/19 Quetiapine Fumarate [Seroquel] 50 mg PO DAILY 02/04/19 Sertraline HCl [Zoloft] 50 mg PO DAILY 02/04/19 Amlodipine [Norvasc] 10 mg PO DAILY 07/07/19 Valsartan 80 mg PO DAILY 07/07/19 Cefdinir [Omnicef [equiv]] 300 mg PO Q12H #10 cap 07/08/19 The following prescriptions were given: Cefdinir [Omnicef [equiv]] 300 mg PO Q12H #10 cap Transmission Status: Pending to [facility] Primary Care Physician: Wm Rubi MD [Primary Care Provider] - Please follow up with your Primary Care Physician in: 3-5 days Test Results: Test results from this visit will be discussed in further detail at your follow- up appointment, if applicable.
--- NOTE | 2019-07-08 10:17 | PCM.DC.SUM ---
Discharge Date and Diagnosis - Problem List Patient Problems: Active and Suspected Problems (Last Updated 07/07/19 @ 18:[address] Beto Ruelas DO) CAP (community acquired pneumonia) (Acute) Date of Admission: 07/07/19 Date of Discharge: 07/08/19 - Primary Discharge Diagnosis Active and Suspected Problems (Last Updated 07/07/19 @ 18:[address] Beto Ruelas DO) CAP (community acquired pneumonia) (Acute) Hospital Course and Treatment Imaging Results: CXR: IMPRESSION: Mild cardiomegaly. CTA Chest: IMPRESSION: No pulmonary embolus is detected. Left lower lobe pneumonia. Consults: ID Operations: None Procedures: None Summary of Care Provided: Per HPI: The patient is a 48 year old M who was in his eyak state of health up until this past when he started developing myalgias, arthralgias, headache, shortness of breath. Symptoms just did not improve and actually got worse. Patient presented to the ER and was noted to have a pulse ox of 88%. Here he was febrile, tachycardic and tachypneic. Patient was put on oxygen 2 L and did better. Patient had a CTA of his chest that showed left lower lobe infiltrate. He was started on Rocephin and azithromycin. Patient states that he has had the flu before after getting a flu shot last year. Patient denies any recent travel and denies any sick contacts. Hospital Course: 1. Sepsis secondary to community-acquired [id number] male who started having some myalgias and arthralgias as well as shortness of breath on presents with worsening symptoms. Initially when he presented he was 88% on room air and needed some oxygen however this was weaned off and removed overnight. He is feeling much better today and is oxygenating at 95% on room air. He is cough is still there however he says that his muscle pains is much better and that is likely now his chest arthritis in his back. He does not need any coronavirus testing. He has improved and remained afebrile with just antibiotics therefore he will be discharged home on 5 more days of Omnicef twice daily. I did discuss with him the risk benefits of discharge and he did express understanding. Need to follow-up with his PCP in 3 to 5 days. 2. His other medical diagnoses were evaluated and his home medications were continued where appropriate Patient Problems: Active and Suspected Problems (Last Updated 07/07/19 @ 18:[address] Beto Ruelas, DO) CAP (community acquired pneumonia) (Acute) - Physical Exam Vitals/I&O's: Vital Signs Temp Pulse Resp BP Pulse Ox 97.7 F L 99 18 125/77 H 95 07/08/19 09:46 07/08/19 09:46 07/08/19 09:46 07/08/19 09:46 07/08/19 09:46 Oxygen Flow Rate (L/min) 2 Oxygen Delivery Method Room Air Weight: 312 lb 2.793 oz Body Mass Index (BMI) 46.0 Intake and Output for Last 24 Hours 07/06/19 07/07/19 07/08/19 23:59 23:59 23:59 Intake Total 2455 / 2455 1577.5 / 1577.5 Output Total 125 / 125 Balance 2330 / 2330 1577.5 / 1577.5 Microbiology Past 72 Hours 07/07/19 18:30 Urine, Clean Catch Streptococcus pneumoniae Antigen (M - Final 07/07/19 18:30 Urine, Clean Catch Legionella Antigen - Final 07/07/19 15:35 Mucosa - Nose Influenza Types A,B Direct FA (JAMIR) - Final Laboratory Results 07/07/19 15:15: WBC 6.2, RBC 5.33, Hgb 14.8, Hct 44.6, MCV 83.7, MCH 27.8, MCHC 33.2, RDW Std Deviation 41.2, RDW Coeff of Purvi 13.5, Plt Count 214, MPV 9.4, Immature Gran % (Auto) 0.800, Neut % (Auto) 87.4 H, Lymph % (Auto) 4.5 L, [place] % (Auto) 5.8, Eos % (Auto) 1.3, Baso % (Auto) 0.2, Absolute Neuts (auto) 5.4, Absolute Lymphs (auto) 0.28 L, Nucleated RBC % 0, Differential Comment SCANNED 07/07/19 15:15: PT 13.2, INR 1.0, APTT 28.5 07/07/19 15:15: Sodium 135 L, Potassium 3.9, Chloride 103, Carbon Dioxide 21.0, Anion Gap 11, BUN 19 H, Creatinine 1.56 H, Estim Creat Clear Calc 57.91, Est GFR (MDRD) Af Amer 61, Est GFR (MDRD) Non-Af 51 L, BUN/Creatinine Ratio 12.2, Glucose 140 H, Calcium 8.5, Total Bilirubin 0.70, AST 35, ALT 38, Alkaline Phosphatase 56, Total Protein 7.9, Albumin 3.6, Globulin 4.3 H, Albumin/Globulin Ratio 0.8 L 07/07/19 15:15: Lactic Acid 1.7 07/07/19 16:30: Urine Color Yellow, Urine Clarity Clear, Urine pH 5.0, Ur Specific [place] 1.020, Urine Protein 15 H, Urine Glucose (UA) Normal, Urine Ketones 5 H, Urine Occult Blood 25 H, Urine Nitrite Negative, Urine Bilirubin Negative, Urine Urobilinogen Normal, Ur Leukocyte Esterase Negative, Urine RBC 0 SEEN, Urine WBC 0 SEEN, Ur Squamous Epith Cells 0 SEEN, Urine Bacteria 0 SEEN, Urine Mucus 0 SEEN 07/07/19 21:45: POC Glucose 121 H 07/08/19 06:12: WBC 3.4 L, RBC 4.76, Hgb 13.2, Hct 40.4, MCV 84.9, MCH 27.7, MCHC 32.7, RDW Std Deviation 42.5, RDW Coeff of Purvi 13.6, Plt Count 186, MPV 9.1, Immature Gran % (Auto) 0.600, Neut % (Auto) 68.4, Lymph % (Auto) 14.7 L, [place] % (Auto) 13.3 H, Eos % (Auto) 2.7, Baso % (Auto) 0.3, Absolute Neuts (auto) 2.3, Absolute Lymphs (auto) 0.50 L, Nucleated RBC % 0, Differential Comment SCANNED, Diff Path Review Reviewed, Reactive Lymphocytes RARE, Platelet Estimate ADEQUATE 07/08/19 06:12: Sodium 138, Potassium 3.8, Chloride 108 H, Carbon Dioxide 25.0, Anion Gap 5, BUN 15, Creatinine 1.35 H, Estim Creat Clear Calc 66.92, Est GFR (MDRD) Af Amer 72, Est GFR (MDRD) Non-Af 60, BUN/Creatinine Ratio 11.1, Glucose 96, Calcium 8.0 L Current Medications Acetaminophen (Tylenol) 650 mg PO Q6H PRN PRN PRN Reason: Pain Score 1-10/Temp > 100.7 F Albuterol Sulfate (Ventolin Aerosols) 2.5 mg INHALATION Q2H PRN PRN PRN Reason: Shortness of Breath/Wheezing Albuterol/Ipratropium (Duoneb) 3 ml INHALATION Q4H.RT [facility] Last Admin: 07/08/19 07:48 Dose: 3 ml Documented by: Amlodipine Besylate (Norvasc) 10 mg PO DAILY [facility] Last Admin: 07/08/19 09:54 Dose: 10 mg Documented by: Dextrose (D50w Syringe) 0 gm IV X1 PRN; Protocol PRN Reason: Hypoglycemia Enoxaparin Sodium (Lovenox) 40 mg SC DAILY [facility] Last Admin: 07/08/19 09:54 Dose: 40 mg Documented by: Glucagon () 1 mg IM .X1 PRN PRN Reason: Hypoglycemia Guaifenesin (Mucinex) 1,200 mg PO BID [facility] Last Admin: 07/08/19 09:54 Dose: 1,200 mg Documented by: Hydroxyzine Pamoate (Vistaril Pamoate Capsule) 25 mg PO QHS [facility] Last Admin: 07/07/19 21:22 Dose: 25 mg Documented by: Ceftriaxone Sodium 2 gm/ (Sodium Chloride) 50 mls @ 100 mls/hr IV Q24 [facility] Stop: 07/15/19 10:01 Last Admin: 07/08/19 09:50 Dose: 100 mls/hr Documented by: Azithromycin 500 mg/ Dextrose 255 mls @ 250 mls/hr IV Q24 [facility] Stop: 07/13/19 10:01 Last Admin: 07/08/19 09:50 Dose: 250 mls/hr Documented by: Ibuprofen (Motrin) 400 mg PO Q4H PRN PRN PRN Reason: Pain Score 1-10/Temp > 100.7 F Insulin Human Lispro (Humalog Kwikpen (Bkc)) 0 unit SC TIDAC [facility]; Protocol Last Admin: 07/08/19 08:16 Dose: Not Given Documented by: Lisinopril (Zestril) 30 mg PO DAILY [facility] Last Admin: 07/08/19 09:54 Dose: 30 mg Documented by: Losartan Potassium (Cozaar) 25 mg PO DAILY [facility] Last Admin: 07/08/19 09:54 Dose: 25 mg Documented by: Melatonin (Melatonin) 5 mg PO QHS PRN PRN Reason: INSOMNIA Last Admin: 07/07/19 21:22 Dose: 5 mg Documented by: Ondansetron HCl (Zofran) 4 mg IV Q8H PRN PRN PRN Reason: NAUSEA/VOMITING Pantoprazole Sodium (Protonix) 20 mg PO DAILY [facility] Last Admin: 07/08/19 06:51 Dose: 20 mg Documented by: Quetiapine Fumarate (Seroquel) 50 mg PO DAILY [facility] Last Admin: 07/08/19 09:54 Dose: 50 mg Documented by: Sertraline HCl (Zoloft) 50 mg PO DAILY [facility] Last Admin: 07/08/19 09:54 Dose: 50 mg Documented by: Sodium Chloride () 10 - 40 ml IV UD PRN PRN Reason: SALINE FLUSH Discharge Activity: Return to Normal Activity Call your doctor if you observe: Fever of 101 or Higher, Shortness of breath, Dizziness, Fainting spells, Swelling in the ankles, Chest pain, Increased palpitations (irregular heartbeat) Home Medications: Medications to take at Discharge Hydroxyzine HCl 25 mg PO QHS 02/04/19 Lisinopril [Zestril] 30 mg PO DAILY 02/04/19 Omeprazole [Prilosec] 20 mg PO DAILY 02/04/19 Quetiapine Fumarate [Seroquel] 50 mg PO DAILY 02/04/19 Sertraline HCl [Zoloft] 50 mg PO DAILY 02/04/19 Amlodipine [Norvasc] 10 mg PO DAILY 07/07/19 Valsartan 80 mg PO DAILY 07/07/19 Cefdinir [Omnicef [equiv]] 300 mg PO Q12H #10 cap 07/08/19 Following Prescrptions Were Given to Patient: Cefdinir [Omnicef [equiv]] 300 mg PO Q12H #10 cap Transmission Status: Pending to [facility] Primary Care Physician: Wm Rubi MD [Primary Care Provider] - Please follow up with your Primary Care Physician in: 3-5 days Disposition: Home Minutes spent on discharge:: 35 Patient Condition:: Stable Medical Necessity - Tobacco Use Smoking Status: Former smoker Tobacco Use: Non-smoker Meaningful Use Info Meaningful Use Diagnoses (Choose all that apply): None applicable Inpatient E&M: 21323 Disch Hosp
--- NOTE | 2019-07-08 11:03 | PHA.DC.MR ---
Pharmacy Service has performed discharge medication reconciliation for this patient. The patient's discharge medication list was reviewed for discrepancies and discrepancies were resolved. Home Medications Hydroxyzine HCl 25 mg PO QHS 02/04/19 Lisinopril [Zestril] 30 mg PO DAILY 02/04/19 Omeprazole [Prilosec] 20 mg PO DAILY 02/04/19 Quetiapine Fumarate [Seroquel] 50 mg PO DAILY 02/04/19 Sertraline HCl [Zoloft] 50 mg PO DAILY 02/04/19 Amlodipine [Norvasc] 10 mg PO DAILY 07/07/19 Valsartan 80 mg PO DAILY 07/07/19 Cefdinir [Omnicef [equiv]] 300 mg PO Q12H #10 cap 07/08/19
[2019-07-08 11:35] LABS: Bedside Glucose 89 mg/dL (70-110)
[2019-07-08 11:43] VITALS: PULSE 88; RESP 16
== END 2019-07-08 12:30 | disposition home or self-care (01) ==
LOC: ED 15:41 → PCU 18:04
PROVIDERS: Emergency Provider Emergency Medicine; PCP Family Medicine; Visit Provider Family Medicine
DX: A41.9 Sepsis, unspecified organism (principal); J18.9 Pneumonia, unspecified organism; Z87.891 Personal history of nicotine dependence; I10 Essential (primary) hypertension; Z79.899 Other long term (current) drug therapy; E78.5 Hyperlipidemia, unspecified; E66.01 Morbid (severe) obesity due to excess calories; Z68.42 Body mass index [BMI] 45.0-49.9, adult; Z71.3 Dietary counseling and surveillance; F32.9 Major depressive disorder, single episode, unspecified; F41.9 Anxiety disorder, unspecified; K21.9 Gastro-esophageal reflux disease without esophagitis
CPT/HCPCS: 36415; 71045; 71275; 80048; 80053; 81001; 82962; 83605; 85025; 85610; 85730; 87040; 87086; 87449; 87804; 93005; 94640; 96361; 96365; 96366; 96367; 96372; 99218; 99251; 99285; J7030; Q9967; A4216; G0378; G0463; J0696

== ENCOUNTER → 2019-10-14 | Outpatient (CLI) | payer MEDICARE, SELFPAY ==
[2019-07-07 18:36] VITALS: BMI 46.0
[2019-10-14 11:02] LABS: D-Dimer Quantitative (DVT/PE) 0.37 FEU/ug/m (0.27-0.49)
== END | disposition home or self-care (01) ==
LOC: LABSPEC 10:42
PROVIDERS: PCP Family Medicine; Referring Provider Family Medicine; Visit Provider Family Medicine
DX: R06.02 Shortness of breath (principal)
CPT/HCPCS: 85379

== ENCOUNTER 2019-11-27 10:13 | Emergency (ER) | payer MEDICARE, SELFPAY ==
[2019-07-07 18:36] VITALS: BMI 46.0
[2019-11-27 10:14] VITALS: BP 172/98; PULSE 120; RESP 18; TEMP 36.2; O2SAT 96; BMI 44.3
--- NOTE | 2019-11-27 10:27 | CT_ITS ---
STUDY: CT BRAIN WITHOUT CONTRAST REASON FOR EXAM: Male, 49 years old. WEAK/TIRED/LT EYE NUMBNESS RADIATION DOSAGE (If Supplied By Facility): CTDIvol = ( 44.99 ) mGy, DLP = ( 812.98 ) mGycm TECHNIQUE: Transaxial CT imaging of the brain was performed without administration of intravenous contrast material. Individualized dose optimization techniques were used for this CT. COMPARISON: No relevant priors. FINDINGS: Normal soft tissue structures. Normal calvarium. Normal size ventricles and extra-axial spaces for the patient''s age. Normal white matter tracts of the cerebral hemispheres. Normal basal ganglia and thalami. Normal brainstem. Normal cerebellum. There is no intracranial hemorrhage. There are no findings of an acute ischemic infarction. Minimal thickening along the medial wall of the left maxillary sinus. CT/Brain/Head without Contrast IMPRESSION: Normal unenhanced CT scan of the brain. Electronically Signed: Nael Duvall, at 12:19 EDT , Service support ,
--- NOTE | 2019-11-27 10:27 | EKG12_ITS ---
Test Reason : Blood Pressure : / mmHG Vent. Rate : 104 BPM Atrial Rate : 104 BPM P-R Int : 142 ms QRS Dur : 080 ms QT Int : 336 ms P-R-T Axes : 041 008 047 degrees QTc Int : 441 ms Sinus tachycardia Otherwise normal ECG Confirmed by JALEN OCAMPO, DENTON ([id number]), editorial cartoonist ASPEN CARMONA ([id number]) on 12/01/2019 9:32:48 AM Referred By: NICHO Confirmed By:RADAMES RAO MD
--- NOTE | 2019-11-27 10:37 | ED.VIS.GEN ---
History of Present Illness Chief Complaint: Fatigue Informant: Patient Onset: Days Context: Gradual Onset Timing: Intermittent Current Severity: Moderate Maximum Severity: Moderate Narrative: Patient is a 49-year-old male with medical history significant for diabetes and hypertension that presents to the emergency department multiple complaints. He states for the past few months, has been having intermittent paresthesias in his left hand. He states over the past few days, he is also noticed some numbness above his left eye. He denies any changes in vision. He also states that he is been more fatigued. He is had no trouble with speech or ambulation. He states it lasts a few seconds and then goes away. He has had no recent change in his medications. He has had a mild cough, but feels this is chronic because of his smoking history. Prior similar symptoms: No Recent Illness/Hospitalization: No Past Medical History - Allergies and Home Meds Allergies/Adverse Reactions: Allergies Sulfa (Sulfonamide Antibiotics) Allergy (Verified 02/05/19 11:37) Unknown Primary Care Physician: Wm Rubi MD [Primary Care Provider] - Prior records reviewed: Yes Past Medical History: - - Diabetes, hypertension Surgical History: noncontributory, tonsillectomy Smoking Status: Former smoker - Family History Paternal Family History: Reports: Pulmonary Disease Review of Systems General: Denies: Chills, Fever, Sweats Eyes: Denies: Visual changes - bilaterally, Diplopia ENT: Denies: Rhinorrhea, Sore throat Cardiovascular: Denies: Chest pain, Palpitations Respiratory: Denies: Dyspnea, Cough, Dyspnea on exertion Gastrointestinal: Denies: Abdominal pain, Nausea, Vomiting, Diarrhea, Melena, Hematochezia Genitourinary: Denies: Dysuria, Hematuria, Frequency Musculoskeletal: Denies: Back pain, Extremity Pain Skin: Denies: Rash, Wounds Neurological: Reports: Parasthesia, Numbness. Denies: Headache, Weakness Physical Exam Vital Signs/Narrative: Vital Signs Temp Pulse Resp BP Pulse Ox 11/27/19 10:14 97.1 F L 120 H 18 172/98 H 96 Inital Vital Signs reviewed: Yes General: Well nourished, Well developed, No Acute Distress Head: Normocephalic, Atraumatic Eyes: Perrl, EOMI ENT: Moist mucous membranes, No rhinorrhea Neck: Supple, Nontender Cardiovascular: Regular rate, Regular rhythm, No murmurs Respiratory: No distress, CTA bilaterally, Chest nontender Abdomen: Soft, Nontender, Nondistended, Normal bowel sounds Back: Nontender, Normal Inspection Extremities: Nontender, No edema Skin: Normal color, No rash Neurological: Alert, Oriented x3, Cranial nerves II-XII grossly intact, Normal Strength, Normal Sensation Psychological: Normal affect, Normal Mood Diagnostic/Tx/Re-eval Clinical Impression(s) from Imaging Studies Brain CT 11/27/19 10:27 IMPRESSION: Normal unenhanced CT scan of the brain. Electronically Signed: Nael Duvall, at 12:19 EDT , Service support , Chest X-Ray 11/27/19 11:50 IMPRESSION: No acute cardiopulmonary findings Electronically Signed: Bteo Milton, DO at 12:12 EDT Tel , Service support , Abnormal Lab Results 11/27/19 11/27/19 11:08 11:08 WBC 5.8 RBC 5.41 Hgb 15.2 Hct 46.4 MCV 85.8 MCH 28.1 MCHC 32.8 RDW Std Deviation 46.9 H RDW Coeff of Purvi 15.2 H Plt Count 258 MPV 9.1 Immature Gran % (Auto) 0.500 Neut % (Auto) 71.7 H Lymph % (Auto) 15.4 L [place] % (Auto) 8.3 Eos % (Auto) 3.6 Baso % (Auto) 0.5 Absolute Neuts (auto) 4.1 Absolute Lymphs (auto) 0.89 Nucleated RBC % 0 Sodium 137 Potassium 4.2 Chloride 105 Carbon Dioxide 28.0 Anion Gap 4 L BUN 14 Creatinine 1.17 Estim Creat Clear Calc 76.37 Est GFR (MDRD) Af Amer 85 Est GFR (MDRD) Non-Af 70 BUN/Creatinine Ratio 12.0 Glucose 156 H Calcium 8.7 Total Bilirubin 0.30 AST 38 H ALT 55 Alkaline Phosphatase 64 Total Protein 7.9 Albumin 3.8 Globulin 4.1 Albumin/Globulin Ratio 0.9 - Medical Decision Making The patient presents with multiple complaints. He is intermittent paresthesias in the left hand for months. He is also had twitching of his left eyelid. His NIH is 0. Metabolic work-up was pursued given the patient's comorbidities. Head CT was obtained was unremarkable. Screening labs are relatively unremarkable. Patient ambulated through the emergency department without any symptoms. At this point, I do not feel this represents TIA or stroke. I do feel that he safe for outpatient therapy. He is comfortable with this plan of care. I did spend time counseling the patient on concerning symptoms and reasons to return. Impression 1. Left hand paresthesias ED Disposition - Plan for ED Patient: Instructions: ED Weakness [facility] Referrals: Wm Rubi MD [Primary Care Provider] -
--- NOTE | 2019-11-27 11:12 | ED.RN ---
PT UNABLE TO PROVIDE URINE SAMPLE AT THIS TIME.
[2019-11-27 11:14] LABS: Absolute Lymphocyte Count 0.89 X10^3/uL (0.83-4.51); Absolute Neutrophil Count 4.1 X10^3/uL (2.0-7.7); Basophil# 0.03 X10^3/uL; Basophil% 0.5 % (0-1); Eosinophil# 0.21 X10^3/uL; Eosinophils% 3.6 % (0-5); Hematocrit 46.4 % (40-54); Hemoglobin 15.2 g/dL (13.0-16.5); Lymphocyte # 0.89 X10^3/ul (4.0); Lymphocyte % 15.4 % (19-41); Mean Corp Hgb Conc 32.8 g/dL (32-36); Mean Corpuscular Hgb 28.1 pg (27.0-32.0); Mean Corpuscular Volume 85.8 fL (80-94); Mean Platelet Vol. 9.1 fl (6.2-12.0); Monocyte# 0.48 X10^3/uL; Monocyte% 8.3 % (0-10); NRBC Flagged by Analyzer 0 % (0-5); Neutrophil # 4.14 X10^3/uL (2.7-7.7); Neutrophil % 71.7 % (47-70); Platelet Count 258 K/mm3 (150-450); RBC Distribution Width CV 15.2 % (11.6-14.6); RBC Distribution Width SD 46.9 fl (35.1-43.9); Red Blood Count 5.41 M/mm3 (4.6-6.2); White Blood Count 5.8 K/mm3 (4.4-11.0)
[2019-11-27 11:34] LABS: ALB/GLOB Ratio 0.9 RATIO (0.9-2.4); AST(SGOT) 38 U/L (15-37); Alanine Aminotransfer ALT/SGPT 55 U/L (16-61); Albumin, Serum 3.8 g/dL (3.2-5.0); Alkaline Phosphatase 64 U/L (45-117); Anion Gap 4 (5-15); BUN 14 mg/dL (7-18); Calcium,Total 8.7 mg/dL (8.5-10.1); Chloride 105 mmol/L (98-107); Creatinine, Serum 1.17 mg/dL (0.70-1.30); EST Glomerular Filtration Rate 70 mL/min (>60); Est Glom Filt Rate - Afr Amer 85 mL/min (>60); Estimated Creatinine Clearance 76.37 ml/min; Globulin 4.1 g/dL (2.2-4.2); Glucose 156 mg/dL (74-106); Potassium 4.2 mmol/L (3.5-5.1); Protein, Total 7.9 g/dL (6.4-8.2); Sodium Level 137 mmol/L (136-145)
--- NOTE | 2019-11-27 11:50 | RAD_ITS ---
STUDY: X-RAY CHEST REASON FOR EXAM: Male, 49 years old. fatigue, left eye numbness TECHNIQUE: Single AP portable view of the chest. COMPARISON: 07/07/2019. FINDINGS: Mild cardiomegaly. Pulmonary vascularity unremarkable. Aorta unremarkable. No focal patchy airspace opacities. No pleural effusions. Minimally elevated right hemidiaphragm. Mild atelectasis. Upper abdomen unremarkable. Osseous structures intact with mild generative features. No pneumothorax. RAD/Chest 1 View (Portable) IMPRESSION: No acute cardiopulmonary findings Electronically Signed: Beto Milton DO at 12:12 EDT Tel , Service support ,
[2019-11-27 12:28] LABS: Bacteria 0 SEEN /hpf (None Seen); Mucous, Urine 0 SEEN /hpf (<or=2+); Red Blood Cells-Urine 0 SEEN /hpf (0-5); Squamous Epithelial Cells - UA 0 SEEN /hpf (0-5)
[2019-11-27 12:36] VITALS: BP 146/75; PULSE 106; RESP 17
[2019-11-27 12:40] LABS: Color, Urine Yellow (Yellow); Glucose, Dipstick 50 mg/dl (Normal); Ketone-Dipstick Negative (Negative); Leukocyte Esterase-Dipstick 25 /ul (Negative); Nitrite-Dipstick Negative (Negative); Occult Blood-Urine Negative /ul (Negative); Protein-Dipstick 15 mg/dl (Negative); Specific Gravity, Urine 1.015 (1.002-1.030); Urine Bilirubin Dipstick Negative (Negative); Urine Clarity Sl. Cloudy (Clear); Urine Urobilinogen Normal (Normal)
[2019-11-27 12:53] LABS: White Blood Cells 0-5 SEEN /hpf (0-5)
== END 2019-11-27 12:39 | disposition home or self-care (01) ==
LOC: ED 11:25
PROVIDERS: Emergency Provider Emergency Medicine; PCP Family Medicine
DX: R20.2 Paresthesia of skin (principal); I10 Essential (primary) hypertension; E11.9 Type 2 diabetes mellitus without complications; Z79.899 Other long term (current) drug therapy; Z87.891 Personal history of nicotine dependence
CPT/HCPCS: 70450; 71045; 80053; 81001; 85025; 93005; 96360; 99284; J7030

== ENCOUNTER → 2019-12-01 | Outpatient (CLI) | payer MEDICARE, SELFPAY ==
[2019-11-27 10:14] VITALS: BMI 44.3
[2019-12-01 18:41] LABS: Ferritin 63 ng/mL (26-388)
[2019-12-02 11:32] LABS: PTHIN 71.3 pg/mL (18.4-80.1)
[2019-12-03 08:17] LABS: Thyroid Peroxidase AB 14 IU/mL (0-34)
[2019-12-04 07:38] LABS: Anti-Nuclear Antibody Test Negative (.)
== END | disposition home or self-care (01) ==
LOC: MTLAB 14:49
PROVIDERS: PCP Family Medicine; Referring Provider Dermatology Pediatric Dermatology; Visit Provider Dermatology Pediatric Dermatology
DX: L30.9 Dermatitis, unspecified (principal); Z79.899 Other long term (current) drug therapy
CPT/HCPCS: 36415; 82310; 82728; 83970; 86038; 86376

== ENCOUNTER → 2019-12-17 13:40 | Outpatient (CLI) | payer MEDICARE, SELFPAY ==
[2019-11-27 10:14] VITALS: BMI 44.3
== END ==
PROVIDERS: PCP Family Medicine; Visit Provider Physician Assistant
DX: R06.02 Shortness of breath (principal)
CPT/HCPCS: 94799

== ENCOUNTER 2020-01-27 13:36 | Emergency (ER) | payer MEDICARE, SELFPAY ==
[2020-01-27 13:36] VITALS: BP 162/99; PULSE 117; RESP 20; TEMP 36; O2SAT 95; BMI 50.2
--- NOTE | 2020-01-27 13:59 | EKG12_ITS ---
Test Reason : SOB Blood Pressure : / mmHG Vent. Rate : 096 BPM Atrial Rate : 096 BPM P-R Int : 152 ms QRS Dur : 084 ms QT Int : 348 ms P-R-T Axes : 052 014 034 degrees QTc Int : 439 ms Normal sinus rhythm Normal ECG Confirmed by ARMAND OCAMOP, BERNABE ([id number]), communications editor ASPEN CARMONA ([id number]) on 01/28/2020 9:40:33 AM Referred By: CL Confirmed By:BERNABE ACUNA MD
--- NOTE | 2020-01-27 14:00 | ED.DCSUM_ITS ---
History of Present Illness Chief Complaint: Shortness of Breath Informant: Patient Narrative: 49-year-old male with past medical history of hypertension and GERD presents with concern for shortness of breath. States is been short of breath over the past 3 to 4 months. States is been worsening over the past 2 to 3 days. States he was diagnosed with pneumonia 3 to 4 months ago. States he been feeling well but then over the past month or so he has been very tired throughout the day. Admits to dyspnea on exertion. Denies any fever, chills, cough. No sick contacts. Also states he has had drainage and redness to his left eye. States this began approximately 3 months ago. Is been getting progressively worse. Denies any vision changes. Denies any headache or neck stiffness. Denies any nausea, vomiting, diarrhea. Patient is a former smoker. Denies any drugs or alcohol. Past Medical History - Allergies and Home Meds Allergies/Adverse Reactions: Allergies Sulfa (Sulfonamide Antibiotics) Allergy (Verified 01/27/20 14:47) Unknown Primary Care Physician: Wm Rubi MD [Primary Care Provider] - Past Medical History: - - HTN and GERD Surgical History: noncontributory, tonsillectomy Lives: Alone Smoking Status: Former smoker - Family History Paternal Family History: Reports: Pulmonary Disease Review of Systems General: Denies: Chills, Fever, Sweats Eyes: Reports: - - Left eye redness and drainage. Denies: Visual changes - bilaterally, Diplopia ENT: Denies: Rhinorrhea, Sore throat Cardiovascular: Denies: Chest pain, Palpitations Respiratory: Reports: Dyspnea, Dyspnea on exertion. Denies: Cough Gastrointestinal: Denies: Abdominal pain, Nausea, Vomiting, Diarrhea, Melena, Hematochezia Genitourinary: Denies: Dysuria, Hematuria, Frequency Musculoskeletal: Denies: Back pain, Extremity Pain Skin: Denies: Rash, Wounds Neurological: Denies: Headache, Weakness, Numbness Physical Exam Vital Signs/Narrative: Vital Signs Temp Pulse Resp BP Pulse Ox 01/27/20 13:36 96.8 F L 117 H 20 H 162/99 H 95 General: Well nourished, Well developed, No Acute Distress Head: Normocephalic, Atraumatic Eyes: Perrl, EOMI, - - Erythema and greenish discharge to the left eye. ENT: Moist mucous membranes, No rhinorrhea Neck: Supple, Nontender Cardiovascular: Regular rate, Regular rhythm, No murmurs Respiratory: No distress, CTA bilaterally, Chest nontender Abdomen: Soft, Nontender, Nondistended, Normal bowel sounds Back: Nontender, Normal Inspection Extremities: Nontender, No edema Skin: Normal color, No rash Neurological: Alert, Oriented x3, Cranial nerves II-XII grossly intact, Normal Strength, Normal Sensation Psychological: Normal affect, Normal Mood Diagnostic/Tx/Re-eval Chest X-Ray - ED: 1 View, No Acute Disease Clinical Impression(s) from Imaging Studies Chest X-Ray 01/27/20 14:25 IMPRESSION: No acute thoracic pathology. Electronically Signed: Ziggy Rahman, at 15:23 EDT Tel , Service support , Chest CTA 01/27/20 15:12 IMPRESSION: No evidence of pulmonary embolus or other acute thoracic disease. Fatty liver. Electronically Signed: Ziggy Rahman, at 16:26 EDT Tel , Service support , Laboratory Data 01/27/20 01/27/20 01/27/20 14:40 14:40 14:40 WBC 4.7 RBC 4.79 Hgb 13.1 Hct 41.5 MCV 86.6 MCH 27.3 MCHC 31.6 L RDW Std Deviation 43.8 RDW Coeff of Purvi 13.8 Plt Count 234 MPV 9.2 Immature Gran % (Auto) 0.400 Neut % (Auto) 69.2 Lymph % (Auto) 17.2 L [place] % (Auto) 10.0 Eos % (Auto) 2.8 Baso % (Auto) 0.4 Absolute Neuts (auto) 3.3 Absolute Lymphs (auto) 0.81 L Nucleated RBC % 0 D-Dimer Quant (PE/DVT) Sodium 141 Potassium 4.1 Chloride 110 H Carbon Dioxide 25.0 Anion Gap 6 BUN 12 Creatinine 1.22 Estim Creat Clear Calc 73.24 Est GFR (MDRD) Af Amer 81 Est GFR (MDRD) Non-Af 67 BUN/Creatinine Ratio 9.8 L Glucose 165 H Lactic Acid Calcium 8.9 Total Bilirubin 0.30 AST 25 ALT 42 Alkaline Phosphatase 60 Troponin I < 0.015 B-Natriuretic Peptide 7.5 Total Protein 7.5 Albumin 3.5 Globulin 4.0 Albumin/Globulin Ratio 0.9 01/27/20 01/27/20 14:40 14:40 WBC RBC Hgb Hct MCV MCH MCHC RDW Std Deviation RDW Coeff of Purvi Plt Count MPV Immature Gran % (Auto) Neut % (Auto) Lymph % (Auto) [place] % (Auto) Eos % (Auto) Baso % (Auto) Absolute Neuts (auto) Absolute Lymphs (auto) Nucleated RBC % D-Dimer Quant (PE/DVT) 0.54 H* Sodium Potassium Chloride Carbon Dioxide Anion Gap BUN Creatinine Estim Creat Clear Calc Est GFR (MDRD) Af Amer Est GFR (MDRD) Non-Af BUN/Creatinine Ratio Glucose Lactic Acid 1.8 Calcium Total Bilirubin AST ALT Alkaline Phosphatase Troponin I B-Natriuretic Peptide Total Protein Albumin Globulin Albumin/Globulin Ratio - Rhythm Strip Rhythm Strip: Sinus Rhythm Rate: 96 Ectopy: None - EKG Initial EKG Interpretation: Sinus Rhythm - Sinus rhythm at 96 bpm. HI interval of 152 ms. QTC of 439 ms. No evidence of ST elevation or depression at this time. - Medical Decision Making Appears well nontoxic. No hypoxemia. Chest x-ray negative. Elevated d-dimer. CTA shows no evidence of acute pulmonary embolism or occult pneumonia. Troponin, BNP, EKG showed no evidence of ischemia. Patient will be treated with ofloxacin for his likely bacterial conjunctivitis. Patient will also be advised on following up with his primary care for sleep study with concern for obstructive sleep apnea. Patient also be given an albuterol given his continued cough. Outpatient coronavirus testing will be performed. Asked to return for worsening of symptoms. Patient agreeable and discharged home in stable condition. Impression: 1. Dyspnea 2. Chronic cough 3. Bilateral conjunctivitis line 4. Morbid obesity ED Disposition - Plan for ED Patient: Disposition: Home or Assisted Living Instructions: ED Upper Resp Infec No Abx Tx, ED Conjunctivitis Nb, What Is a Sleep Study? Prescriptions: Ofloxacin 0.3% [Floxin 0.3% Otic] 5 drp OTIC (EAR) BID #1 bottle Prescription Printed Albuterol Inhaler [Ventolin Hfa] 1 - 2 puff INHALATION Q4H PRN PRN #1 inhaler PRN Reason: Wheezing Prescription Printed Referrals: Wm Rubi MD [Primary Care Provider] - 1 Day Shashank Reynolds MD [STAFF PHYSICIAN] - 2 Days
--- NOTE | 2020-01-27 14:25 | RAD_ITS ---
STUDY: X-RAY CHEST REASON FOR EXAM: Male, 49 years old. Shortness of breath TECHNIQUE: Frontal view of the chest COMPARISON: 11/27/19 FINDINGS: The lungs are clear. There are no pleural effusions. There is no pneumothorax. The heart is normal in size. The visualized osseous structures are within normal limits. RAD/Chest 1 View (Portable) IMPRESSION: No acute thoracic pathology. Electronically Signed: Ziggy Rahman, at 15:23 EDT Tel , Service support ,
[2020-01-27 14:45] VITALS: RESP 18; O2SAT 98
[2020-01-27 14:49] LABS: Absolute Lymphocyte Count 0.81 X10^3/uL (0.83-4.51); Absolute Neutrophil Count 3.3 X10^3/uL (2.0-7.7); Basophil# 0.02 X10^3/uL; Basophil% 0.4 % (0-1); Eosinophil# 0.13 X10^3/uL; Eosinophils% 2.8 % (0-5); Hematocrit 41.5 % (40-54); Hemoglobin 13.1 g/dL (13.0-16.5); Lymphocyte # 0.81 X10^3/ul (4.0); Lymphocyte % 17.2 % (19-41); Mean Corp Hgb Conc 31.6 g/dL (32-36); Mean Corpuscular Hgb 27.3 pg (27.0-32.0); Mean Corpuscular Volume 86.6 fL (80-94); Mean Platelet Vol. 9.2 fl (6.2-12.0); Monocyte# 0.47 X10^3/uL; NRBC Flagged by Analyzer 0 % (0-5); Neutrophil # 3.26 X10^3/uL (2.7-7.7); Neutrophil % 69.2 % (47-70); Platelet Count 234 K/mm3 (150-450); RBC Distribution Width CV 13.8 % (11.6-14.6); RBC Distribution Width SD 43.8 fl (35.1-43.9); Red Blood Count 4.79 M/mm3 (4.6-6.2); White Blood Count 4.7 K/mm3 (4.4-11.0)
[2020-01-27 15:06] LABS: ALB/GLOB Ratio 0.9 RATIO (0.9-2.4); AST(SGOT) 25 U/L (15-37); Alanine Aminotransfer ALT/SGPT 42 U/L (16-61); Albumin, Serum 3.5 g/dL (3.2-5.0); Alkaline Phosphatase 60 U/L (45-117); Anion Gap 6 (5-15); BUN 12 mg/dL (7-18); BUN/Creat Ratio 9.8 RATIO (10-20); Calcium,Total 8.9 mg/dL (8.5-10.1); Chloride 110 mmol/L (98-107); Creatinine, Serum 1.22 mg/dL (0.70-1.30); EST Glomerular Filtration Rate 67 mL/min (>60); Est Glom Filt Rate - Afr Amer 81 mL/min (>60); Estimated Creatinine Clearance 73.24 ml/min; Glucose 165 mg/dL (74-106); Potassium 4.1 mmol/L (3.5-5.1); Protein, Total 7.5 g/dL (6.4-8.2); Sodium Level 141 mmol/L (136-145)
[2020-01-27 15:08] LABS: D-Dimer Quantitative (DVT/PE) 0.54 FEU/ug/m (0.27-0.49)
--- NOTE | 2020-01-27 15:12 | CT_ITS ---
STUDY: CTA CHEST REASON FOR EXAM: Male, 49 years old. SOB X 1 YEAR RADIATION DOSAGE (If Supplied By Facility): CTDIvol = ( 18.05 ) mGy, DLP = ( 892.00 ) mGycm TECHNIQUE: The examination was performed with the intravenous administration of IV 100mL Isovue-370. Post-processing of the angiographic images was performed, with multiplanar reformation and 3D reconstruction. Individualized dose optimization techniques were used for this CT. COMPARISON: 07/07/19. FINDINGS: There is dependent atelectasis noted in the lungs. There are no pulmonary metastases or pleural effusions. There is no pneumothorax. There is no evidence of pulmonary embolus. There is no evidence of thoracic aortic aneurysm or dissection. The heart and pericardium are within normal limits. Images through the upper abdomen demonstrate fatty infiltration of the liver. There are no destructive osseous lesions. CT/CTA Chest W/WO Contrast IMPRESSION: No evidence of pulmonary embolus or other acute thoracic disease. Fatty liver. Electronically Signed: Ziggy Rahman, at 16:26 EDT Tel , Service support ,
[2020-01-27 15:15] LABS: Lactic Acid 1.8 mmol/L (0.4-1.9)
[2020-01-27 16:07] VITALS: BP 103/92; PULSE 98; RESP 18; TEMP 36; O2SAT 95
[2020-01-27 16:08] VITALS: BP 103/92; PULSE 101; RESP 18
[2020-01-27 16:13] LABS: BNP,B-Type NATRIURETIC PEPTIDE 7.5 pg/mL (0-100)
[2020-01-27 17:08] VITALS: BP 148/101; PULSE 95; RESP 18
== END 2020-01-27 17:16 | disposition home or self-care (01) ==
PROVIDERS: Emergency Provider Emergency Medicine; PCP Family Medicine
DX: R06.00 Dyspnea, unspecified (principal); R05 Cough; H10.9 Unspecified conjunctivitis; E66.01 Morbid (severe) obesity due to excess calories; Z87.891 Personal history of nicotine dependence
CPT/HCPCS: 71045; 71275; 80053; 83605; 83880; 84484; 85025; 85379; 87635; 93005; 99284; A4216; U0003

== ENCOUNTER 2020-03-30 11:57 | Emergency (ER) | payer MEDICARE, SELFPAY ==
[2020-03-30 11:58] VITALS: BP 152/97; PULSE 104; RESP 18; TEMP 37.1; O2SAT 95; BMI 44.3
--- NOTE | 2020-03-30 12:12 | VDLE_ITS ---
Reason For Study: Swelling RIGHT LEFT GSV is normal. GSV is normal. CFV is compressible, spontaneous, phasic, CFV is compressible, spontaneous, phasic, competent and demonstrates normal competent, and demonstrates normal augmentation. augmentation. FV is compressible, spontaneous, phasic, FV is compressible, spontaneous, phasic, competent and demonstrates normal competent and demonstrates normal augmentation. augmentation. FV distal visualized with color only and FV distal visualized with color only and appears patent. Unable to compress due to pt appears patent. Unable to compress due to pt body habitus. body habitus. POP V is compressible, spontaneous, phasic, POP V is compressible, spontaneous, phasic, competent and demonstrates normal competent and demonstrates normal augmentation. augmentation. T/P Trunk is compressible. T/P Trunk is compressible. PTV is compressible. PTV is compressible. RT PerV is compressible. LT PerV is compressible. Procedure This is a venous duplex using B-mode, color flow and spectral Doppler. Exam performed portable in ED. A preliminary report was called and/or faxed to [facility]. Interpretation Summary No evidence for acute deep venous thrombosis bilateral lower extremities with patent and compressible bilateral great saphenous veins. Technically limited examination secondary to inability to palpate bilateral distal femoral veins secondary to body habitus Ordering Physician: Susana Hardwick Referring Physician: Wm Rubi Performed By: Shena Barrera RVT
--- NOTE | 2020-03-30 12:14 | ED.VISSUMM ---
- ER Visit Summary Date of Service: 03/30/20 Chief Complaint: [Leg swelling] History of Present Illness: The patient is a 49 M [presents to the emergency department complaint swelling in his legs for the last 3 weeks. Patient states that he is generally been feeling weak. Patient complains of shortness of breath with activity and exertion. He denies any fever or cough or recent exposures to anybody with COVID-19. Patient states that he was instructed by his primary care physician to come get evaluated. He does have history of hypertension and history of arthritis as well as anxiety and history of back pain. Patient denies recent travel or surgery. He has no history of PE or DVT. Patient denies chest pain.] Physical Examination: [HEENT-PERRLA, EOMI. Cranial nerves II through XII grossly intact. TMs clear. Mucous membranes moist. No adenopathy. Cardiovascular-regular rate and rhythm without murmur or ectopy Lungs-clear to auscultation, chest wall stable without crepitus or subcu emphysema Abdomen-normoactive bowel sounds, soft, nontender, no rebound or rigidity, no peritoneal signs. Extremities-intact ?4, normal range of motion, normal pulses, atraumatic. Patient does have some faint erythema from the feet to the area below the knees bilaterally. He does have +1 edema of both lower extremities. Negative Homans' sign.] Test Results: [CBC with differential obtained showed a white count 5.3, hemoglobin 13, hematocrit 40, placed to 60. Chemistries unremarkable. LFTs were normal. BNP was 7.0. Chest x-ray showed some cardiomegaly. CTA of the chest showed no evidence of PE but he had some bilateral atelectasis in the bases. Venous Dopplers of both lower extremities were negative for DVT.] Emergency Department Course and Treatment: [IV line established on arrival. Patient placed on director of cardiac cath lab.] Treatment Plan: [This point etiology of patient's leg edema is unclear. He does have some faint erythema and I have some concern for some cellulitis therefore I will cover him with clindamycin. I will also write him a prescription for Lasix for a few days. I will attempt to contact his primary care physician to discuss further to arrange follow-up. Patient does have an appointment at the end of the month for follow-up.] Disposition: [Discharged home in stable condition] Impression: [Bilateral leg edema Cellulitis Dyspnea-etiology uncertain ] This note was generated with [employer] dictation software. It may contain incorrect words, spelling, and punctuation that were not noted in review of the chart prior to signing ED Disposition - Plan for ED Patient: Referrals: Wm Rubi MD [Primary Care Provider] -
[2020-03-30 12:39] LABS: Absolute Lymphocyte Count 0.53 X10^3/uL (0.83-4.51); Absolute Neutrophil Count 4.2 X10^3/uL (2.0-7.7); Basophil# 0.02 X10^3/uL; Basophil% 0.4 % (0-1); Eosinophil# 0.13 X10^3/uL; Eosinophils% 2.4 % (0-5); Hematocrit 40.5 % (40-54); Hemoglobin 13.2 g/dL (13.0-16.5); Lymphocyte # 0.53 X10^3/ul (4.0); Lymphocyte % 9.9 % (19-41); Mean Corp Hgb Conc 32.6 g/dL (32-36); Mean Corpuscular Hgb 27.2 pg (27.0-32.0); Mean Corpuscular Volume 83.3 fL (80-94); Mean Platelet Vol. 9.1 fl (6.2-12.0); Monocyte% 7.5 % (0-10); NRBC Flagged by Analyzer 0 % (0-5); Neutrophil # 4.23 X10^3/uL (2.7-7.7); Neutrophil % 79.4 % (47-70); POSITIVE DIFFERENTIAL YES; Platelet Count 260 K/mm3 (150-450); RBC Distribution Width CV 13.9 % (11.6-14.6); RBC Distribution Width SD 42.3 fl (35.1-43.9); Red Blood Count 4.86 M/mm3 (4.6-6.2); White Blood Count 5.3 K/mm3 (4.4-11.0)
[2020-03-30 12:42] LABS: Differential Indicated SCAN CRITERIA MET
--- NOTE | 2020-03-30 12:45 | RAD_ITS ---
STUDY: X-RAY CHEST REASON FOR EXAM: Male, 49 years old. Swelling to lower extremities x 3 weeks, shortness of breath TECHNIQUE: Single AP portable view of the chest. COMPARISON: Comparison is made with prior study dated 01/27/2020. FINDINGS: The lungs are clear and expanded. There is no demonstrated pleural abnormality. There is moderate cardiac enlargement. Normal mediastinum and helene. Normal visualized pulmonary arteries. Normal visualized aortic arch and descending thoracic aorta. Normal visualized thoracic spine. Normal visualized ribs, clavicles, and shoulders. There is no demonstrated abnormality of the visualized soft tissue structures of the upper abdomen. RAD/Chest 1 View (Portable) IMPRESSION: Cardiomegaly. Electronically Signed: Nael Duvall, at 13:05 EST , Service support ,
[2020-03-30 12:52] LABS: D-Dimer Quantitative (DVT/PE) 0.72 FEU/ug/m (0.27-0.49)
[2020-03-30 12:55] LABS: ALB/GLOB Ratio 0.9 RATIO (0.9-2.4); AST(SGOT) 28 U/L (15-37); Alanine Aminotransfer ALT/SGPT 44 U/L (16-61); Albumin, Serum 3.7 g/dL (3.2-5.0); Alkaline Phosphatase 60 U/L (45-117); Anion Gap 7 (5-15); BUN 14 mg/dL (7-18); BUN/Creat Ratio 11.6 RATIO (10-20); Calcium,Total 8.9 mg/dL (8.5-10.1); Chloride 105 mmol/L (98-107); Creatinine, Serum 1.21 mg/dL (0.70-1.30); EST Glomerular Filtration Rate 68 mL/min (>60); Est Glom Filt Rate - Afr Amer 82 mL/min (>60); Estimated Creatinine Clearance 73.85 ml/min; Globulin 4.2 g/dL (2.2-4.2); Glucose 114 mg/dL (74-106); Potassium 3.7 mmol/L (3.5-5.1); Protein, Total 7.9 g/dL (6.4-8.2); Sodium Level 139 mmol/L (136-145)
[2020-03-30 13:08] LABS: Lactic Acid 1.6 mmol/L (0.4-1.9)
--- NOTE | 2020-03-30 13:42 | CT_ITS ---
STUDY: CTA CHEST REASON FOR EXAM: Male, 49 years old. B/L LEG SWELLING, SOB, ELEVATED D-DIMER, HTN RADIATION DOSAGE (If Supplied By Facility): CTDIvol = ( 12.50 ) mGy, DLP = ( 495.80 ) mGycm TECHNIQUE: The examination was performed with the intravenous administration of 100 mL ISOVUE 370. Post-processing of the angiographic images was performed, with multiplanar reformation and 3D reconstruction. Individualized dose optimization techniques were used for this CT. COMPARISON: Comparison is made with prior examination dated 01/27/2020. FINDINGS: Normal enhancement of the main pulmonary artery and right and left pulmonary arteries. Normal enhancement of the bilateral peripheral pulmonary arteries. There is no demonstrated pulmonary embolism. Normal thoracic aorta and visualized great vessels. There is no demonstrated aortic dissection. Normal heart and pericardium. Normal mediastinum. Normal hilar regions. Normal visualized trachea and bronchi. The lungs are well expanded. Mild degree of bibasilar atelectasis. Normal pleura. Normal chest wall structures. Normal osseous structures. Fatty infiltration of the liver. CT/CTA Chest W/WO Contrast IMPRESSION: No evidence of pulmonary embolism. Mild degree of bibasilar atelectasis. Electronically Signed: Nael Duvall, at 14:34 EST , Service support ,
--- NOTE | 2020-03-30 15:00 | ED.DEP ---
ED Disposition - Plan for ED Patient: Instructions: ED Peripheral Edema, Bilateral, ED Cellulitis Prescriptions: Clindamycin HCl [Cleocin] 300 mg PO Q6H #40 cap Prescription Printed Furosemide [Lasix] 20 mg PO DAILY #7 tab Prescription Printed Referrals: Wm Rubi MD [Primary Care Provider] - 3-5 Days
[2020-03-30] MEDS: Clindamycin HCl 150 MG Capsule 300 MG PO (15:46)
== END 2020-03-30 15:49 | disposition home or self-care (01) ==
LOC: ED 13:11
PROVIDERS: Emergency Provider Emergency Medicine; PCP Family Medicine
DX: L03.116 Cellulitis of left lower limb (principal); L03.115 Cellulitis of right lower limb; R60.0 Localized edema; R06.00 Dyspnea, unspecified; I10 Essential (primary) hypertension; M19.90 Unspecified osteoarthritis, unspecified site; F41.9 Anxiety disorder, unspecified; Z79.899 Other long term (current) drug therapy
CPT/HCPCS: 71045; 71275; 80053; 83605; 83880; 85025; 85379; 93970; 99283; Q9967; A4216

== ENCOUNTER 2020-04-07 10:57 | Inpatient (IN) | payer MEDICARE, SELFPAY ==
[2020-04-07] VITALS (9 sets, daily range): BP systolic 108–173; BP diastolic 58–95; PULSE 93–110; RESP 17–23; TEMP 35.6–36.8; O2SAT 91–98; BMI 53.7; BMI 53.1; BMI 53.2
--- NOTE | 2020-04-07 11:43 | EKG12_ITS ---
Test Reason : Blood Pressure : / mmHG Vent. Rate : 097 BPM Atrial Rate : 097 BPM P-R Int : 156 ms QRS Dur : 092 ms QT Int : 354 ms P-R-T Axes : 056 019 047 degrees QTc Int : 449 ms Normal sinus rhythm Normal ECG Confirmed by JALEN OCAMPO, DENTON ([id number]), editorial clerk ASPEN CARMONA ([id number]) on 04/14/2020 10:24:35 AM Referred By: BETH Confirmed By:RADAMES RAO MD
--- NOTE | 2020-04-07 11:43 | RAD_ITS ---
STUDY: X-RAY CHEST REASON FOR EXAM: Male, 49 years old. leg cellulitis, SOB TECHNIQUE: Single AP portable view of the chest. COMPARISON: 03/30/2020 FINDINGS: The lungs are clear and expanded. Slightly elevated right hemidiaphragm. There is moderate cardiac enlargement. Normal mediastinum and helene. Normal visualized pulmonary arteries. Normal visualized aortic arch and descending thoracic aorta. Normal visualized thoracic spine. Normal visualized ribs, clavicles, and shoulders. There is no demonstrated abnormality of the visualized soft tissue structures of the upper abdomen. RAD/Chest 1 View (Portable) IMPRESSION: No active disease. Electronically Signed: Supa Vyas MD at 12:52 EST Tel , Service support ,
--- NOTE | 2020-04-07 11:44 | ED.VIS.GEN ---
History of Present Illness Chief Complaint: Cellulitis Informant: Patient Narrative: 9-year-old male with a history of hypertension and morbid obesity presents the emergency department with persistent leg swelling. He tells me about 4 weeks ago he developed pain and some faint redness in the right leg. 2 weeks later he developed swelling and shortness of breath. He was in the emergency department on 30 March. Duplex ultrasound was negative for DVT. He was placed on clindamycin. He was also given Lasix. He followed up with primary care today who notes worsening swelling and erythema and was sent to the emergency department. Patient continues to note shortness of breath. He denies any chest pain or fever. Past Medical History - Allergies and Home Meds Allergies/Adverse Reactions: Allergies Sulfa (Sulfonamide Antibiotics) Allergy (Verified 04/07/20 11:01) Unknown Primary Care Physician: Wm Rubi MD [Primary Care Provider] - Past Medical History: - - Hypertension GERD Surgical History: noncontributory, tonsillectomy Smoking Status: Never smoker Drugs: None - Family History Paternal Family History: Reports: Pulmonary Disease Review of Systems General: Reports: Malaise. Denies: Chills, Fever, Sweats Eyes: Denies: Visual changes - bilaterally, Diplopia ENT: Denies: Rhinorrhea, Sore throat Cardiovascular: Denies: Chest pain, Palpitations Respiratory: Reports: Dyspnea, Cough. Denies: Dyspnea on exertion Gastrointestinal: Denies: Abdominal pain, Nausea, Vomiting, Diarrhea, Melena, Hematochezia Genitourinary: Denies: Dysuria, Hematuria, Frequency Musculoskeletal: Reports: Swelling, Extremity Pain. Denies: Back pain Skin: Reports: Rash. Denies: Wounds Neurological: Denies: Headache, Weakness, Numbness Physical Exam Vital Signs/Narrative: Vital Signs Temp Pulse Resp BP Pulse Ox 04/07/20 11:14 96.0 F L 110 H 22 H 173/90 H 98 04/07/20 10:58 96.0 F L 110 H 22 H 173/90 H 98 Inital Vital Signs reviewed: Yes General: Well nourished, Well developed, Obese - Morbidly obese, No Acute Distress Head: Normocephalic, Atraumatic Eyes: Perrl, EOMI ENT: Moist mucous membranes, No rhinorrhea Neck: Supple, Nontender Cardiovascular: Regular rate, No murmurs, Tachycardia Respiratory: No distress, CTA bilaterally, Chest nontender Abdomen: Soft, Nontender, Nondistended, Normal bowel sounds Back: Nontender, Normal Inspection Extremities: Tenderness - Right greater than left leg swelling. Right leg swelling includes the thigh. There is erythema of the right foot and leg. Skin: Normal color, No rash Neurological: Alert, Oriented x3, Cranial nerves II-XII grossly intact, Normal Strength, Normal Sensation Psychological: Normal affect, Normal Mood Diagnostic/Tx/Re-eval Clinical Impression(s) from Imaging Studies Chest X-Ray 04/07/20 11:43 IMPRESSION: No active disease. Electronically Signed: Supa Vyas MD at 12:52 EST Tel , Service support , Laboratory Last Values WBC 4.9 K/mm3 (4.4-11.0) 04/07/20 11:43 RBC 4.66 M/mm3 (4.6-6.2) 04/07/20 11:43 Hgb 12.4 g/dL (13.0-16.5) L 04/07/20 11:43 Hct 39.4 % (40-54) L 04/07/20 11:43 MCV 84.5 fL (80-94) 04/07/20 11:43 MCH 26.6 pg (27.0-32.0) L 04/07/20 11:43 MCHC 31.5 g/dL (32-36) L 04/07/20 11:43 RDW Std Deviation 43.0 fl (35.1-43.9) 04/07/20 11:43 RDW Coeff of Purvi 14.1 % (11.6-14.6) 04/07/20 11:43 Plt Count 262 K/mm3 (150-450) 04/07/20 11:43 MPV 9.3 fl (6.2-12.0) 04/07/20 11:43 Immature Gran % (Auto) 0.400 % (0.0-0.9) 04/07/20 11:43 Neut % (Auto) 70.5 % (47-70) H 04/07/20 11:43 Lymph % (Auto) 15.0 % (19-41) L 04/07/20 11:43 White % (Auto) 8.4 % (0-10) 04/07/20 11:43 Eos % (Auto) 5.5 % (0-5) H 04/07/20 11:43 Baso % (Auto) 0.2 % (0-1) 04/07/20 11:43 Absolute Neuts (auto) 3.4 X10^3/uL (2.0-7.7) 04/07/20 11:43 Absolute Lymphs (auto) 0.73 X10^3/uL (0.83-4.51) L 04/07/20 11:43 Nucleated RBC % 0 % (0-5) 04/07/20 11:43 PT 12.8 SECONDS (11.7-14.9) 04/07/20 11:43 INR 1.0 04/07/20 11:43 APTT 27.5 Seconds (24.1-36.2) 04/07/20 11:43 Sodium 138 mmol/L (136-145) 04/07/20 11:43 Potassium 3.7 mmol/L (3.5-5.1) 04/07/20 11:43 Chloride 105 mmol/L (98-107) 04/07/20 11:43 Carbon Dioxide 28.0 mmol/L (21.0-32.0) 04/07/20 11:43 Anion Gap 5 (5-15) 04/07/20 11:43 BUN 19 mg/dL (7-18) H 04/07/20 11:43 Creatinine 1.19 mg/dL (0.70-1.30) 04/07/20 11:43 Estim Creat Clear Calc 75.09 ml/min 04/07/20 11:43 Est GFR (MDRD) Af Amer 83 mL/min (>60) 04/07/20 11:43 Est GFR (MDRD) Non-Af 69 mL/min (>60) 04/07/20 11:43 BUN/Creatinine Ratio 16.0 RATIO (10-20) 04/07/20 11:43 Glucose 112 mg/dL (74-106) H 04/07/20 11:43 Lactic Acid 1.4 mmol/L (0.4-1.9) 04/07/20 11:43 Calcium 9.1 mg/dL (8.5-10.1) 04/07/20 11:43 Total Bilirubin 0.40 mg/dL (0.20-1.00) 04/07/20 11:43 AST 25 U/L (15-37) 04/07/20 11:43 ALT 41 U/L (16-61) 04/07/20 11:43 Alkaline Phosphatase 55 U/L (45-117) 04/07/20 11:43 Troponin I < 0.015 ng/mL (<0.045) 04/07/20 11:43 B-Natriuretic Peptide 7.7 pg/mL (0-100) 04/07/20 11:43 Total Protein 7.9 g/dL (6.4-8.2) 04/07/20 11:43 Albumin 3.5 g/dL (3.2-5.0) 04/07/20 11:43 Globulin 4.4 g/dL (2.2-4.2) H 04/07/20 11:43 Albumin/Globulin Ratio 0.8 RATIO (0.9-2.4) L 04/07/20 11:43 - EKG Initial EKG Interpretation: Sinus Rhythm - EKG demonstrates a normal sinus rhythm at a rate of 97. No concerning features of ACS or ectopy. It appears grossly unchanged from EKG dated January 27, 2020 - Medical Decision Making Received a dose of Zosyn. He is already been on clindamycin. I also gave him IV Lasix. I did not repeat his duplex ultrasound. His chest x-ray is negative. I wonder if the dyspnea is related to the significantly added weight of his right leg. I suspect he already has poor pulmonary reserve based on his body habitus at baseline. ED Disposition - Plan for ED Patient: Disposition: Acute Care [facility] Diagnosis: Lymphedema, Cellulitis of right leg Referrals: Wm Rubi MD [Primary Care Provider] -
[2020-04-07 12:03] LABS: Absolute Lymphocyte Count 0.73 X10^3/uL (0.83-4.51); Absolute Neutrophil Count 3.4 X10^3/uL (2.0-7.7); Basophil# 0.01 X10^3/uL; Basophil% 0.2 % (0-1); Eosinophil# 0.27 X10^3/uL; Eosinophils% 5.5 % (0-5); Hematocrit 39.4 % (40-54); Hemoglobin 12.4 g/dL (13.0-16.5); Lymphocyte # 0.73 X10^3/ul (4.0); Mean Corp Hgb Conc 31.5 g/dL (32-36); Mean Corpuscular Hgb 26.6 pg (27.0-32.0); Mean Corpuscular Volume 84.5 fL (80-94); Mean Platelet Vol. 9.3 fl (6.2-12.0); Monocyte# 0.41 X10^3/uL; Monocyte% 8.4 % (0-10); NRBC Flagged by Analyzer 0 % (0-5); Neutrophil # 3.43 X10^3/uL (2.7-7.7); Neutrophil % 70.5 % (47-70); Platelet Count 262 K/mm3 (150-450); RBC Distribution Width CV 14.1 % (11.6-14.6); Red Blood Count 4.66 M/mm3 (4.6-6.2); White Blood Count 4.9 K/mm3 (4.4-11.0)
[2020-04-07 12:16] LABS: ALB/GLOB Ratio 0.8 RATIO (0.9-2.4); AST(SGOT) 25 U/L (15-37); Alanine Aminotransfer ALT/SGPT 41 U/L (16-61); Albumin, Serum 3.5 g/dL (3.2-5.0); Alkaline Phosphatase 55 U/L (45-117); Anion Gap 5 (5-15); BUN 19 mg/dL (7-18); Calcium,Total 9.1 mg/dL (8.5-10.1); Chloride 105 mmol/L (98-107); Creatinine, Serum 1.19 mg/dL (0.70-1.30); EST Glomerular Filtration Rate 69 mL/min (>60); Est Glom Filt Rate - Afr Amer 83 mL/min (>60); Estimated Creatinine Clearance 75.09 ml/min; Globulin 4.4 g/dL (2.2-4.2); Glucose 112 mg/dL (74-106); Potassium 3.7 mmol/L (3.5-5.1); Protein, Total 7.9 g/dL (6.4-8.2); Sodium Level 138 mmol/L (136-145)
[2020-04-07 12:17] LABS: Lactic Acid 1.4 mmol/L (0.4-1.9)
[2020-04-07 12:18] LABS: Prothrombin Time (Protime)PT. 12.8 SECONDS (11.7-14.9)
[2020-04-07 12:19] LABS: Partial Thromboplast Time 27.5 Seconds (24.1-36.2)
[2020-04-07 12:35] LABS: BNP,B-Type NATRIURETIC PEPTIDE 7.7 pg/mL (0-100)
[2020-04-07] MEDS: Furosemide 100 MG/10 ML Vial 80 MG IV (14:36)
--- NOTE | 2020-04-07 15:26 | NURSING ---
MED SURG WHITE LYMPHEDEMA CELLULITIS OF RT LEG
--- NOTE | 2020-04-07 15:44 | HP.PCM_ITS ---
Problem List (1) Cellulitis Status: Acute (2) Morbid (severe) obesity due to excess calories Status: Chronic (3) HTN (hypertension) Status: Chronic (4) HLD (hyperlipidemia) Status: Chronic (5) GERD (gastroesophageal reflux disease) Status: Chronic History of Present Illness Date of Admission: 04/07/20 Chief Complaint: BL LE edema The patient is a 49 year old M with pmhx of morbid obesity, HTN, HLD, GERD, who presents to the ER with c/o BL LE swelling. He was seen in the ER 03/30 and diagnosed with cellulitis and prescribed clindamycin. He has had no improvement. At that time he had a mildly elevated D dimer however follow up venous duplex was negative and CTA chest was negative for PE. The patient has had increased swelling, redness, and pain in his feet and was sent here by his PCP. The right has been more swollen than the left. The patient denies inciting trauma. He has posterior foot calluses on both feet left greater than right. The left is cracked and open. There are no other obvious wounds or skin openings. The patient denies a prior hx of skin infections. The patient also began checking his blood sugars stating that the only reason he started doing this was that he was worried he might have high blood sugar. He has been doing this about a month and states sometimes the glucometer reads as high as 400. This AM it was around 200. He denies fever or chills. He has no nausea or abdominal pain. He has had some diarrhea since being on clindamycin. He has been short of breath for about a month as well. [] Past Medical History Past Medical History (Chronic Problems): Chronic Problems (Last Updated 07/07/19 @ 18:[address] Beto Ruelas DO) Morbid (severe) obesity due to excess calories (Chronic) HTN (hypertension) (Chronic) HLD (hyperlipidemia) (Chronic) GERD (gastroesophageal reflux disease) (Chronic) Medical History: Medical History (Last Updated 07/07/19 @ 18:[address] Beto Ruelas DO) Back pain M54.9 HTN (hypertension) I10 Allergies Sulfa (Sulfonamide Antibiotics) Allergy (Verified 04/07/20 11:01) Unknown Home Medications: Ambulatory Orders Medication Instructions Recorded Hydroxyzine HCl 25 mg PO QHS 02/04/19 Lisinopril [Zestril] 30 mg PO DAILY 02/04/19 Omeprazole [Prilosec] 20 mg PO DAILY 02/04/19 Sertraline HCl [Zoloft] 50 mg PO DAILY 02/04/19 Amlodipine [Norvasc] 10 mg PO DAILY 07/07/19 Valsartan 80 mg PO DAILY 07/07/19 Albuterol Inhaler [Ventolin Hfa] 1 - 2 puff INHALATION Q4H PRN PRN 01/27/20 #1 inhaler Clindamycin HCl [Cleocin] 300 mg PO Q6H #40 cap 03/30/20 Furosemide [Lasix] 20 mg PO DAILY #7 tab 03/30/20 Quetiapine Fumarate [Seroquel] 100 mg PO DAILY 04/07/20 Surgical History: noncontributory, tonsillectomy Smoking Status: Never smoker Tobacco Use: Non-smoker Alcohol: None Drugs: None - *Family History Paternal History Items: Pulmonary Disease Maternal History Items: Diabetes Review of Systems Constitutional: Denies: Chills, Fever, Weight Change HEENT: Denies: Head Aches, Sinus Congestion, Sinus Drainage Cardiovascular: Denies: Chest Pain, Palpitations Respiratory: Reports: Shortness of Breath. Denies: Cough, Shortness of breath at rest, Sputum production Gastrointestinal: Reports: Diarrhea. Denies: Abdominal Pain, Nausea, Vomiting Genitourinary: Denies: Dysuria, Hesitancy, Urgency Musculoskeletal: Denies: Joint Pain, Joint Tenderness Skin: Reports: Skin Changes - BL LE erythema, warmth, pain, edema, Wounds - posterior feet, calluses. Denies: Rash Neurological: Denies: Numbness, Tingling, Focal weakness Psychiatric: Denies: Anxiety, Depression, Homicidal Ideations, Suicidal Ideations Hematologic/ Lymphatic: Denies: Easy Bruising, Easy Bleeding VTE Information - Inpt Only VTE Present on Admission: No VTE Mechan Device Prophylaxis: None VTE Pharm Prophylaxis ordered?: Yes Patient Problems: Active and Suspected Problems (Last Updated 07/07/19 @ 18:[address] Beto Ruelas, DO) Lymphedema (Acute) Cellulitis of right leg (Acute) Cellulitis (Acute) - Physical Exam Vitals/I&O's: Vital Signs Temp Pulse Resp BP Pulse Ox 97.6 F L 93 17 137/95 H 98 04/07/20 14:47 04/07/20 14:47 04/07/20 14:47 04/07/20 14:47 04/07/20 14:47 Oxygen Delivery Method Room Air Weight: 364 lb Body Mass Index (BMI) 53.7 General: Alert, Oriented x3, Cooperative HEENT: Atraumatic, PERRLA, EOMI, Normocephalic Neck: Supple, No JVD, Negative Carotid Bruits Lungs: Clear to auscultation, Normal air movement Cardiovascular: Regular rate, No murmurs Abdomen: Bowel Sounds Present, Soft, Non Tender, Obese Extremities: No edema, Capillary Refill Less than 3 Seconds Skin: Ulcer/ Wound, Rash Present, - - Left >R posterior heel callus, left cracked, open, no drainage. Fungal changes in toes. Skin up to the knee both sides is erythematous, warm, no drainage, tender, edematous. Musculoskeletal: No Tenderness to Palpation of Joints or Extremities Neurological: Cranial nerves II-XII grossly intact Psych/Mental Status: Anxious, Alert and oriented to time, place, person, mood and affect Laboratory Results 04/07/20 11:43: WBC 4.9, RBC 4.66, Hgb 12.4 L, Hct 39.4 L, MCV 84.5, MCH 26.6 L, MCHC 31.5 L, RDW Std Deviation 43.0, RDW Coeff of Purvi 14.1, Plt Count 262, MPV 9.3, Immature Gran % (Auto) 0.400, Neut % (Auto) 70.5 H, Lymph % (Auto) 15.0 L, Morrill % (Auto) 8.4, Eos % (Auto) 5.5 H, Baso % (Auto) 0.2, Absolute Neuts (auto) 3.4, Absolute Lymphs (auto) 0.73 L, Nucleated RBC % 0 04/07/20 11:43: PT 12.8, INR 1.0, APTT 27.5 04/07/20 11:43: Sodium 138, Potassium 3.7, Chloride 105, Carbon Dioxide 28.0, Anion Gap 5, BUN 19 H, Creatinine 1.19, Estim Creat Clear Calc 75.09, Est GFR (MDRD) Af Amer 83, Est GFR (MDRD) Non-Af 69, BUN/Creatinine Ratio 16.0, Glucose 112 H, Calcium 9.1, Total Bilirubin 0.40, AST 25, ALT 41, Alkaline Phosphatase 55, Troponin I < 0.015, Total Protein 7.9, Albumin 3.5, Globulin 4.4 H, Albumin/Globulin Ratio 0.8 L 04/07/20 11:43: Lactic Acid 1.4 04/07/20 11:43: B-Natriuretic Peptide 7.7 Assessment/Plan All Active Problems (Last Updated 07/07/19 @ 18:[address] Beto Ruelas, DO) Foreign body in right foot (Acute) Right foot pain (Acute) CAP (community acquired pneumonia) (Acute) Lymphedema (Acute) Cellulitis of right leg (Acute) Cellulitis (Acute) 1. Cellulitis BL LE - failed outpatient clinda - start vanco/unasyn. No fever/leukocytosis. posterior heels do have calluses and toes have fungal changes. 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 -Nothing to cultures at this point on the legs. -Recent Venous duplex was negative for DVT (CTA chest also neg for PE). -BNP is normal. CXR is negative. -With his report of glucometry readings of 400 at home I suspect this cellulitis is related to untreated diabetes. 2. Suspected DMt2, with morbid obesity - patient starting checking his blood sugars at home as he was worried they might be high despite no hx DM. He reports they have been as high as the 400s. 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 -glucose was 112 in the er, however he tells me the only thing he had PO today was a diet pop this morning. 3. HTN - it appears he is on both valsartan and lisinopril. Will continue valsartan and dc lisinopril. continue norvasc. 4. GERD - continue ppi 5. Anxiety/Depression - seroquel, zoloft, hydroxyzine DVT ppx: Lovenox This patient was seen by Jas Way PA-C under the supervision of Dr. Montiel.
[2020-04-07 16:46] LABS: Magnesium 1.8 mg/dL (1.6-2.6)
[2020-04-07 17:11] LABS: Bedside Glucose 137 mg/dL (70-110)
[2020-04-07] MEDS: 0.9% Saline Lock 10 ML Syringe IV (17:30)
[2020-04-07] MEDS: Furosemide 40 MG/4 ML Vial IV (17:33)
--- NOTE | 2020-04-07 18:15 | PCM.RX.CS ---
Consult Pharmacy has been consulted to manage selected antiobiotic: Vancomycin Type of Consult: New start Suspected Infection: Skin/Soft tissue Labs: Sodium 138 mmol/L (136-145) 04/07/20 11:43 Potassium 3.7 mmol/L (3.5-5.1) 04/07/20 11:43 Chloride 105 mmol/L (98-107) 04/07/20 11:43 Carbon Dioxide 28.0 mmol/L (21.0-32.0) 04/07/20 11:43 Anion Gap 5 (5-15) 04/07/20 11:43 BUN 19 mg/dL (7-18) H 04/07/20 11:43 Creatinine 1.19 mg/dL (0.70-1.30) 04/07/20 11:43 Est GFR (MDRD) Af Amer 83 mL/min (>60) 04/07/20 11:43 Est GFR (MDRD) Non-Af 69 mL/min (>60) 04/07/20 11:43 BUN/Creatinine Ratio 16.0 RATIO (10-20) 04/07/20 11:43 Glucose 112 mg/dL (74-106) H 04/07/20 11:43 Goal Trough: 15-20 mcg/mL Pharmacy Plan for Drug Dosing: NEW START IV VANCOMYCIN Consulting Physician: Dr. Montiel Indication: SSTI Goal Trough: 15-20 SrCr: 1.19 CrCl: 114 mL/min (using AdjBW 107kg) Comments: Loading dose of 2000mg IV x1 entered and admin 04/07 @1729 Vancomcyin Dose: 1500mg IV Q8hr to start 04/08 @0 Pending Level: 04/08 @1729 (Prior to 4th total dose per protocol) Pharmacy Service will continue to monitor and adjust dosing as required.
[2020-04-07 18:32] LABS: M R Staph aureus DNA By PCR Negative (Negative); Probe Check PASS; Specimen Processing Control PASS
[2020-04-07] MEDS: DiphenhydrAMINE 25 MG Capsule PO (20:33)
[2020-04-07] MEDS: Enoxaparin 40 MG/0.4 ML Syringe SC (22:00)
[2020-04-07] MEDS: Famotidine 20 MG Tablet PO (22:00)
[2020-04-07] MEDS: hydrOXYzine PAM 25 MG Capsule PO (22:00)
[2020-04-07] MEDS: Glucerna Shake 120 ML LIQUID PO (22:01)
[2020-04-07 22:10] LABS: Bedside Glucose 132 mg/dL (70-110)
[2020-04-08] VITALS (14 sets, daily range): BP systolic 93–139; BP diastolic 54–80; PULSE 83–105; RESP 12–22; TEMP 36.5–37.1; O2SAT 92–98
[2020-04-08 07:06] LABS: Bedside Glucose 125 mg/dL (70-110)
[2020-04-08 07:29] LABS: Absolute Lymphocyte Count 0.71 X10^3/uL (0.83-4.51); Absolute Neutrophil Count 3.5 X10^3/uL (2.0-7.7); Basophil# 0.03 X10^3/uL; Basophil% 0.6 % (0-1); Eosinophil# 0.21 X10^3/uL; Eosinophils% 4.3 % (0-5); Hematocrit 39.7 % (40-54); Hemoglobin 12.6 g/dL (13.0-16.5); Lymphocyte # 0.71 X10^3/ul (4.0); Lymphocyte % 14.5 % (19-41); Mean Corp Hgb Conc 31.7 g/dL (32-36); Mean Corpuscular Hgb 26.9 pg (27.0-32.0); Mean Corpuscular Volume 84.8 fL (80-94); Mean Platelet Vol. 9.3 fl (6.2-12.0); Monocyte# 0.44 X10^3/uL; NRBC Flagged by Analyzer 0 % (0-5); Neutrophil # 3.47 X10^3/uL (2.7-7.7); Neutrophil % 71.2 % (47-70); Platelet Count 264 K/mm3 (150-450); RBC Distribution Width CV 14.1 % (11.6-14.6); RBC Distribution Width SD 42.9 fl (35.1-43.9); Red Blood Count 4.68 M/mm3 (4.6-6.2); White Blood Count 4.9 K/mm3 (4.4-11.0)
[2020-04-08 08:05] LABS: ALB/GLOB Ratio 0.8 RATIO (0.9-2.4); AST(SGOT) 32 U/L (15-37); Alanine Aminotransfer ALT/SGPT 38 U/L (16-61); Albumin, Serum 3.4 g/dL (3.2-5.0); Alkaline Phosphatase 51 U/L (45-117); Anion Gap 7 (5-15); BUN 17 mg/dL (7-18); BUN/Creat Ratio 13.4 RATIO (10-20); Calcium,Total 9.1 mg/dL (8.5-10.1); Chloride 101 mmol/L (98-107); Creatinine, Serum 1.27 mg/dL (0.70-1.30); EST Glomerular Filtration Rate 64 mL/min (>60); Est Glom Filt Rate - Afr Amer 77 mL/min (>60); Estimated Creatinine Clearance 70.36 ml/min; Globulin 4.2 g/dL (2.2-4.2); Glucose 119 mg/dL (74-106); Potassium 3.4 mmol/L (3.5-5.1); Protein, Total 7.6 g/dL (6.4-8.2); Sodium Level 139 mmol/L (136-145)
--- NOTE | 2020-04-08 08:06 | RAD_ITS ---
STUDY: X-RAY - RIGHT TIBIA AND FIBULA REASON FOR EXAM: Male, 49 years old. Cellulitis,lyphedema. TECHNIQUE: 2 view(s) of the tibia and fibula were obtained. COMPARISON: None. FINDINGS: Normal visualized tibia. Normal visualized fibula. The soft tissue structures are unremarkable. RAD/Tibia & Fibula 2 Views IMPRESSION: Normal x-ray examination of the tibia and fibula. Electronically Signed: Supa Vyas MD at 10:37 EST Tel , Service support ,
--- NOTE | 2020-04-08 08:06 | RAD_ITS ---
STUDY: X-RAY - RIGHT FOOT CLINICAL: Male, 49 years old. Cellulitis,lyphedema. TECHNIQUE: 3 view(s) of the foot. COMPARISON: 10/20/2017 FINDINGS: Normal talus, calcaneus, and tarsal bones. Tiny plantar and posterior calcaneal enthesophytes. Normal visualized subtalar, talonavicular, calcaneocuboid, tarsal and tarsometatarsal articulations. Normal metatarsi. Normal metatarsophalangeal joint of the great toe. Normal tibial and fibular sesamoid bones. Normal interphalangeal joint of the great toe. Normal phalanges of the great toe. Normal second through fifth metatarsophalangeal joints. Normal interphalangeal joints and phalanges of the lesser toes. The soft tissue structures are unremarkable. RAD/Foot min 3 Views IMPRESSION: Normal x-ray examination of the foot. Electronically Signed: Supa Vyas MD at 10:34 EST Tel , Service support ,
--- NOTE | 2020-04-08 08:07 | CON.PCM_ITS ---
Reason for Consult Date of Consultation: 04/08/20 Reason for Consultation: Cellulitis bilateral lower extremity History of Present Illness: The patient is a 49 year old gentleman with history of multiple medical problems including possible diabetes. Patient relates he developed redness, swelling and pain in both legs, he presented to ER due to worsening despite oral antibiotics. Patient was admitted for further evaluation. There is possible crack in skin on foot, as well as onychomycosis to the toenails. Patient denies any drainage lower extremities. He has been started on IV antibiotics. Patient relates he feels improved compared to yesterday. No complaints of fever, chills, nausea or vomiting. Past Medical History Past Medical History (Chronic Problems): Chronic Problems (Last Updated 07/07/19 @ 18:[address] Beto Ruelas DO) Morbid (severe) obesity due to excess calories (Chronic) HTN (hypertension) (Chronic) HLD (hyperlipidemia) (Chronic) GERD (gastroesophageal reflux disease) (Chronic) Medical History: Medical History (Last Updated 07/07/19 @ 18:[address] Beto Ruelas DO) Back pain M54.9 HTN (hypertension) I10 Allergies Sulfa (Sulfonamide Antibiotics) Allergy (Verified 04/07/20 11:01) Unknown Home Medications: Ambulatory Orders Medication Instructions Recorded Hydroxyzine HCl 25 mg PO QHS 02/04/19 Lisinopril [Zestril] 30 mg PO DAILY 02/04/19 Omeprazole [Prilosec] 20 mg PO DAILY 02/04/19 Sertraline HCl [Zoloft] 50 mg PO DAILY 02/04/19 Amlodipine [Norvasc] 10 mg PO DAILY 07/07/19 Valsartan 80 mg PO DAILY 07/07/19 Albuterol Inhaler [Ventolin Hfa] 1 - 2 puff INHALATION Q4H PRN PRN 01/27/20 #1 inhaler Clindamycin HCl [Cleocin] 300 mg PO Q6H #40 cap 03/30/20 Furosemide [Lasix] 20 mg PO DAILY #7 tab 03/30/20 Quetiapine Fumarate [Seroquel] 100 mg PO DAILY 04/07/20 Surgical History: noncontributory, tonsillectomy Smoking Status: Never smoker Tobacco Use: Non-smoker Alcohol: None Drugs: None - *Family History Paternal History Items: Pulmonary Disease Maternal History Items: Diabetes Patient Problems: Active and Suspected Problems (Last Updated 07/07/19 @ 18:[address] Beto Ruelas, DO) Lymphedema (Acute) Cellulitis of right leg (Acute) Cellulitis (Acute) - Physical Exam Vitals/I&O's: Vital Signs Temp Pulse Resp BP Pulse Ox 98.1 F 95 20 H 139/71 H 94 04/08/20 04:06 04/08/20 04:06 04/08/20 04:06 04/08/20 04:06 04/08/20 04:06 Oxygen Delivery Method Room Air Weight: 162.1 kg Body Mass Index (BMI) 53.1 Intake and Output for Last 24 Hours 04/06/20 04/07/20 04/08/20 23:59 23:59 23:59 Intake Total 752.5 / 1752.5 2354 / 2354 Output Total 2100 / 2100 Balance 752.5 / 452.5 254 / 254 General: Alert, Oriented x3, Cooperative, No apparent distress Extremities: No cyanosis, Capillary Refill Less than 3 Seconds, Peripheral Pulses Normal, - - There is diffuse cellulitis to bilateral legs down to feet, there are no noted open lesions. There is some dry skin to the feet, more so on the heels, but no open lesions or tissue break down present bilateral. No visible abscess, no fluctuance, no crepitus, no maloder, no necrosis bilateral LE. Skin: - - Toenails 1-5 xiao are long, thick and dystrophic with subungual debris. No rashes noted bilateral LE. Neurological: - - Sensation is intact to light touch bilateral foot. Motor function intact to the foot and ankle bilateral. Muscle strength is intact to foot and ankle bilateral. No evidence of charcot neuroarthropathy or compartment syndrome bilateral foot/ankle. Psych/Mental Status: Appropriate, Alert and oriented to time, place, person, mood and affect Laboratory Results 04/07/20 11:43: WBC 4.9, RBC 4.66, Hgb 12.4 L, Hct 39.4 L, MCV 84.5, MCH 26.6 L, MCHC 31.5 L, RDW Std Deviation 43.0, RDW Coeff of Purvi 14.1, Plt Count 262, MPV 9.3, Immature Gran % (Auto) 0.400, Neut % (Auto) 70.5 H, Lymph % (Auto) 15.0 L, Kingfisher % (Auto) 8.4, Eos % (Auto) 5.5 H, Baso % (Auto) 0.2, Absolute Neuts (auto) 3.4, Absolute Lymphs (auto) 0.73 L, Nucleated RBC % 0 04/07/20 11:43: PT 12.8, INR 1.0, APTT 27.5 04/07/20 11:43: Sodium 138, Potassium 3.7, Chloride 105, Carbon Dioxide 28.0, Anion Gap 5, BUN 19 H, Creatinine 1.19, Estim Creat Clear Calc 75.09, Est GFR (MDRD) Af Amer 83, Est GFR (MDRD) Non-Af 69, BUN/Creatinine Ratio 16.0, Glucose 112 H, Calcium 9.1, Total Bilirubin 0.40, AST 25, ALT 41, Alkaline Phosphatase 55, Troponin I < 0.015, Total Protein 7.9, Albumin 3.5, Globulin 4.4 H, Albumin/Globulin Ratio 0.8 L 04/07/20 11:43: Lactic Acid 1.4 04/07/20 11:43: B-Natriuretic Peptide 7.7 04/07/20 11:43: Magnesium 1.8 04/07/20 16:50: MRSA (PCR) Negative 04/07/20 17:03: POC Glucose 137 H 04/07/20 21:58: POC Glucose 132 H 04/08/20 06:54: WBC 4.9, RBC 4.68, Hgb 12.6 L, Hct 39.7 L, MCV 84.8, MCH 26.9 L, MCHC 31.7 L, RDW Std Deviation 42.9, RDW Coeff of Purvi 14.1, Plt Count 264, MPV 9.3, Immature Gran % (Auto) 0.400, Neut % (Auto) 71.2 H, Lymph % (Auto) 14.5 L, Kingfisher % (Auto) 9.0, Eos % (Auto) 4.3, Baso % (Auto) 0.6, Absolute Neuts (auto) 3.5, Absolute Lymphs (auto) 0.71 L, Nucleated RBC % 0 04/08/20 06:54: Sodium 139, Potassium 3.4 L, Chloride 101, Carbon Dioxide 31.0, Anion Gap 7, BUN 17, Creatinine 1.27, Estim Creat Clear Calc 70.36, Est GFR (MDRD) Af Amer 77, Est GFR (MDRD) Non-Af 64, BUN/Creatinine Ratio 13.4, Glucose 119 H, Calcium 9.1, Total Bilirubin 0.80, AST 32, ALT 38, Alkaline Phosphatase 51, Total Protein 7.6, Albumin 3.4, Globulin 4.2, Albumin/Globulin Ratio 0.8 L 04/08/20 06:54: Hemoglobin A1c Pending 04/08/20 07:02: POC Glucose 125 H Current Medications Acetaminophen (Acetaminophen 325 Mg Tablet) 650 mg PO Q6H PRN PRN PRN Reason: Pain Score 1-10/Temp > 100.7 F Al Hydroxide/Mg Hydroxide (Mag Hydrox/Al Hydrox/Simeth 30 Ml Udc) 30 ml PO Q6H PRN PRN PRN Reason: Gastric Burning Amlodipine Besylate (Amlodipine 10 Mg Tablet) 10 mg PO DAILY [facility] Diphenhydramine HCl (Diphenhydramine 25 Mg Capsule) 25 mg PO Q6 PRN PRN Reason: ITCHING Last Admin: 04/07/20 20:33 Dose: 25 mg Documented by: Enoxaparin Sodium (Enoxaparin 40 Mg/0.4 Ml Syringe) 40 mg SC BID [facility] Last Admin: 04/07/20 22:00 Dose: 40 mg Documented by: Famotidine (Famotidine 20 Mg Tablet) 20 mg PO BID [facility] Last Admin: 04/07/20 22:00 Dose: 20 mg Documented by: Furosemide (Furosemide 40 Mg/4 Ml Vial) 40 mg IV BID@1000,1800 [facility] Last Admin: 04/07/20 17:33 Dose: 40 mg Documented by: Guaifenesin (Guaifenesin 10 Ml Udc (200mg/10ml)) 20 ml PO Q4H PRN PRN PRN Reason: COUGH Hydralazine HCl (Hydralazine 20 Mg/Ml Vial) 10 mg IV Q4H PRN PRN PRN Reason: SBP > 160 Hydroxyzine Pamoate (Hydroxyzine Magda 25 Mg Capsule) 25 mg PO QHS [facility] Last Admin: 04/07/20 22:00 Dose: 25 mg Documented by: Ampicillin Sodium/Sulbactam (Sodium 3 gm/ Sodium Chloride) 112 mls @ 150 mls/hr IV Q6 [facility] Last Infusion: 04/08/20 06:51 Dose: Infused Documented by: Vancomycin IV Pharmacy to Dose (1 ea/ Sodium Chloride) 500 mls @ 250 mls/hr IV PRN PRN; Protocol PRN Reason: Rx to Dose Sodium Chloride () 250 mls @ 15 mls/hr IV .[id number] PRN PRN Reason: Saline Flush Last Infusion: 04/08/20 00:35 Dose: 15 mls/hr Documented by: Sodium Chloride () 250 mls @ 15 mls/hr IV .[id number] PRN PRN Reason: Additional IVPB Infusion Vancomycin HCl 1,500 mg/ (Sodium Chloride) 530 mls @ 250 mls/hr IV Q8H [facility] Last Infusion: 04/08/20 04:16 Dose: Infused Documented by: Lisinopril (Lisinopril 20 Mg Tablet) 30 mg PO DAILY [facility] Losartan Potassium (Losartan Potassium 25 Mg Tablet) 25 mg PO DAILY [facility] Magnesium Hydroxide (Magnesium Hydroxide 30 Ml Udc) 30 ml PO DAILY PRN PRN PRN Reason: Constipation Melatonin (Melatonin 3 Mg Tablet) 3 mg PO QHS PRN PRN PRN Reason: INSOMNIA Nutritional Formula (Lactose Free) (Glucerna Shake 120 Ml Liquid) 120 ml PO 4X/DAY [facility] Last Admin: 04/07/20 22:01 Dose: 120 ml Documented by: Ondansetron HCl (Ondansetron 4 Mg/2 Ml Vial) 4 mg IV Q8H PRN PRN PRN Reason: NAUSEA/VOMITING Oxycodone HCl (Oxycodone 5 Mg Tablet) 5 mg PO Q4H PRN PRN PRN Reason: Pain Score 4-5 Pantoprazole Sodium (Pantoprazole Sodium 20 Mg Tablet) 20 mg PO DAILY [facility] Prochlorperazine Edisylate (Prochlorperazine 10 Mg/2 Ml Vial) 5 mg IV Q4H PRN PRN PRN Reason: Breakthrough nausea/vomiting Psyllium Hydrophilic Mucilloid (Psyllium 1 Packet) 1 packet PO DAILY PRN PRN PRN Reason: Constipation Quetiapine Fumarate (Quetiapine 100 Mg Tablet) 100 mg PO DAILY [facility] Senna/Docusate Sodium (Senna/Docusate Sodium 1 Tablet) 2 tablet PO BID PRN PRN PRN Reason: Constipation Sertraline HCl (Sertraline 50 Mg Tablet) 50 mg PO DAILY [facility] Sodium Chloride (0.9% Saline Lock 10 Ml Syringe) 10 - 40 ml IV UD PRN PRN Reason: SALINE FLUSH Last Admin: 04/07/20 17:30 Dose: 10 ml Documented by: Throat Lozenges (Benzocaine/Menthol 1 Lozenge) 1 lozenge MUCOUS MEM Q2H PRN PRN PRN Reason: SORE THROAT Assessment/Plan All Active Problems (Last Updated 07/07/19 @ 18:[address] Beto Ruelas, DO) Foreign body in right foot (Acute) Right foot pain (Acute) CAP (community acquired pneumonia) (Acute) Lymphedema (Acute) Cellulitis of right leg (Acute) Cellulitis (Acute) Cellulitis bilateral lower extremity Xerosis/Dry skin bilateral foot Dystrophic Toenails/Onychomycosis Possible diabetes Examination performed - no noted open lesions, no visible abscess noted, there is diffuse lower extremity cellulitis, there is nothing to culture at this time. Ordered bilateral lower extremity xrays for further evaluation. Continue with antibiotic therapy until cellulitis resolved. Keep feet elevated, continue with compression therapy as well. Apply cream to feet 1-2 times daily for dry skin. Debrided toenails 1-5 bilateral using a nail nipper, this was done without incident. From podiatry standpoint no plans for surgery. Possible diabetes: Ha1c is pending. Thank you for consultation.
--- NOTE | 2020-04-08 08:15 | RAD_ITS ---
STUDY: X-RAY - LEFT FOOT CLINICAL: Male, 49 years old. Cellulitis,lyphedema. TECHNIQUE: 3 view(s) of the foot. COMPARISON: None. FINDINGS: Normal talus, calcaneus, and tarsal bones. Small posterior calcaneal enthesophyte. Normal visualized subtalar, talonavicular, calcaneocuboid, tarsal and tarsometatarsal articulations. Normal metatarsi. Normal metatarsophalangeal joint of the great toe. Normal tibial and fibular sesamoid bones. Normal interphalangeal joint of the great toe. Normal phalanges of the great toe. Normal second through fifth metatarsophalangeal joints. Normal interphalangeal joints and phalanges of the lesser toes. The soft tissue structures are unremarkable. RAD/Foot min 3 Views IMPRESSION: Normal x-ray examination of the foot. Electronically Signed: Supa Vyas MD at 10:36 EST Tel , Service support ,
--- NOTE | 2020-04-08 08:15 | RAD_ITS ---
STUDY: X-RAY - LEFT TIBIA AND FIBULA REASON FOR EXAM: Male, 49 years old. Cellulitis,lyphedema. TECHNIQUE: 2 view(s) of the tibia and fibula were obtained. COMPARISON: None. FINDINGS: Normal visualized tibia. Normal visualized fibula. The soft tissue structures are unremarkable. RAD/Tibia & Fibula 2 Views IMPRESSION: Normal x-ray examination of the tibia and fibula. Electronically Signed: Supa Vyas MD at 10:37 EST Tel , Service support ,
--- NOTE | 2020-04-08 08:17 | NURSING ---
Was consulted on patient for cellulitis of bilateral lower legs. patient states the redness to the legs has been present for approx 1 month. there are currently no open areas noted. bilateral heels are dry. no large fissures noted. patient states the edema in legs is much improved. Dr Read had been consulted as well. did discuss patient . Dr Read had removed a small ingrown toenail left great toe. no redness noted to that area. washed legs and feet with soap and water. pat dry. applied aloe vesta to bilateral lower legs, especially to heels. wrapped with kerlix to keep moisture in and wrapped with MATTHEW wraps form the base of the toes to just below the knees. pt tolerated well.
[2020-04-08] MEDS: Furosemide 40 MG/4 ML Vial IV ×2 (09:36→17:08)
[2020-04-08] MEDS: QUEtiapine 100 MG Tablet PO (09:37)
[2020-04-08] MEDS: Pantoprazole Sodium 20 MG Tablet PO (09:37)
[2020-04-08] MEDS: Lisinopril 20 MG Tablet 30 MG PO (09:37)
[2020-04-08] MEDS: Famotidine 20 MG Tablet PO ×2 (09:37→21:57)
[2020-04-08] MEDS: amLODIPine 10 MG Tablet PO (09:37)
[2020-04-08] MEDS: 0.9% Saline Lock 10 ML Syringe IV (09:38)
[2020-04-08] MEDS: Losartan Potassium 25 MG Tablet PO (09:38)
[2020-04-08] MEDS: Sertraline 50 MG Tablet PO (09:38)
[2020-04-08] MEDS: Enoxaparin 40 MG/0.4 ML Syringe SC ×2 (09:38→21:57)
[2020-04-08 10:34] LABS: Hemoglobin A1c 6.6 % (3.8-5.6)
[2020-04-08 11:45] LABS: Bedside Glucose 125 mg/dL (70-110)
--- NOTE | 2020-04-08 12:00 | CASEMGMT ---
RN CM SCIENTIFIC RESEARCH ASSOCIATE CM to room to meet with patient for initial transition planning/care coordination assessment. SOMMER PATEL introduced self and role at [facility]. Pt voices understanding and consents to assessment at this time. Pt resting in bed in no distress at this time. Pt is A/O at this time and answers all questions appropriately. Care providers, pharmacy, and demographics verified/updated at this time. PCP: Dr Rubi Specialists: None Preferred Pharmacy: [facility] Insurance: [facility] alok Prescription Benefit: Yes Living Will/HPOA: States does not have LW or HCPOA . Interested in more information and would like to talk with SW to complete paperwork. Provided information on advanced directives. He was made aware if SW unable to meet with him while @ [facility] he can call if chooses in the future to utilize [facility] social work for advanced directive completion and given Social Service rac card with number to call to make an appt. Patient expresses understanding. Shena AGOSTO, made aware pt interested in completed AD LNOK: Sister, Tatianna Ruffin Living Arrangements: Lives alone in upstairs apt. Has 2 flights stairs to go up. States it is difficult at times but he manages. Independent with ADL's and IADL's. Sister helps sometimes w/paying bills. Pt does his own grocery shopping and manages his appts and any medications. Pt states he is on SS disability and receives food stamps. Transportation: Pt states drives self and states no transportation concerns at this time. He states his car is @ [facility] and he plans to drive himself home @ d/c. DME: states he does not have any of his own DME. He does not have his own glucometer, he has been using his sisters. Pt wishes to return home and states has no concerns with going home at time of discharge. CM to follow for any discharge planning/needs. Pt voices no concerns/needs at this time. Advised pt to ask for CM if any questions/concerns/needs arise. Voices understanding. PLAN: Home w/discharge plans in place. May need script for glucometer @ d/c. Cas LOPEZ RN, CM
[2020-04-08] MEDS: Ipratropium/Albuterol Sulfate 3 ML AMPUL.NEB INHALATION (13:08)
--- NOTE | 2020-04-08 13:17 | CASEMGMT ---
Addendum entered by Shena Monson 04/08/20 13:42: SW back in to speak with pt. SW updated pt that if he speaks with family/friends while still at [facility] he can ask for SW again to return. Pt states that he would like to complete documents now, states he knows who he would like to name to be his HCPOA and wishes to complete documents now. Pt completed documents. SW provided pt with original documents, placed copy on pt's chart. Original Note: Social Work Note SW received referral for advanced directives. SW met with pt to complete advanced directives. Pt currently on cpap machine. SW educated pt on HCPOA and LW. Pt states he would like to speak with family/friends regarding documents and who he would like to name to be HCPOA before completing documents. TRINY provided pt with advanced directives documents. RN JORGE provided pt with social service rac card with SW number to call for appointment. Pt confirms he received social service rac card. Pt denied additional needs or concerns a this time. Shena Monson RN STAFF, WATER RESOURCE MANAGER
--- NOTE | 2020-04-08 15:31 | PCM.PN.HOSP ---
Patient Problems: Active and Suspected Problems (Last Updated 07/07/19 @ 18:[address] Beto Ruelas, DO) Lymphedema (Acute) Cellulitis of right leg (Acute) Cellulitis (Acute) Reason for Visit: Follow-up for bilateral lower extremity cellulitis, morbid obesity, possible obstructive sleep apnea/obesity hypoventilation syndrome Objective: Patient has redness on legs for about 1 month. No open area or ulcer found. Patient has ingrown toenail on left great toe. No fever or chills. Patient has shortness of breath, mild tachycardia, tachypnea RR 23 and restlessness. Patient was put on BiPAP. Pulse ox 96% on room air General: Alert, Oriented x3, Cooperative, morbid obesity BMI 52.8 kg/m? HEENT: Atraumatic, PERRLA, EOMI, Normocephalic Oral: No Gingival or Mucosal Lesions/ Ulcerations Neck: Supple, No JVD, Negative Carotid Bruits Lungs: Air entry severely diminished in bilateral lung bases from obesity. Bilateral rhonchi present in lower lungs. Cardiovascular: Regular rate, Regular Rhythm, Normal S1, Normal S2, No murmurs Abdomen: Bowel Sounds Present, Soft, Non Tender, Non-Distended : No renal angle tenderness. No suprapubic tenderness. Extremities: Bilateral lower leg edema, Capillary Refill Less than 3 Seconds Skin: Left ingrown toenail of left great toe. Redness on both lower legs. No abscess or ulcer. Musculoskeletal: No Tenderness to Palpation of Joints or Extremities Neurological: Cranial nerves II-XII grossly intact, Deep Tendon Reflexes 2+/4 and Symmetrical, Neuro grossly intact Psych/Mental Status: Normal Affect, Appropriate. Vitals/I&O's: Vital Signs Temp Pulse Resp BP Pulse Ox 97.7 F L 94 20 H 131/80 H 98 04/08/20 12:34 04/08/20 13:45 04/08/20 13:08 04/08/20 12:34 04/08/20 13:45 Oxygen Delivery Method Bi-pap Weight: 357 lb 5.909 oz Body Mass Index (BMI) 53.1 Intake and Output for Last 24 Hours 04/06/20 04/07/20 04/08/20 23:59 23:59 23:59 Intake Total 752.5 / 1752.5 3147.5 / 3147.5 Output Total 2100 / 2099 Balance 752.5 / 452.5 1047.5 / 1047.5 Laboratory Results 04/07/20 11:43: Magnesium 1.8 04/07/20 16:50: MRSA (PCR) Negative 04/07/20 17:03: POC Glucose 137 H 04/07/20 21:58: POC Glucose 132 H 04/08/20 06:54: WBC 4.9, RBC 4.68, Hgb 12.6 L, Hct 39.7 L, MCV 84.8, MCH 26.9 L, MCHC 31.7 L, RDW Std Deviation 42.9, RDW Coeff of Purvi 14.1, Plt Count 264, MPV 9.3, Immature Gran % (Auto) 0.400, Neut % (Auto) 71.2 H, Lymph % (Auto) 14.5 L, [place] % (Auto) 9.0, Eos % (Auto) 4.3, Baso % (Auto) 0.6, Absolute Neuts (auto) 3.5, Absolute Lymphs (auto) 0.71 L, Nucleated RBC % 0 04/08/20 06:54: Sodium 139, Potassium 3.4 L, Chloride 101, Carbon Dioxide 31.0, Anion Gap 7, BUN 17, Creatinine 1.27, Estim Creat Clear Calc 70.36, Est GFR (MDRD) Af Amer 77, Est GFR (MDRD) Non-Af 64, BUN/Creatinine Ratio 13.4, Glucose 119 H, Calcium 9.1, Total Bilirubin 0.80, AST 32, ALT 38, Alkaline Phosphatase 51, Total Protein 7.6, Albumin 3.4, Globulin 4.2, Albumin/Globulin Ratio 0.8 L 04/08/20 06:54: Hemoglobin A1c 6.6 H 04/08/20 07:02: POC Glucose 125 H 04/08/20 11:38: POC Glucose 125 H Current Medications Acetaminophen (Acetaminophen 325 Mg Tablet) 650 mg PO Q6H PRN PRN PRN Reason: Pain Score 1-10/Temp > 100.7 F Al Hydroxide/Mg Hydroxide (Mag Hydrox/Al Hydrox/Simeth 30 Ml Udc) 30 ml PO Q6H PRN PRN PRN Reason: Gastric Burning Albuterol/Ipratropium (Ipratropium/Albuterol Sulfate 3 Ml Ampul.Neb) 3 ml INHALATION Q6H.RT PRN PRN Reason: SHORTNESS OF BREATH Amlodipine Besylate (Amlodipine 10 Mg Tablet) 10 mg PO DAILY [facility] Last Admin: 04/08/20 09:37 Dose: 10 mg Documented by: Diphenhydramine HCl (Diphenhydramine 25 Mg Capsule) 25 mg PO Q6 PRN PRN Reason: ITCHING Last Admin: 04/07/20 20:33 Dose: 25 mg Documented by: Enoxaparin Sodium (Enoxaparin 40 Mg/0.4 Ml Syringe) 40 mg SC BID [facility] Last Admin: 04/08/20 09:38 Dose: 40 mg Documented by: Famotidine (Famotidine 20 Mg Tablet) 20 mg PO BID [facility] Last Admin: 04/08/20 09:37 Dose: 20 mg Documented by: Furosemide (Furosemide 40 Mg/4 Ml Vial) 40 mg IV BID@1000,1800 [facility] Last Admin: 04/08/20 09:36 Dose: 40 mg Documented by: Guaifenesin (Guaifenesin 10 Ml Udc (200mg/10ml)) 20 ml PO Q4H PRN PRN PRN Reason: COUGH Hydralazine HCl (Hydralazine 20 Mg/Ml Vial) 10 mg IV Q4H PRN PRN PRN Reason: SBP > 160 Hydroxyzine Pamoate (Hydroxyzine Magda 25 Mg Capsule) 25 mg PO QHS [facility] Last Admin: 04/07/20 22:00 Dose: 25 mg Documented by: Ampicillin Sodium/Sulbactam (Sodium 3 gm/ Sodium Chloride) 112 mls @ 150 mls/hr IV Q6 [facility] Last Infusion: 04/08/20 14:35 Dose: Infused Documented by: Vancomycin IV Pharmacy to Dose (1 ea/ Sodium Chloride) 500 mls @ 250 mls/hr IV PRN PRN; Protocol PRN Reason: Rx to Dose Sodium Chloride () 250 mls @ 15 mls/hr IV .[id number] PRN PRN Reason: Saline Flush Last Infusion: 04/08/20 14:36 Dose: 15 mls/hr Documented by: Sodium Chloride () 250 mls @ 15 mls/hr IV .[id number] PRN PRN Reason: Additional IVPB Infusion Vancomycin HCl 1,500 mg/ (Sodium Chloride) 530 mls @ 250 mls/hr IV Q8H [facility] Last Infusion: 04/08/20 13:49 Dose: Infused Documented by: Lisinopril (Lisinopril 20 Mg Tablet) 30 mg PO DAILY [facility] Last Admin: 04/08/20 09:37 Dose: 30 mg Documented by: Losartan Potassium (Losartan Potassium 25 Mg Tablet) 25 mg PO DAILY [facility] Last Admin: 04/08/20 09:38 Dose: 25 mg Documented by: Magnesium Hydroxide (Magnesium Hydroxide 30 Ml Udc) 30 ml PO DAILY PRN PRN PRN Reason: Constipation Melatonin (Melatonin 3 Mg Tablet) 3 mg PO QHS PRN PRN PRN Reason: INSOMNIA Nutritional Formula (Lactose Free) (Glucerna Shake 120 Ml Liquid) 120 ml PO 4X/DAY [facility] Last Admin: 04/08/20 12:20 Dose: Not Given Documented by: Ondansetron HCl (Ondansetron 4 Mg/2 Ml Vial) 4 mg IV Q8H PRN PRN PRN Reason: NAUSEA/VOMITING Oxycodone HCl (Oxycodone 5 Mg Tablet) 5 mg PO Q4H PRN PRN PRN Reason: Pain Score 4-5 Pantoprazole Sodium (Pantoprazole Sodium 20 Mg Tablet) 20 mg PO DAILY [facility] Last Admin: 04/08/20 09:37 Dose: 20 mg Documented by: Prochlorperazine Edisylate (Prochlorperazine 10 Mg/2 Ml Vial) 5 mg IV Q4H PRN PRN PRN Reason: Breakthrough nausea/vomiting Psyllium Hydrophilic Mucilloid (Psyllium 1 Packet) 1 packet PO DAILY PRN PRN PRN Reason: Constipation Quetiapine Fumarate (Quetiapine 100 Mg Tablet) 100 mg PO DAILY [facility] Last Admin: 04/08/20 09:37 Dose: 100 mg Documented by: Senna/Docusate Sodium (Senna/Docusate Sodium 1 Tablet) 2 tablet PO BID PRN PRN PRN Reason: Constipation Sertraline HCl (Sertraline 50 Mg Tablet) 50 mg PO DAILY [facility] Last Admin: 04/08/20 09:38 Dose: 50 mg Documented by: Sodium Chloride (0.9% Saline Lock 10 Ml Syringe) 10 - 40 ml IV UD PRN PRN Reason: SALINE FLUSH Last Admin: 04/08/20 09:38 Dose: 10 ml Documented by: Throat Lozenges (Benzocaine/Menthol 1 Lozenge) 1 lozenge MUCOUS MEM Q2H PRN PRN PRN Reason: SORE THROAT STROKE Vital Signs/Narrative: Vital Signs Temp Pulse Resp BP Pulse Ox 04/08/20 13:45 94 98 04/08/20 13:08 98 20 H 97 04/08/20 12:45 99 04/08/20 12:34 97.7 F L 105 H 131/80 H 93 04/08/20 12:13 97 22 H 93/54 L 93 Medical Necessity - Tobacco Use Smoking Status: Never smoker Tobacco Use: Non-smoker Assessment/Plan All Active Problems (Last Updated 07/07/19 @ 18:[address] Beto Ruelas, DO) Foreign body in right foot (Acute) Right foot pain (Acute) CAP (community acquired pneumonia) (Acute) Lymphedema (Acute) Cellulitis of right leg (Acute) Cellulitis (Acute) 49-year-old gentleman with morbid obesity admitted with bilateral lower extremity cellulitis. 1. Cellulitis BL LE - failed outpatient Benzamycin. No fever or leukocytosis. Seen by human resources compliance manager. Ingrown toenail of left great toe and subungual debris and was taken care by human resources compliance manager. Markie wrap bandage of both lower legs dressing done. Patient on IV Unasyn and vancomycin. MRSA PCR negative. Vancomycin discontinued. Recent Venous duplex and CT angiogram negative for DVT and PE respectively. -BNP is normal. CXR no active disease 2. DMt2, with morbid obesity -A1c 6.6 suggestive of diabetes mellitus type 2 with insulin resistance his blood sugar was elevated as 100 at home. On carb controlled diet. Accu-Cheks with Humalog sliding scale coverage. Glucose is around 125. Obstetrics And Gynecology Professor consult. 3. HTN - continue valsartan and lisinopril discontinued. continue norvasc. 4. GERD - continue ppi 5. Anxiety/Depression - seroquel, zoloft, hydroxyzine 6. Suspected obesity hypoventilation syndrome/obstructive sleep apnea secondary to morbid obesity: Patient was put on BiPAP. Patient will need formal PFT and sleep study in pulmonary clinic. DVT ppx: Lovenox Clinical Impression(s) from Imaging Studies Chest X-Ray 04/07/20 11:43 IMPRESSION: No active disease. Electronically Signed: Supa Vyas MD at 12:52 EST Tel , Service support , Foot X-Ray 04/08/20 08:06 IMPRESSION: Normal x-ray examination of the foot. Electronically Signed: Supa Vyas MD at 10:34 EST Tel , Service support , Tibia/Fibula X-Ray 04/08/20 08:06 IMPRESSION: Normal x-ray examination of the tibia and fibula. Electronically Signed: Supa Vyas MD at 10:37 EST Tel , Service support , Foot X-Ray 04/08/20 08:15 IMPRESSION: Normal x-ray examination of the foot. Electronically Signed: Supa Vyas MD at 10:36 EST Tel , Service support , Tibia/Fibula X-Ray 04/08/20 08:15 IMPRESSION: Normal x-ray examination of the tibia and fibula. Electronically Signed: Supa Vyas MD at 10:37 EST Tel , Service support , [facility] E&M: [id number] Subs [facility] L2
[2020-04-08 17:15] LABS: Bedside Glucose 111 mg/dL (70-110)
[2020-04-08] MEDS: hydrOXYzine PAM 25 MG Capsule PO (21:57)
[2020-04-08 22:11] LABS: Bedside Glucose 123 mg/dL (70-110)
[2020-04-09 01:56] VITALS: PULSE 98
[2020-04-09 04:15] VITALS: BP 116/70; PULSE 104; RESP 18; TEMP 36.4; O2SAT 93
[2020-04-09 07:01] LABS: Bedside Glucose 125 mg/dL (70-110)
[2020-04-09 07:25] VITALS: O2SAT 91
--- NOTE | 2020-04-09 07:37 | NURSING ---
Pt had taken a shower this am so the MATTHEW wraps were removed. still no open areas noted. heels still slightly dry. some mild redness noted. edema is improved. applied aloe vesta and reapplied the MATTHEW wraps from the base of the toes to just below the knees. pt hoping to go home today. Pt denies further needs at this time.
[2020-04-09 09:31] LABS: Anion Gap 4 (5-15); BUN 13 mg/dL (7-18); BUN/Creat Ratio 10.3 RATIO (10-20); Calcium,Total 9.1 mg/dL (8.5-10.1); Chloride 103 mmol/L (98-107); Creatinine, Serum 1.26 mg/dL (0.70-1.30); EST Glomerular Filtration Rate 65 mL/min (>60); Est Glom Filt Rate - Afr Amer 78 mL/min (>60); Estimated Creatinine Clearance 70.92 ml/min; Glucose 148 mg/dL (74-106); Magnesium 2.4 mg/dL (1.6-2.6); Phosphorus 3.2 mg/dL (2.5-4.9); Potassium 3.7 mmol/L (3.5-5.1); Sodium Level 137 mmol/L (136-145)
[2020-04-09 10:08] VITALS: BP 135/81; PULSE 101; RESP 20; TEMP 36.4; O2SAT 96
--- NOTE | 2020-04-09 10:10 | DCINST_ITS ---
- Discharge Diagnoses Current Active Problems: Current Active and Chronic Problems (Last Updated 07/07/19 @ 18:[address] Beto Ruelas, DO) Lymphedema (Acute) Cellulitis of right leg (Acute) Cellulitis (Acute) Morbid (severe) obesity due to excess calories (Chronic) HTN (hypertension) (Chronic) HLD (hyperlipidemia) (Chronic) GERD (gastroesophageal reflux disease) (Chronic) You will use the following diet at home:: Calorie/Carbohydrate Controlled (specify 1200, 1400, etc) Your food should be the consistency of: Regular Discharge Activity: Return to Normal Activity Weight Bearing Status: Weight bearing as tolerated Call your doctor if you observe: Fever of 101 or Higher, Coldness, Increased Pain, Numbness or Tingling, Change in Color, Inability to urinate, Inability to have a bowel movement, Shortness of breath, Dizziness, Fainting spells, Swelling in the ankles, Chest pain, Increased palpitations (irregular heartbeat), Calf discomfort, Uncontrolled pain Allergies/Adverse Reactions: Allergies Sulfa (Sulfonamide Antibiotics) Allergy (Verified 04/07/20 11:01) Unknown Medications to take at Discharge Hydroxyzine HCl 25 mg PO QHS 02/04/19 Lisinopril [Zestril] 30 mg PO DAILY 02/04/19 Omeprazole [Prilosec] 20 mg PO DAILY 02/04/19 Sertraline HCl [Zoloft] 50 mg PO DAILY 02/04/19 Amlodipine [Norvasc] 10 mg PO DAILY 07/07/19 Valsartan 80 mg PO DAILY 07/07/19 Albuterol Inhaler [Ventolin Hfa] 1 - 2 puff INHALATION Q4H PRN PRN #1 inhaler 01/27/20 Quetiapine Fumarate [Seroquel] 100 mg PO DAILY 04/07/20 Cefadroxil 1 gm PO BID #10 tab 04/09/20 Furosemide [Lasix] 40 mg PO DAILY #60 tab 04/09/20 The following prescriptions were given: Cefadroxil 1 gm PO BID #10 tab Transmission [facility]: [facility] Furosemide [Lasix] 40 mg PO DAILY #60 tab Transmission Status: [facility] Primary Care Physician: Wm Rubi MD [Primary Care Provider] - Please follow up with your Primary Care Physician in: IN 2 WEEK Test Results: Test results from this visit will be discussed in further detail at your follow- up appointment, if applicable. Please Follow Up With: Yoly Cazares NP, ELEMENTARY SCHOOL TEACHER'S AIDE-C When: @ 1:15pm
[2020-04-09] MEDS: Losartan Potassium 25 MG Tablet PO (10:33)
[2020-04-09] MEDS: Famotidine 20 MG Tablet PO (10:33)
[2020-04-09] MEDS: Sertraline 50 MG Tablet PO (10:33)
[2020-04-09] MEDS: Pantoprazole Sodium 20 MG Tablet PO (10:33)
[2020-04-09] MEDS: amLODIPine 10 MG Tablet PO (10:33)
[2020-04-09] MEDS: Lisinopril 20 MG Tablet 30 MG PO (10:33)
[2020-04-09] MEDS: Enoxaparin 40 MG/0.4 ML Syringe SC (10:34)
[2020-04-09] MEDS: QUEtiapine 100 MG Tablet PO (10:34)
[2020-04-09] MEDS: 0.9% Saline Lock 10 ML Syringe IV (10:34)
[2020-04-09] MEDS: Furosemide 40 MG/4 ML Vial IV (10:34)
[2020-04-09 12:45] LABS: Bedside Glucose 132 mg/dL (70-110)
--- NOTE | 2020-04-09 13:43 | DS.PCM_ITS ---
Discharge Date and Diagnosis - Problem List Patient Problems: Active and Suspected Problems (Last Updated 07/07/19 @ 18:[address] Beto Ruelas DO) Lymphedema (Acute) Cellulitis of right leg (Acute) Cellulitis (Acute) Date of Admission: 04/07/20 Date of Discharge: 04/09/20 - Primary Discharge Diagnosis Acute Problems: Active Problems (Last Updated 07/07/19 @ 18:[address] Beto Ruelas DO) Lymphedema (Acute) Cellulitis of right leg (Acute) Cellulitis (Acute) - Secondary Discharge Diagnosis Chronic Problems: Chronic Problems (Last Updated 07/07/19 @ 18:[address] Beto Ruelas DO) Morbid (severe) obesity due to excess calories (Chronic) HTN (hypertension) (Chronic) HLD (hyperlipidemia) (Chronic) GERD (gastroesophageal reflux disease) (Chronic) Hospital Course and Treatment Consultations 04/07/20 16:32 Consult: Onc/Wound/injury/safety hazard assessment Routine Comment: Operations: None Summary of Care Provided: The patient is a 49-year-old gentleman with morbid obesity admitted with bilateral lower extremity cellulitis. 1. Cellulitis BL LE - failed outpatient clindamycin. [facility] No fever or leukocytosis. Seen by activities aide. Ingrown toenail of left great toe and subungual debris and was taken care by activities aide. Markie wrap bandage of both lower legs dressing done. Patient really started on IV Unasyn and vancomycin. MRSA PCR negative. Vancomycin discontinued. Recent Venous duplex and CT angiogram negative for DVT and PE respectively.BNP is normal. CXR no active disease. 2. DMt2, with morbid obesity -A1c 6.6 suggestive of diabetes mellitus type 2 with insulin resistance his blood sugar was elevated as 100 at home. On carb controlled diet. Accu-Cheks with Humalog sliding scale coverage. Glucose is around 125. Aviation Safety Technician consult. 3. HTN - continue valsartan and lisinopril discontinued. continue norvasc. 4. GERD - continue ppi 5. Anxiety/Depression - seroquel, zoloft, hydroxyzine 6. Suspected obesity hypoventilation syndrome/obstructive sleep apnea secondary to morbid obesity: Patient was put on BiPAP. Discussed with eyelet maker Dr. Roberto. Appointment made in the pulmonary clinic in 2 weeks with follow-up Yoly to schedule sleep study. Patient also advised weight loss surgery for multiple complications of morbid obesity. DVT ppx: Lovenox Patient Problems: Active and Suspected Problems (Last Updated 07/07/19 @ 18:[address] Beto Ruelas, DO) Lymphedema (Acute) Cellulitis of right leg (Acute) Cellulitis (Acute) Objective: No fever or chills. At home, patient gets short of breath sometimes during sleep but slept good yesterday on BiPAP. Patient also cannot lay flat because of severe back pain, arthritis. Patient has complications of morbid obesity including obesity hypoventilation/MICHAEL clinically, spinal arthritis, bilateral lower extremity weakness and cellulitis and edema. General: Alert, Oriented x3, Cooperative, morbid obesity BMI 52.8 kg/m? HEENT: Atraumatic, PERRLA, EOMI, Normocephalic Oral: No Gingival or Mucosal Lesions/ Ulcerations Neck: Supple, No JVD, Negative Carotid Bruits Lungs: Air entry severely diminished in bilateral lung bases from obesity. Bilateral rhonchi present in lower lungs. Cardiovascular: Regular rate, Regular Rhythm, Normal S1, Normal S2, No murmurs Abdomen: Bowel Sounds Present, Soft, Non Tender, Non-Distended : No renal angle tenderness. No suprapubic tenderness. Extremities: Bilateral lower leg edema, Capillary Refill Less than 3 Seconds Skin: Redness on both lower legs. Markie wrap bandage. No abscess or ulcer. Musculoskeletal: No Tenderness to Palpation of Joints or Extremities Neurological: Cranial nerves II-XII grossly intact, Deep Tendon Reflexes 2+/4 and Symmetrical, Neuro grossly intact Psych/Mental Status: Normal Affect, Appropriate. - Physical Exam Vitals/I&O's: Vital Signs Temp Pulse Resp BP Pulse Ox 97.6 F L 101 H 20 H 135/81 H 96 04/09/20 10:08 04/09/20 10:08 04/09/20 10:08 04/09/20 10:08 04/09/20 10:08 Oxygen Delivery Method Room Air Weight: 343 lb 7.683 oz Body Mass Index (BMI) 53.1 Intake and Output for Last 24 Hours 04/07/20 04/08/20 04/09/20 23:59 23:59 23:59 Intake Total 752.5 / 1752.5 3805.5 / 3805.5 822.5 / 822.5 Output Total 2099 / 2099 Balance 752.5 / 452.5 1705.5 / 1705.5 822.5 / 822.5 Microbiology Past 72 Hours 04/07/20 12:01 Blood Culture (Wb) - Anticubital Left Blood Culture - Preliminary No growth in 48 hours. 04/07/20 11:43 Blood Culture (Wb) - Anticubital Left Blood Culture - Preliminary No growth in 48 hours. Laboratory Results 04/08/20 17:04: POC Glucose 111 H 04/08/20 21:55: POC Glucose 123 H 04/09/20 06:44: POC Glucose 125 H 04/09/20 08:55: Sodium 137, Potassium 3.7, Chloride 103, Carbon Dioxide 30.0, Anion Gap 4 L, BUN 13, Creatinine 1.26, Estim Creat Clear Calc 70.92, Est GFR (MDRD) Af Amer 78, Est GFR (MDRD) Non-Af 65, BUN/Creatinine Ratio 10.3, Glucose 148 H, Calcium 9.1, Phosphorus 3.2, Magnesium 2.4 04/09/20 11:34: POC Glucose 132 H Current Medications Acetaminophen (Acetaminophen 325 Mg Tablet) 650 mg PO Q6H PRN PRN PRN Reason: Pain Score 1-10/Temp > 100.7 F Al Hydroxide/Mg Hydroxide (Mag Hydrox/Al Hydrox/Simeth 30 Ml Udc) 30 ml PO Q6H PRN PRN PRN Reason: Gastric Burning Albuterol/Ipratropium (Ipratropium/Albuterol Sulfate 3 Ml Ampul.Neb) 3 ml INHALATION Q6H.RT PRN PRN Reason: SHORTNESS OF BREATH Amlodipine Besylate (Amlodipine 10 Mg Tablet) 10 mg PO DAILY [facility] Last Admin: 04/09/20 10:33 Dose: 10 mg Documented by: Diphenhydramine HCl (Diphenhydramine 25 Mg Capsule) 25 mg PO Q6 PRN PRN Reason: ITCHING Last Admin: 04/07/20 20:33 Dose: 25 mg Documented by: Enoxaparin Sodium (Enoxaparin 40 Mg/0.4 Ml Syringe) 40 mg SC BID [facility] Last Admin: 04/09/20 10:34 Dose: 40 mg Documented by: Famotidine (Famotidine 20 Mg Tablet) 20 mg PO BID [facility] Last Admin: 04/09/20 10:33 Dose: 20 mg Documented by: Furosemide (Furosemide 40 Mg/4 Ml Vial) 40 mg IV BID@1000,1800 [facility] Last Admin: 04/09/20 10:34 Dose: 40 mg Documented by: Guaifenesin (Guaifenesin 10 Ml Udc (200mg/10ml)) 20 ml PO Q4H PRN PRN PRN Reason: COUGH Hydralazine HCl (Hydralazine 20 Mg/Ml Vial) 10 mg IV Q4H PRN PRN PRN Reason: SBP > 160 Hydroxyzine Pamoate (Hydroxyzine Magda 25 Mg Capsule) 25 mg PO QHS [facility] Last Admin: 04/08/20 21:57 Dose: 25 mg Documented by: Ampicillin Sodium/Sulbactam (Sodium 3 gm/ Sodium Chloride) 112 mls @ 150 mls/hr IV Q6 [facility] Last Admin: 04/09/20 11:35 Dose: 150 mls/hr Documented by: Sodium Chloride () 250 mls @ 15 mls/hr IV .[id number] PRN PRN Reason: Saline Flush Last Infusion: 04/09/20 11:36 Dose: 0 mls/hr Documented by: Sodium Chloride () 250 mls @ 15 mls/hr IV .[id number] PRN PRN Reason: Additional IVPB Infusion Lisinopril (Lisinopril 20 Mg Tablet) 30 mg PO DAILY [facility] Last Admin: 04/09/20 10:33 Dose: 30 mg Documented by: Losartan Potassium (Losartan Potassium 25 Mg Tablet) 25 mg PO DAILY [facility] Last Admin: 04/09/20 10:33 Dose: 25 mg Documented by: Magnesium Hydroxide (Magnesium Hydroxide 30 Ml Udc) 30 ml PO DAILY PRN PRN PRN Reason: Constipation Melatonin (Melatonin 3 Mg Tablet) 3 mg PO QHS PRN PRN PRN Reason: INSOMNIA Ondansetron HCl (Ondansetron 4 Mg/2 Ml Vial) 4 mg IV Q8H PRN PRN PRN Reason: NAUSEA/VOMITING Oxycodone HCl (Oxycodone 5 Mg Tablet) 5 mg PO Q4H PRN PRN PRN Reason: Pain Score 4-5 Pantoprazole Sodium (Pantoprazole Sodium 20 Mg Tablet) 20 mg PO DAILY [facility] Last Admin: 04/09/20 10:33 Dose: 20 mg Documented by: Prochlorperazine Edisylate (Prochlorperazine 10 Mg/2 Ml Vial) 5 mg IV Q4H PRN PRN PRN Reason: Breakthrough nausea/vomiting Psyllium Hydrophilic Mucilloid (Psyllium 1 Packet) 1 packet PO DAILY PRN PRN PRN Reason: Constipation Quetiapine Fumarate (Quetiapine 100 Mg Tablet) 100 mg PO DAILY [facility] Last Admin: 04/09/20 10:34 Dose: 100 mg Documented by: Senna/Docusate Sodium (Senna/Docusate Sodium 1 Tablet) 2 tablet PO BID PRN PRN PRN Reason: Constipation Sertraline HCl (Sertraline 50 Mg Tablet) 50 mg PO DAILY [facility] Last Admin: 04/09/20 10:33 Dose: 50 mg Documented by: Sodium Chloride (0.9% Saline Lock 10 Ml Syringe) 10 - 40 ml IV UD PRN PRN Reason: SALINE FLUSH Last Admin: 04/09/20 10:34 Dose: 10 ml Documented by: Throat Lozenges (Benzocaine/Menthol 1 Lozenge) 1 lozenge MUCOUS MEM Q2H PRN PRN PRN Reason: SORE THROAT Discharge Activity: Return to Normal Activity Weight Bearing Status: Weight bearing as tolerated Call your doctor if you observe: Fever of 101 or Higher, Coldness, Increased Pain, Numbness or Tingling, Change in Color, Inability to urinate, Inability to have a bowel movement, Shortness of breath, Dizziness, Fainting spells, Swelling in the ankles, Chest pain, Increased palpitations (irregular heartbeat), Calf discomfort, Uncontrolled pain Home Medications: Medications to take at Discharge Hydroxyzine HCl 25 mg PO QHS 02/04/19 Lisinopril [Zestril] 30 mg PO DAILY 02/04/19 Omeprazole [Prilosec] 20 mg PO DAILY 02/04/19 Sertraline HCl [Zoloft] 50 mg PO DAILY 02/04/19 Amlodipine [Norvasc] 10 mg PO DAILY 07/07/19 Valsartan 80 mg PO DAILY 07/07/19 Albuterol Inhaler [Ventolin Hfa] 1 - 2 puff INHALATION Q4H PRN PRN #1 inhaler 01/27/20 Quetiapine Fumarate [Seroquel] 100 mg PO DAILY 04/07/20 Cefadroxil 1 gm PO BID #10 tab 04/09/20 Furosemide [Lasix] 40 mg PO DAILY #60 tab 04/09/20 Following Prescriptions Were Given to Patient: Cefadroxil 1 gm PO BID #10 tab Transmission Status: Received by [id number] Furosemide [Lasix] 40 mg PO DAILY #60 tab Transmission Status: Received by [id number] Primary Care Physician: Wm Rubi MD [Primary Care Provider] - Please follow up with your Primary Care Physician in: IN 2 WEEK Please Follow Up With: Yoly Cazares NP, [employer]-C When: @ 1:15pm Medical Necessity - Tobacco Use Smoking Status: Never smoker Tobacco Use: Non-smoker Meaningful Use Info Meaningful Use Diagnoses (Choose all that apply): None applicable Inpatient E&M: 27973 Disch Hosp
[2020-04-09 14:33] VITALS: BP 149/65; PULSE 100; RESP 22; TEMP 36.4; O2SAT 96
== END 2020-04-09 14:45 | disposition home or self-care (01) | DRG 603 ==
LOC: ED 14:55 → MS3 16:22
PROVIDERS: Admitting Provider Family Medicine; Emergency Provider Emergency Medicine; PCP Family Medicine; Visit Provider Internal Medicine
DX: L03.115 Cellulitis of right lower limb (principal); Z68.43 Body mass index [BMI] 50.0-59.9, adult; E66.2 Morbid (severe) obesity with alveolar hypoventilation; Z71.3 Dietary counseling and surveillance; L03.116 Cellulitis of left lower limb; L85.3 Xerosis cutis; L60.3 Nail dystrophy; L60.0 Ingrowing nail; L84 Corns and callosities; B35.1 Tinea unguium; I89.0 Lymphedema, not elsewhere classified; I10 Essential (primary) hypertension; E11.65 Type 2 diabetes mellitus with hyperglycemia; E78.5 Hyperlipidemia, unspecified; K21.9 Gastro-esophageal reflux disease without esophagitis; F32.9 Major depressive disorder, single episode, unspecified; F41.9 Anxiety disorder, unspecified; R00.0 Tachycardia, unspecified; R06.82 Tachypnea, not elsewhere classified; R45.1 Restlessness and agitation; Z79.899 Other long term (current) drug therapy; Z83.3 Family history of diabetes mellitus
CPT/HCPCS: 36415; 71045; 73590; 73630; 80048; 80053; 82962; 83036; 83605; 83735; 83880; 84100; 84484; 85025; 85610; 85730; 87040; 87641; 93005; 94002; 94640; 97802; 99251; 99285; J7040; J7050; A4216; G0463; J0295; J1940

== ENCOUNTER 2020-05-19 11:45 | Inpatient (IN) | payer MEDICARE, MEDICAID, SELFPAY ==
[2020-04-07 16:28] VITALS: BMI 53.1
[2020-05-19] VITALS (10 sets, daily range): BP systolic 117–179; BP diastolic 59–129; PULSE 105–113; RESP 18–26; TEMP 35.9–37.3; O2SAT 92–96; BMI 56.0
--- NOTE | 2020-05-19 11:55 | RAD_ITS ---
STUDY: X-RAY CHEST REASON FOR EXAM: Male, 49 years old. Shortness of breath. TECHNIQUE: Single AP portable view of the chest. COMPARISON: Comparison is made with prior examination dated 04/07/2020. FINDINGS: EKG lead traversing. The lungs are clear and expanded. There is no demonstrated pleural abnormality. There is moderate cardiac enlargement. Normal mediastinum and helene. Normal visualized pulmonary arteries. Normal visualized aortic arch and descending thoracic aorta. Normal visualized thoracic spine. Normal visualized ribs, clavicles, and shoulders. There is no demonstrated abnormality of the visualized soft tissue structures of the upper abdomen. RAD/Chest 1 View (Portable) IMPRESSION: Moderate cardiomegaly. The lungs are clear. Electronically Signed: Nael Duvall MD at 12:56 EST , Service support ,
--- NOTE | 2020-05-19 11:55 | EKG12_ITS ---
Test Reason : SOB Blood Pressure : / mmHG Vent. Rate : 107 BPM Atrial Rate : 107 BPM P-R Int : 142 ms QRS Dur : 084 ms QT Int : 348 ms P-R-T Axes : 057 018 037 degrees QTc Int : 464 ms Sinus tachycardia Otherwise normal ECG Confirmed by JALEN OCAMPO, DENTON ([id number]), mapping editor ASPEN CARMONA ([id number]) on 05/24/2020 11:08:45 AM Referred By: DARIEL Confirmed By:RADAMES RAO MD
--- NOTE | 2020-05-19 11:56 | ED.DCSUM_ITS ---
History of Present Illness Chief Complaint: Shortness of Breath Informant: Patient Narrative: Male presenting with shortness of breath. Patient also states that his legs are more swollen and red than usual. He admits to a 13 pound weight gain as assessed by his primary care physician. Dr. Rubi did call state that he had an echo which showed systolic function is okay but did not assess the diastolic well. He is concerned he is in heart failure. She admits to dyspnea on exertion. He also admits to a slight cough. He denies fever, chills, myalgias, change in taste or smell. Patient denies chest pain. - Past Medical History (1) Cellulitis Status: Chronic (2) Lymphedema Status: Chronic (3) GERD (gastroesophageal reflux disease) Status: Chronic (4) HLD (hyperlipidemia) Status: Chronic Past Medical History - Allergies and Home Meds Allergies/Adverse Reactions: Allergies Sulfa (Sulfonamide Antibiotics) Allergy (Verified 05/19/20 11:46) Unknown Prior records reviewed: Yes Past Medical History: - - Reviewed in problem list Surgical History: noncontributory, tonsillectomy Lives: Alone Smoking Status: Never smoker - Family History Maternal Family History: Reports: Diabetes Paternal Family History: Reports: Pulmonary Disease Review of Systems General: Denies: Chills, Fever, Malaise Eyes: Denies: Visual changes - bilaterally, Diplopia ENT: Denies: Rhinorrhea, Sore throat Cardiovascular: Reports: Heart racing. Denies: Chest pain Respiratory: Reports: Dyspnea, Cough, Dyspnea on exertion Gastrointestinal: Denies: Abdominal pain, Nausea, Vomiting Genitourinary: Denies: Dysuria, Hematuria Musculoskeletal: Denies: Myalgias, Arthralgias Skin: Reports: Rash - Lateral lower extremities Neurological: Denies: Headache, Parasthesia, Numbness Psych: Denies: Depression, Anxiety Physical Exam Vital Signs/Narrative: Vital Signs Temp Pulse Resp BP Pulse Ox 05/19/20 11:46 96.7 F L 112 H 26 H 179/129 H 96 Inital Vital Signs reviewed: Yes General: Obese, No Acute Distress Head: Normocephalic, Atraumatic Eyes: Perrl, EOMI. Negative for: Pale conjunctiva ENT: Negative for: No rhinorrhea, Nasal congestion Cardiovascular: Regular rhythm, Tachycardia Extremities: Tenderness, Edema Skin: - - . Erythema to the bilateral lower extremities. There is also chronic stasis changes.. Negative for: Cyanosis, Diaphoresis Neurological: Alert, Oriented x3, Cranial nerves II-XII grossly intact Psychological: Normal affect, Normal Mood Diagnostic/Tx/Re-eval - Rhythm Strip Rhythm Strip: Sinus Rhythm Rate: 107 - EKG Initial EKG Interpretation: No Acute Injury Pattern, Sinus Tachycardia - Medical Decision Making Patient presents with shortness of breath. It is discovered that the patient has not been taking his medications at home. He states he has not been taking his medications because he cannot sleep. He was seen by Dr. Rubi today who sent him to the emergency room. Patient had EKG on arrival which is sinus rhythm at 107 bpm as interpreted by myself. Chest x-ray shows cardiomegaly with no other pulmonary findings as interpreted by myself. Patient has no leukocytosis. Hemoglobin is stable. Patient does have a small drop in his GFR at 59 however he seems to alternate between 50s and 70s. Troponin is negative. BNP is neg ative. Given everything is normal I did CTA patient's chest and is no sign of pulmonary embolism. After work-up I did speak with Dr. Rubi who had concerns for possible anasarca but did also tell me that the patient had been complaining of chest pain with exertion. He does not think he would be able to do a treadmill stress test given his current weight gain and debility. Patient was discussed with hospitalist who will admit him for further evaluation. Impression 1. Chest pain 2. Bilateral lower extremity edema 3. Dyspnea ED Disposition - Plan for ED Patient: Disposition: Acute Care Hospital [facility]
[2020-05-19 12:50] LABS: Absolute Neutrophil Count 5.4 X10^3/uL (2.0-7.7); Basophil# 0.02 X10^3/uL; Basophil% 0.3 % (0-1); Eosinophil# 0.11 X10^3/uL; Eosinophils% 1.6 % (0-5); Lymphocyte % 10.3 % (19-41); Mean Corp Hgb Conc 30.6 g/dL (32-36); Mean Corpuscular Hgb 25.6 pg (27.0-32.0); Mean Corpuscular Volume 83.7 fL (80-94); Mean Platelet Vol. 9.2 fl (6.2-12.0); Monocyte# 0.54 X10^3/uL; Monocyte% 7.9 % (0-10); NRBC Flagged by Analyzer 0 % (0-5); Neutrophil # 5.41 X10^3/uL (2.7-7.7); Neutrophil % 79.5 % (47-70); Platelet Count 268 K/mm3 (150-450); RBC Distribution Width CV 14.4 % (11.6-14.6); RBC Distribution Width SD 43.8 fl (35.1-43.9); White Blood Count 6.8 K/mm3 (4.4-11.0)
[2020-05-19 13:04] LABS: Anion Gap 6 (5-15); BUN 21 mg/dL (7-18); BUN/Creat Ratio 15.4 RATIO (10-20); Calcium,Total 8.7 mg/dL (8.5-10.1); Chloride 103 mmol/L (98-107); Creatinine, Serum 1.36 mg/dL (0.70-1.30); EST Glomerular Filtration Rate 59 mL/min (>60); Est Glom Filt Rate - Afr Amer 71 mL/min (>60); Glucose 113 mg/dL (74-106); Sodium Level 137 mmol/L (136-145)
[2020-05-19 13:09] LABS: Procalcitonin 0.09 ng/mL (0.00-0.09)
[2020-05-19 13:10] LABS: BNP,B-Type NATRIURETIC PEPTIDE 10.1 pg/mL (0-100)
--- NOTE | 2020-05-19 13:21 | CT_ITS ---
STUDY: CTA CHEST REASON FOR EXAM: Male, 49 years old. SOB RADIATION DOSAGE (If Supplied By Facility): CTDIvol = ( 21.04 ) mGy, DLP = ( 911.64 ) mGycm TECHNIQUE: The examination was performed with the intravenous administration of IV 100mL Isovue-370. Post-processing of the angiographic images was performed, with multiplanar reformation and 3D reconstruction. Individualized dose optimization techniques were used for this CT. COMPARISON: Comparison is made with prior study dated 03/30/2020. Comparison is also made with prior chest radiograph done earlier today. FINDINGS: Small benign appearing bilateral axillary lymph nodes. Normal enhancement of the main pulmonary artery and right and left pulmonary arteries. Normal enhancement of the bilateral peripheral pulmonary arteries. There is no demonstrated pulmonary embolism. Normal thoracic aorta and visualized great vessels. There is no demonstrated aortic dissection. Normal heart and pericardium. There are visualized mediastinal lymph nodes, which are within normal size limits, and with normal morphology. Normal hilar regions. Normal visualized trachea and bronchi. The lungs are well expanded. Normal pulmonary parenchyma. Normal pleura. Normal chest wall structures. There are degenerative changes of thoracic spine. Normal visualized upper abdomen. CT/CTA Chest W/WO Contrast IMPRESSION: No acute abnormalities. Electronically Signed: Nael Duvall MD at 14:07 EST , Service support ,
--- NOTE | 2020-05-19 14:46 | NURSING ---
PCU CHF, JOAN HOYOS
--- NOTE | 2020-05-19 14:55 | HP.PCM_ITS ---
History of Present Illness Date of Admission: 05/19/20 Chief Complaint: SOB and chest pain The patient is a 49 year old M with a PMH as below who presents to the hospital with progressive shortness of breath, and increasing swelling in his lower extremities as well as bilateral mild redness. He states that that he has been short of breath for a while however he started noticing that he was gaining weight, per his PCPs gained 14 pounds, as well as some redness and has had difficulty fitting into his shoes. His PCP had performed an echo as an outpatient at the [facility], will attempt to get those records. Mr. Ruffin states that the medications seem to be preventing him from sleeping so he completely discontinued all of his home medications on Sunday and since then he has noticed increased swelling. These medications that he discontinued include Norvasc, Lasix, lisinopril, Metformin, Seroquel, Zoloft, and apparently valsartan. He states that he does normally get chest pain and this was a little bit with exertion across the bottom of his chest anteriorly. He did not notice any radiation of the pain, and it did not make him more short of breath or lightheaded. Is currently resolved. Initial troponin in the ER was unremarkable and EKG just demonstrated some sinus tach. Initial blood pressure on admission was 179/128 and he has been tachycardic. He is afebrile, without myalgias, or cough. CTA of the chest was negative for PE and did not show any pulmonary findings. And he is chronically lymphopenic any rapid Covid test was negative. Past Medical History Past Medical History (Chronic Problems): Chronic Problems (Last Updated 07/07/19 @ 18:[address] Beto Ruelas DO) Lymphedema (Chronic) Cellulitis (Chronic) Morbid (severe) obesity due to excess calories (Chronic) HTN (hypertension) (Chronic) HLD (hyperlipidemia) (Chronic) GERD (gastroesophageal reflux disease) (Chronic) Medical History: Medical History (Last Updated 07/07/19 @ 18:[address] Beto Ruelas DO) Back pain M54.9 HTN (hypertension) I10 Allergies Sulfa (Sulfonamide Antibiotics) Allergy (Verified 05/19/20 11:46) Unknown Home Medications: Ambulatory Orders Medication Instructions Recorded Hydroxyzine HCl 25 mg PO QHS 02/04/19 Omeprazole [Prilosec] 20 mg PO DAILY 02/04/19 Sertraline HCl [Zoloft] 50 mg PO DAILY 02/04/19 Valsartan 80 mg PO DAILY 07/07/19 Albuterol Inhaler [Ventolin Hfa] 1 - 2 puff INHALATION Q4H PRN PRN 01/27/20 #1 inhaler Quetiapine Fumarate [Seroquel] 100 mg PO DAILY 04/07/20 Furosemide [Lasix] 40 mg PO DAILY #60 tab 04/09/20 Amlodipine [Norvasc] 5 mg PO DAILY 05/19/20 Lisinopril [Zestril] 40 mg PO DAILY 05/19/20 Metformin HCl [Metformin HCl ER] 500 mg PO BIDCM 05/19/20 Surgical History: tonsillectomy Lives: Alone Smoking Status: Never smoker Alcohol: None Drugs: None - *Family History Paternal History Items: Heart Disease, Pulmonary Disease Maternal History Items: Diabetes Review of Systems Constitutional: Denies: Chills, Fever, Weight Change HEENT: Denies: Head Aches, Sinus Congestion, Sinus Drainage Cardiovascular: Reports: Chest Pain, Edema. Denies: Palpitations Respiratory: Reports: Shortness of Breath. Denies: Cough, Shortness of breath at rest, Sputum production Gastrointestinal: Denies: Abdominal Pain, Nausea, Vomiting Genitourinary: Denies: Dysuria Musculoskeletal: Denies: Joint Pain, Joint Tenderness Skin: Reports: - - Redness. Denies: Rash, Wounds Neurological: Denies: Numbness, Tingling, Focal weakness Psychiatric: Denies: Anxiety, Depression Hematologic/ Lymphatic: Denies: Easy Bruising, Easy Bleeding VTE Information - Inpt Only VTE Present on Admission: No - Redness - Physical Exam Vitals/I&O's: Vital Signs Temp Pulse Resp BP Pulse Ox 98.3 F 106 H 24 H 132/71 H 92 05/19/20 13:22 05/19/20 13:22 05/19/20 13:22 05/19/20 13:22 05/19/20 13:22 Oxygen Delivery Method Room Air Weight: 379 lb Body Mass Index (BMI) 56.0 General: Alert, Oriented x3, Cooperative, No apparent distress HEENT: Atraumatic, PERRLA, EOMI, Normocephalic Oral: Dry Mucosa Neck: Supple, No JVD Lungs: Clear to auscultation, Normal air movement, No rhonchi, No wheeze, No rales, Diminished Cardiovascular: Regular Rhythm, Normal S1, Normal S2, No murmurs, Tachycardic Abdomen: Soft, Non Tender, Non-Distended, No Hepato-splenomegaly, Obese Extremities: Edema - 1+ pitting edema, skin is tense Skin: No rashes, No breakdown, - - Bilateral erythema Neurological: Neuro grossly intact, Sensory exam intact to light touch and pain Psych/Mental Status: Normal Affect, Appropriate Microbiology Past 72 Hours 05/19/20 12:25 Mucosa - Nose SARS-CoV-2 Antigen (Rapid) - Final Laboratory Results 05/19/20 12:25: WBC 6.8, RBC 4.30 L, Hgb 11.0 L, Hct 36.0 L, MCV 83.7, MCH 25.6 L, MCHC 30.6 L, RDW Std Deviation 43.8, RDW Coeff of Purvi 14.4, Plt Count 268, MPV 9.2, Immature Gran % (Auto) 0.400, Neut % (Auto) 79.5 H, Lymph % (Auto) 10.3 L, [place] % (Auto) 7.9, Eos % (Auto) 1.6, Baso % (Auto) 0.3, Absolute Neuts (auto) 5.4, Absolute Lymphs (auto) 0.70 L, Nucleated RBC % 0 05/19/20 12:25: Sodium 137, Potassium 4.0, Chloride 103, Carbon Dioxide 28.0, Anion Gap 6, BUN 21 H, Creatinine 1.36 H, Estim Creat Clear Calc 65.70, Est GFR (MDRD) Af Amer 71, Est GFR (MDRD) Non-Af 59 L, BUN/Creatinine Ratio 15.4, Glucose 113 H, Calcium 8.7, Troponin I < 0.015 05/19/20 12:25: B-Natriuretic Peptide 10.1 05/19/20 12:25: Procalcitonin 0.09 Assessment/Plan All Active Problems (Last Updated 07/07/19 @ 18:[address] Beto Ruelas, DO) Foreign body in right foot (Acute) Right foot pain (Acute) CAP (community acquired pneumonia) (Acute) Cellulitis of right leg (Acute) 1. Shortness of breath with chest pain on exertion with increased bilateral edema/HTN/HLD/morbid obesity -BNP was normal, creatinine is slightly elevated to 1.36 however this is close to his baseline -He did stop all of his medications including his diuretic therefore will restart his blood pressure medications, will discontinue his valsartan and given that his blood pressure is little bit lower now in the afternoon will lower his lisinopril dose and monitor -He did get a dose of IV Lasix in the ED, will resume p.o. dosing tomorrow and monitor -CTA of his chest was negative for PEs or pleural effusions or any interstitial changes -He just had recent echo by his PCP as an outpatient with [facility], will try to get in touch and obtain records of that echo -BMI of 56, discussed lifestyle modifications 2. DM 2 -We will hold his metformin and place him on a sliding scale insulin -Accu-Cheks AC at bedtime, will adjust as necessary 3. Bilateral lower extremity redness -Bilateral redness unlikely to be cellulitis, will continue to monitor without antibiotics given that he is afebrile without a leukocytosis. -If his white count does increase and or develops a fever would add Ancef 4. GERD -Stable -Continue PPI 5. Anxiety/depression -Stable -Continue with Seroquel, Zoloft, hydroxyzine DVT: Lovenox Inpatient E&M: 42776 Init Hosp L3
[2020-05-19] MEDS: Furosemide 40 MG/4 ML Vial IV (15:02)
--- NOTE | 2020-05-19 15:26 | PCS.PANDOC ---
PANDEMIC DOCUMENTATION INITIATED: Date: 05/19/2020 Time: 1375
[2020-05-19 16:25] LABS: Bedside Glucose 106 mg/dL (70-110)
--- NOTE | 2020-05-19 17:15 | EKG12_ITS ---
Test Reason : REPEAT CHEST Blood Pressure : / mmHG Vent. Rate : 112 BPM Atrial Rate : 112 BPM P-R Int : 142 ms QRS Dur : 086 ms QT Int : 342 ms P-R-T Axes : 057 017 034 degrees QTc Int : 466 ms Sinus tachycardia Otherwise normal ECG When compared with ECG of 19-MAY-2020 12:05, MANUAL COMPARISON REQUIRED, DATA IS UNCONFIRMED Confirmed by JALEN OCAMPO, DENTON ([id number]), electronic news gathering editor ASPEN CARMONA ([id number]) on 05/24/2020 12:52:04 PM Referred By: SOHA Confirmed By:RADAMES RAO MD
[2020-05-19] MEDS: Acetaminophen 325 MG Tablet 650 MG PO (21:48)
[2020-05-19] MEDS: hydrOXYzine PAM 25 MG Capsule PO (21:48)
[2020-05-19] MEDS: MELATONIN 3 MG TABLET PO (21:48)
[2020-05-19 22:01] LABS: Bedside Glucose 137 mg/dL (70-110)
[2020-05-20 03:00] VITALS: PULSE 100
[2020-05-20 03:34] VITALS: BP 130/78; PULSE 102; RESP 18; TEMP 36.6; O2SAT 95
[2020-05-20 06:45] LABS: Bedside Glucose 157 mg/dL (70-110)
[2020-05-20 06:53] LABS: Absolute Lymphocyte Count 0.56 X10^3/uL (0.83-4.51); Absolute Neutrophil Count 3.9 X10^3/uL (2.0-7.7); Basophil# 0.02 X10^3/uL; Basophil% 0.4 % (0-1); Eosinophil# 0.14 X10^3/uL; Eosinophils% 2.7 % (0-5); Hematocrit 37.3 % (40-54); Hemoglobin 11.3 g/dL (13.0-16.5); Lymphocyte # 0.56 X10^3/ul (4.0); Mean Corp Hgb Conc 30.3 g/dL (32-36); Mean Corpuscular Hgb 25.3 pg (27.0-32.0); Mean Corpuscular Volume 83.6 fL (80-94); Monocyte# 0.49 X10^3/uL; Monocyte% 9.6 % (0-10); NRBC Flagged by Analyzer 0 % (0-5); Neutrophil # 3.87 X10^3/uL (2.7-7.7); Neutrophil % 75.7 % (47-70); POSITIVE DIFFERENTIAL YES; Platelet Count 263 K/mm3 (150-450); RBC Distribution Width CV 14.4 % (11.6-14.6); RBC Distribution Width SD 43.9 fl (35.1-43.9); Red Blood Count 4.46 M/mm3 (4.6-6.2); White Blood Count 5.1 K/mm3 (4.4-11.0)
[2020-05-20 06:54] VITALS: PULSE 99
[2020-05-20 06:58] LABS: Differential Indicated SCAN CRITERIA MET
[2020-05-20 07:32] LABS: Anion Gap 8 (5-15); BUN 22 mg/dL (7-18); BUN/Creat Ratio 15.6 RATIO (10-20); Calcium,Total 9.2 mg/dL (8.5-10.1); Chloride 102 mmol/L (98-107); Creatinine, Serum 1.41 mg/dL (0.70-1.30); EST Glomerular Filtration Rate 57 mL/min (>60); Est Glom Filt Rate - Afr Amer 69 mL/min (>60); Estimated Creatinine Clearance 63.37 ml/min; Glucose 140 mg/dL (74-106); Potassium 4.2 mmol/L (3.5-5.1); Sodium Level 137 mmol/L (136-145)
[2020-05-20 10:06] VITALS: BP 133/78; PULSE 101; RESP 18; TEMP 36.9; O2SAT 94
[2020-05-20] MEDS: Furosemide 40 MG Tablet PO (10:08)
[2020-05-20] MEDS: Lisinopril 20 MG Tablet PO (10:08)
[2020-05-20] MEDS: amLODIPine 5 MG Tablet PO (10:08)
[2020-05-20] MEDS: Enoxaparin 40 MG/0.4 ML Syringe SC (10:08)
[2020-05-20] MEDS: Pantoprazole Sodium 20 MG Tablet PO (10:09)
[2020-05-20] MEDS: Sertraline 50 MG Tablet PO (10:09)
[2020-05-20 11:50] LABS: Bedside Glucose 131 mg/dL (70-110)
--- NOTE | 2020-05-20 13:20 | DCINST_ITS ---
- Discharge Diagnoses Current Active Problems: Current Active and Chronic Problems (Last Updated 07/07/19 @ 18:[address] Beto Ruelas, DO) Shortness of breath HLD (hyperlipidemia) (Chronic) GERD (gastroesophageal reflux disease) (Chronic) You will use the following diet at home:: Calorie/Carbohydrate Controlled (speci fy 1200, 1400, etc), Cardiac Discharge Activity: Return to Normal Activity Call your doctor if you observe: Shortness of breath, Dizziness, Fainting s pells, Chest pain Allergies/Adverse Reactions: Allergies Sulfa (Sulfonamide Antibiotics) Allergy (Verified 05/19/20 11:46) Unknown Medications to take at Discharge Hydroxyzine HCl 25 mg PO QHS 02/04/19 Omeprazole [Prilosec] 20 mg PO BID 02/04/19 Sertraline HCl [Zoloft] 50 mg PO DAILY 02/04/19 Albuterol Inhaler [Ventolin Hfa] 1 - 2 puff INHALATION Q4H PRN PRN #1 inhaler 01/27/20 Quetiapine Fumarate [Seroquel] 100 mg PO DAILY 04/07/20 Furosemide [Lasix] 40 mg PO DAILY #60 tab 04/09/20 Amlodipine [Norvasc] 5 mg PO DAILY 05/19/20 Lisinopril [Zestril] 40 mg PO DAILY 05/19/20 Metformin HCl [Metformin HCl ER] 500 mg PO BIDCM 05/19/20 Primary Care Physician: Wm Rubi MD [Primary Care Provider] - Please follow up with your Primary Care Physician in: 4-5 Days Test Results: Test results from this visit will be discussed in further detail at your follow- up appointment, if applicable. Please Follow Up With: Yoly Cazares NP, WHEEL MILL OPERATOR-C When: As scheduled 05/24/20 Proposed Discharge Date: 05/20/20
--- NOTE | 2020-05-20 13:23 | DS.PCM_ITS ---
<Nani Lopes DYE HOUSE SUPERVISOR - Last Filed: 05/20/20 13:35> Discharge Date and Diagnosis Date of Admission: 05/19/20 Date of Discharge: 05/20/20 - Primary Discharge Diagnosis Acute Problems: 1. Dyspnea-suspect multifactorial due to heart failure with preserved ejection fraction, suspected obesity hypoventilation syndrome/MICHAEL 2. Type 2 diabetes mellitus 3. Hypertension 4. GERD 5. Anxiety/depression 6. Suspected obesity hypoventilation syndrome/MICHAEL 7. Morbid obesity - Secondary Discharge Diagnosis Chronic Problems: Chronic Problems (Last Updated 07/07/19 @ 18:[address] Beto Ruelas, DO) Lymphedema (Chronic) Cellulitis (Chronic) Morbid (severe) obesity due to excess calories (Chronic) HTN (hypertension) (Chronic) HLD (hyperlipidemia) (Chronic) GERD (gastroesophageal reflux disease) (Chronic) Hospital Course and Treatment Imaging Results: Diagnostic Data Chest X-Ray 05/19/20 11:55 IMPRESSION: Moderate cardiomegaly. The lungs are clear. Electronically Signed: Nael Duvall MD at 12:56 EST , Service support , Chest CTA 05/19/20 13:21 IMPRESSION: No acute abnormalities. Electronically Signed: Nael Duvall MD at 14:07 EST , Service support , Operations: None Procedures: None Summary of Care Provided: The patient is a 49 year old M admitted 05/19/2020 due to shortness of breath and chest pain. 1. Dyspnea-suspect multifactorial due to heart failure with preserved ejection fraction, suspected obesity hypoventilation syndrome/MICHAEL. Echo at [facility] 05/17/2020 with EF 60%, unable to assess diastolic dysfunction. Patient received IV Lasix x1 in ER. Oxygen stable on room air. He reports shortness of breath has resolved. Denies chest pain. Troponin negative x3. EKG without ST-T changes. CTA without acute abnormalities. Patient has follow-up with pulmonary medicine 05/24/20 for further pulmonary evaluation. Follow-up with PCP in 3 to 5 days. Recommend outpatient stress test if symptoms are persistent. Patient also reports he had stopped taking his home medication including Lasix and BP regimen. Counseled on continuing daily use of medication. Valsartan discontinued as patient is on lisinopril. 2. Type 2 diabetes mellitus-hemoglobin A1c March 2020 6.6%. Continue home oral regimen. 3. Hypertension-stable, continue amlodipine, lisinopril. Valsartan regimen discontinued. 4. GERD-continue omeprazole. 5. Anxiety/depression-continue Seroquel, Zoloft. 6. Suspected obesity hypoventilation syndrome/MICHAEL-upcoming follow-up with pulmonary medicine as noted above. 7. Morbid obesity-encouraged diet lifestyle modifications. Patient seen and examined prior to discharge. Physical assessment as noted below. Patient is stable for discharge with follow up recommendations as noted above. This patient was seen by FAITH Shepherd under the supervision of Dr. Feldman. - Physical Exam Vitals/I&O's: Vital Signs Temp Pulse Resp BP Pulse Ox 98.5 F 101 H 18 133/78 H 94 05/20/20 10:06 05/20/20 10:06 05/20/20 10:06 05/20/20 10:06 05/20/20 10:06 Oxygen Delivery Method Room Air Weight: 369 lb 7.916 oz Body Mass Index (BMI) 56.0 Intake and Output for Last 24 Hours 05/18/20 05/19/20 05/20/20 23:59 23:59 23:59 Intake Total 75 / 75 950 / 950 Balance 75 / 75 950 / 950 General: Alert, Oriented x3, Cooperative HEENT: Atraumatic, PERRLA, EOMI, Normocephalic Neck: Supple, No JVD, Negative Carotid Bruits Lungs: Clear to auscultation, Diminished Cardiovascular: Regular rate, No murmurs Abdomen: Bowel Sounds Present, Soft, Non Tender, Non-Distended, Obese Extremities: No clubbing, No cyanosis, Capillary Refill Less than 3 Seconds, Edema - Chronic lower extremity edema Skin: - - Chronic lower extremity redness, hyperpigmentation Musculoskeletal: No Tenderness to Palpation of Joints or Extremities Neurological: Cranial nerves II-XII grossly intact, Neuro grossly intact Psych/Mental Status: Normal Affect, Appropriate Microbiology Past 72 Hours 05/19/20 12:25 Mucosa - Nose SARS-CoV-2 Antigen (Rapid) - Final Laboratory Results 05/19/20 16:20: POC Glucose 106 05/19/20 16:43: Troponin I < 0.015 05/19/20 19:20: Troponin I < 0.015 05/19/20 21:54: POC Glucose 137 H 05/20/20 06:30: WBC 5.1, RBC 4.46 L, Hgb 11.3 L, Hct 37.3 L, MCV 83.6, MCH 25.3 L, MCHC 30.3 L, RDW Std Deviation 43.9, RDW Coeff of Purvi 14.4, Plt Count 263, MPV 9.0, Immature Gran % (Auto) 0.600, Neut % (Auto) 75.7 H, Lymph % (Auto) 11.0 L, [place] % (Auto) 9.6, Eos % (Auto) 2.7, Baso % (Auto) 0.4, Absolute Neuts (auto) 3.9, Absolute Lymphs (auto) 0.56 L, Nucleated RBC % 0, Differential Comment COMMENT 05/20/20 06:30: Sodium 137, Potassium 4.2, Chloride 102, Carbon Dioxide 27.0, Anion Gap 8, BUN 22 H, Creatinine 1.41 H, Estim Creat Clear Calc 63.37, Est GFR (MDRD) Af Amer 69, Est GFR (MDRD) Non-Af 57 L, BUN/Creatinine Ratio 15.6, Glucose 140 H, Calcium 9.2 05/20/20 06:31: POC Glucose 157 H 05/20/20 11:44: POC Glucose 131 H Current Medications Acetaminophen (Acetaminophen 325 Mg Tablet) 650 mg PO Q6H PRN PRN PRN Reason: Pain Score 1-10/Temp > 100.7 F Last Admin: 05/19/20 21:48 Dose: 650 mg Documented by: Amlodipine Besylate (Amlodipine 5 Mg Tablet) 5 mg PO DAILY [facility] Last Admin: 05/20/20 10:08 Dose: 5 mg Documented by: Dextrose (Dextrose 50%-Water 25 Gm/50 Ml Disp.Syrin) 0 gm IV X1 PRN; Protocol PRN Reason: Hypoglycemia Enoxaparin Sodium (Enoxaparin 40 Mg/0.4 Ml Syringe) 40 mg SC DAILY [facility] Last Admin: 05/20/20 10:08 Dose: 40 mg Documented by: Furosemide (Furosemide 40 Mg Tablet) 40 mg PO DAILY [facility] Last Admin: 05/20/20 10:08 Dose: 40 mg Documented by: Glucagon (Glucagon 1 Mg/Ml Syringe) 1 mg IM .X1 PRN PRN Reason: Hypoglycemia Hydroxyzine Pamoate (Hydroxyzine Magda 25 Mg Capsule) 25 mg PO QHS [facility] Last Admin: 05/19/20 21:48 Dose: 25 mg Documented by: Insulin Human Lispro (Insulin Lispro 100 Unit/Ml Insuln.Pen) 0 unit SC ACHS [facility]; Protocol Last Admin: 05/20/20 12:45 Dose: Not Given Documented by: Lisinopril (Lisinopril 20 Mg Tablet) 20 mg PO DAILY [facility] Last Admin: 05/20/20 10:08 Dose: 20 mg Documented by: Melatonin (Melatonin 3 Mg Tablet) 3 mg PO QHS PRN PRN PRN Reason: INSOMNIA Last Admin: 05/19/20 21:48 Dose: 3 mg Documented by: Ondansetron HCl (Ondansetron 4 Mg/2 Ml Vial) 4 mg IV Q8H PRN PRN PRN Reason: NAUSEA/VOMITING Pantoprazole Sodium (Pantoprazole Sodium 20 Mg Tablet) 20 mg PO DAILY [facility] Last Admin: 05/20/20 10:09 Dose: 20 mg Documented by: Quetiapine Fumarate (Quetiapine 100 Mg Tablet) 100 mg PO QHS [facility] Sertraline HCl (Sertraline 50 Mg Tablet) 50 mg PO DAILY [facility] Last Admin: 05/20/20 10:09 Dose: 50 mg Documented by: Sodium Chloride (0.9% Saline Lock 10 Ml Syringe) 10 - 40 ml IV UD PRN PRN Reason: SALINE FLUSH Discharge Diet: Low fat/ Low Cholesterol, 1800 Calorie Control Diet, 2000 mg Sodium Diet, Carb Control Diet Discharge Activity: Return to Normal Activity Call your doctor if you observe: Shortness of breath, Dizziness, Fainting spells, Chest pain Home Medications: Medications to take at Discharge Hydroxyzine HCl 25 mg PO QHS 02/04/19 Omeprazole [Prilosec] 20 mg PO BID 02/04/19 Sertraline HCl [Zoloft] 50 mg PO DAILY 02/04/19 Albuterol Inhaler [Ventolin Hfa] 1 - 2 puff INHALATION Q4H PRN PRN #1 inhaler 1 Quetiapine Fumarate [Seroquel] 100 mg PO DAILY 04/07/20 Furosemide [Lasix] 40 mg PO DAILY #60 tab 04/09/20 Amlodipine [Norvasc] 5 mg PO DAILY 05/19/20 Lisinopril [Zestril] 40 mg PO DAILY 05/19/20 Metformin HCl [Metformin HCl ER] 500 mg PO BIDCM 05/19/20 Primary Care Physician: Wm Rubi MD [Primary Care Provider] - Please follow up with your Primary Care Physician in: 4-5 Days Please Follow Up With: Yoly Cazares NP, DYE HOUSE SUPERVISOR-C When: As scheduled 05/24/20 Disposition: Home Minutes spent on discharge:: 35 Patient Condition:: Stable Medical Necessity - Tobacco Use Smoking Status: Never smoker Meaningful Use Info Meaningful Use Diagnoses (Choose all that apply): CHF - CHF MATTHEW/ARB ordered at discharge?: Yes Documented LVEF (%): 60 <Elena Feldman - Last Filed: 05/20/20 14:44> Discharge Date and Diagnosis - Secondary Discharge Diagnosis Chronic Problems: Chronic Problems (Last Updated 07/07/19 @ 18:[address] Beto Ruelas, DO) Lymphedema (Chronic) Cellulitis (Chronic) Morbid (severe) obesity due to excess calories (Chronic) HTN (hypertension) (Chronic) HLD (hyperlipidemia) (Chronic) GERD (gastroesophageal reflux disease) (Chronic) Hospital Course and Treatment Summary of Care Provided: Patient seen by Nani Lopes NP-C under my supervision The patient is a 49 year old M with a past medical history as outlined who was admitted through the ED on 05/19/2020 with a complaint of shortness of breath and chest pain as well as increased swelling in his lower extremities. He felt he had gained about 14 pounds. He said 2D echo was done on outpatient basis by his PCP at [facility] and records obtained showed that echo done on 05/17/2020 showed EF of 60% with diastolic dysfunction unable to be assessed. EKG showed no acute ST changes and troponins x3 were negative. CT of the chest was negative for PE. Patient was therefore admitted and managed for dyspnea likely multifactorial due to suspected obesity hypoventilation syndrome and MICHAEL as well as heart failure. BNP was not elevated and was only 10.1. Patient shortness of breath resolved. Patient was counseled to continue with pulmonary medicine at his scheduled appointment on 05/24/2020 for pulmonary evaluation for sleep apnea. Patient admitted not taking his medications at home namely his Lasix and all his other meds. Patient also noted to be drinking a lot of fluids namely soda and other time of review he had 8 empty cans of Diet Coke and diet Sprite with him as well as 2 more cans of Coke that he was going to drink. Patient said he took about 2 L of soda every day at home. Patient counseled to comply with his medications and to also cut back and significantly stop his soft drink consumption. Patient was discharged home on 05/20/2020 and is follow-up with his primary care doctor within a week. Of note his valsartan was also discontinued as patient was on lisinopril already. Patient seen and examined prior to discharge. He had no complaints and felt well. Review of symptoms otherwise negative. Labs and vitals reviewed. Home medication reviewed and reconciled. O/E: Vital Signs Temp Pulse Resp BP Pulse Ox 97.4 F L 101 H 16 119/55 L 94 05/20/20 13:52 05/20/20 13:52 05/20/20 13:52 05/20/20 13:52 05/20/20 13:52 [] General: Alert, Oriented x3, Cooperative, super-morbid obesity HEENT: Atraumatic, PERRLA, EOMI, Normocephalic Neck: Supple, No JVD, Negative Carotid Bruits Lungs: Clear to auscultation, Diminished Cardiovascular: Regular rate, No murmurs Abdomen: Bowel Sounds Present, Soft, Non Tender, Non-Distended, Obese Extremities: No clubbing, No cyanosis, Capillary Refill Less than 3 Seconds, Edema - Chronic lower extremity edema Skin: - - Chronic lower extremity redness, hyperpigmentation Musculoskeletal: No Tenderness to Palpation of Joints or Extremities Neurological: Cranial nerves II-XII grossly intact, Neuro grossly intact Psych/Mental Status: Normal Affect, Appropriate Plan is for discharge today. Rest as per Nani Lopes DYE HOUSE SUPERVISOR-C's note, which I have reviewed and reconciled. - Physical Exam Vitals/I&O's: Vital Signs Temp Pulse Resp BP Pulse Ox 97.4 F L 101 H 16 119/55 L 94 05/20/20 13:52 05/20/20 13:52 05/20/20 13:52 05/20/20 13:52 05/20/20 13:52 Oxygen Delivery Method Room Air Weight: 369 lb 7.916 oz Body Mass Index (BMI) 56.0 Intake and Output for Last 24 Hours 05/18/20 05/19/20 05/20/20 23:59 23:59 23:59 Intake Total 75 / 75 950 / 950 Balance 75 / 75 950 / 950 Microbiology Past 72 Hours 05/19/20 12:25 Mucosa - Nose SARS-CoV-2 Antigen (Rapid) - Final Laboratory Results 05/19/20 16:20: POC Glucose 106 05/19/20 16:43: Troponin I < 0.015 05/19/20 19:20: Troponin I < 0.015 05/19/20 21:54: POC Glucose 137 H 05/20/20 06:30: WBC 5.1, RBC 4.46 L, Hgb 11.3 L, Hct 37.3 L, MCV 83.6, MCH 25.3 L, MCHC 30.3 L, RDW Std Deviation 43.9, RDW Coeff of Purvi 14.4, Plt Count 263, MPV 9.0, Immature Gran % (Auto) 0.600, Neut % (Auto) 75.7 H, Lymph % (Auto) 11.0 L, [place] % (Auto) 9.6, Eos % (Auto) 2.7, Baso % (Auto) 0.4, Absolute Neuts ( auto) 3.9, Absolute Lymphs (auto) 0.56 L, Nucleated RBC % 0, Differential Comment COMMENT 05/20/20 06:30: Sodium 137, Potassium 4.2, Chloride 102, Carbon Dioxide 27.0, Anion Gap 8, BUN 22 H, Creatinine 1.41 H, Estim Creat Clear Calc 63.37, Est GFR (MDRD) Af Amer 69, Est GFR (MDRD) Non-Af 57 L, BUN/Creatinine Ratio 15.6, Glucose 140 H, Calcium 9.2 05/20/20 06:31: POC Glucose 157 H 05/20/20 11:44: POC Glucose 131 H OBSV E&M: [id number] Observation care discharge
[2020-05-20 13:52] VITALS: BP 119/55; PULSE 101; RESP 16; TEMP 36.3; O2SAT 94
--- NOTE | 2020-05-20 14:06 | PHA.DC.MR ---
Pharmacy Service has performed discharge medication reconciliation for this patient. The patient's discharge medication list was reviewed for discrepancies and discrepancies were resolved. Home Medications Hydroxyzine HCl 25 mg PO QHS 02/04/19 Omeprazole [Prilosec] 20 mg PO BID 02/04/19 Sertraline HCl [Zoloft] 50 mg PO DAILY 02/04/19 Albuterol Inhaler [Ventolin Hfa] 1 - 2 puff INHALATION Q4H PRN PRN #1 inhaler 01/27/20 Quetiapine Fumarate [Seroquel] 100 mg PO DAILY 04/07/20 Furosemide [Lasix] 40 mg PO DAILY #60 tab 04/09/20 Amlodipine [Norvasc] 5 mg PO DAILY 05/19/20 Lisinopril [Zestril] 40 mg PO DAILY 05/19/20 Metformin HCl [Metformin HCl ER] 500 mg PO BIDCM 05/19/20
--- NOTE | 2020-05-20 15:04 | CASEMGMT ---
SOMMER PATEL assessment: Face to Face with patient for initial transition planning/care coordination assessment. SOMMER PATEL introduced self and role at [facility], pt voices understanding and consents to assessment at this time. Pt is sitting up in chair in no distress at this time. Pt is A/Ox4 at this time and answers all questions appropriately at this time. Pt is on room air at this time. Care providers, pharmacy, and demographics verified at this time. Presentation: Pt c/o SOB, increasing weight gain, bilat leg swelling/redness- pt reports recent worsening of symptoms. Sent by Dr. Rubi Admitting dx: CP, CHF PCP: Elicia Specialists: Pt states no current specialists. Preferred [facility]acy: [facility] Insurance: [facility] A/B, [facility] Prescription Benefit: Pt states has a discount card that he uses and states no concerns with getting meds. Living Will/HPOA: Pt states has LW/HPOA and is aware that they are on file at [facility] at this time. Pt states his sister, Tatianna Ruffin, is HPOA. LNOK: Tatianna Ruffin, sister Living Arrangements: Pt states lives alone in apt with a flight of stairs and states no concerns with going home at time of discharge. Pt states is independent with ADL's. Transportation: DME/HHC: Plan:
--- NOTE | 2020-05-21 14:16 | CASEMGMT ---
SOMMER PATEL Discharge Follow-up Phone Call: ZANE: Louis Strata:4 Call Date: 05/21/2020 Discharge Date: 05/20/2020 Time of Call: 1417 Admitting Diagnosis: CHF Discharge follow-up call attempted to pt's cell phone. Nonidentifying voicemail received and vague message left requesting a return call. Robert Flores RN CM
== END 2020-05-20 14:19 | disposition home or self-care (01) | DRG 206 ==
LOC: ED 12:29 → PCU 14:52
PROVIDERS: Admitting Provider Family Medicine; Emergency Provider Student in an Organized Health Care Education/Training Program; PCP Family Medicine; Visit Provider Student in an Organized Health Care Education/Training Program
DX: E66.2 Morbid (severe) obesity with alveolar hypoventilation (principal); L03.115 Cellulitis of right lower limb; Z68.43 Body mass index [BMI] 50.0-59.9, adult; I11.0 Hypertensive heart disease with heart failure; I50.9 Heart failure, unspecified; D72.810 Lymphocytopenia; E11.9 Type 2 diabetes mellitus without complications; E78.5 Hyperlipidemia, unspecified; F32.9 Major depressive disorder, single episode, unspecified; F41.9 Anxiety disorder, unspecified; K21.9 Gastro-esophageal reflux disease without esophagitis; Z79.899 Other long term (current) drug therapy
CPT/HCPCS: 36415; 71045; 71275; 80048; 82962; 83880; 84145; 84484; 85025; 87426; 93005; 99285; Q9967; A4216; J1940

== ENCOUNTER 2020-08-24 13:12 | Observation (INO) | payer MEDICARE, MEDICAID, SELFPAY ==
[2020-06-14 11:04] VITALS: BMI 42.8
[2020-08-24] VITALS (9 sets, daily range): BP systolic 102–151; BP diastolic 52–92; PULSE 92–124; RESP 16–24; TEMP 35.8–36.6; O2SAT 94–99; BMI 50.9; BMI 50.8
--- NOTE | 2020-08-24 13:44 | EKG12_ITS ---
Test Reason : ABD PAIN Blood Pressure : / mmHG Vent. Rate : 096 BPM Atrial Rate : 096 BPM P-R Int : 150 ms QRS Dur : 088 ms QT Int : 336 ms P-R-T Axes : 035 011 024 degrees QTc Int : 424 ms Normal sinus rhythm Normal ECG Confirmed by ARMAND OCAMPO, BERNABE ([id number]), editor managing director ASPEN CARMONA ([id number]) on 08/25/2020 9:24:34 AM Referred By: ANNY Confirmed By:BERNABE ACUNA MD
--- NOTE | 2020-08-24 13:52 | ED.VIS.DYS ---
HPI History of Present Illness Chief Complaint: Shortness of Breath Narrative Narrative: Patient presenting for evaluation secondary to shortness of breath and a cough. Patient has a underlying history of hypertension hyperlipidemia morbid obesity. Patient states that over the course of about the last week he has been dealing with a cough. He states typically this is nonproductive. He really did not have any associated signs or symptoms with this until today. Today he states that he had a coughing fit that was so bad that it caused him to have some emesis. He states that he now feels short of breath and is also having some left-sided chest pain that he describes as sharp with no exacerbating relieving factors. Patient denies any prior history of DVT or PE, no hemoptysis. Patient denies any exposure to coronavirus. He did not get his coronavirus vaccine as he stated that some people got sick from it. Patient's review of systems is otherwise negative. [facility] Medical History Back pain CAP (community acquired pneumonia) Cellulitis Cellulitis of right leg Diabetes Foreign body in right foot GERD (gastroesophageal reflux disease) HLD (hyperlipidemia) HTN (hypertension) HTN (hypertension) Lymphedema Morbid (severe) obesity due to excess calories Right foot pain Home Medications hydroxyzine HCl 25 mg PO QHS 02/04/19 [History Last Taken 05/18/20] omeprazole 20 mg PO BID 02/04/19 [History Last Taken 05/18/20] sertraline 50 mg PO DAILY 02/04/19 [History Last Taken 04/07/20] albuterol sulfate 1 - 2 puff INHALATION Q4H PRN PRN #1 inhaler 01/27/20 [Rx Last Taken 05/19/20] quetiapine 100 mg PO DAILY 04/07/20 [History Last Taken 05/18/20] furosemide 40 mg PO DAILY #60 tab 04/09/20 [Rx Last Taken Unknown] amlodipine 5 mg PO DAILY 05/19/20 [History Last Taken 05/18/20] lisinopril 40 mg PO DAILY 05/19/20 [History Last Taken 05/18/20] metformin 500 mg PO BIDCM 05/19/20 [History Last Taken Unknown] Allergy/AdvReac Type Severity Reaction Status Date / Time Sulfa (Sulfonamide Allergy Unknown Verified 08/24/20 13:14 Antibiotics) Family History Other No pertinent family history Surgical History No pertinent past surgical history Social History Smoking Status: Never smoker ROS ROS ED Constitutional Constitutional ED: Denies chills or fever(s) ENT ENT ED: Denies rhinorrhea Cardiovascular Cardiovascular: Reports chest pain Respiratory/Chest Respiratory/Chest: Reports cough and dyspnea Gastrointestinal Gastrointestinal: Denies abdominal pain, diarrhea, nausea or vomiting Genitourinary Genitourinary ED: Denies dysuria or hematuria Musculoskeletal Musculoskeletal: Denies back pain Integumentary Denies rash Neurologic Neurologic: Denies paresthesias or weakness Psychiatric Psychiatric: Denies depression Endocrine Endocrinology: Denies fatigue Allergic/Immunologic Allergic/Immunologic ED: Denies urticaria EXAM Physical Exam Const Vital Signs: 08/24/20 13:14 08/24/20 13:32 08/24/20 15:16 Temperature 96.5 F L Temperature Source Temporal Pulse Rate 124 H 94 Respiratory Rate 24 H 16 Respiratory Effort Normal Blood Pressure 130/80 H 102/56 L Blood Pressure Mean 96 71 Pulse Ox 95 96 Oxygen Delivery Method Room Air Room Air 08/24/20 16:25 Temperature Temperature Source Pulse Rate 99 Respiratory Rate 18 Respiratory Effort Blood Pressure 127/78 H Blood Pressure Mean 94 Pulse Ox 95 Oxygen Delivery Method Room Air Positive well nourished, well developed and obese General Appearance ED: well developed and NAD Nutritional Appearance: obese HEENT Reports moist mucous membranes Negative for trauma or tenderness Eyes EOMs intact bilaterally Neck no lymphadenopathy, supple and no JVD Chest Wall inspection of chest normal Resp normal respiratory effort and clear to auscultation bilaterally Cardio regular rhythm, no murmurs and peripheral pulses 2+ throughout Rate: tachycardic GI normal to inspection, nondistended, normoactive bowel sounds, non-tender and no masses Palpation: soft Back/Spine normal to inspection Extremity normal to inspection Extremity Narrative: Trace bilateral lower extremity pitting edema is noted General Extremety ED: Yes edema; Negative for tenderness General Extremity: edema Neuro oriented x3 and no sensory deficits noted Sensorium / Orientation: alert Motor Exam: strength 5/5 throughout Psych mental status grossly normal Skin no rashes or lesions noted MDM MDM MDM Narrative Medical decision making narrative: Patient presented secondary to chest pain shortness of breath and coughing. He was noted to have tachycardia as well as modest hypoxia in the emergency department. Work-up was obtained. CBC is unremarkable, chemistry demonstrates the patient's chronic elevation of his creatinine of 1.7 without significant evidence of electrolyte derangement. Troponin was found to be negative. D-dimer unfortunately was found to be elevated. Chest x-ray by my personal review shows no infiltrates. A CT angiogram of the chest was concerning for pulmonary embolism with a filling defect noted in the pulmonary branches. Patient's P BENIGNO score would be around 90 making him intermediate risk. He is of poor overall health, and gets extremely dyspneic with walking short distances so I do believe that he requires admission for further observation due to this pulmonary embolism. I will discussed this with the hospitalist. Lab Data Labs: Laboratory Results - last 24 hr 08/24/20 08/24/20 08/24/20 14:00 14:00 14:00 WBC 6.7 RBC 5.66 Hgb 14.0 Hct 45.2 MCV 79.9 L MCH 24.7 L MCHC 31.0 L RDW Std Deviation 48.0 H RDW Coeff of Purvi 17.1 H Plt Count 286 MPV 9.2 Immature Gran % (Auto) 0.300 Neut % (Auto) 73.8 H Lymph % (Auto) 15.6 L [place] % (Auto) 8.8 Eos % (Auto) 1.2 Baso % (Auto) 0.3 Absolute Neuts (auto) 4.9 Absolute Lymphs (auto) 1.04 Nucleated RBC % 0 D-Dimer Quant (PE/DVT) 0.85 H* Sodium 137 Potassium 3.7 Chloride 103 Carbon Dioxide 27.0 Anion Gap 7 BUN 20 H Creatinine 1.75 H Estim Creat Clear Calc 50.50 Est GFR (MDRD) Af Amer 53 L Est GFR (MDRD) Non-Af 44 L BUN/Creatinine Ratio 11.4 Glucose 124 H Lactic Acid Calcium 9.8 Troponin I < 0.015 08/24/20 14:00 WBC RBC Hgb Hct MCV MCH MCHC RDW Std Deviation RDW Coeff of Purvi Plt Count MPV Immature Gran % (Auto) Neut % (Auto) Lymph % (Auto) [place] % (Auto) Eos % (Auto) Baso % (Auto) Absolute Neuts (auto) Absolute Lymphs (auto) Nucleated RBC % D-Dimer Quant (PE/DVT) Sodium Potassium Chloride Carbon Dioxide Anion Gap BUN Creatinine Estim Creat Clear Calc Est GFR (MDRD) Af Amer Est GFR (MDRD) Non-Af BUN/Creatinine Ratio Glucose Lactic Acid 1.7 Calcium Troponin I Radiography Chest X-Ray - ED: 1 View, Read by ED Physician, Normal and Cardiomegaly Diagnostic Testing: Radiology Impression Chest X-Ray 08/24/20 14:35 IMPRESSION: Mild cardiomegaly. The lungs are clear. Electronically Signed: Nael Duvall MD at 14:49 EDT , Service support , Chest CTA 08/24/20 14:46 IMPRESSION: Focal intraluminal filling defect in the pulmonary arterial branch in the superior segment of the right lower lobe as seen on axial image #126 through #130. Electronically Signed: Nael Duvall MD at 15:50 EDT , Service support , Discharge Plan Triage Chief Complaint: Shortness of Breath Other Complaint: Cough ED Provider: Piter Cramer Dx/Rx/DC Orders Clinical Impression: Pulmonary embolism Prescriptions: No Action omeprazole 20 MG capsule 20 mg PO BID RF: 0 hydroxyzine HCl 25 MG tablet 25 mg PO QHS RF: 0 sertraline 50 MG tablet 50 mg PO DAILY RF: 0 albuterol sulfate 1 INHALER inhaler 1 - 2 puff INHALATION Q4H PRN PRN (Reason: Wheezing) Qty: 1 RF: 0 quetiapine 100 MG tablet 100 mg PO DAILY RF: 0 furosemide 40 MG tablet 40 mg PO DAILY Qty: 60 RF: 0 amlodipine 5 MG tablet 5 mg PO DAILY RF: 0 lisinopril 40 MG tablet 40 mg PO DAILY RF: 0 metformin 500 MG tablet extended release 24 hr 500 mg PO BIDCM RF: 0 Primary Care Provider: Wm Rubi Referrals: Wm Rubi MD [Primary Care Provider] - Disposition Disposition: Acute Care [facility]
[2020-08-24 14:24] LABS: Absolute Lymphocyte Count 1.04 X10^3/uL (0.83-4.51); Absolute Neutrophil Count 4.9 X10^3/uL (2.0-7.7); Basophil# 0.02 X10^3/uL; Basophil% 0.3 % (0-1); Eosinophil# 0.08 X10^3/uL; Eosinophils% 1.2 % (0-5); Hematocrit 45.2 % (40-54); Lymphocyte # 1.04 X10^3/ul (0.83-4.51); Lymphocyte % 15.6 % (19-41); Mean Corpuscular Hgb 24.7 pg (27.0-32.0); Mean Corpuscular Volume 79.9 fL (80-94); Mean Platelet Vol. 9.2 fl (6.2-12.0); Monocyte# 0.59 X10^3/uL; Monocyte% 8.8 % (0-10); NRBC Flagged by Analyzer 0 % (0-5); Neutrophil # 4.93 X10^3/uL (2.7-7.7); Neutrophil % 73.8 % (47-70); Platelet Count 286 K/mm3 (150-450); RBC Distribution Width CV 17.1 % (11.6-14.6); Red Blood Count 5.66 M/mm3 (4.6-6.2); White Blood Count 6.7 K/mm3 (4.4-11.0)
[2020-08-24 14:28] LABS: Anion Gap 7 (5-15); BUN 20 mg/dL (7-18); BUN/Creat Ratio 11.4 RATIO (10-20); Calcium,Total 9.8 mg/dL (8.5-10.1); Chloride 103 mmol/L (98-107); Creatinine, Serum 1.75 mg/dL (0.70-1.30); EST Glomerular Filtration Rate 44 mL/min (>60); Est Glom Filt Rate - Afr Amer 53 mL/min (>60); Glucose 124 mg/dL (74-106); Potassium 3.7 mmol/L (3.5-5.1); Sodium Level 137 mmol/L (136-145)
--- NOTE | 2020-08-24 14:35 | RAD_ITS ---
STUDY: X-RAY CHEST REASON FOR EXAM: Male, 50 years old. Cough TECHNIQUE: Single AP portable view of the chest. COMPARISON: Comparison is made with prior study dated 05/19/2020. FINDINGS: The lungs are clear and expanded. There is no demonstrated pleural abnormality. There is mild cardiac enlargement. Normal mediastinum and helene. Normal visualized pulmonary arteries. Normal visualized aortic arch and descending thoracic aorta. There are diffuse degenerative changes of the visualized thoracic spine. Normal visualized ribs, clavicles, and shoulders. There is no demonstrated abnormality of the visualized soft tissue structures of the upper abdomen. RAD/Chest 1 View (Portable) IMPRESSION: Mild cardiomegaly. The lungs are clear. Electronically Signed: Nael Duvall MD at 14:49 EDT , Service support ,
[2020-08-24 14:39] LABS: Lactic Acid 1.7 mmol/L (0.4-1.9)
[2020-08-24 14:46] LABS: D-Dimer Quantitative (DVT/PE) 0.85 FEU/ug/m (0.27-0.49)
--- NOTE | 2020-08-24 14:46 | CT_ITS ---
STUDY: CTA CHEST REASON FOR EXAM: Male, 50 years old. Chest pain, SOB, Elevated Dimer. Shortness of breath and cough for 4 days. RADIATION DOSAGE (If Supplied By Facility): CTDIvol = ( 13.85 ) mGy, DLP = ( 508.98 ) mGycm TECHNIQUE: The examination was performed with the intravenous administration of IV 100mL [id number]-370. Post-processing of the angiographic images was performed, with multiplanar reformation and 3D reconstruction. Individualized dose optimization techniques were used for this CT. COMPARISON: Comparison is made with prior examination dated 11/16/2020. FINDINGS: Focal intraluminal filling defect in the branch of the right lower lobe pulmonary artery and the superior segment of the right lobe as seen on axial image #126 through #130 Normal thoracic aorta and visualized great vessels. There is no demonstrated aortic dissection. Normal heart and pericardium. Normal mediastinum. Normal hilar regions. Normal visualized trachea and bronchi. The lungs are well expanded. Normal pulmonary parenchyma. Normal pleura. Normal chest wall structures. There are degenerative changes of thoracic spine. Normal visualized upper abdomen. CT/CTA Chest W/WO Contrast IMPRESSION: Focal intraluminal filling defect in the pulmonary arterial branch in the superior segment of the right lower lobe as seen on axial image #126 through #130. Electronically Signed: Nael Duvall MD at 15:50 EDT , Service support ,
--- NOTE | 2020-08-24 14:46 | ED.RN ---
D -dimer 0.85. Dr. Palmer aware
[2020-08-24] MEDS: 0.9% Normal Saline 1,000 ML 999 ML IV ×2 (15:15→16:15)
--- NOTE | 2020-08-24 17:07 | NURSING ---
Feroz HOYOS PE
--- NOTE | 2020-08-24 17:20 | PCM.HP.STD ---
Documented by User: FAITH Cruz 08/24/20 17:44 HPI - General General Date of Admission: 08/24/20 HPI Narrative KISHAN MARTINS, is a 50 M who presents today with increasing shortness of breath and productive cough. Patient states that he has been increasingly short of breath over the past month but today he began to cough and realize that he was coughing up slightly bloody sputum. Patient states that he is short of breath with exertion but does not feel short of breath when he is sitting. Patient denies fever, chills, chest pain, nausea, vomiting. Patient ambulated in ER and was noted to have a walking pulse ox of 87% and became rapidly short of breath. [facility] Medical History (Updated 08/24/20 @ 18:[address] Rodney Napier MD) Anxiety Arthritis Back pain CAP (community acquired pneumonia) Cellulitis Cellulitis of right leg Depression Diabetes Foreign body in right foot Former smoker GERD (gastroesophageal reflux disease) HLD (hyperlipidemia) HTN (hypertension) HTN (hypertension) Lymphedema Morbid (severe) obesity due to excess calories Obesity hypoventilation syndrome Right foot pain Sleep apnea Home Medications hydroxyzine HCl 25 mg PO QHS 02/04/19 [History Last Taken 08/23/20] omeprazole 20 mg PO BID 02/04/19 [History Last Taken 08/24/20] sertraline 50 mg PO DAILY 02/04/19 [History Last Taken 08/24/20] albuterol sulfate 1 - 2 puff INHALATION Q4H PRN PRN #1 inhaler 01/27/20 [Rx Last Taken 05/19/20] quetiapine 100 mg PO DAILY 04/07/20 [History Last Taken 08/24/20] furosemide 40 mg PO DAILY #60 tab 04/09/20 [Rx Last Taken 08/24/20] amlodipine 5 mg PO DAILY 05/19/20 [History Last Taken 08/24/20] lisinopril 40 mg PO DAILY 05/19/20 [History Last Taken 08/24/20] metformin 500 mg PO BIDCM 05/19/20 [History Last Taken 08/24/20] valsartan 160 mg PO DAILY 08/24/20 [History Last Taken 08/24/20] Allergy/AdvReac Type Severity Reaction Status Date / Time Sulfa (Sulfonamide Allergy Unknown Verified 08/24/20 13:14 Antibiotics) Family History Other No pertinent family history Surgical History (Updated 08/24/20 @ 17:25 by FAITH Cruz) History of tonsillectomy No pertinent past surgical history Social History Smoking Status: Former smoker ROS Constitutional Constitutional: Denies anorexia, chills, fatigue or fever(s) Eyes Eyes: Denies blurry vision or change in vision ENT HEENT: Denies abnormal hearing or dysphagia Cardiovascular Cardiovascular: Denies chest pain or edema Respiratory/Chest Respiratory/Chest: Reports cough, hemoptysis and shortness of breath with exertion Gastrointestinal Gastrointestinal: Denies abdominal pain, constipation, diarrhea, nausea or vomiting Genitourinary Genitourinary: Denies dysuria, hematuria or nocturia Musculoskeletal Musculoskeletal: Denies back pain, extremity pain or joint pain Integumentary Integumentary: Denies dry skin Neurologic Neurologic: Denies abnormal gait, abnormal speech, confusion or dizziness Psychiatric Psychiatric: Reports anxiety; Denies depression Endocrine Endocrinology: Denies change in body appearance, cold intolerance or heat intolerance Hematologic/Lymphatic Hematologic/Lymphatic: Denies anemia, easy bleeding or easy bruising Vital Signs Vital Signs Vital Signs: 08/24/20 13:14 08/24/20 13:32 08/24/20 15:16 Temperature 96.5 F L Temperature Source Temporal Pulse Rate 124 H 94 Respiratory Rate 24 H 16 Respiratory Effort Normal Blood Pressure 130/80 H 102/56 L Blood Pressure Mean 96 71 Pulse Ox 95 96 Oxygen Delivery Method Room Air Room Air 08/24/20 16:25 08/24/20 16:59 08/24/20 17:00 Temperature 96.5 F L Temperature Source Temporal Pulse Rate 99 99 Respiratory Rate 18 18 Respiratory Effort Blood Pressure 127/78 H 151/92 H 151/92 H Blood Pressure Mean 94 111 111 Pulse Ox 95 98 98 Oxygen Delivery Method Room Air Room Air Room Air Physical Exam Const alert and oriented x3 General Appearance: cooperative HEENT normocephalic and head/scalp atraumatic Eyes PERRL and EOMs intact bilaterally Neck supple and no JVD Lymph Lymphatic: no lymphadenopathy noted Resp normal respiratory effort Auscultation: wheezes right upper and anterior and diminished lung sounds diffuse Cardio regular rate, regular rhythm, S1 normal heart sound and S2 normal heart sound GI normal to inspection, nondistended, normoactive bowel sounds, soft to palpation and non-tender Extremity normal capillary refill and no clubbing, cyanosis or edema Skin General Skin Exam: turgor normal Lesions: no lesions Rashes: no rashes Neuro CN's II-XII intact bilaterally Psych thought process normal, cooperative and affect normal Appearance: appropriate Lab / Micro Data Result Diagrams: 08/24/20 14:00 08/24/20 14:00 Labs: Laboratory Results - last 24 hr 08/24/20 08/24/20 08/24/20 14:00 14:00 14:00 WBC 6.7 RBC 5.66 Hgb 14.0 Hct 45.2 MCV 79.9 L MCH 24.7 L MCHC 31.0 L RDW Std Deviation 48.0 H RDW Coeff of Purvi 17.1 H Plt Count 286 MPV 9.2 Immature Gran % (Auto) 0.300 Neut % (Auto) 73.8 H Lymph % (Auto) 15.6 L [place] % (Auto) 8.8 Eos % (Auto) 1.2 Baso % (Auto) 0.3 Absolute Neuts (auto) 4.9 Absolute Lymphs (auto) 1.04 Nucleated RBC % 0 D-Dimer Quant (PE/DVT) 0.85 H* Sodium 137 Potassium 3.7 Chloride 103 Carbon Dioxide 27.0 Anion Gap 7 BUN 20 H Creatinine 1.75 H Estim Creat Clear Calc 50.50 Est GFR (MDRD) Af Amer 53 L Est GFR (MDRD) Non-Af 44 L BUN/Creatinine Ratio 11.4 Glucose 124 H Lactic Acid Calcium 9.8 Troponin I < 0.015 08/24/20 14:00 WBC RBC Hgb Hct MCV MCH MCHC RDW Std Deviation RDW Coeff of Purvi Plt Count MPV Immature Gran % (Auto) Neut % (Auto) Lymph % (Auto) [place] % (Auto) Eos % (Auto) Baso % (Auto) Absolute Neuts (auto) Absolute Lymphs (auto) Nucleated RBC % D-Dimer Quant (PE/DVT) Sodium Potassium Chloride Carbon Dioxide Anion Gap BUN Creatinine Estim Creat Clear Calc Est GFR (MDRD) Af Amer Est GFR (MDRD) Non-Af BUN/Creatinine Ratio Glucose Lactic Acid 1.7 Calcium Troponin I Micro: Microbiology 08/24/20 14:00 SARS-CoV-2 Antigen (Rapid) - Final Nasal Secretion Radiology Impression Chest X-Ray 08/24/20 14:35 IMPRESSION: Mild cardiomegaly. The lungs are clear. Electronically Signed: Nael Duvall MD at 14:49 EDT , Service support , Chest CTA 08/24/20 14:46 IMPRESSION: Focal intraluminal filling defect in the pulmonary arterial branch in the superior segment of the right lower lobe as seen on axial image #126 through #130. Electronically Signed: Nael Duvall MD at 15:50 EDT , Service support , Assessment & Plan Assessment/Plan (1) Pulmonary embolism: Status: Acute Code(s): I26.99 - Other pulmonary embolism without acute cor pulmonale Qualifiers: Acute cor pulmonale presence: without acute cor pulmonale Chronicity: acute Pulmonary embolism type: unspecified Qualified Code(s): I26.99 - Other pulmonary embolism without acute cor pulmonale (2) Obesity hypoventilation syndrome: Status: Suspected Code(s): E66.2 - Morbid (severe) obesity with alveolar hypoventilation (3) MICHAEL (obstructive sleep apnea): Status: Deleted Code(s): G47.33 - Obstructive sleep apnea (adult) (pediatric) (4) GERD (gastroesophageal reflux disease): Status: Chronic Code(s): K21.9 - Gastro-esophageal reflux disease without esophagitis Qualifiers: Esophagitis presence: without esophagitis Qualified Code(s): K21.9 - Gastro-esophageal reflux disease without esophagitis (5) HLD (hyperlipidemia): Status: Chronic Code(s): E78.5 - Hyperlipidemia, unspecified Qualifiers: Hyperlipidemia type: mixed hyperlipidemia Qualified Code(s): E78.2 - Mixed hyperlipidemia (6) HTN (hypertension): Status: Chronic Code(s): I10 - Essential (primary) hypertension Qualifiers: Hypertension type: essential hypertension Qualified Code(s): I10 - Essential (primary) hypertension (7) Diabetes mellitus type 2 in obese: Status: Acute Code(s): E11.69 - Type 2 diabetes mellitus with other specified complication; E66.9 - Obesity, unspecified (8) Morbid (severe) obesity due to excess calories: Status: Chronic Code(s): E66.01 - Morbid (severe) obesity due to excess calories Plan: 1. Pulmonary embolism -Admit to [facility] for observation due to patient hypoxia with ambulation -Echo ordered for a.m. -Continue Eliquis 10 mg twice daily -O2 per protocol -Vital signs per protocol -CBC and BMP for a.m. -Hypercoagulable panel ordered 2. Obesity hypoventilation syndrome -O2 per protocol -Lifestyle modifications encouraged for weight loss 3. Obstructive sleep apnea 4. GERD -Continue pantoprazole 5. Hyperlipidemia -Not currently on a medication regimen 6. Hypertension -Continue Norvasc, Lasix. 7. Diabetes mellitus type 2 -Hold Metformin for 48 hours due to IV contrast -AC at bedtime blood sugars with sliding scale insulin ordered 8. Morbid obesity due to excess calories -Consistent carb-calorie controlled diet ordered -Lifestyle modifications encouraged for weight loss DVT prophylaxis-not indicated due to therapeutic Eliquis This patient was seen by Rosa Patel NP-C under the supervision of Dr. Napier. Documented by User: Dr. Rodney Napier MD 08/24/20 19:53 HPI - General General Date of Admission: 08/24/20 [facility] Medical History (Updated 08/24/20 @ 18:[address] Rodney Napier MD) Anxiety Arthritis Back pain CAP (community acquired pneumonia) Cellulitis Cellulitis of right leg Depression Diabetes Foreign body in right foot Former smoker GERD (gastroesophageal reflux disease) HLD (hyperlipidemia) HTN (hypertension) HTN (hypertension) Lymphedema Morbid (severe) obesity due to excess calories Obesity hypoventilation syndrome Right foot pain Sleep apnea Home Medications hydroxyzine HCl 25 mg PO QHS 02/04/19 [History Last Taken 08/23/20] omeprazole 20 mg PO BID 02/04/19 [History Last Taken 08/24/20] sertraline 50 mg PO DAILY 02/04/19 [History Last Taken 08/24/20] albuterol sulfate 1 - 2 puff INHALATION Q4H PRN PRN #1 inhaler 01/27/20 [Rx Last Taken 05/19/20] quetiapine 100 mg PO DAILY 04/07/20 [History Last Taken 08/24/20] furosemide 40 mg PO DAILY #60 tab 04/09/20 [Rx Last Taken 08/24/20] amlodipine 5 mg PO DAILY 05/19/20 [History Last Taken 08/24/20] lisinopril 40 mg PO DAILY 05/19/20 [History Last Taken 08/24/20] metformin 500 mg PO BIDCM 05/19/20 [History Last Taken 08/24/20] valsartan 160 mg PO DAILY 08/24/20 [History Last Taken 08/24/20] Allergy/AdvReac Type Severity Reaction Status Date / Time Sulfa (Sulfonamide Allergy Unknown Verified 08/24/20 13:14 Antibiotics) Family History Other No pertinent family history Surgical History (Updated 08/24/20 @ 17:25 by FAITH Cruz) History of tonsillectomy No pertinent past surgical history Social History Smoking Status: Former smoker Lab / Micro Data Result Diagrams: 08/24/20 14:00 08/24/20 14:00 Assessment & Plan Assessment/Plan (1) Pulmonary embolism: Status: Acute Code(s): I26.99 - Other pulmonary embolism without acute cor pulmonale Qualifiers: Acute cor pulmonale presence: without acute cor pulmonale Chronicity: acute Pulmonary embolism type: unspecified Qualified Code(s): I26.99 - Other pulmonary embolism without acute cor pulmonale Addendum Addendum: Dr. Napier: I personally reviewed the chart and examined the patient, and agree with the above findings. 50-year-old male presenting from home with shortness of breath. He says that he has been getting more short of breath over the last month but noticed that today he had some slight bloody sputum. In the ER he was found to have a PE on CT of the chest. He was given a dose of Eliquis and admitted to the hospital. When walking he was down to 87% but while at rest he was maintaining normal oxygen saturations. Will obtain an echo in the morning for further characterization and evaluation. He knows that he has obstructive sleep apnea however he says it his insurance will only pay for half of the cost of his CPAP and he does not have the money for the other half. He also seems to be developing an KYLAH, his home renal function is around 1.2 and is currently 1.75, for some reason he is on an MATTHEW and an ARB as well as Lasix. We will discontinue his MATTHEW and continue his ARB and Lasix as well as his Norvasc on discharge. Visit Charges OBSV E&M: [id number] Initial observation care L3
[2020-08-24] MEDS: APIXABAN 5 MG TABLET 10 MG PO (17:35)
[2020-08-24] MEDS: Pantoprazole Sodium 20 MG Tablet PO (21:48)
[2020-08-24] MEDS: hydrOXYzine PAM 25 MG Capsule PO (21:48)
[2020-08-24] MEDS: 0.9% Saline Lock 10 ML Syringe IV (21:50)
[2020-08-24 21:51] LABS: Bedside Glucose 122 mg/dL (70-110)
[2020-08-24] MEDS: Acetaminophen 325 MG Tablet 650 MG PO (23:48)
[2020-08-24] MEDS: MELATONIN 3 MG TABLET PO (23:49)
[2020-08-25] VITALS (7 sets, daily range): BP systolic 112–128; BP diastolic 67–72; PULSE 81–92; RESP 18–24; TEMP 36.4–36.6; O2SAT 93–95
--- NOTE | 2020-08-25 05:55 | ECHOCS_ITS ---
Version 2 Reason For Study: PULMONARY EMBOLISM Procedure This was a 2D Doppler, Color Flow transthoracic echocardiogram. The study was technically difficult. Due to body habitus. Contrast injection was performed. Exam performed portable in patient room. Left Ventricle Normal LV size. Left ventricular systolic function is normal. The estimated ejection fraction is 60 %. Stage 1 diastolic dysfunction. No regional wall motion abnormalities noted. Right Ventricle Normal RV size. Normal systolic function. Atria Normal left atrium. Normal right atrium. Mitral Valve Mitral valve not well visualized. Tricuspid Valve The tricuspid valve is not well visualized. Mild (1+) tricuspid valve insufficiency. Pulmonary artery systolic pressure is 36 mmHg. Aortic Valve The aortic valve is not well visualized. Pulmonic Valve The pulmonic valve is not well visualized. Great Vessels Normal aortic root. Pericardium/Pleural No pericardial effusion. Medication 22 gauge I.V. with prn adaptor inserted into left arm. Diluted definity 3.0ml given slow IV push to enhance endocardial definition. MMode/2D Measurements & Calculations LVIDd: 4.5 cm IVSd: 1.2 cm Ao root diam: 3.2 cm LVIDs: 3.0 cm LVPWd: 1.2 cm FS: 32.7 % LAV(MOD-sp4): 52.5 ml LVAd ap4: 35.8 cm2 LVAd ap2: 21.6 cm2 LVLd ap4: 9.1 cm LVLd ap2: 8.3 cm EDV(MOD-sp4): 116.4 ml EDV(MOD-sp2): 46.4 ml EDV(sp4-el): 119.1 ml EDV(sp2-el): 47.5 ml LVAs ap4: 16.8 cm2 LVAs ap2: 11.6 cm2 LVLs ap4: 7.6 cm LVLs ap2: 6.9 cm ESV(MOD-sp4): 33.1 ml ESV(MOD-sp2): 16.9 ml ESV(sp4-el): 31.8 ml ESV(sp2-el): 16.5 ml EF(MOD-sp4): 71.6 % EF(MOD-sp2): 63.6 % EF(sp4-el): 73.3 % SV(MOD-sp4): 83.4 ml SV(MOD-sp2): 29.5 ml SV(sp4-el): 87.3 ml LA A4 area: 19.2 cm2 LA dimension(2D): 3.2 cm RA A4 area: 13.1 cm2 Time Measurements MV dec time: 0.22 sec Doppler Measurements & Calculations MV E max goldy: 59.8 cm/sec Lat Peak E' Goldy: 8.7 cm/sec Med Peak E' Goldy: 9.8 cm/sec MV A max goldy: 77.2 cm/sec E/E' lat: 6.9 E/E' med: 6.1 MV E/A: 0.77 Ao V2 max: 129.7 cm/sec LV V1 max: 101.7 cm/sec PA V2 max: 156.8 cm/sec Ao max P.7 mmHg LV V1 max P.1 mmHg TR max goldy: 284.9 cm/sec TR max P.5 mmHg ECHO/Echo Complete W/ Contrast Interpretation Summary Normal LV size. Left ventricular systolic function is normal. The estimated ejection fraction is 60 %. No regional wall motion abnormalities noted. Stage 1 diastolic dysfunction. Contrast injection was performed. Ordering Physician: Rodney Napier Referring Physician: Wm Rubi Performed By: Claudia Aguilar, PEPE, RVT
[2020-08-25 06:44] LABS: Absolute Lymphocyte Count 0.82 X10^3/uL (0.83-4.51); Absolute Neutrophil Count 3.3 X10^3/uL (2.0-7.7); Basophil# 0.03 X10^3/uL; Basophil% 0.6 % (0-1); Eosinophil# 0.09 X10^3/uL; Eosinophils% 1.9 % (0-5); Hematocrit 41.7 % (40-54); Hemoglobin 12.9 g/dL (13.0-16.5); Lymphocyte # 0.82 X10^3/ul (0.83-4.51); Lymphocyte % 17.4 % (19-41); Mean Corp Hgb Conc 30.9 g/dL (32-36); Mean Corpuscular Volume 80.8 fL (80-94); Monocyte# 0.48 X10^3/uL; Monocyte% 10.2 % (0-10); NRBC Flagged by Analyzer 0 % (0-5); Neutrophil # 3.27 X10^3/uL (2.7-7.7); Neutrophil % 69.5 % (47-70); Platelet Count 244 K/mm3 (150-450); RBC Distribution Width CV 17.1 % (11.6-14.6); Red Blood Count 5.16 M/mm3 (4.6-6.2); White Blood Count 4.7 K/mm3 (4.4-11.0)
--- NOTE | 2020-08-25 07:08 | PCM.DC ---
Discharge Instructions Outpatient Procedure Reason For Visit: PULMONARY EMBOLISM Follow Up Care Test Results: Test results from this visit will be discussed in further detail at your follow-up appointment, if applicable. Discharge Plan Admission Admit Date/Time: 08/24/20 17:01 Primary Reason for Your Visit: Acute R Sided Pulmonary Emboli with Hypoxia Attending Provider: Brielle Montiel Primary Care Provider: Wm Rubi Instructions Patient Instructions: Pulmonary Embolism, What Are Snoring and Sleep Apnea?, Continuous Positive Airway Pressure (CPAP), DVT/PE Discharge instruction sheet, Understanding Pulmonary Embolism, ED Sleep Apnea, Obstructive Additional Instructions / Restrictions: Eliquis is a new medication to treat your pulmonary embolism (blood clot in your lung). IT IS VITAL THIS BE TAKEN DIRECTED. You must take 10 mg twice daily for 7 days and then transition following to 5 mg twice daily for likely plan of 6 month duration but this will be further assessed by your primary care physician. During your admission a hypercoaguable panel to assess possible blood disorder causes for the clot was NOT obtained but if you have recurrent clots this may be necessary unless another reasonable cause is found. Discharge Orders/Prescriptions Prescriptions: New Eliquis 5 mg tablet 5 mg PO BID Qty: 74 RF: 0 Continued hydroxyzine HCl 25 MG tablet 25 mg PO QHS RF: 0 sertraline 50 MG tablet 50 mg PO DAILY RF: 0 albuterol sulfate 1 INHALER inhaler 1 - 2 puff INHALATION Q4H PRN PRN (Reason: Wheezing) Qty: 1 RF: 0 quetiapine 100 MG tablet 100 mg PO DAILY RF: 0 furosemide 40 MG tablet 40 mg PO DAILY Qty: 60 RF: 0 amlodipine 5 MG tablet 5 mg PO DAILY RF: 0 lisinopril 40 MG tablet 40 mg PO DAILY RF: 0 metformin 500 MG tablet extended release 24 hr 500 mg PO BIDCM RF: 0 valsartan 80 mg tablet 160 mg PO DAILY RF: 0 No Action omeprazole 20 MG capsule 20 mg PO BID RF: 0 Referrals: Wm Rubi MD [Primary Care Provider] - (Please follow-up within 3-5 days to review admission, review new medication eliquis addition and recent pulmonary emboli diagnosis.) Disposition Disposition (needs filled in before D/C Order can be placed): Home, self care
[2020-08-25 07:10] LABS: Bedside Glucose 123 mg/dL (70-110)
[2020-08-25 07:20] LABS: Anion Gap 6 (5-15); BUN 18 mg/dL (7-18); BUN/Creat Ratio 12.9 RATIO (10-20); Calcium,Total 8.8 mg/dL (8.5-10.1); Chloride 104 mmol/L (98-107); EST Glomerular Filtration Rate 57 mL/min (>60); Est Glom Filt Rate - Afr Amer 69 mL/min (>60); Estimated Creatinine Clearance 63.13 ml/min; Glucose 117 mg/dL (74-106); Potassium 3.9 mmol/L (3.5-5.1); Sodium Level 136 mmol/L (136-145)
[2020-08-25] MEDS: APIXABAN 5 MG TABLET 10 MG PO (07:44)
[2020-08-25] MEDS: QUEtiapine 100 MG Tablet PO (07:49)
[2020-08-25] MEDS: Sertraline 50 MG Tablet PO (07:49)
[2020-08-25] MEDS: amLODIPine 5 MG Tablet PO (07:49)
[2020-08-25] MEDS: Pantoprazole Sodium 20 MG Tablet PO (07:49)
--- NOTE | 2020-08-25 09:28 | CASEMGMT ---
Addendum entered by Vivienne Sidhu 08/25/20 10:55: Pt did not qualify for home O2. Original Note: RN JORGE noted [facility] [employer] [facility], pt copay is $9.20. Pt notified. Pt to be tested for home O2. Patient was provided a list of C providers including quality and resource use data and consistent with the patient?s preferred geographic region, medical needs, and insurance network. The patient?s preferred provider Ara. JORGE to follow O2.
--- NOTE | 2020-08-25 11:13 | PCM.DC.SUM ---
Providers Date of Admission: 08/24/20 Primary Care Physician: Dr. Wm Rubi MD Reason For Visit: PULMONARY EMBOLISM Diagnosis Discharge Diagnosis (1) Pulmonary embolism: Status: Acute Code(s): I26.99 - Other pulmonary embolism without acute cor pulmonale Qualifiers: Pulmonary embolism type: unspecified Chronicity: acute Acute cor pulmonale presence: without acute cor pulmonale Qualified Code(s): I26.99 - Other pulmonary embolism without acute cor pulmonale Medications at Discharge Home Medications hydroxyzine HCl 25 mg PO QHS 02/04/19 omeprazole 20 mg PO BID 02/04/19 sertraline 50 mg PO DAILY 02/04/19 albuterol sulfate 1 - 2 puff INHALATION Q4H PRN PRN #1 inhaler 01/27/20 quetiapine 100 mg PO DAILY 04/07/20 furosemide 40 mg PO DAILY #60 tab 04/09/20 amlodipine 5 mg PO DAILY 05/19/20 lisinopril 40 mg PO DAILY 05/19/20 metformin 500 mg PO BIDCM 05/19/20 valsartan 160 mg PO DAILY 08/24/20 apixaban [Eliquis] 5 mg PO BID #74 tab 08/25/20 Hospital Course Operations None Procedures EKG Summary of Care Provided Minutes Spent on Discharge: 35 Hospital Course: The patient is a 50 y/o M w/ PMHx: Morbid Obesity, Hypoventilation Syndrome, MICHAEL unable to per his report afford CPAP usage, HTN, HLD, Diabetes mellitus type II, GERD who presented to the [facility] ED on 08/24/20 with history of ongoing issues with shortness of breath and mildly productive cough with occasional blood-tinged sputum over the last 4 weeks but more pronounced over the last several days. Patient reported worsening dyspnea primarily more so with exertion. He denied any associated fever, chills, chest pain, nausea, emesis, diarrhea, headaches, alteration to sense of taste or smell. In the ED evaluation included CTPA which was notable for right-sided pulmonary embolism. In the emergency room patient was appropriate on room air oxygenation ortiz however when he did perform a walking pulse ox he was 87%. Patient was therefore admitted the PCU, maintained on telemetry monitoring, initiated on Eliquis regimen therapy and echocardiogram was obtained. Case management assisted in cost evaluation of Eliquis which was affordable for the patient therefore this was continued upon discharge. Repeat oxygen ambulatory trial was performed and patient remained appropriate on room air without need for oxygen upon discharge. Patient given improvement was discharged to home in stable condition with recommended early follow-up with primary care physician and strongly encouraged compliance with Eliquis regimen. DAY OF DISCHARGE PROGRESS NOTE: Subjective: Patient without acute event overnight per self and nursing report. Patient notes that coughing and dyspnea had lessened since initial ED presentation. Patient ambulatory O2 trial without supplementation need. Patient denies fever, chills, nausea, emesis, abdominal pain, chest pain or dyspnea. Patient agreeable to discharge to home. Patient will be discharged with follow-up with primary care physician within 3-5 days. Encouraged at discharge to discuss CPAP potential again outpatient for his underlying sleep apnea. Objective: T 97.5, heart rate 87, BP 128/72, respiratory rate 18, patient ranged from 93 to 95% on room air at rest and with ambulation. Physical Examination: General: awake, alert, oriented x 3 and cooperative, seated upright in the PCU bedside chair, no acute distress. Skin: normal color, turgor, no icterus, cyanosis. HEENT: AT/NC, EOMI, PERRLA, MMM. Lungs: Mildly diminished, greater bases, moderate effort, no evidence of any respiratory distress, no rales, ronchi or wheezing; Heart: Regular rate and rhythm; no gallop, rub audible. Abdomen: soft, morbidly obese, NTTP, difficult to assess distention given habitus, distant normal bowel sounds. Extremities: no cyanosis or clubbing, mild bilateral ankle edema, chronic per patient. Neurological: patient awake, alert, oriented as noted; cognitive function appears intact upon questioning,; pupils equally reactive to light and accomodation; cranial nerves II-XII grossly normal, moving all 4 extremities, strength mildly global decreased. Psychiatric: affect appears fatigued otherwise normal, no acute evidence of depressive or anxiety feelings. Assessment and Plan: Please see hospital summary above. ABG / Lab / Microbiology Data Result Diagrams: 08/25/20 06:35 08/25/20 06:35 Laboratory: Laboratory Results - last 24 hr 08/24/20 08/24/20 08/24/20 14:00 14:00 14:00 WBC 6.7 RBC 5.66 Hgb 14.0 Hct 45.2 MCV 79.9 L MCH 24.7 L MCHC 31.0 L RDW Std Deviation 48.0 H RDW Coeff of Purvi 17.1 H Plt Count 286 MPV 9.2 Immature Gran % (Auto) 0.300 Neut % (Auto) 73.8 H Lymph % (Auto) 15.6 L [place] % (Auto) 8.8 Eos % (Auto) 1.2 Baso % (Auto) 0.3 Absolute Neuts (auto) 4.9 Absolute Lymphs (auto) 1.04 Nucleated RBC % 0 D-Dimer Quant (PE/DVT) 0.85 H* Sodium 137 Potassium 3.7 Chloride 103 Carbon Dioxide 27.0 Anion Gap 7 BUN 20 H Creatinine 1.75 H Estim Creat Clear Calc 50.50 Est GFR (MDRD) Af Amer 53 L Est GFR (MDRD) Non-Af 44 L BUN/Creatinine Ratio 11.4 Glucose 124 H Lactic Acid Calcium 9.8 Troponin I < 0.015 POC Glucose 08/24/20 08/24/20 08/25/20 14:00 21:43 06:35 WBC 4.7 RBC 5.16 Hgb 12.9 L Hct 41.7 MCV 80.8 MCH 25.0 L MCHC 30.9 L RDW Std Deviation 50.0 H RDW Coeff of Purvi 17.1 H Plt Count 244 MPV 9.0 Immature Gran % (Auto) 0.400 Neut % (Auto) 69.5 Lymph % (Auto) 17.4 L [place] % (Auto) 10.2 H Eos % (Auto) 1.9 Baso % (Auto) 0.6 Absolute Neuts (auto) 3.3 Absolute Lymphs (auto) 0.82 L Nucleated RBC % 0 D-Dimer Quant (PE/DVT) Sodium Potassium Chloride Carbon Dioxide Anion Gap BUN Creatinine Estim Creat Clear Calc Est GFR (MDRD) Af Amer Est GFR (MDRD) Non-Af BUN/Creatinine Ratio Glucose Lactic Acid 1.7 Calcium Troponin I POC Glucose 122 H 08/25/20 08/25/20 06:35 07:06 WBC RBC Hgb Hct MCV MCH MCHC RDW Std Deviation RDW Coeff of Purvi Plt Count MPV Immature Gran % (Auto) Neut % (Auto) Lymph % (Auto) [place] % (Auto) Eos % (Auto) Baso % (Auto) Absolute Neuts (auto) Absolute Lymphs (auto) Nucleated RBC % D-Dimer Quant (PE/DVT) Sodium 136 Potassium 3.9 Chloride 104 Carbon Dioxide 26.0 Anion Gap 6 BUN 18 Creatinine 1.40 H Estim Creat Clear Calc 63.13 Est GFR (MDRD) Af Amer 69 Est GFR (MDRD) Non-Af 57 L BUN/Creatinine Ratio 12.9 Glucose 117 H Lactic Acid Calcium 8.8 Troponin I POC Glucose 123 H Microbiology: Microbiology 08/24/20 14:00 SARS-CoV-2 Antigen (Rapid) - Final Nasal Secretion Microbiology 08/24/20 14:00 Nasal Secretion SARS-CoV-2 Antigen (Rapid) - Final Radiography Diagnostic Testing: Radiology Impression Chest X-Ray 08/24/20 14:35 IMPRESSION: Mild cardiomegaly. The lungs are clear. Electronically Signed: Nael Duvall MD at 14:49 EDT , Service support , Chest CTA 08/24/20 14:46 IMPRESSION: Focal intraluminal filling defect in the pulmonary arterial branch in the superior segment of the right lower lobe as seen on axial image #126 through #130. Electronically Signed: Nael Duvall MD at 15:50 EDT , Service support , Meaningful Use Info Meaningful Use Diagnoses (Choose all that apply): VTE VTE Anticoag overlap given w/in hospital stay or rx'd at dc?: No Pt receive overlap for 5 days?: No Reason overlap not ordered, prescribed, or given for 5 days: Treatment Not Indicated Discharge Plan Admission Admit Date/Time: 08/24/20 17:01 Primary Reason for Your Visit: Acute R Sided Pulmonary Emboli with Hypoxia Attending Provider: Brielle Montiel Primary Care Provider: Wm Rubi Instructions Patient Instructions: Pulmonary Embolism, What Are Snoring and Sleep Apnea?, Continuous Positive Airway Pressure (CPAP), DVT/PE Discharge instruction sheet, Understanding Pulmonary Embolism, ED Sleep Apnea, Obstructive Additional Instructions / Restrictions: Eliquis is a new medication to treat your pulmonary embolism (blood clot in your lung). IT IS VITAL THIS BE TAKEN DIRECTED. You must take 10 mg twice daily for 7 days and then transition following to 5 mg twice daily for likely plan of 6 month duration but this will be further assessed by your primary care physician. During your admission a hypercoaguable panel to assess possible blood disorder causes for the clot was NOT obtained but if you have recurrent clots this may be necessary unless another reasonable cause is found. Discharge Orders/Prescriptions Prescriptions: New Eliquis 5 mg tablet 5 mg PO BID Qty: 74 RF: 0 Continued hydroxyzine HCl 25 MG tablet 25 mg PO QHS RF: 0 sertraline 50 MG tablet 50 mg PO DAILY RF: 0 albuterol sulfate 1 INHALER inhaler 1 - 2 puff INHALATION Q4H PRN PRN (Reason: Wheezing) Qty: 1 RF: 0 quetiapine 100 MG tablet 100 mg PO DAILY RF: 0 furosemide 40 MG tablet 40 mg PO DAILY Qty: 60 RF: 0 amlodipine 5 MG tablet 5 mg PO DAILY RF: 0 lisinopril 40 MG tablet 40 mg PO DAILY RF: 0 metformin 500 MG tablet extended release 24 hr 500 mg PO BIDCM RF: 0 valsartan 80 mg tablet 160 mg PO DAILY RF: 0 No Action omeprazole 20 MG capsule 20 mg PO BID RF: 0 Referrals: Wm Rubi MD [Primary Care Provider] - (Please follow-up within 3-5 days to review admission, review new medication eliquis addition and recent pulmonary emboli diagnosis.) Disposition Disposition (needs filled in before D/C Order can be placed): Home, self care
[2020-08-25 11:30] LABS: Bedside Glucose 145 mg/dL (70-110)
--- NOTE | 2020-08-25 12:08 | PHA.DC.MC ---
Pharmacy Service has performed discharge medication reconciliation and counseling for this patient. The patient was counseled on the following discharge medications and changes in medications for homegoing were reviewed. 1. ELIQUIS The Reason for Use, instructions for use, and potential side effects were reviewed for all new medications. The patient's questions regarding all of their medications were answered. The patient was able to verbally demonstrate an understanding of their discharge medications. Home Medications hydroxyzine HCl 25 mg PO QHS 02/04/19 omeprazole 20 mg PO BID 02/04/19 sertraline 50 mg PO DAILY 02/04/19 albuterol sulfate 1 - 2 puff INHALATION Q4H PRN PRN #1 inhaler 01/27/20 quetiapine 100 mg PO DAILY 04/07/20 furosemide 40 mg PO DAILY #60 tab 04/09/20 amlodipine 5 mg PO DAILY 05/19/20 lisinopril 40 mg PO DAILY 05/19/20 metformin 500 mg PO BIDCM 05/19/20 valsartan 160 mg PO DAILY 08/24/20 apixaban [Eliquis] 5 mg PO BID #74 tab 08/25/20 The patient's discharge medication list was reviewed for discrepancies and discrepancies were resolved.
--- NOTE | 2020-08-25 14:25 | CHAPLAIN ---
Type of Pastoral Visit _x__ Initial Visit ___ Follow-up Visit ___ On-call Visit ___ General Patient Visit ___ Spiritual Assessment ___ Family Conference ___ Bereavement ___ Rapid Response ___ Code Blue ___ Other (describe below) Pastoral Care Referral From _x__ Patient ___ Family ___ Nurse ___ Physician ___ Thermostat Maker ___ Hydrochloric Acid Operator ___ Other (describe below) Sacrament/Intervention _x__ Active listening ___ Anointing ___ Moravian ___ Bereavement ___ Communion ___ Sheree exploration ___ ___ Life review _x__ Prayer ___ Reconciliation ___ Sacrament of Sick ___ Supportive presence ___ Wedding ___ Other (describe below) Pastoral Comments
== END 2020-08-25 11:10 | disposition home or self-care (01) ==
LOC: ED 16:48 → PCU 17:07
PROVIDERS: Admitting Provider Family Medicine; Emergency Provider Emergency Medicine; PCP Family Medicine; Visit Provider Family Medicine
DX: I26.99 Other pulmonary embolism without acute cor pulmonale (principal); I10 Essential (primary) hypertension; E78.2 Mixed hyperlipidemia; E66.2 Morbid (severe) obesity with alveolar hypoventilation; E11.9 Type 2 diabetes mellitus without complications; K21.9 Gastro-esophageal reflux disease without esophagitis; F32.9 Major depressive disorder, single episode, unspecified; F41.9 Anxiety disorder, unspecified; M19.90 Unspecified osteoarthritis, unspecified site; Z79.899 Other long term (current) drug therapy; Z68.43 Body mass index [BMI] 50.0-59.9, adult; Z79.84 Long term (current) use of oral hypoglycemic drugs; Z87.891 Personal history of nicotine dependence
CPT/HCPCS: 36415; 71045; 71275; 80048; 82962; 83605; 84484; 85025; 85379; 87040; 87426; 93005; 93306; 96360; 96361; 99218; 99285; J7030; Q9957; Q9967; A4216; C8929; G0378

== ENCOUNTER → 2020-09-10 | Outpatient (CLI) | payer MEDICARE, MEDICAID, SELFPAY ==
[2020-08-24 17:11] VITALS: BMI 50.8
[2020-09-10 11:33] LABS: International Normalized Ratio 1.1; Prothrombin Time (Protime)PT. 13.3 SECONDS (11.7-14.9)
== END | disposition home or self-care (01) ==
LOC: LABSPEC 10:59
PROVIDERS: PCP Family Medicine; Referring Provider Family Medicine; Visit Provider Family Medicine
DX: I26.99 Other pulmonary embolism without acute cor pulmonale (principal)
CPT/HCPCS: 85610

== ENCOUNTER 2021-05-11 15:07 | Emergency (ER) | payer MEDICARE, SELFPAY ==
[2021-05-11 15:08] VITALS: BP 135/90; PULSE 124; RESP 16; TEMP 36.1; O2SAT 95; BMI 50.8
--- NOTE | 2021-05-11 16:11 | EKG12_ITS ---
Test Reason : SOB Blood Pressure : / mmHG Vent. Rate : 108 BPM Atrial Rate : 108 BPM P-R Int : 152 ms QRS Dur : 086 ms QT Int : 336 ms P-R-T Axes : 048 023 045 degrees QTc Int : 450 ms Sinus tachycardia Otherwise normal ECG Confirmed by JAYNA OCAMPO, ALIYAH ([id number]), manager editorial ASPEN CARMONA ([id number]) on 05/13/2021 9:00:12 AM Referred By: JACQUELYN/SAMIRA Confirmed By:ALIYAH DORANTES MD
[2021-05-11 16:27] VITALS: BP 118/70; PULSE 113; RESP 18; TEMP 37.1; O2SAT 92; O2SAT 95
[2021-05-11 16:30] VITALS: O2SAT 95
--- NOTE | 2021-05-11 16:53 | RAD_ITS ---
STUDY: X-RAY CHEST REASON FOR EXAM: Male, 50 years old. SOB TECHNIQUE: Single frontal view of the chest. COMPARISON: 08/24/2020. FINDINGS: Minimal opacity right base most likely represents atelectasis. There is moderate cardiac enlargement. Normal mediastinum and helene. Normal visualized pulmonary arteries. Normal visualized aortic arch and descending thoracic aorta. Normal visualized thoracic spine. Normal visualized ribs, clavicles, and shoulders. There is no demonstrated abnormality of the visualized soft tissue structures of the upper abdomen. RAD/Chest 1 View (Portable) IMPRESSION: No acute cardiopulmonary process identified. Electronically Signed: Marvin Owusu MD at 17:13 EST Tel , Service support ,
[2021-05-11 16:54] LABS: Absolute Lymphocyte Count 1.21 X10^3/uL (0.83-4.51); Absolute Neutrophil Count 4.8 X10^3/uL (2.0-7.7); Basophil# 0.03 X10^3/uL; Basophil% 0.4 % (0-1); Eosinophil# 0.04 X10^3/uL; Eosinophils% 0.6 % (0-5); Hematocrit 47.2 % (40-54); Hemoglobin 15.7 g/dL (13.0-16.5); Lymphocyte # 1.21 X10^3/ul (0.83-4.51); Lymphocyte % 17.9 % (19-41); Mean Corp Hgb Conc 33.3 g/dL (32-36); Mean Corpuscular Hgb 27.9 pg (27.0-32.0); Mean Platelet Vol. 9.3 fl (6.2-12.0); Monocyte# 0.63 X10^3/uL; Monocyte% 9.3 % (0-10); NRBC Flagged by Analyzer 0 % (0-5); Neutrophil # 4.81 X10^3/uL (2.7-7.7); Neutrophil % 71.2 % (47-70); Platelet Count 261 K/mm3 (150-450); RBC Distribution Width CV 14.5 % (11.6-14.6); RBC Distribution Width SD 43.6 fl (35.1-43.9); Red Blood Count 5.62 M/mm3 (4.6-6.2); White Blood Count 6.8 K/mm3 (4.4-11.0)
[2021-05-11 17:00] VITALS: BP 110/69; PULSE 110; RESP 18; TEMP 36.9; O2SAT 94
[2021-05-11 17:02] LABS: Anion Gap 8 (5-15); BUN 16 mg/dL (7-18); BUN/Creat Ratio 9.1 RATIO (10-20); Calcium,Total 9.1 mg/dL (8.5-10.1); Chloride 104 mmol/L (98-107); Creatinine, Serum 1.76 mg/dL (0.70-1.30); EST Glomerular Filtration Rate 44 mL/min (>60); Est Glom Filt Rate - Afr Amer 53 mL/min (>60); Estimated Creatinine Clearance 50.21 ml/min; Glucose 160 mg/dL (74-106); Potassium 3.6 mmol/L (3.5-5.1); Sodium Level 137 mmol/L (136-145)
--- NOTE | 2021-05-11 17:23 | EDS_ITS ---
HPI History of Present Illness Chief Complaint: Shortness of Breath Informant: patient Onset/Context/Timing Onset: Days (5) Context: Sudden Onset Timing: Continuous Quality: Aching Location: Abdomen Worsened by: Nothing Relieved by: Nothing Narrative Narrative: Patient presents with cough, diarrhea, and abdominal pain that began on 05/06/2021. Patient states that he has mild pain in his left upper chest. Patient also admits to some aching over the abdomen. Patient states nothing makes his symptoms worse and nothing makes it better. Patient states he did break a sweat earlier today. Patient admits to a sore throat. Patient admits to a cough but denies any sputum production. Patient admits to diarrhea but denies any nausea or vomiting. Patient denies any melena or hematochezia. [facility] Medical History Anxiety Arthritis Back pain CAP (community acquired pneumonia) Cellulitis Cellulitis of right leg Depression Diabetes Foreign body in right foot Former smoker GERD (gastroesophageal reflux disease) HLD (hyperlipidemia) HTN (hypertension) HTN (hypertension) Lymphedema Morbid (severe) obesity due to excess calories Obesity hypoventilation syndrome Right foot pain Sleep apnea Home Medications hydroxyzine HCl 25 mg PO QHS 02/04/19 [History Last Taken 08/23/20] omeprazole 20 mg PO BID 02/04/19 [History Last Taken 08/24/20] sertraline 50 mg PO DAILY 02/04/19 [History Last Taken 08/24/20] albuterol sulfate 1 - 2 puff INHALATION Q4H PRN PRN #1 inhaler 01/27/20 [Rx Last Taken 05/19/20] quetiapine 100 mg PO DAILY 04/07/20 [History Last Taken 08/24/20] furosemide 40 mg PO DAILY #60 tab 04/09/20 [Rx Last Taken 08/24/20] amlodipine 5 mg PO DAILY 05/19/20 [History Last Taken 08/24/20] lisinopril 40 mg PO DAILY 05/19/20 [History Last Taken 08/24/20] metformin 500 mg PO BIDCM 05/19/20 [History Last Taken 08/24/20] valsartan 160 mg PO DAILY 08/24/20 [History Last Taken 08/24/20] apixaban [Eliquis] 5 mg PO BID #74 tab 08/25/20 [Rx Last Taken Unknown] Allergy/AdvReac Type Severity Reaction Status Date / Time Sulfa (Sulfonamide Allergy Unknown Verified 05/11/21 15:08 Antibiotics) Family History Other No pertinent family history Surgical History History of tonsillectomy No pertinent past surgical history Social History Smoking Status: Former smoker ROS ROS ED Constitutional Constitutional ED: Reports sweats; Denies chills or fever(s) Eyes Eyes: Denies blurry vision or change in vision ENT ENT ED: Reports sore throat; Denies rhinorrhea Cardiovascular Cardiovascular: Reports chest pain; Denies palpitations Respiratory/Chest Respiratory/Chest: Reports cough; Denies dyspnea Gastrointestinal Gastrointestinal: Reports diarrhea; Denies nausea or vomiting Genitourinary Genitourinary ED: Denies dysuria or hematuria Musculoskeletal Musculoskeletal: Denies back pain or neck pain Integumentary Denies abscess or rash Neurologic Neurologic: Denies headache(s) or weakness Allergic/Immunologic Allergic/Immunologic ED: Denies mouth swelling or urticaria EXAM Physical Exam Const Vital Signs: 05/11/21 15:08 05/11/21 16:27 05/11/21 16:30 Temperature 97.0 F L 98.7 F Temperature Source Temporal Temporal Pulse Rate 124 H 113 H Respiratory Rate 16 18 Respiratory Depth Shallow Respiratory Pattern Tachypnea Blood Pressure 135/90 H 118/70 Blood Pressure Mean 105 86 Pulse Ox 95 95 Oxygen Delivery Method Room Air Room Air Room Air 05/11/21 17:00 05/11/21 18:05 Temperature 98.4 F 97.8 F Temperature Source Temporal Temporal Pulse Rate 110 H 109 H Respiratory Rate 18 16 Respiratory Depth Respiratory Pattern Blood Pressure 110/69 109/79 Blood Pressure Mean 82 89 Pulse Ox 94 94 Oxygen Delivery Method Room Air Room Air Positive well nourished, well developed and obese General Appearance ED: well developed Nutritional Appearance: obese HEENT Reports moist mucous membranes Neck supple and no JVD Resp normal respiratory effort and clear to auscultation bilaterally Cardio regular rate, regular rhythm and no murmurs GI normal to inspection, nondistended, normoactive bowel sounds and non-tender Palpation: soft Extremity normal to inspection General Extremety ED: Negative for edema or tenderness General Extremity: Negative for edema Neuro oriented x3, CN's II-XII intact bilaterally and no sensory deficits noted Sensorium / Orientation: alert Motor Exam: strength 5/5 throughout Psych mental status grossly normal Skin no rashes or lesions noted MDM MDM MDM Narrative Medical decision making narrative: EKG was obtained. On my interpretation, it showed a normal sinus rhythm with a rate of 108. NC interval, QRS interval, and QTc intervals were all normal. [place] was normal. There are no acute ST or T wave changes. Portable 1 view chest x-ray was obtained. On my interpretation, lung santiago are clear. There is normal cardiac silhouette. Bony thorax is normal. There is no acute process noted. Radiologist also interpreted the x- ray and agrees. CBC and basic metabolic profile were within normal limits with the exception of a mildly elevated creatinine of 1.76. This was consistent with prior results. Patient was advised of his findings. Patient has a HEART score of 2. Patient was advised that this is low risk for acute cardiac event. Patient was instructed to follow-up with his primary care physician in 5 to 7 days. Patient understood and was agreeable with the plan. All questions were answered. Lab Data Attestation: I reviewed the patient's lab results. Labs: Laboratory Results - last 24 hr 05/11/21 05/11/21 16:30 16:30 WBC 6.8 RBC 5.62 Hgb 15.7 Hct 47.2 MCV 84.0 MCH 27.9 MCHC 33.3 RDW Std Deviation 43.6 RDW Coeff of Purvi 14.5 Plt Count 261 MPV 9.3 Immature Gran % (Auto) 0.600 Neut % (Auto) 71.2 H Lymph % (Auto) 17.9 L [place] % (Auto) 9.3 Eos % (Auto) 0.6 Baso % (Auto) 0.4 Absolute Neuts (auto) 4.8 Absolute Lymphs (auto) 1.21 Nucleated RBC % 0 Sodium 137 Potassium 3.6 Chloride 104 Carbon Dioxide 25.0 Anion Gap 8 BUN 16 Creatinine 1.76 H Estim Creat Clear Calc 50.21 Est GFR (MDRD) Af Amer 53 L Est GFR (MDRD) Non-Af 44 L BUN/Creatinine Ratio 9.1 L Glucose 160 H Calcium 9.1 Radiography Chest X-Ray - ED: 1 View, Read by ED Physician, Read by Radiologist and Normal Diagnostic Testing: Clinical Impression(s) from Imaging Studies Chest X-Ray 05/11/21 16:53 IMPRESSION: No acute cardiopulmonary process identified. Electronically Signed: Marvin Owusu MD at 17:13 EST Tel , Service support , EKG Initial EKG: Attestation: I personally reviewed and interpreted this EKG as follows: Interpretation: No Acute Injury Pattern and Sinus Tachycardia (109) Prior EKG tracings: available for review Prior: Unchanged (08/24/20) Discharge Plan Triage Chief Complaint: Shortness of Breath ED Provider: Beto Dudley Dx/Rx/DC Orders Clinical Impression: Viral illness Instructions: ED Viral Syndrome (Adult) Prescriptions: No Action omeprazole 20 MG capsule 20 mg PO BID RF: 0 hydroxyzine HCl 25 MG tablet 25 mg PO QHS RF: 0 sertraline 50 MG tablet 50 mg PO DAILY RF: 0 albuterol sulfate 1 INHALER inhaler 1 - 2 puff INHALATION Q4H PRN PRN (Reason: Wheezing) Qty: 1 RF: 0 quetiapine 100 MG tablet 100 mg PO DAILY RF: 0 furosemide 40 MG tablet 40 mg PO DAILY Qty: 60 RF: 0 amlodipine 5 MG tablet 5 mg PO DAILY RF: 0 lisinopril 40 MG tablet 40 mg PO DAILY RF: 0 metformin 500 MG tablet extended release 24 hr 500 mg PO BIDCM RF: 0 valsartan 80 mg tablet 160 mg PO DAILY RF: 0 Eliquis 5 mg tablet 5 mg PO BID Qty: 74 RF: 0 Primary Care Provider: Wm Rubi Referrals: Wm Rubi MD [Primary Care Provider] - 5-7 Days Disposition Disposition: Home, Self Care
[2021-05-11 18:05] VITALS: BP 109/79; PULSE 109; RESP 16; TEMP 36.6; O2SAT 94
[2021-05-11 19:30] VITALS: BP 143/82; PULSE 72; RESP 16; TEMP 36.9; O2SAT 98
== END 2021-05-11 19:31 | disposition home or self-care (01) ==
PROVIDERS: Emergency Provider Emergency Medicine; PCP Family Medicine; Visit Provider Emergency Medicine
DX: B34.9 Viral infection, unspecified (principal); E66.01 Morbid (severe) obesity due to excess calories; Z68.43 Body mass index [BMI] 50.0-59.9, adult; E11.9 Type 2 diabetes mellitus without complications; I10 Essential (primary) hypertension; E78.5 Hyperlipidemia, unspecified; M19.90 Unspecified osteoarthritis, unspecified site; F32.A Depression, unspecified; F41.9 Anxiety disorder, unspecified; Z79.01 Long term (current) use of anticoagulants; Z79.84 Long term (current) use of oral hypoglycemic drugs; Z79.899 Other long term (current) drug therapy; Z87.891 Personal history of nicotine dependence
CPT/HCPCS: 71045; 80048; 85025; 87426; 93005; 94760; 99282; A4216

== ENCOUNTER 2021-06-17 15:18 | Emergency (ER) | payer MEDICARE, SELFPAY ==
[2021-06-17 15:18] VITALS: BP 159/106; PULSE 102; RESP 18; TEMP 35.7; O2SAT 97; BMI 50.3
--- NOTE | 2021-06-17 15:20 | RAD_ITS ---
STUDY: XR Hand Min 3 Views REASON FOR EXAM: Male, 50 years old. PAIN TECHNIQUE: XR Hand Min 3 Views COMPARISON: None. FINDINGS: Normal radiocarpal articulation. Normal distal radioulnar joint. Normal visualized carpal bones. Normal carpal articulations Normal carpometacarpal articulation of the thumb. Normal second through fifth carpometacarpal joints. Normal metacarpi. Normal metacarpophalangeal joint of the thumb. Normal interphalangeal joint of the thumb. Normal proximal and distal phalanges of the thumb. Normal metacarpophalangeal joints of the second through fifth fingers. Normal proximal and distal interphalangeal joints of the second through fifth fingers. Normal phalanges of the second through fifth fingers. The soft tissue structures are unremarkable. RAD/Hand Min 3 Views IMPRESSION: There are no acute findings. Electronically Signed: Alexy Wakefield MD at 18:37 EST ,
--- NOTE | 2021-06-17 18:50 | EX.ED.GENINJ ---
HPI History of Present Illness Chief Complaint: Fall Informant: patient Narrative Narrative: Patient had a mechanical slip and fall on ice this morning. He landed on outstretched hand. He has pain mostly in the thenar eminence of his left nondominant hand. Of note, he is on Eliquis for history of prior pulmonary embolism. He never hit his head. No other area hurts except his left hand. Rest makes it better and pressing on her motion makes it a little worse. PFSH PFS Medical History Anxiety Arthritis Back pain CAP (community acquired pneumonia) Cellulitis Cellulitis of right leg Depression Diabetes Foreign body in right foot Former smoker GERD (gastroesophageal reflux disease) HLD (hyperlipidemia) HTN (hypertension) HTN (hypertension) Lymphedema Morbid (severe) obesity due to excess calories Obesity hypoventilation syndrome Right foot pain Sleep apnea Home Medications hydroxyzine HCl 25 mg PO QHS 02/04/19 [History Last Taken 08/23/20] omeprazole 20 mg PO BID 02/04/19 [History Last Taken 08/24/20] sertraline 50 mg PO DAILY 02/04/19 [History Last Taken 08/24/20] albuterol sulfate 1 - 2 puff INHALATION Q4H PRN PRN #1 inhaler 01/27/20 [Rx Last Taken 05/19/20] quetiapine 100 mg PO DAILY 04/07/20 [History Last Taken 08/24/20] furosemide 40 mg PO DAILY #60 tab 04/09/20 [Rx Last Taken 08/24/20] amlodipine 5 mg PO DAILY 05/19/20 [History Last Taken 08/24/20] lisinopril 40 mg PO DAILY 05/19/20 [History Last Taken 08/24/20] metformin 500 mg PO BIDCM 05/19/20 [History Last Taken 08/24/20] valsartan 160 mg PO DAILY 08/24/20 [History Last Taken 08/24/20] apixaban [Eliquis] 5 mg PO BID #74 tab 08/25/20 [Rx Last Taken Unknown] tramadol 50 mg PO Q6H PRN 3 Days #10 tab 06/17/21 [Rx Last Taken Unknown] Allergy/AdvReac Type Severity Reaction Status Date / Time Sulfa (Sulfonamide Allergy Unknown Verified 06/17/21 15:20 Antibiotics) Family History Other No pertinent family history Surgical History History of tonsillectomy No pertinent past surgical history Social History Smoking Status: Former smoker ROS ROS ED Constitutional Constitutional ED: Denies fever(s) or subjective Eyes Eyes: Denies blurry vision or change in vision Cardiovascular Cardiovascular: Denies chest pain or palpitations Respiratory/Chest Respiratory/Chest: Denies dyspnea Gastrointestinal Gastrointestinal: Denies nausea or vomiting Musculoskeletal Musculoskeletal: Reports other Details: See history of present illness. Integumentary Denies rash Neurologic Neurologic: Denies headache(s), paresthesias or weakness Hematologic/Lymphatic Hematologic/Lymphatic: Reports easy bleeding and easy bruising Allergic/Immunologic Allergic/Immunologic ED: Denies urticaria EXAM Physical Exam Const Vital Signs: 06/17/21 15:18 06/17/21 18:37 Temperature 96.2 F L Temperature Source Temporal Pulse Rate 102 H Respiratory Rate 18 Respiratory Effort Normal Respiratory Depth Normal Respiratory Pattern Normal Blood Pressure 159/106 H Blood Pressure Mean 123 Pulse Ox 97 Oxygen Delivery Method Room Air Room Air Positive well nourished, well developed and obese General Appearance ED: well developed and NAD Nutritional Appearance: obese HEENT HEENT Narrative: No sign of any injury. atraumatic; Negative for trauma Eyes EOMs intact bilaterally Neck full ROM General: Negative for tenderness Chest Wall inspection of chest normal Resp normal respiratory effort and clear to auscultation bilaterally Cardio regular rhythm Rate: regular rate GI normal to inspection, nondistended, normoactive bowel sounds and non-tender Palpation: soft Back/Spine no thoracic nor lumbar tenderness Extremity Extremity Narrative: There is very mild/subtle sign of contusion to the left thenar eminence. No discoloration at this time but there is some mild firmness. [place] is not tender. There is no deformity. Range of motion is intact. Distal capillary refill is normal. No tenderness of the wrist forearm elbow or shoulder. No sign of discomfort on right upper extremity or lower extremities. Neuro moves all extremities, no focal motor deficits and no sensory deficits noted Sensorium / Orientation: alert Psych mental status grossly normal Skin Skin Narrative: Slight developing contusion to left thenar eminence MDM MDM MDM Narrative Medical decision making narrative: This was a mechanical slip and fall. I think patient has contusion of his left hand/thenar eminence. This is likely worsened due to being on Eliquis. X-rays are negative. Ice rest should be appropriate. I will give a few tramadol for pain. His online prescribing report is negative for any controlled substances. I do not want to give him nonsteroidals considering the injury and being on Eliquis. Radiography Diagnostic Testing: Clinical Impression(s) from Imaging Studies Hand X-Ray 06/17/21 15:20 IMPRESSION: There are no acute findings. Electronically Signed: Alexy Wakefield MD at 18:37 EST Reading Location ID and State: [facility] / [place] , Service support , Discharge Plan Triage Chief Complaint: Fall ED Provider: Chavez Moran Dx/Rx/DC Orders Clinical Impression: Contusion of left hand, initial encounter, Coagulopathy Instructions: ED Hand Contusion Prescriptions: New tramadol 50 mg tablet 50 mg PO Q6H PRN (Reason: pain) 3 Days Qty: 10 RF: 0 No Action omeprazole 20 MG capsule 20 mg PO BID RF: 0 hydroxyzine HCl 25 MG tablet 25 mg PO QHS RF: 0 sertraline 50 MG tablet 50 mg PO DAILY RF: 0 albuterol sulfate 1 INHALER inhaler 1 - 2 puff INHALATION Q4H PRN PRN (Reason: Wheezing) Qty: 1 RF: 0 quetiapine 100 MG tablet 100 mg PO DAILY RF: 0 furosemide 40 MG tablet 40 mg PO DAILY Qty: 60 RF: 0 amlodipine 5 MG tablet 5 mg PO DAILY RF: 0 lisinopril 40 MG tablet 40 mg PO DAILY RF: 0 metformin 500 MG tablet extended release 24 hr 500 mg PO BIDCM RF: 0 valsartan 80 mg tablet 160 mg PO DAILY RF: 0 Eliquis 5 mg tablet 5 mg PO BID Qty: 74 RF: 0 Primary Care Provider: Wm Rubi Referrals: Wm Rubi MD [Primary Care Provider] - 1 Week if not improving Disposition Disposition: Home, Self Care
[2021-06-17] MEDS: traMADol 50 MG Tablet PO (19:04)
[2021-06-17 19:06] VITALS: PULSE 76; RESP 16; O2SAT 96
== END 2021-06-17 19:06 | disposition home or self-care (01) ==
PROVIDERS: Emergency Provider Emergency Medicine; PCP Family Medicine; Visit Provider Emergency Medicine
DX: S60.222A Contusion of left hand, initial encounter (principal); Z68.43 Body mass index [BMI] 50.0-59.9, adult; D68.9 Coagulation defect, unspecified; E11.9 Type 2 diabetes mellitus without complications; W00.0XXA Fall on same level due to ice and snow, initial encounter; E78.5 Hyperlipidemia, unspecified; I10 Essential (primary) hypertension; E66.9 Obesity, unspecified; Z79.01 Long term (current) use of anticoagulants; Z79.84 Long term (current) use of oral hypoglycemic drugs; Z79.899 Other long term (current) drug therapy; Z86.711 Personal history of pulmonary embolism; Z87.891 Personal history of nicotine dependence
CPT/HCPCS: 73130; 99283

== ENCOUNTER 2023-09-08 14:12 | Emergency (ER) | payer MEDICARE, SELFPAY ==
[2023-09-08 14:12] VITALS: BP 167/95; PULSE 80; RESP 14; TEMP 36.6; O2SAT 96; BMI 41.1
[2023-09-08 14:23] VITALS: BP 148/70; PULSE 87; RESP 18; O2SAT 99
[2023-09-08 15:00] LABS: Absolute Lymphocyte Count 1.18 X10^3/uL (0.83-4.51); Absolute Neutrophil Count 2.6 X10^3/uL (2.0-7.7); Basophil# 0.01 X10^3/uL; Basophil% 0.2 % (0-1); Eosinophil# 0.09 X10^3/uL; Eosinophils% 2.1 % (0-5); Hematocrit 46.5 % (40-54); Lymphocyte # 1.18 X10^3/ul (0.83-4.51); Lymphocyte % 27.3 % (19-41); Mean Corp Hgb Conc 34.4 g/dL (32-36); Mean Corpuscular Hgb 29.3 pg (27.0-32.0); Mean Corpuscular Volume 85.2 fL (80-94); Mean Platelet Vol. 9.2 fl (6.2-12.0); Monocyte# 0.48 X10^3/uL; Monocyte% 11.1 % (0-10); NRBC Flagged by Analyzer 0 % (0-5); Neutrophil # 2.55 X10^3/uL (2.7-7.7); Neutrophil % 59.1 % (47-70); Platelet Count 197 K/mm3 (150-450); RBC Distribution Width CV 13.2 % (11.6-14.6); RBC Distribution Width SD 40.5 fl (35.1-43.9); Red Blood Count 5.46 M/mm3 (4.6-6.2); White Blood Count 4.3 K/mm3 (4.4-11.0)
--- NOTE | 2023-09-08 15:02 | EX.ED.DYSGE1 ---
HPI History of Present Illness Chief Complaint: Hypertension Informant: patient Narrative Narrative: 53-year-old male presenting to the emergency room out of concerns for hypertension and hyperglycemia. Patient states that he was started on an unknown cholesterol medication recently. He states that his blood sugars have subsequently become around 120 sometimes 160. He notes his blood pressures have been slightly higher than normal. He revisited with his doctor who did not feel that it was related to the cholesterol medication. He tells me that he is recently been taking some [id number] medications for cold does not know what they are. He denies any other new medicines. States he has an upcoming appointment with psychiatry for the voices in my head that he has had for couple years. He is not currently under any psychiatric treatment. Patient denies any fevers. No changes in bowel or bladder function. He does endorse some generalized fatigue. No muscle aches. He notes a frontal headache that comes and goes and currently states that his eyes are numb. When asked to explain that further he states he cannot just feels that his eyes are. PFSH PFS Medical History Anxiety Depression Arthritis Former smoker Sleep apnea Diabetes Obesity hypoventilation syndrome GERD (gastroesophageal reflux disease) HLD (hyperlipidemia) HTN (hypertension) Morbid (severe) obesity due to excess calories Cellulitis Cellulitis of right leg Lymphedema CAP (community acquired pneumonia) Back pain HTN (hypertension) Right foot pain Foreign body in right foot Home Medications ?Medication ?Instructions ?Recorded ?Last Taken ?Type hydroxyzine HCl 25 mg tablet 25 mg PO QHS SLEEP 02/04/19 08/23/20 History omeprazole 20 mg capsule,delayed 20 mg PO BID GERD 02/04/19 08/24/20 History release sertraline 50 mg tablet 50 mg PO DAILY depression 02/04/19 08/24/20 History albuterol sulfate 90 mcg/actuation 1 - 2 puff inhalation Q4H PRN PRN 01/27/20 05/19/20 Rx aerosol inhaler Wheezing ##1 quetiapine 100 mg tablet 100 mg PO DAILY anxiety 04/07/20 08/24/20 History furosemide 40 mg tablet 40 mg PO DAILY #60 tabs 04/09/20 08/24/20 Rx amlodipine 5 mg tablet 5 mg PO DAILY bp 05/19/20 08/24/20 History lisinopril 40 mg tablet 40 mg PO DAILY bp 05/19/20 08/24/20 History metformin 500 mg tablet,extended 500 mg PO BIDCM dm 05/19/20 08/24/20 History release 24 hr valsartan 80 mg tablet 160 mg PO DAILY 08/24/20 08/24/20 History apixaban 5 mg tablet (Eliquis) 5 mg PO BID PE #74 tabs 08/25/20 Unknown Rx tramadol 50 mg tablet 50 mg PO Q6H PRN pain 3 days #10 06/17/21 Unknown Rx tabs ketoconazole 2 % shampoo 1 applic topical .COMPLEX 09/08/23 Unknown History meloxicam 15 mg tablet 15 mg PO DAILY 09/08/23 Unknown History metoprolol succinate 25 mg 25 mg PO DAILY 09/08/23 Unknown History tablet,extended release 24 hr pantoprazole 40 mg tablet,delayed 40 mg PO DAILY 09/08/23 Unknown History release rosuvastatin 10 mg tablet 10 mg PO QHS 09/08/23 Unknown History Allergy/AdvReac Type Severity Reaction Status Date / Time Sulfa (Sulfonamide Allergy Unknown Verified 09/08/23 14:13 Antibiotics) Family History Other No pertinent family history Surgical History History of tonsillectomy No pertinent past surgical history Social History Smoking Status: Former smoker ROS ROS ED Constitutional Constitutional ED: Reports fatigue and headache(s); Denies chills, fever(s) or weight loss Eyes Eyes: Denies change in vision or diplopia ENT ENT ED: Reports rhinorrhea; Denies ear pain or sore throat Cardiovascular Cardiovascular: Denies chest pain, orthopnea, palpitations or racing heartbeat Respiratory/Chest Respiratory/Chest: Reports cough; Denies dyspnea or orthopnea Gastrointestinal Gastrointestinal: Denies abdominal pain, diarrhea, nausea or vomiting Genitourinary Genitourinary ED: Denies dysuria, hematuria or urinary frequency Musculoskeletal Musculoskeletal: Denies arthralgias or myalgias Integumentary Denies abscess or rash Neurologic Neurologic: Reports headache(s); Denies weakness Psychiatric Psychiatric: Denies anxiety, depression, suicidal ideation or suicidal thoughts Endocrine Endocrinology: Denies polydipsia, polyphagia or polyuria Allergic/Immunologic Allergic/Immunologic ED: Denies mouth swelling, tongue swelling or urticaria EXAM Physical Exam Const Vital Signs: 09/08/23 14:12 09/08/23 14:20 09/08/23 14:23 Temperature 98 F Temperature Source Temporal Pulse Rate 80 87 Respiratory Rate 14 18 Respiratory Effort Normal Respiratory Pattern Normal Blood Pressure 167/95 H 148/70 H Blood Pressure Mean 119 96 Pulse Ox 96 99 Oxygen Delivery Method Room Air Room Air 09/08/23 16:12 09/08/23 17:00 Temperature 97.8 F Temperature Source Pulse Rate 77 82 Respiratory Rate 16 16 Respiratory Effort Respiratory Pattern Blood Pressure 118/72 134/84 H Blood Pressure Mean 87 100 Pulse Ox 99 99 Oxygen Delivery Method Positive well nourished, well developed and obese General Appearance ED: well developed Nutritional Appearance: obese HEENT Reports normocephalic, head/scalp atraumatic and moist mucous membranes Eyes PERRL and EOMs intact bilaterally Neck no lymphadenopathy, supple and no JVD Resp normal respiratory effort and clear to auscultation bilaterally Cardio regular rate, regular rhythm and no murmurs GI normal to inspection, nondistended, normoactive bowel sounds and non-tender Palpation: soft Back/Spine no CVA tenderness and normal ROM Extremity normal to inspection General Extremety ED: Negative for edema General Extremity: Negative for edema Neuro oriented x3 and CN's II-XII intact bilaterally Sensorium / Orientation: alert Motor Exam: strength 5/5 throughout Psych mental status grossly normal, cooperative and speech normal Appearance: grossly normal Attitude: calm Speech: normal speech Mood & Affect: Negative for depressed or tearful Thought Content: No suicidality, No homicidality and hallucination(s) Positive for auditory Skin no rashes or lesions noted and no wounds MDM MDM MDM Narrative Medical decision making narrative: Differential diagnosis includes liver or renal pathology hypothyroidism electrolyte dysfunction dehydration anemia UTI rhabdomyolysis. Basic blood work was obtained essentially negative. Blood sugar running 110. His blood pressure has been very stable here currently 134/84. Is difficult to fully assess him not knowing his medications. I have low suspicion that he is having an acute emergency related to his hypertension or [place]. Is very possible his hypertension could be having episodes of higher than normal readings because of what ever [id number] cold medicine is taken. I think the patient can be discharged home following up with primary care History & Record Review Discussion w/independent historian: Patient Lab Data Attestation: I reviewed the patient's lab results. Labs: Laboratory Results - last 24 hr 09/08/23 09/08/23 14:50 15:10 WBC 4.3 L RBC 5.46 Hgb 16.0 Hct 46.5 MCV 85.2 MCH 29.3 MCHC 34.4 RDW Std Deviation 40.5 RDW Coeff of Purvi 13.2 Plt Count 197 MPV 9.2 Immature Gran % (Auto) 0.200 Neut % (Auto) 59.1 Lymph % (Auto) 27.3 [place] % (Auto) 11.1 H Eos % (Auto) 2.1 Baso % (Auto) 0.2 Absolute Neuts (auto) 2.6 Absolute Lymphs (auto) 1.18 Nucleated RBC % 0 Sodium 139 Potassium 4.1 Chloride 109 H Carbon Dioxide 23.0 Anion Gap 7 BUN 22 H Creatinine 1.19 Estim Creat Clear Calc 94.33 Est GFR (MDRD) Af Amer 82 Est GFR (MDRD) Non-Af 68 BUN/Creatinine Ratio 18.5 Glucose 110 H Calcium 9.2 Total Bilirubin 0.60 Direct Bilirubin 0.20 AST 20 ALT 26 Alkaline Phosphatase 41 L Total Creatine Kinase 132 Total Protein 7.3 Albumin 4.0 Globulin 3.3 TSH 1.39 Urine Color Yellow Urine Clarity Clear Urine pH 6.0 Ur Specific [place] 1.010 Urine Protein Negative Urine Glucose (UA) Normal Urine Ketones Negative Urine Occult Blood 10 H Urine Nitrite Negative Urine Bilirubin Negative Urine Urobilinogen Normal Ur Leukocyte Esterase 25 H Urine RBC 0 SEEN Urine WBC 0 SEEN Ur Squamous Epith Cells 0 SEEN Urine Bacteria 0 SEEN Urine Mucus 0 SEEN Discharge Plan Triage Chief Complaint: Hypertension ED Provider: Shay Burgos Dx/Rx/DC Orders Clinical Impression: Diabetes mellitus type 2 in obese, HTN (hypertension), HLD (hyperlipidemia), Fatigue Instructions: Hypertension Dc Prescriptions: No Action omeprazole 20 MG capsule 20 mg PO BID hydroxyzine HCl 25 MG tablet 25 mg PO QHS sertraline 50 MG tablet 50 mg PO DAILY albuterol sulfate 1 INHALER inhaler 1 - 2 puff INHALATION Q4H PRN PRN (Reason: Wheezing) Qty: 1 0RF quetiapine 100 MG tablet 100 mg PO DAILY furosemide 40 MG tablet 40 mg PO DAILY Qty: 60 0RF Rx Instructions: You may also take an additional 40 mg dose in the afternoon if you have increased swelling or weight gain greater than5 pounds in 1 week. amlodipine 5 MG tablet 5 mg PO DAILY lisinopril 40 MG tablet 40 mg PO DAILY metformin 500 MG tablet extended release 24 hr 500 mg PO BIDCM valsartan 80 mg tablet 160 mg PO DAILY Patient Comments: TAKE 2 TABLETS BY MOUTH ONCE DAILY Eliquis 5 mg tablet 5 mg PO BID Qty: 74 0RF Rx Instructions: Administer initial starter eliquis pack w/ 10 mg (2 tablets) twice daily x 7 days then transition to 5 mg (1 tablet) twice daily thereafter. tramadol 50 mg tablet 50 mg PO Q6H PRN (Reason: pain) 3 Days Qty: 10 0RF ketoconazole 2 % shampoo 1 applic topical .COMPLEX Rx Instructions: 1 applic topically twice weekly; meloxicam 15 mg tablet 15 mg PO DAILY pantoprazole 40 mg tablet,delayed release (DR/EC) 40 mg PO DAILY Rx Instructions: take on an empty stomach 30 minutes before meals metoprolol succinate 25 mg tablet extended release 24 hr 25 mg PO DAILY rosuvastatin 10 mg tablet 10 mg PO QHS Primary Care Provider: Wm Rubi Referrals: Wm Rubi MD [Primary Care Provider] - [facility] appointment Print Language: Welsh Disposition Disposition: Home, Self Care Discharge Date/Time: 09/08/23 17:10
[2023-09-08 15:19] LABS: Bacteria 0 SEEN /hpf (None Seen); Mucous, Urine 0 SEEN /hpf (<or=2+); Red Blood Cells-Urine 0 SEEN /hpf (0-5); Squamous Epithelial Cells - UA 0 SEEN /hpf (0-5); White Blood Cells 0 SEEN /hpf (0-5)
[2023-09-08 15:21] LABS: Color, Urine Yellow (Yellow); Glucose, Dipstick Normal (Normal); Ketone-Dipstick Negative (Negative); Leukocyte Esterase-Dipstick 25 /ul (Negative); Nitrite-Dipstick Negative (Negative); Occult Blood-Urine 10 /ul (Negative); Protein-Dipstick Negative (Negative); Urine Bilirubin Dipstick Negative (Negative); Urine Clarity Clear (Clear); Urine Urobilinogen Normal (Normal)
[2023-09-08 15:35] LABS: AST(SGOT) 20 U/L (15-37); Alanine Aminotransfer ALT/SGPT 26 U/L (16-61); Alkaline Phosphatase 41 U/L (45-117); Anion Gap 7 (5-15); BUN 22 mg/dL (7-18); BUN/Creat Ratio 18.5 RATIO (10-20); CPK Total, Creatine Kinase 132 U/L (39-308); Calcium,Total 9.2 mg/dL (8.5-10.1); Chloride 109 mmol/L (98-107); Creatinine, Serum 1.19 mg/dL (0.70-1.30); EST Glomerular Filtration Rate 68 mL/min (>60); Est Glom Filt Rate - Afr Amer 82 mL/min (>60); Estimated Creatinine Clearance 94.33 ml/min; Globulin 3.3 g/dL (2.2-4.2); Glucose 110 mg/dL (74-106); Potassium 4.1 mmol/L (3.5-5.1); Protein, Total 7.3 g/dL (6.4-8.2); Sodium Level 139 mmol/L (136-145)
[2023-09-08 16:12] VITALS: BP 118/72; PULSE 77; RESP 16; O2SAT 99
[2023-09-08 16:20] LABS: Thyroid Stim Hormone (TSH) 1.39 uIU/mL (0.358-3.74)
[2023-09-08 17:00] VITALS: BP 134/84; PULSE 82; RESP 16; TEMP 36.6; O2SAT 99
== END 2023-09-08 17:10 | disposition home or self-care (01) ==
PROVIDERS: Emergency Provider Emergency Medicine; PCP Family Medicine; Visit Provider Emergency Medicine
DX: E11.9 Type 2 diabetes mellitus without complications (principal); E78.5 Hyperlipidemia, unspecified; I10 Essential (primary) hypertension; G47.30 Sleep apnea, unspecified; F41.9 Anxiety disorder, unspecified; F32.A Depression, unspecified; K21.9 Gastro-esophageal reflux disease without esophagitis; E66.9 Obesity, unspecified; R53.83 Other fatigue; Z79.51 Long term (current) use of inhaled steroids; Z79.899 Other long term (current) drug therapy; Z79.01 Long term (current) use of anticoagulants; Z79.84 Long term (current) use of oral hypoglycemic drugs; Z87.891 Personal history of nicotine dependence
CPT/HCPCS: 80048; 80076; 81001; 82550; 84443; 85025; 99283; A4216